=== PATIENT | male | born 1950 | race Caucasian/White ===

== ENCOUNTER → 2017-05-10 09:57 | Outpatient (CLI) | payer MEDICARE, SELFPAY ==
[2017-04-19 16:30] VITALS: BP 140/84; BMI 33.5
[2017-05-10 10:50] LABS: AST(SGOT) 17 U/L (15-37); Alanine Aminotransfer ALT/SGPT 29 U/L (16-61); Albumin, Serum 3.7 g/dL (3.2-5.0); Alkaline Phosphatase 82 U/L (45-117); Cholesterol 120 mg/dL (200); Globulin 3.5 g/dL (2.2-4.2); High Density Lipoprotein 44 mg/dL; Protein, Total 7.2 g/dL (6.4-8.2); Triglycerides 95 mg/dL; Very Low Density Lipoprotein 19 mg/dL (5-40)
== END ==
PROVIDERS: Visit Provider Internal Medicine Cardiovascular Disease
DX: E78.5 Hyperlipidemia, unspecified (principal); Z79.899 Other long term (current) drug therapy
CPT/HCPCS: 36415; 80061; 80076

== ENCOUNTER → 2017-06-10 11:46 | Outpatient (CLI) | payer MEDICARE, SELFPAY ==
[2017-06-10 13:08] LABS: PSA,Total- Diagnostic 7.74 ng/mL (0.0-4.0)
== END ==
PROVIDERS: Visit Provider Urology
DX: R97.20 Elevated prostate specific antigen [PSA] (principal)
CPT/HCPCS: 36415; 84153

== ENCOUNTER → 2017-09-09 17:45 | Outpatient (CLI) | payer MEDICARE, SELFPAY ==
--- NOTE | 2017-09-09 17:45 | DT_ITS ---
This patient was seen during an EMR downtime September 02, 2017 - September 09, 2017. This patient may have a combination of paper and electronic documentation or all paper documentation. All documentation is viewable within the e-chart portion of [facility] for each patient visit.
--- NOTE | 2017-09-09 17:47 | CT_ITS ---
STUDY: CT ABDOMEN AND PELVIS WITH CONTRAST REASON FOR EXAM: Male, 66 years old. Abdominal pain. RADIATION DOSAGE (If Supplied By Facility): CTDIvol = ( 18.20 ) mGy, DLP = ( 1172.72 ) mGycm TECHNIQUE: Transaxial images were obtained from the dome of the diaphragm to the symphysis pubis without oral contrast. 100 ml of Isovue 300 contrast was administered. Sagittal and coronal images were reconstructed. Individualized dose optimization techniques were used for this CT. COMPARISON: None. FINDINGS: The visualized lung bases are unremarkable. The visualized portions of the heart are within normal limits. There is decreased attenuation of the liver consistent with steatosis. Normal gallbladder and extrahepatic biliary system. Normal spleen. Normal pancreas. Normal bilateral adrenal glands. There are bilateral renal cysts present. Normal visualized stomach. Normal small intestine. There are scattered diverticula arising from the colon. The appendix is visualized and appears normal. Normal abdominal aorta. Normal inferior vena cava. Normal retroperitoneum. Normal urinary bladder. There is a umbilical hernia containing fat and a a small amount of fluid. There are diffuse degenerative changes of the visualized lumbar spine. CT/Abdomen/Pelvis WITH Contrast IMPRESSION: Umbilical hernia. Fatty infiltration of the liver. Bilateral renal cysts. Colonic diverticulosis. Electronically Signed: Clarisse De La Fuente MD at 20:50 EDT Tel , Service support ,
[2017-09-09 18:21] LABS: CREATININE FINGERSTICK 1.4 mg/dL (0.70-1.30)
== END ==
PROVIDERS: Visit Provider Surgery
DX: R10.9 Unspecified abdominal pain (principal)
CPT/HCPCS: 74177; Q9967

== ENCOUNTER 2017-11-18 14:30 | Outpatient (RCR) | payer MEDICARE, SELFPAY ==
--- NOTE | 2017-10-30 13:25 | HP.PTEVAL_ITS ---
Patient's Visit Information PIO HOANG is a 67 year old M referred to Physical Therapy by Judith Ruth D.C. with a diagnosis of R distal leg contusion/pain. Date of Evaluation: 10/15/17 Physical Therapist: Kvng Pereyra - Visit Plan Frequency: 1-2x /Week Duration: 4 Weeks Plan: Start with manual technqiues, anterior tib stretching, calf stretching, DN to ant. tib, G/S complex. - Subjective Subjective: Pt. is here today for his initial evaluation with diagnosis of R distal LE leg contusion/injury. Pt. reports ~6 years ago falling down a flight of steps jamming his heel on every step on the way down. Pt. attempted to self manage for ~1-2 years, but eventually went to see an orthopedic. Pt. was treated with stretching and strengthening, but did not have relief. He was then treated with lumbar spine injections, which also did not help. Pt. is hopeful now to trial manual PT and DN to reduce symptoms. Pt. reports having burning pain in upper 1/2 of tib/fib region. Pt. does have pain that moves around, but generally in that range. He has also been told that he needs to have bilateral TKA done due to mod/severe OA of bilateral knees. Pt. reports increased pain only during WBing positioing, no pain at rest. Pt. reports pain getting as severe as 10/10. He reports having typical pain aroung 5/10 on average. Pt. reports medication does not help. Pt. denies N/T in either LE. Pt. reports no weakness, no back pain and his leg does not give out on him. pt. is hopeful to reduce symptoms in order to get back to recreational activities and walking without limations. - Pain R proximal 1/3 of tib/fib Pain Intensity (Out of 10): 6 Pain Intensity Range: 3, 10 - Objective POSTURE: Pt. has increased genu varum in stance. Pt. has normal liliac crest heights, Pt. has increased external tibial rotation in stance. PALPATION: Pt. has tenderness along tibia, along anterior tibialis muscle belly and tendon, but also has pain just medially to tibia. NEUROLOGICAL: Intact throughout. No issues. ROM: Pt. has decreased knee ext RLE- 0-4-129deg. Pt. has normal hip ROM , tightness noted in calf and HS. MMT: PT. has 5/5 tesing throughout BLEs knees and ankles. GAIT: Pt. has antalgic pattern during R stance phase with lateral trunk lean. Pt. reprots increased pain during R stance phase. Pt. has increased genu varum with gait. No LOB noted. - Goals Goal 1:: Pt. to be I with HEP. Goal Time Frame: 4-6 Weeks Goal 2:: Pt. to ambulate with 0-2/10 pain in RLE for unlimited distances. Goal Time Frame: 4-6 Weeks Goal 3:: Pt. to have decreased pain with negotiation of steps allowing for increased tolerance with entering home. Goal Time Frame: 4-6 Weeks Goal 4:: Pt. to be educated in prophalxis techniques to keep symptoms reduced. Goal Time Frame: 4-6 Weeks - Rehabilitation Potential Physical Therapy Diagnosis: Pt. has signs and sympoms of left leg contusion. Pt. has no signs of fx, or weakness. Pt. is tender to touch throughout anterior tib and medial aspect of anterior calf. Pt. would benefit from manual techniques , stretching and DN to reduce symptoms. Rehabilitation Potential: Fair - Anticipated Interventions Patient/Client Instruction: Educate patient on: Condition, Plan of Care, Risk Factors, Benefits of Fitness Program For the Purpose of:: To foster healthy habits, To improve decision making, To facilitate caregiver knowledge, To improve self management, To prevent re-injury , To improve ability to perform tasks related to life management, To improve tolerance to ADL's Therapeutic Exercise to Include: Strength training, Power training, Postural training, Flexibilty training, Gait and locomotor training, Passive ROM, Active ROM For the Purpose of:: To decrease pain, To decrease swelling/inflammation, To increase ROM, To improve nutrient delivery to tissue, To increase oxygenation perfusion, To improve muscle performance and motor function, To improve gait and locomotor functions, To improve health of tissue, To decrease soft tissue restriction, To increase flexibility/ROM Manual Therapy Techniques to Include: Trigger point massage, Mobilization, Passive ROM, Functional dry needling, Soft tissue mobilization For the Purpose of:: To decrease pain, To decrease swelling/inflammation, To increase ROM, To improve nutrient delivery to tissue, To increase oxygenation perfusion, To improve muscle performance and motor function Thank you for the opportunity to evaluate your patient. For Medicare and Medicare HMO plans, please review the plan of care and approve it. It will need to be FAXED BACK to us at [phone] for Medicare purposes. Please let me know if there are questions or concerns regarding this plan of care. Physician Signature: Date:
--- NOTE | 2017-12-09 07:47 | HP.PTDCSUM ---
HP - PT D/C Summary It has been my pleasure to treat PIO HOANG under orders from Judith Ruth D.C., for the diagnosis of R distal leg contusion/pain for a total of 7 visit(s). Discharge Date: 11/18/17 Please see the following information for a summary of their discharge status. - Subjective Subjective: Pt. reports I feel like we have met our max. Pt. reports being 50% better overall. He is able play golf, but still gets a lot of pain with standing at times. - Pain R proximal 1/3 of tib/fib Pain Intensity (Out of 10): 3 - Overall Improvement % Improvement: 50 - Objective Objective/Function: Pt. tolerated all PT. Pt. has normal ROM of R knee, lacking slight knee ext. Pt. does have genu varus, excessive bilaterally. Pt. has had some progress with stretching and manual therapy. Pt. is to trial on own at this point in time. - Goals Goal 1:: Pt. to be I with HEP. Goal Progress: Goal Met Goal 2:: Pt. to ambulate with 0-2/10 pain in RLE for unlimited distances. Goal Progress: Progressing Goal 3:: Pt. to have decreased pain with negotiation of steps allowing for increased tolerance with entering home. Goal Progress: Goal Met Goal 4:: Pt. to be educated in prophalxis techniques to keep symptoms reduced. Goal Progress: Goal Met - Plan Plan: Pt. to be DC to HEP and follow up with ortho if needed, possible MRI to rule out other pathology. - D/C Information Discharge Comments: Pt. was treated with stretcing, eccentric strengthening, DN and manual techniques. Pt. reports ahving some relief becoming 50% better overall. He continues to have pain to touch, but not always consistent. He is independnet with his program is back to playing golf without much issues. He is to follow up with physician if symptoms worsen. If there are questions or concerns regarding this patient's physical therapy, please feel free to call me at [phone]. Thank you for the referral of this patient. Sincerely, Kvng Pereyra
== END 2017-11-18 19:00 | disposition home or self-care (01) ==
LOC: PT 14:30
PROVIDERS: Visit Provider Chiropractor
DX: M51.36 Other intervertebral disc degeneration, lumbar region (principal); S80.11XD Contusion of right lower leg, subsequent encounter; M17.0 Bilateral primary osteoarthritis of knee
CPT/HCPCS: 97110; 97140; 97162

== ENCOUNTER → 2017-12-23 10:24 | Outpatient (CLI) | payer MEDICARE, SELFPAY ==
[2017-12-23 12:01] LABS: AST(SGOT) 19 U/L (15-37); Alanine Aminotransfer ALT/SGPT 23 U/L (16-61); Albumin, Serum 3.8 g/dL (3.2-5.0); Alkaline Phosphatase 87 U/L (45-117); Bilirubin, Direct 0.18 mg/dL (0.00-0.30); Cholesterol 105 mg/dL (200); Globulin 3.6 g/dL (2.2-4.2); High Density Lipoprotein 43 mg/dL; Protein, Total 7.4 g/dL (6.4-8.2); Triglycerides 61 mg/dL; Very Low Density Lipoprotein 12 mg/dL (5-40)
[2017-12-24 11:01] LABS: PSA, Free 0.69 ng/mL; PSA, Free % 17.7 % (.); PSA, Total Ultrasensitive 3.9 ng/mL (0.0-4.0)
== END ==
PROVIDERS: Visit Provider Urology
DX: R97.20 Elevated prostate specific antigen [PSA] (principal); E78.00 Pure hypercholesterolemia, unspecified
CPT/HCPCS: 36415; 80061; 80076; 84153; 84154

== ENCOUNTER → 2018-02-17 14:10 | Outpatient (CLI) | payer MEDICARE, SELFPAY ==
--- NOTE | 2018-02-17 14:22 | CT_ITS ---
STUDY: CT ABDOMEN AND PELVIS WITH CONTRAST REASON FOR EXAM: Male, 67 years old. Bilateral groin pain and swelling with history of cardiac ablation RADIATION DOSAGE (If Supplied By Facility): CTDIvol = ( 22.72 ) mGy, DLP = ( 171.88 ) mGycm TECHNIQUE: Transaxial images were obtained from the dome of the diaphragm to the symphysis pubis with oral contrast. 100ml ml of Isovue 370 contrast was administered. Sagittal and coronal images were reconstructed. Individualized dose optimization techniques were used for this CT. COMPARISON: 09/09/2017 FINDINGS: The visualized lung bases are unremarkable. The visualized portions of the heart are within normal limits. There is decreased attenuation of the liver consistent with steatosis. Normal gallbladder and extrahepatic biliary system. Normal spleen. Fatty atrophy of the pancreatic tail. Normal bilateral adrenal glands. Multiple bilateral renal cysts, the largest measuring up to 3.5 cm on the right. Normal visualized stomach. Normal small intestine. There are multiple colonic diverticula consistent with diverticulosis. The appendix is visualized and appears normal. Normal abdominal aorta. Normal inferior vena cava. Normal retroperitoneum. Normal urinary bladder. Normal abdominal wall. There are diffuse degenerative changes of the visualized lumbar spine. CT/Abdomen/Pelvis WITH Contrast IMPRESSION: No focal lesions are identified in the inguinal/groin areas. No evidence of acute intestinal pathology or acute obstructive uropathy. Fatty liver and fatty atrophy of the pancreatic tail. Electronically Signed: Yousif Hurt MD at 10:59 EST Tel , Service support ,
[2018-02-17 14:36] LABS: CREATININE FINGERSTICK 0.8 mg/dL (0.70-1.30)
== END ==
PROVIDERS: Referring Provider Physician Assistant; Visit Provider Physician Assistant
DX: R10.32 Left lower quadrant pain (principal)
CPT/HCPCS: 74177; Q9967

== ENCOUNTER 2018-02-25 11:30 | Outpatient (RCR) | payer MEDICARE, SELFPAY ==
--- NOTE | 2018-02-11 08:09 | HP.PTEVAL ---
Patient's Visit Information PIO HOANG is a 67 year old M referred to Physical Therapy by Judith Ruth D.C. with a diagnosis of intervertebral disc pathology of lumbar region, thoracic region and cervic. Date of Evaluation: 01/27/18 Physical Therapist: Kvng Pereyra - Visit Plan Frequency: 1-2x /Week Duration: 4-6 Weeks Plan: Start with DN/manual technques to anterior RLE, add in graston, continue with core stability exercises and add in eccentric exercises of RLE. - Subjective Subjective: Pt. is here today for his initial evaluation with diagnosis of intervertebral disc pathology of lumbar region, thoracic region and cervical region. Pt. reports having R anterior calf pain. He has has these symptoms for a number of years after falling down his stairs. He did not sustain a leg fracture. His main complaint is of his R anterior leg. Pt. is known to this PT as he was seen previosuly for a similar issue. Pt. reprots having relief from PT previously, but did not fully abolish his symptoms. Pt. reports increased pain with walking, but most with statically standing. He denies N/T down his BLes. No changes in B/B. Pt. has decreased pain with sitting and unloaded positions. Pt. does have a history of low back pain, but reports his leg pain is unchanging with treatment of his back. Pt. is hopeful to reduce symptoms in order to get back to all recreational activities and walking without limitations. - Pain R LE Pain Intensity (Out of 10): 2 - Objective POSTURE: Pt. has normal posture in stance. Normal iliac crest heights, slight reduction in lumbar lordosis. Pt. has slight increase in DAWNA, R knee varus noted. PALPATION: Pt. reports minimal pain throughout lumbar spine. Pt. has increased tenderness along post tib muscle belly, along medial boarder of tibia, G/S complex and anterior tib of RLE. NEURO: all intact, normal DTR bilaterally. ROM: LUMBAR SPINE: flexion min loss NE, ext min loss NE, SB min loss NE, rotation min lss NE. No lumbar motions causes his R leg symptoms. Pt. has decreased R knee ROM 0-5-116deg. Normal ankle ROM, except tightness in calf. MMT: 5/5 throghout bilateral LEs. Core- fair-. GAIT: pt. ambulates without AD. He has increased R knee varus during loaded phases. STAIR: reciprocal pattern, mild increase in symptoms with descending. - Special Tests L/S Slump test left side: Negative L/S Slump test right side: Negative L/S Left Straight Leg Raise: Negative L/S Right Straight Leg Raise: Negative Lumbar Standing: Flexion - Mechanical Response: No effect Lumbar Standing: Flexion - Symptoms During Testing: No effect Lumbar Standing: Flexion - Symptoms After Testing: No effect Lumbar Standing: Extension - Mechanical Response: No effect Lumbar Standing: Extension - Symptoms During Testing: No effect Lumbar Standing: Extension - Symptoms After Testing: No effect Lumbar Standing: Right Side Glides - Mechanical Response: No effect Lumbar Standing: Right Side [place] - Symptoms During Testing: No effect Lumbar Standing: Right Side [place] - Symptoms After Testing: No effect Lumbar Standing: Left Side [place] - Mechanical Response: No effect Lumbar Standing: Left Side [place] - Symptoms During Testing: No effect Lumbar Standing: Left Side [place] - Symptoms After Testing: No effect Lumbar Lying: Flexion - Mechanical Response: No effect Lumbar Lying: Flexion - Symptoms During Testing: No effect Lumbar Lying: Flexion - Symptoms After Testing: No effect Lumbar Lying: Extension - Mechanical Response: No effect Lumbar Lying: Extension - Symptoms During Testing: No effect Lumbar Lying: Extension - Symptoms After Testing: No effect Lumbar Static: Slouched Sit - Mechanical Response: No effect Lumbar Static: Slouched Sit - Symptoms During Testing: No effect Lumbar Static: Slouched Sit - Symptoms After Testing: No effect Lumbar Static: Sitting Erect - Mechanical Response: No effect Lumbar Static: Sitting Erect - Symptoms During Testing: No effect Lumbar Static: Sitting Erect - Symptoms After Testing: No effect Lumbar Static:Lying Prone in Extension - Mechanical Response: No effect Lumbar Static: Lying Prone in Extension - Sx During Testing: No effect Lumbar Static: Lying Prone in Extension - Sx After Testing: No effect - Goals Goal 1:: Pt. to be I with HEP. Goal Time Frame: 4-6 Weeks Goal 2:: Pt. to ambulate unlimited distances with 0-2/10 pain in RLE. Goal Time Frame: 4-6 Weeks Goal 3:: Pt. to tolerated statically standing ie in grocery store, lines and in community without incerase in symptoms. Goal Time Frame: 4-6 Weeks Goal 4:: Pt. to complete all recreational activities without increase in symptoms. Goal Time Frame: 4-6 Weeks - Rehabilitation Potential Physical Therapy Diagnosis: Pt. has symptoms of intervertebral disc pathology of lumbar region, thoracic region and cervical region, but his pain complaint is of R anterior calf pain. I was unable to effect his leg pain with any testing of his lumbar spine. He is point tender to palpation of his anterior RLE, most notably at anterior and posterior tib. Pt. would benefit from PT with DN, manual techniques and eccentric loading of this tissue to assist with reducing restriction of tissue allowing for normal tolerance to all activities. Rehabilitation Potential: Good - Anticipated Interventions Patient/Client Instruction: Educate patient on: Condition, Plan of Care, Risk Factors, Benefits of Fitness Program For the Purpose of:: To foster healthy habits, To improve decision making, To facilitate caregiver knowledge, To improve self management, To prevent re-injury, To improve ability to perform tasks related to life management, To improve tolerance to ADL's Therapeutic Exercise to Include: Strength training, Power training, Endurance training, Body mechanics, Postural training, Flexibilty training, Passive ROM, Dynamic Lumbar Stabilization For the Purpose of:: To decrease pain, To decrease swelling/inflammation, To increase ROM, To improve nutrient delivery to tissue, To increase oxygenation perfusion, To improve muscle performance and motor function, To improve gait and locomotor functions, To improve health of tissue, To decrease soft tissue restriction, To increase flexibility/ROM Manual Therapy Techniques to Include: Mobilization, Functional dry needling, Soft tissue mobilization For the Purpose of:: To decrease pain, To decrease swelling/inflammation, To increase ROM, To improve nutrient delivery to tissue IF ES: Yes Cryotherapy (ice pack, ice massage): Yes Ultrasound (thermal/non thermal): Yes For the Purpose of:: To decrease pain, To decrease swelling/inflammation, To increase ROM, To improve nutrient delivery to tissue Thank you for the opportunity to evaluate your patient. For Medicare and Medicare HMO plans, please review the plan of care and approve it. It will need to be FAXED BACK to us at [phone] for Medicare purposes. Please let me know if there are questions or concerns regarding this plan of care. Physician Signature: Date:
--- NOTE | 2018-07-04 11:31 | HP.PTDCNRP_ITS ---
HP - Discharge Summary (1) - Patient Information PIO HOANG was seen in my office for initial evaluation on 01/27/18. The following Plan of Care was established for this patient: Initial Frequency: 1-2x /Week Initial Duration: 4-6 Weeks - Anticipated Interventions Patient/Client Instruction: Educate patient on: Condition, Plan of Care, Risk Factors, Benefits of Fitness Program For the Purpose of:: To foster healthy habits, To improve decision making, To facilitate caregiver knowledge, To improve self management, To prevent re- injury, To improve ability to perform tasks related to life management, To impr ove tolerance to ADL's Therapeutic Exercise to Include: Strength training, Power training, Endurance training, Body mechanics, Postural training, Flexibilty training, Passive ROM, Dynamic Lumbar Stabilization For the Purpose of:: To decrease pain, To decrease swelling/inflammation, To increase ROM, To improve nutrient delivery to tissue, To increase oxygenation perfusion, To improve muscle performance and motor function, To improve gait and locomotor functions, To improve health of tissue, To decrease soft tissue restriction, To increase flexibility/ROM Manual Therapy Techniques to Include: Mobilization, Functional dry needling, Soft tissue mobilization For the Purpose of:: To decrease pain, To decrease swelling/inflammation, To increase ROM, To improve nutrient delivery to tissue IF ES: Yes Cryotherapy (ice pack, ice massage): Yes Ultrasound (thermal/non thermal): Yes For the Purpose of:: To decrease pain, To decrease swelling/inflammation, To increase ROM, To improve nutrient delivery to tissue This patient was last seen in our office 04/27/17. Pertinent comments regarding their Physical therapy will appear below: Pt. was treated for his back and leg pain. Pt. was treated with manaul techniques, DN and stretching. Pt. made some gains, but was still having some symptoms. Pt. was to follow up with PT if needed, but has not been seen in several months and will be DC from PT at this point in time. At this point I will be discontinuing this patient from physical therapy. I would be happy to see this patient again in the future if found appropriate by the physician. Thank you! Kvng Pereyra, IRENET
== END 2018-02-25 19:00 | disposition home or self-care (01) ==
LOC: PT 11:30
PROVIDERS: Referring Provider Chiropractor; Visit Provider Chiropractor
DX: M51.36 Other intervertebral disc degeneration, lumbar region (principal); M99.03 Segmental and somatic dysfunction of lumbar region; M99.02 Segmental and somatic dysfunction of thoracic region; M99.01 Segmental and somatic dysfunction of cervical region
CPT/HCPCS: 97140; 97162

== ENCOUNTER 2018-04-16 09:02 | Day surgery (SDC) | payer MEDICARE, SELFPAY ==
[2018-03-20 10:29] VITALS: BMI 33.1
[2018-04-07 14:04] VITALS: BMI 33.1
--- NOTE | 2018-04-09 11:32 | EKG12_ITS ---
Test Reason : PRE-OP Blood Pressure : / mmHG Vent. Rate : 070 BPM Atrial Rate : 070 BPM P-R Int : 172 ms QRS Dur : 080 ms QT Int : 366 ms P-R-T Axes : 051 016 024 degrees QTc Int : 395 ms Sinus rhythm with marked sinus arrhythmia Otherwise normal ECG Confirmed by QUINTEN IWTT, ANTONIETA ([id number]), assignment desk editor GERMÁN ROBERTO ([id number]) on 04/14/2018 9:58:16 AM Referred By: Jhoan Hoover Confirmed By:ANTONIETA SHIPLEY MD
[2018-04-09 11:50] LABS: Hematocrit 42.8 % (40-54); Hemoglobin 14.3 g/dl (13.0-16.5); Mean Corp Hgb Conc 33.4 g/gl (32-36); Mean Corpuscular Volume 92.6 fL (80-94); Mean Platelet Vol. 10.3 fl (6.2-12.0); Platelet Count 136 K/mm3 (150-450); RBC Distribution Width CV 12.8 % (11.6-14.6); Red Blood Count 4.62 M/mm3 (4.6-6.2); White Blood Count 5.2 K/mm3 (4.4-11.0)
[2018-04-09 11:53] LABS: Scan Indicated on CBC? Y/N NO
[2018-04-09 12:30] LABS: Anion Gap 7 (5-15); BUN 24 mg/dL (7-18); BUN/Creat Ratio 19.2 RATIO (10-20); Calcium,Total 8.8 mg/dL (8.5-10.1); Chloride 110 mmol/L (98-107); Creatinine, Serum 1.25 mg/dL (0.70-1.30); EST Glomerular Filtration Rate 61 mL/min (>60); Est Glom Filt Rate - Afr Amer 74 mL/min (>60); Glucose 100 mg/dL (74-106); Potassium 4.4 mmol/L (3.5-5.1); Sodium Level 141 mmol/L (136-145)
[2018-04-16] VITALS (7 sets, daily range): BP systolic 120–148; BP diastolic 59–80; PULSE 53–59; RESP 12–18; TEMP 36.3–37.2; O2SAT 93–97; BMI 33.7
--- NOTE | 2018-04-16 | HERN_PTH ---
PATIENT: PIO HOANG [place] [facility] [place][id number] AGE/SX: 67/M ROOM: RE04/16/[address]: Dr. Jhoan Hoover MD : [id number] BED: DIS: 04/16/2018 SPEC #: [id number] RECD: 04/16/18 14:40 STATUS: RICKY REQ #: [id number] ARUNA: 04/16/18 00:[address]: Jhoan Hoover DEPT: SURGICAL PATHOLOGY RECD BY: Dontrell Wise ENTERED: 04/16/18 14:41 SP TYPE: Hernia OTHR DR: Steven Retana Tissues: HERNIA Procedures: Surgery Specimen Level II HEADER OPERATION: Umbilical hernia repair with mesh PRE-OP DIAGNOSIS: Umbilical hernia without obstruction and without gangrene TISSUE SUBMITTED: Hernia sac and contents MICROSCOPIC DIAGNOSIS Hernia sac and contents: Mesothelial lined fibroadipose and fibroconnective tissue consistent with hernia sac. SJ:arias 04/17/18 MICROSCOPIC DESCRIPTION Slides are reviewed. GROSS DESCRIPTION Received in fixative is one container labeled with the patient's name and designated hernia sac and contents. The specimen consists of a piece of yellow adipose tissue measuring 3.5 x 3 x 2 cm. Sections do not reveal any mass lesion. Garage Door Technician sections are submitted in one cassette. / MESHA:arias 04/16/18 TC:5 [facility]: [id number]
[2018-04-16] MEDS: Cefazolin 2 GM in 0.9% Normal Saline 100 ML IV (10:47)
[2018-04-16] MEDS: Bupivacaine Mpf 0.5% 30 ML VIAL (11:29)
--- NOTE | 2018-04-16 11:34 | DCINST_ITS ---
Discharge Diet: Light diet - advance as tolerated - if you have questions about your diet instructions, please talk to you doctor. Discharge Activity: May Not Drive - for 3-5 days or while taking narcotic pain medicine. May shower in (days): 1 Lifting Restrictions: 10 pounds Call your doctor if your incision/area has: Continuous Slow Oozing, Sudden Increased Bleeding, Increased Pain/ Swelling, Increased Redness, Foul Smelling Discharge Call your doctor if you observe: Fever of 101 or Higher Suture Line Care: Avoid Pulling/Pushing, Avoid Pinching/Bending Additional Dressing/Incision Instructions:: Change or remove dressing in 4 days. Leave steri-strips in place for 1 week. Allergies/Adverse Reactions: Allergies grass pollen Allergy (Verified 04/08/18 14:21) Unknown dabigatran etexilate [From Pradaxa] Adverse Reaction (Unknown, Verified 04/08/18 14:21) Unknown pet dander Allergy (Uncoded 04/08/18 14:21) Unknown Medications to take at Discharge Aspirin E.C. [Ecotrin] 81 mg PO DAILY@0800 05/18/13 Fluticasone 0.05% [Flonase Nasal [place]] 1 spray NASAL BID 05/18/13 Magnesium Oxide [Mag-Ox 400] 400 mg PO BID 05/18/13 Multivitamins,Therapeutic [Multivitamin] 1 tab PO DAILY 05/18/13 Ubidecarenone [Coq10] 100 mg PO DAILY 05/18/13 echinacea 400 mg capsule 400 mg PO DAILY 03/22/17 lactobacillus combination no.8 3 billion cell capsule 1 cap PO QDAY 03/22/17 loratadine 10 mg tablet 10 mg PO QDAY PRN 03/22/17 nitroglycerin 0.3 mg sublingual tablet 0.3 mg SUBLINGUAL Q5M PRN 04/19/17 alprazolam 0.5 mg tablet 0.25 mg PO BID tab 06/10/17 lansoprazole 30 mg capsule,delayed release 30 mg PO QDAY cap 06/10/17 alfuzosin ER 10 mg tablet,extended release 24 hr 10 mg PO QDAY 07/22/17 saw palmetto 500 mg capsule 500 mg PO QDAY cap 08/29/17 Metoprolol(XL)Succ [Toprol Xl (Beta Driss)] 25 mg PO BID 04/08/18 Simvastatin [Zocor] 40 mg PO QHS 04/08/18 Hydrocortisone/Aloe Vera [Cortizone-10 1% Creme] 56 gm TP DAILY 04/11/18 Ketoconazole [Nizoral] 1 applic TOPICAL DAILY 04/11/18 Primary Care Physician: Steven Retana [Primary Care Provider] - Test Results: Test results from this visit will be discussed in further detail at your follow- up appointment, if applicable. Please Follow Up With: Jhoan Hoover MD - [phone] When: Call to make an appointment to be seen in about 10 days.
--- NOTE | 2018-04-16 11:35 | PCM.OPRPT ---
Problem List (1) Umbilical hernia without obstruction and without gangrene Status: Acute Report of Operation Date of Procedure: 04/16/18 Pre-Operative Diagnosis: Umbilical hernia Post-Operative Diagnosis: Umbilical hernia without obstruction or gangrene Surgery/Procedure Performed:: Umbilical herniorrhaphy with 6.4 cm ventral Jose mesh. Reference #[id number]. Lot number [employer]RATOR [id number]. Expiry date 10/27/2019 Description of Surgical Findings:: Timeout and informed consent was obtained. 67-year-old gentleman was taken to the operating placement table underwent general anesthesia. Ancef 2 g given intravenous preoperatively. The abdomen was sterilely prepped and draped. A curvilinear incision was made in the inferior portion of the umbilicus. Sharp dissection carried down through the subtenons tissue. The hernia sac and contents were identified they were dissected free circumferentially and then excised using electrocautery. Small bowel was present beneath however I was able to identify the greater omentum and carefully lying in place at overlying the small bowel. I then placed a 6.4 cm diameter ventral X mesh. I secured the tails in place with interrupted 0 Nurolon. The fascia was then approximated midline with the same. A suture was used to secure the central portion of the mesh as well. Good approximation was achieved. The skin and subcutaneous tissues and fascia were anesthetized with 0.5% Marcaine. A total of 20 cc was used. Steri-Strips Telfa cottonball OpSite dressings applied. Sponge and instrument and needle count were reported the surgeon be correct. Blood loss was minimal. He tolerated the procedure well was taken to the recovery area in satisfactory condition without apparent complication. Specimens hernia sac and contents. Drains none. Blood loss minimal. Jhoan Hoover M.D., F.A.C.S. Type of Anesthesia:: General, Local Anesthesiologist: Mayur Frankel
--- NOTE | 2018-04-16 11:39 | OP.PCM_ITS ---
Problem List (1) Umbilical hernia without obstruction and without gangrene Status: Acute Report of Operation Date of Procedure: 04/16/18 Pre-Operative Diagnosis: Umbilical hernia Post-Operative Diagnosis: Umbilical hernia without obstruction or gangrene Surgery/Procedure Performed:: Umbilical herniorrhaphy with 6.4 cm ventral Jose mesh. Reference #[id number]. Lot number [employer] [id number]. Expiry date 10/27/2019 Description of Surgical Findings:: Timeout and informed consent was obtained. 67-year-old gentleman was taken to the operating placement table underwent general anesthesia. Ancef 2 g given intravenous preoperatively. The abdomen was sterilely prepped and draped. A curvilinear incision was made in the inferior portion of the umbilicus. Sharp dissection carried down through the subtenons tissue. The hernia sac and contents were identified they were dissected free circumferentially and then excised using electrocautery. Small bowel was present beneath however I was able to identify the greater omentum and carefully lying in place at overlying the small bowel. I then placed a 6.4 cm diameter ventral X mesh. I secured the tails in place with interrupted 0 Nurolon. The fascia was then approximated midline with the same. A suture was used to secure the central portion of the mesh as well. Good approximation was achieved. The skin and subcutaneous tissues and fascia were anesthetized with 0.5% Marcaine. A total of 20 cc was used. Steri-Strips Telfa cottonball OpSite dressings applied. Sponge and instrument and needle count were reported the surgeon be correct. Blood loss was minimal. He tolerated the procedure well was taken to the recovery area in satisfactory condition without apparent complication. Specimens hernia sac and contents. Drains none. Blood loss minimal. Jhoan Hoover M.D., F.A.C.S. Type of Anesthesia:: General, Local Anesthesiologist: Mayur Frankel
[2018-04-16] MEDS: HYDROcodone Bitartrate/Apap 5/325 Tablet PO (13:01)
--- OUTSIDE RECORDS SUMMARY | 2018-06-21 00:42 | XMS RPT_ITS ---
:1950 Author Organization OHIP Support Name Relationship Address Phone BARBARA VERA Unavailable . + [place] [address] R Unavailable Unavailable Unavailable ANETTE HOANGANNE Unavailable [address] + [place] [address] VERA JIMENEZ Unavailable Unavailable + [place] [address] R Unavailable Unavailable Unavailable ANETTE HOANGANNE Unavailable [address] + [place] [address] VERA JIMENEZ Unavailable . + [place] [address] R Unavailable Unavailable Unavailable ANETTE HOANGANNE Unavailable [address] + [place] [address] VERA JIMENEZ Unavailable . + [place] [address] R Unavailable Unavailable Unavailable ANETTE HOANGANNE Unavailable [address] + [place] [address] VERA JIMENEZ Unavailable Unavailable + [place] [address] R Unavailable Unavailable Unavailable ANETTE HOANGANNE Unavailable [address] + [place] [address] VERA JIMENEZ Unavailable Unavailable + [place] [address] R Unavailable Unavailable Unavailable ANETTE HOANGANNE Unavailable [address] + [place] [address] VERA JIMENEZ Unavailable . + [place] [address] R Unavailable Unavailable Unavailable ANETTE HAONGANNE Unavailable [address] + [place] [address] VERA JIMENEZ Unavailable . + [place] [address] R Unavailable Unavailable Unavailable SOUERS, ERNESTINA Unavailable [address] + [place] [address] BARBARAPIPPAVERA Unavailable . + [place] [address] R Unavailable Unavailable Unavailable SOUERS, ERNESTINA Unavailable [address] + [place] [address] BARBARAPIPPAVERA Unavailable . + [place] [address] R Unavailable Unavailable Unavailable SOUERS, ERNESTINA Unavailable [address] + [place] [address] BARBARAPIPPAVERA Unavailable Unavailable + [place] [address] R Unavailable Unavailable Unavailable SOUERS, ERNESTINA Unavailable [address] + [place] [address] BARBARAPIPPAVERA Unavailable . + [place] [address] R Unavailable Unavailable Unavailable SOUERS, ERNESTINA Unavailable [address] + [place] [address] BARBARAPIPPAVERA Unavailable . + [place] [address] R Unavailable Unavailable Unavailable SOUERS, ERNESTINA Unavailable [address] + [place] [address] R Unavailable Unavailable Unavailable SOUERS, ERNESTINA Unavailable [address] + [place] [address] SOUERS, VERA Unavailable . + [place] [address] R Unavailable Unavailable Unavailable SOUERS, ERNESTINA Unavailable [address] + [place] [address] SOUERS, VERA Unavailable Unavailable + [place] [address] R Unavailable Unavailable Unavailable SOUERS, ERNESTINA Unavailable [address] + [place] [address] SOUERS, VERA Unavailable . + [place] [address] R Unavailable Unavailable Unavailable SOUERS, ERNESTINA Unavailable [address] + [place] [address] SOUERS, VERA Unavailable . + [facility] [place] [place] [address] R Unavailable Unavailable Unavailable SOUERS, ERNESTINA Unavailable [address] + [place] [address] SOUERS, VERA Unavailable . + [facility] [place] [place] [address] R Unavailable Unavailable Unavailable SOUERS, ERNESTINA Unavailable [address] + [place] [address] SOUERS, VERA Unavailable . + [facility] [place] [address] R Unavailable Unavailable Unavailable SOUERS, ERNESTINA Unavailable [address] + [place] [address] SOUERS, VERA Unavailable . + [facility] [place] [place] [address] R Unavailable Unavailable Unavailable SOUERS, ERNESTINA Unavailable [address] + [place] [address] SOUERS, VERA Unavailable . + [facility] [place] [place] [address] R Unavailable Unavailable Unavailable SOUERS, ERNESTINA Unavailable [address] + [place] [address] SOUERS, VERA Unavailable . + [facility] [place] [address] Care Team Providers Name Role Phone NATALIIA BUTTS Referring Unavailable Moira Nguyen PA-C Attending Unavailable Mazin, Steven Referring Unavailable CebulJhoan Attending Unavailable CebuJhoan carney Referring Unavailable Mazin, Steven Primary Care Unavailable Judith Gonsalves D.C. Attending Unavailable Mazin, Steven Referring Unavailable Moira Nguyen PA-C Attending Unavailable Mazin, Steven Referring Unavailable Jamarcus Anderson Attending Unavailable Jamarcus Anderson Referring Unavailable Mazin, Steven Primary Care Unavailable Tom Hinds Attending Unavailable Mazin, Steven Referring Unavailable Mazin, Steven Primary Care Unavailable Han Urban Attending Unavailable Mazin, Steven Primary Care Unavailable Han Urban Referring Unavailable Raeann Bob Attending Unavailable Jamarcus Anderson Attending Unavailable Mazin, Steven Referring Unavailable Mazin, Steven Primary Care Unavailable Dossie, Judith Valenzuela Attending Unavailable Mazin, Steven Referring Unavailable Mazin, Steven Primary Care Unavailable Cebul, Jhoan Attending Unavailable Mazin, Steven Referring Unavailable Cebul, Jhoan Attending Unavailable Cebul, Jhoan Referring Unavailable Mazin, Steven Primary Care Unavailable Dossie, Judith Valenzuela Attending Unavailable Mazin, Steven Referring Unavailable Mazin, Steven Primary Care Unavailable Dossie, Judith Valenzuela Attending Unavailable Mazin, Steven Primary Care Unavailable Dossie, Judith Valenzuela Attending Unavailable Mazin, Steven Referring Unavailable Mazin, Steven Primary Care Unavailable MarkHan Attending Unavailable MarkHanAlec Referring Unavailable Mazin, Steven Primary Care Unavailable KinzaispaJamarcus melchor Consulting Unavailable Dossie, Judith Valenzuela Attending Unavailable Mazin, Steven Referring Unavailable Dossie, Judith Valenzuela Attending Unavailable Mazin, Steven Referring Unavailable Stephane Jane Attending Unavailable Mazin, Steven Referring Unavailable Dossie, Judith Valenzuela Attending Unavailable Dossie, Judith Valenzuela Referring Unavailable Mazin, Steven Primary Care Unavailable Nguyen PA-C, Moira Attending Unavailable Mazin, Steven Referring Unavailable Nguyen PA-C, Moira Attending Unavailable Nguyen PA-C, Moira Referring Unavailable Mazin, Steven Primary Care Unavailable PROBLEMS PROBLEMS DATE TYPE CONDITION / CODE ATTENDING STATUS SOURCE 04/16/2018 Unknown G89.18 - Other acute CebulJhoan Active [facility] postprocedural pain Community / G89.18(ICD-10) Hospital Repository 04/08/2018 Unknown 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 dysfunction of Hospital lumbar region / Repository M99.03(ICD-10) 04/08/2018 Unknown M99.02 - Segmental Dossie, Judith Active [facility] [facility] dysfunction of Hospital thoracic region / Repository M99.02(ICD-10) 04/08/2018 Unknown M99.01 - Segmental Dossie, Judith Active [facility] dysfunction of Hospital cervical region / Repository M99.01(ICD-10) 02/12/2018 Unknown R10.32 - Left lower Patrick ENCISO, Active [facility] quadrant pain / [facility] R10.32(ICD-10) Hospital Repository 12/23/2017 Unknown E78.00 - Pure MarkHan Active [place] hypercholesterolemia [facility] , unspecified / Hospital E78.00(ICD-10) Repository 12/23/2017 Unknown R97.20 - Elevated MarkHan Active [facility] prostate specific [facility] antigen [PSA] / Hospital R97.20(ICD-10) Repository 11/27/2017 Active Dorsalgia, NA Active [facility] unspecified / Clinic Other M54.9(ICD-10) [place] Repository 09/25/2017 Unknown R10.9 - Unspecified CebulJhoan Active [facility] abdominal pain / Community R10.9(ICD-10) Hospital Repository 05/10/2017 Unknown Z79.899 - Other long Jamarcus Anderson Active [facility] term (current) drug Community therapy / Hospital Z79.899(ICD-10) Repository 05/10/2017 Unknown E78.5 - Jamarcus Anderson Active [facility] Hyperlipidemia, Community unspecified / Hospital E78.5(ICD-10) Repository PROCEDURES PROCEDURES No Procedure Records FoundRESULTS RESULTS SURGERY VISIT REPORT Observed: 04/24/2018 Status: F Source: [place] 1:18 PM [facility] HOSPITAL REPOSITORY [facility] [address] [place] [address] [address] [place] [address] OFFICE VISIT Date of Service: 04/24/18 MR#: [id number] Acct: [id number] Name: PIO HOANG Rep #: [id number] : 1950 Provider: Moira Nguyen PA-C Age/Sex: 67/M Location: [facility] Status: Signed Intake Intake Visit Reasons: Umbilical Hernia Repair 04/16 Chief Complaint: post umbilical hernia Sand Cutter Required: No Is patient in pain?: No Allergies grass pollen Allergy (Verified 04/08/18 14:21) Unknown dabigatran etexilate [From Pradaxa] Adverse Reaction (Unknown, Verified 04/08/18 14:21) Unknown pet dander Allergy (Uncoded 04/08/18 14:21) Unknown Medications Aspirin E.C. [Ecotrin] 81 mg PO DAILY@0800 05/18/13 [History Confirmed 04/08/18] Fluticasone 0.05% [Flonase Nasal Jefferson] 1 spray NASAL BID 05/18/13 [History Confirmed 04/08/18] Magnesium Oxide [Mag-Ox 400] 400 mg PO BID 05/18/13 [History Confirmed 04/08/18] Multivitamins,Therapeutic [Multivitamin] 1 tab PO DAILY 05/18/13 [History Confirmed 04/08/18] Ubidecarenone [Coq10] 100 mg PO DAILY 05/18/13 [History Confirmed 04/08/18] echinacea 400 mg capsule 400 mg PO DAILY 03/22/17 [History Confirmed 04/08/18] lactobacillus combination no.8 3 billion cell capsule 1 cap PO QDAY 03/22/17 [History Confirmed 04/08/18] loratadine 10 mg tablet 10 mg PO QDAY PRN 03/22/17 [History Confirmed 04/08/18] nitroglycerin 0.3 mg sublingual tablet 0.3 mg SUBLINGUAL Q5M PRN 04/19/17 [History Confirmed 04/08/18] alprazolam 0.5 mg tablet 0.25 mg PO BID tab 06/10/17 [History Confirmed 04/16/18] lansoprazole 30 mg capsule,delayed release 30 mg PO QDAY cap 06/10/17 [History Confirmed 04/16/18] alfuzosin ER 10 mg tablet,extended release 24 hr 10 mg PO QDAY 07/22/17 [History Confirmed 04/08/18] saw palmetto 500 mg capsule 500 mg PO QDAY cap 08/29/17 [History Confirmed 04/08/18] Metoprolol(XL)Succ [Toprol Xl (Beta Driss)] 25 mg PO BID 04/08/18 [History Confirmed 04/16/18] Simvastatin [Zocor] 40 mg PO QHS 04/08/18 [History Confirmed 04/08/18] Hydrocortisone/Aloe Vera [Cortizone-10 1% Creme] 56 gm TP DAILY 04/11/18 [History Confirmed 04/11/18] Ketoconazole [Nizoral Cream] 1 applic TOPICAL DAILY 04/11/18 [History Confirmed 04/11/18] Subjective Details: Patient is a 67 y/o male I am following for umbilical hernia. Dr. Hoover performed an umbilical hernia repair with mesh on 04/16/2018. Patient tolerated the procedure well. Patient notes minimal amount of discomfort with movement. He denies nausea, vomiting. Objective Details: Abdomen- soft, obese, nontender. Incision c/d/i. No erythema or infection noted. Assessment AND Plan Problems 1. Umbilical hernia without obstruction and without gangrene K42.9 Plan - Recommend no lifting greater than 20 pounds for 7 weeks - Follow-up as needed Plan Detail Goals Decrease pain and spasm Barriers DDD Coding Level of Care Code Global Post Op Diagnoses Umbilical hernia without obstruction and without gangrene K42.9 04/24/18 1318 <Electronically signed by Moira Nguyen PA-C> Date Moira Nguyen PA-C Cosigner Signature: Date (if applicable) CC: Steven Lora DISCHARGE INSTRUCTION Observed: 04/17/2018 Status: F Source: [place] 6:05 AM [facility] REPOSITORY [facility] Medical Records Department [address] [place] [address] Instructions for Home/Discharge Instructions 04/16/18 1133 MR#: [id number] Acct: [id number] Name: PIO HOANG Dwayne Rep #: [id number] : 1950 67 From: Jhoan Hoover MD PCP: Steven Lora Status: DEP [facility] Discharge Diet: Light diet - advance as tolerated - if you have questions about your diet instructions, please talk to you doctor. Discharge Activity: May Not Drive - for 3-5 days or while taking narcotic pain medicine. May shower in (days): 1 Lifting Restrictions: 10 pounds Call your doctor if your incision/area has: Continuous Slow Oozing, Sudden Increased Bleeding, Increased Pain/ Swelling, Increased Redness, Foul Smelling Discharge Call your doctor if you observe: Fever of 101 or Higher Suture Line Care: Avoid Pulling/Pushing, Avoid Pinching/Bending Additional Dressing/Incision Instructions:: Change or remove dressing in 4 days. Leave steri-strips in place for 1 week. Allergies/Adverse Reactions: Allergies grass pollen Allergy (Verified 04/08/18 14:21) Unknown dabigatran etexilate [From Pradaxa] Adverse Reaction (Unknown, Verified 04/08/18 14:21) Unknown pet dander Allergy (Uncoded 04/08/18 14:21) Unknown Medications to take at Discharge Aspirin E.C. [Ecotrin] 81 mg PO DAILY@0800 05/18/13 Fluticasone 0.05% [Flonase Nasal Jefferson] 1 spray NASAL BID 05/18/13 Magnesium Oxide [Mag-Ox 400] 400 mg PO BID 05/18/13 Multivitamins,Therapeutic [Multivitamin] 1 tab PO DAILY 05/18/13 Ubidecarenone [Coq10] 100 mg PO DAILY 05/18/13 echinacea 400 mg capsule 400 mg PO DAILY 03/22/17 lactobacillus combination no.8 3 billion cell capsule 1 cap PO QDAY 03/22/17 loratadine 10 mg tablet 10 mg PO QDAY PRN 03/22/17 nitroglycerin 0.3 mg sublingual tablet 0.3 mg SUBLINGUAL Q5M PRN 04/19/17 alprazolam 0.5 mg tablet 0.25 mg PO BID tab 06/10/17 lansoprazole 30 mg capsule,delayed release 30 mg PO QDAY cap 06/10/17 alfuzosin ER 10 mg tablet,extended release 24 hr 10 mg PO QDAY 07/22/17 saw palmetto 500 mg capsule 500 mg PO QDAY cap 08/29/17 Metoprolol(XL)Succ [Toprol Xl (Beta Driss)] 25 mg PO BID 04/08/18 Simvastatin [Zocor] 40 mg PO QHS 04/08/18 Hydrocortisone/Aloe Vera [Cortizone-10 1% Creme] 56 gm TP DAILY 04/11/18 Ketoconazole [Nizoral] 1 applic TOPICAL DAILY 04/11/18 Primary Care Physician: Steven Lora [Primary Care Provider] - Test Results: Test results from this visit will be discussed in further detail at your follow-up appointment, if applicable. Please Follow Up With: Jhoan Hoover MD - [phone] When: Call to make an appointment to be seen in about 10 days. 04/17/18 0605 <Electronically signed by Jhoan Hoover MD> Date Jhoan Hoover MD CC: Steven Lora Signed OPERATIVE REPORT Observed: 04/17/2018 Status: F Source: [place] 6:05 AM [facility] REPOSITORY [facility] Medical Records Department [address] [place] [address] Operative Report 04/16/18 1135 MR#: [id number] Acct: [id number] Name: PIO HOANG Dwayne Rep #: [id number] : 1950 67 From: Jhoan Hoover MD PCP: Steven Lora Status: DEP [facility] Y Location: [facility] Problem List (1) Umbilical hernia without obstruction and without gangrene Status: Acute Report of Operation Date of Procedure: 04/16/18 Pre-Operative Diagnosis: Umbilical hernia Post-Operative Diagnosis: Umbilical hernia without obstruction or gangrene Surgery/Procedure Performed:: Umbilical herniorrhaphy with 6.4 cm ventral Jose mesh. Reference #[id number]. 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 Expiry date 10/27/2019 Description of Surgical Findings:: Timeout and informed consent was obtained. 67-year-old gentleman was taken to the operating placement table underwent general anesthesia. Ancef 2 g given intravenous preoperatively. The abdomen was sterilely prepped and draped. A curvilinear incision was made in the inferior portion of the umbilicus. Sharp dissection carried down through the subtenons tissue. The hernia sac and contents were identified they were dissected free circumferentially and then excised using electrocautery. Small bowel was present beneath however I was able to identify the greater omentum and carefully lying in place at overlying the small bowel. I then placed a 6.4 cm diameter ventral X mesh. I secured the tails in place with interrupted 0 Nurolon. The fascia was then approximated midline with the same. A suture was used to secure the central portion of the mesh as well. Good approximation was achieved. The skin and subcutaneous tissues and fascia were anesthetized with 0.5% Marcaine. A total of 20 cc was used. Steri-Strips Telfa cottonball OpSite dressings applied. Sponge and instrument and needle count were reported the surgeon be correct. Blood loss was minimal. He tolerated the procedure well was taken to the recovery area in satisfactory condition without apparent complication. Specimens hernia sac and contents. Drains none. Blood loss minimal. Jhoan Hoover M.D., F.A.C.S. Type of Anesthesia:: General, Local Anesthesiologist: Mayur Frankel 04/17/18 0605 <Electronically signed by Jhoan Hoover MD> Date Jhoan Hoover MD CC: Steven Lora; Jhoan Hoover MD Signed HERNIA Observed: 04/16/2018 Status: F Source: [place] 12:00 AM [facility] REPOSITORY Patient: PIO HOANG : 1950 (67/M) Acct Num: [id number] Phys: Sneha WITT,Jhoan Unit Num: [id number] Loc: [facility] Specimen: [id number] Received: 04/16/180 Spec Type: Hernia TISSUES 1 TISSUES: HERNIA GROSS DESCRIPTION Received in fixative is one container labeled with the patient's name and designated hernia sac and contents. The specimen consists of a piece of yellow adipose tissue measuring 3.5 x 3 x 2 cm. Sections do not reveal any mass lesion. Production Support Specialist sections are submitted in one cassette. / Hussein TC:5 CPT: 54313 HEADER OPERATION: Umbilical hernia repair with mesh PRE-OP DIAGNOSIS: Umbilical hernia without obstruction and without gangrene TISSUE SUBMITTED: Hernia sac and contents MICROSCOPIC DESCRIPTION Slides are reviewed. MICROSCOPIC DIAGNOSIS Hernia sac and contents: Mesothelial lined fibroadipose and fibroconnective tissue consistent with hernia sac. Hussein 04/17/18 Signed Charly Craven MD 04/17/18 <signature on file> Performed By: #### PHERN #### [facility] [address] [place], [address] 12 LEAD ELECTROCARDIOGRAM Observed: 04/14/2018 Status: F Source: [place] 9:59 AM [facility] HOSPITAL REPOSITORY [facility] Cardiovascular Services [address] [place] [address] 12 Lead EKG 04/09/18 1143 MR#: [id number] Acct: [id number] Name: PIO HOANG Rep #: [id number] : 1950 67 From: Jesus Manuel Stubbs MD Attending Dr: Jhoan Hoover MD Status: PRE SDC Ordering Dr: Jhoan Hoover MD Date: 04/09/18 Location: [facility] Sex: M C Admitted: Test Reason : PRE-OP Blood Pressure : / mmHG Vent. Rate : 070 BPM Atrial Rate : 070 BPM P-R Int : 172 ms QRS Dur : 080 ms QT Int : 366 ms P-R-T Axes : 051 016 024 degrees QTc Int : 395 ms Sinus rhythm with marked sinus arrhythmia Otherwise normal ECG Confirmed by JESUS MANUEL STUBBS MD ([id number]), acquisitions editor GERMÁN ROBERTO ([id number]) on 04/14/2018 9:58:16 AM Referred By: Jhoan Hoover Confirmed By:JESUS MANUEL STUBBS MD 04/14/18 0958 Date Jesus Manuel Stubbs MD CC: Steven Lora; Jhoan Hoover MD Signed CBC-COMPLETE BLOOD CNT Collected: 04/09/2018 Status: F Source: [place] NO DIFF 11:16 AM [facility] REPOSITORY TYPE CODE TESTS RESULT OUT OF RANGE REFERENCE UNITS LAB L100.1000 4.4-11.0 K/mm3 Normal WBC 5.2 LAB L100.1200 4.6-6.2 M/mm3 Normal RBC 4.62 LAB L100.1300 13.0-16.5 g/dl Normal HGB 14.3 LAB L100.1400 40-54 % Normal HCT 42.8 LAB L100.1500 80-94 fL Normal MCV 92.6 LAB L100.1600 27.0-32.0 pg Normal MCH 31.0 LAB L100.1700 32-36 g/gl Normal MCHC 33.4 LAB L100.1810 11.6-14.6 % Normal RDW CV 12.8 LAB L100.1820 35.1-43.9 fl Normal RDW SD 43.0 LAB L100.1900 150-450 K/mm3 Low PLT 136 LAB L100.2000 6.2-12.0 fl Normal MPV 10.3 Performed By: #### L100.0500 #### [facility] [address] [place], [address] BASIC METABOLIC Collected: 04/09/2018 Status: F Source: [place] PROFILE (BMP) 11:16 AM [facility] REPOSITORY TYPE CODE TESTS RESULT OUT OF RANGE REFERENCE UNITS LAB L501.0100 74-106 mg/dL Normal GLU 100 Result Comment: Fasting Glucose result from 100 to 125 mg/dL suggests IMPAIRED HOMEOSTASIS per A.D.A. criteria. Please note revised GLUCOSE reference range effective 2017. LAB L501.1000 7-18 mg/dL High BUN 24 LAB L501.1100 0.70-1.30 mg/dL Normal CREAT,SERUM 1.25 Result Comment: The validity of the calculated GFR AND GFRAA in patients over 70 years has not been determined. Clinical correlation is essential. LAB L501.1110 >60 mL/min Normal EST GFR 61 Result Comment: Non- GFR Calc LAB L501.1115 >60 mL/min Normal EST GFR - AA 74 Result Comment: GFR Calc LAB L501.1300 10-20 RATIO Normal BUN/CRE 19.2 LAB L501.2200 8.5-10.1 mg/dL CA Normal 8.8 LAB L501.5300 136-145 mmol/L NA Normal 141 LAB L501.5600 3.5-5.1 mmol/L K Normal 4.4 LAB L501.5900 98-107 mmol/L High CL 110 LAB L501.6100 21.0-32.0 mmol/L Normal CO2 24.0 LAB L501.6200 5-15 Normal GAP 7 Performed By: #### L500.2500 #### [facility] [address] [place], [address] SURGERY VISIT REPORT Observed: 04/08/2018 Status: F Source: [place] 3:21 PM [facility] REPOSITORY [facility] [address] [place] [address] OFFICE VISIT Date of Service: 03/20/18 MR#: [id number] Acct: [id number] Name: PIO HOANG Rep #: [id number] : 1950 Provider: Moira Nguyen PA-C Age/Sex: 67/M Location: [facility] Status: Signed with Addenda ADDENDUM by Moira Nguyen PA-C on 04/08/18 at 1521 Addendum entered and electronically signed by Moira Nguyen PA-C 04/08/18 15:21: Correction to plan below. Dr. Hoover will plan to perform an umbilical hernia repair with mesh. Dr. Sorensen will not be doing this procedure. Patient may continue his aspirin. Intake Allergies grass pollen Allergy (Verified 04/08/18 14:21) Unknown dabigatran etexilate [From Pradaxa] Adverse Reaction (Unknown, Verified 04/08/18 14:21) Unknown pet dander Allergy (Uncoded 04/08/18 14:21) Unknown Medications Aspirin E.C. [Ecotrin] 81 mg PO DAILY@0800 05/18/13 [History Confirmed 04/08/18] Fluticasone 0.05% [Flonase Nasal Jefferson] 1 spray NASAL BID 05/18/13 [History Confirmed 04/08/18] Magnesium Oxide [Mag-Ox 400] 400 mg PO BID 05/18/13 [History Confirmed 04/08/18] Multivitamins,Therapeutic [Multivitamin] 1 tab PO DAILY 05/18/13 [History Confirmed 04/08/18] Ubidecarenone [Coq10] 100 mg PO DAILY 05/18/13 [History Confirmed 04/08/18] echinacea 400 mg capsule 400 mg PO DAILY 03/22/17 [History Confirmed 04/08/18] lactobacillus combination no.8 3 billion cell capsule 1 cap PO QDAY 03/22/17 [History Confirmed 04/08/18] loratadine 10 mg tablet 10 mg PO QDAY PRN 03/22/17 [History Confirmed 04/08/18] nitroglycerin 0.3 mg sublingual tablet 0.3 mg SUBLINGUAL Q5M PRN 04/19/17 [History Confirmed 04/08/18] alprazolam 0.5 mg tablet 0.25 mg PO BID tab 06/10/17 [History Confirmed 04/08/18] lansoprazole 30 mg capsule,delayed release 30 mg PO QDAY cap 06/10/17 [History Confirmed 04/08/18] alfuzosin ER 10 mg tablet,extended release 24 hr 10 mg PO QDAY 07/22/17 [History Confirmed 04/08/18] saw palmetto 500 mg capsule 500 mg PO QDAY cap 08/29/17 [History Confirmed 04/08/18] Metoprolol(XL)Succ [Toprol Xl (Beta Driss)] 25 mg PO BID 04/08/18 [History Confirmed 04/08/18] Simvastatin [Zocor] 40 mg PO QHS 04/08/18 [History Confirmed 04/08/18] Assessment AND Plan Problems 1. Umbilical hernia without obstruction and without gangrene K42.9 Plan - ZARIA Chaidez Dr. will plan to perform an umbilical hernia repair with mesh. procedure details, risks and benefits have been explained. Patient has had the opportunity to ask and have questions answered. Patient verbally understands and agrees with the plan. Medications Discontinued: metoprolol succinate ER Discontinued Reason: Order edited -25 mg PO BID 180 tabs 4RF Discontinuing original order Plan Detail Goals Decrease pain and spasm Barriers DDD 04/08/18 1521 <Electronically signed by Moira Nguyen PA-C> Date Moira Nguyen PA-C cc: Steven Lora * Signed Intake Vital Signs03/20/18 Height 5 ft 10 in 03/20/18 Weight: 231 lb Intake Visit Reasons: Update H AND P - Umbilical Hernia RC Chief Complaint: FACIAL PAIN Sand Cutter Required: No Is patient in pain?: No Allergies grass pollen Allergy (Verified 03/20/18 10:12) Unknown dabigatran etexilate [From Pradaxa] Adverse Reaction (Unknown, Verified 03/20/18 10:12) Unknown pet dander Allergy (Uncoded 01/02/18 12:19) Unknown Medications Aspirin E.C. [Ecotrin] 81 mg PO DAILY@0800 05/18/13 [History Confirmed 03/20/18] Fluticasone 0.05% [Flonase Nasal [place]] 1 spray NASAL BID 05/18/13 [History Confirmed 03/20/18] Magnesium Oxide [Mag-Ox 400] 400 mg PO BID 05/18/13 [History Confirmed 03/20/18] Multivitamins,Therapeutic [Multivitamin] 1 tab PO DAILY 05/18/13 [History Confirmed 03/20/18] Ubidecarenone [Coq10] 200 mg PO DAILY 05/18/13 [History Confirmed 03/20/18] echinacea 400 mg capsule 400 mg PO TID 03/22/17 [History Confirmed 03/20/18] lactobacillus combination no.8 3 billion cell capsule 3,000 mmu cells PO QDAY 03/22/17 [History Confirmed 03/20/18] loratadine 10 mg tablet 10 mg PO QDAY 03/22/17 [History Confirmed 03/20/18] omega-3 fatty acids 1,000 mg capsule 1,000 mg PO QDAY 03/22/17 [History Confirmed 03/20/18] cholecalciferol (vitamin D3) 1,000 unit capsule 1,000 unit PO ONCE 04/19/17 [History Confirmed 03/20/18] nitroglycerin 0.3 mg sublingual tablet 0.3 mg SUBLINGUAL Q5M PRN 04/19/17 [History Confirmed 03/20/18] alprazolam 0.5 mg tablet 0.25 mg PO BID tab 06/10/17 [History Confirmed 03/20/18] lansoprazole 30 mg capsule,delayed release 30 mg PO QDAY cap 06/10/17 [History Confirmed 03/20/18] metoprolol succinate ER 25 mg tablet,extended release 24 hr 25 mg PO BID #180 tab 06/17/17 [Rx Confirmed 03/20/18] alfuzosin ER 10 mg tablet,extended release 24 hr 10 mg PO QDAY 07/22/17 [History Confirmed 03/20/18] saw palmetto 500 mg capsule 500 mg PO QDAY cap 08/29/17 [History Confirmed 03/20/18] simvastatin 40 mg tablet 40 mg PO QHS #90 tab 11/08/17 [Rx Confirmed 03/20/18] [facility] Medical History Abdominal pain (Acute) Premature ventricular contraction (Acute) Premature atrial contractions (Acute) Atherosclerotic heart disease of [place] coronary artery without angina pectoris (Chronic) Long-term use of high-risk medication (Acute) Hyperlipidemia (Chronic) Hypertension (Chronic) Paroxysmal atrial fibrillation (Chronic) Costochondritis (Acute) Degenerative disc disease, lumbar (Acute) Family history of hypertension (Acute) Lumbar radiculopathy, right (Acute) Segmental and somatic dysfunction of cervical region (Acute) Segmental and somatic dysfunction of lumbar region (Acute) Segmental and somatic dysfunction of thoracic region (Acute) Arthritis (Chronic) GERD (gastroesophageal reflux disease) (Chronic) YENNI (obstructive sleep apnea) (Chronic) Osteoarthritis of left knee (Chronic) Surgical History H/O shoulder surgery (Resolved) H/O sinus surgery (Resolved) History of arthroscopy of knee (Resolved) History of cardiac radiofrequency ablation (RFA) (Resolved) History of cataract surgery (Resolved) History of detached retina repair (Resolved) History of hemorrhoidectomy (Resolved) Status post laser ablation of incompetent vein (Resolved) Bilateral knee pain (Inactive) H/O cardiac radiofrequency ablation (Inactive) H/O detached retina repair (Inactive) H/O hemorrhoidectomy (Inactive) H/O sinus surgery (Inactive) right shoulder (Inactive) vein (Inactive) Family History Mother Hypertension CAD (coronary artery disease) Father Hypertension Atrial fibrillation Presence of permanent cardiac pacemaker CVA (cerebral vascular accident) Social History Smoking Status: Former smoker alcohol intake: current alcohol intake frequency: a few times a week Alcohol type: beer substance use type: does not use HPI HPI HPI: PIO HOANG, is a 67 M who presents to the office for an update history and physical. Patient denies recent hospitalizations or illnesses. Patient denies progressing symptoms from his hernia. Patient was last evaluated by me in the office for possible left inguinal hernia. CT scan was obtained and did not demonstrate a left inguinal hernia. He notes since that time the pain has completely resolved. Patient denies previous myocardial infarction, stroke or blood clots. He denies previous complications with anesthesia. Patient's previous history: Patient is a 67 y/o male I am following for umbilical hernia. Patient called into our office noting left groin discomfort with associated swelling. He notes some fullness in the pubic region on Saturday evening, which moved to the left groin region by Saturday. Patient notes he works out M, W, and F. He denies doing a new exercise or moving away from his normal routine. He notes stretching prior to any exercises. He denies bowel changes. He also notes trimming his pubic area occasionally which he did on Saturday. He denies fever. He denies seeing a pimple like structure in the pubic region. He denies nausea, vomiting. He is concerned to fly on a plane to [place] tomorrow to seeing an Aunt who may be in her last stages of life. ROS General General: No weight change, appetite, fatigue, colon cancer, breast cancer or weakness HEENT HEENT: Yes eye surgery; no difficulty swallowing, eye injury, swollen glands or hoarseness Endo Endocrine: No thyroid disease, diabetes mellitus, thyroid cancer, Hair loss, heat intolerance or cold intolerance Skin Skin: No rash or changing moles Breast Breast: No left breast lump, right breast lump, nipple discharge, breast pain, abnormal mammogram, abnormal US or breast enlargement Musc Musculoskeletal: Yes back problems and arthritis; no rheumatoid arthritis, gout or joint pain Cardio Cardiovascular: Yes atrial fibrillation; no murmur, pacemaker, heart disease, high blood pressure, heart attack, heart stent, palpitations, shortness of breat with exertion or chest pain Psych Psychiatric: Yes anxiety; no depression or hearing voices Resp Respiratory: No shortness of breath, Yes sleep apnea, No cough, No COPD, No asthma, No emphysema, No wheezing Gastro Gastrointestinal: No abdominal pain, No nausea or vomiting, No diarrhea, No constipation, No blood in stool, Yes acid reflux, Yes hemorrhoids, No ulcers, No gallbladder problem, No black,tarry stools Hans Hematologic: No blood thinners, No blood disorders, No bleeding, No anemia, No blood clots Neuro Neurologic: No weakness Exam Const General: cooperative, healthy appearing, comfortable, no acute distress [facility] Head: normal to inspection Eyes General: appearance normal, both eyes and all related structures Neck Neck: normal visual inspection Neck mass: No Chest Breast Palpation: No nipple discharge Resp Effort AND Inspection: normal respiratory effort Auscultation: clear to auscultation bilaterally Cardio Rate: regular rate Rhythm: regular rhythm Heart Sounds: no murmurs GI Inspection: normal to inspection Palpation: soft, hernia (moderate sized umbilical hernia) Auscultation: normal bowel sounds Skin General: no rashes or lesions noted Neuro General: no focal motor deficits, CN's II-XI intact bilaterally Extrem General: normal to inspection Psych Appearance: grossly normal Affect: normal affect Assessment AND Plan Problems 1. Umbilical hernia without obstruction and without gangrene K42.[address] Sorensen will plan to perform an umbilical hernia repair with mesh. procedure details, risks and benefits have been explained. Patient has had the opportunity to ask and have questions answered. Patient verbally understands and agrees with the plan. Plan Detail Goals Decrease pain and spasm Barriers DDD Coding Level of Care Code No Charge Diagnoses Umbilical hernia without obstruction and without gangrene K42.9 Obstruction and gangrene presence: without obstruction or gangrene Comment Update H AND P 03/24/18 0956 <Electronically signed by Moira Nguyen PA-C> Date Moira Nguyen PA-C Cosigner Signature: Date (if applicable) CC: Steven Lora CHIROPRACTIC REPORT Observed: 04/08/2018 Status: F Source: [place] 8:29 AM [facility] REPOSITORY [facility] [address] [place], [place] [id number] OFFICE VISIT Date of Service: 04/07/18 MR#: [id number] Acct: [id number] Name: PIO HOANG Rep #: [id number] : 1950 Provider: Judith Ruth D.C. Age/Sex: 67/M [place] [facility] Status: Signed Intake Vital Signs04/07/18 Body Mass Index (BMI) 33.1 04/07/18 Height 5 ft 10 in 04/07/18 Weight: 231 lb 04/07/18 Body Mass Index (BMI) 33.1 Intake Visit Reasons: NECK PAIN Chief Complaint: L sided neck pain Is patient in pain?: Yes Allergies grass pollen Allergy (Verified 03/20/18 10:12) Unknown dabigatran etexilate [From Pradaxa] Adverse Reaction (Unknown, Verified 03/20/18 10:12) Unknown pet dander Allergy (Uncoded 01/02/18 12:19) Unknown Medications Aspirin E.C. [Ecotrin] 81 mg PO DAILY@0800 05/18/13 [History Confirmed 03/20/18] Fluticasone 0.05% [Flonase Nasal [place]] 1 spray NASAL BID 05/18/13 [History Confirmed 03/20/18] Magnesium Oxide [Mag-Ox 400] 400 mg PO BID 05/18/13 [History Confirmed 03/20/18] Multivitamins,Therapeutic [Multivitamin] 1 tab PO DAILY 05/18/13 [History Confirmed 03/20/18] Ubidecarenone [Coq10] 200 mg PO DAILY 05/18/13 [History Confirmed 03/20/18] echinacea 400 mg capsule 400 mg PO TID 03/22/17 [History Confirmed 03/20/18] lactobacillus combination no.8 3 billion cell capsule 3,000 mmu cells PO QDAY 03/22/17 [History Confirmed 03/20/18] loratadine 10 mg tablet 10 mg PO QDAY 03/22/17 [History Confirmed 03/20/18] omega-3 fatty acids 1,000 mg capsule 1,000 mg PO QDAY 03/22/17 [History Confirmed 03/20/18] cholecalciferol (vitamin D3) 1,000 unit capsule 1,000 unit PO ONCE 04/19/17 [History Confirmed 03/20/18] nitroglycerin 0.3 mg sublingual tablet 0.3 mg SUBLINGUAL Q5M PRN 04/19/17 [History Confirmed 03/20/18] alprazolam 0.5 mg tablet 0.25 mg PO BID tab 06/10/17 [History Confirmed 03/20/18] lansoprazole 30 mg capsule,delayed release 30 mg PO QDAY cap 06/10/17 [History Confirmed 03/20/18] metoprolol succinate ER 25 mg tablet,extended release 24 hr 25 mg PO BID #180 tab 06/17/17 [Rx Confirmed 03/20/18] alfuzosin ER 10 mg tablet,extended release 24 hr 10 mg PO QDAY 07/22/17 [History Confirmed 03/20/18] saw palmetto 500 mg capsule 500 mg PO QDAY cap 08/29/17 [History Confirmed 03/20/18] simvastatin 40 mg tablet 40 mg PO QHS #90 tab 11/08/17 [Rx Confirmed 03/20/18] [facility] Medical History Abdominal pain (Acute) Premature ventricular contraction (Acute) Premature atrial contractions (Acute) Atherosclerotic heart disease of [place] coronary artery without angina pectoris (Chronic) Long-term use of high-risk medication (Acute) Hyperlipidemia (Chronic) Hypertension (Chronic) Paroxysmal atrial fibrillation (Chronic) Costochondritis (Acute) Degenerative disc disease, lumbar (Acute) Family history of hypertension (Acute) Lumbar radiculopathy, right (Acute) Segmental and somatic dysfunction of cervical region (Acute) Segmental and somatic dysfunction of lumbar region (Acute) Segmental and somatic dysfunction of thoracic region (Acute) Arthritis (Chronic) GERD (gastroesophageal reflux disease) (Chronic) YENNI (obstructive sleep apnea) (Chronic) Osteoarthritis of left knee (Chronic) Surgical History H/O shoulder surgery (Resolved) H/O sinus surgery (Resolved) History of arthroscopy of knee (Resolved) History of cardiac radiofrequency ablation (RFA) (Resolved) History of cataract surgery (Resolved) History of detached retina repair (Resolved) History of hemorrhoidectomy (Resolved) Status post laser ablation of incompetent vein (Resolved) Bilateral knee pain (Inactive) H/O cardiac radiofrequency ablation (Inactive) H/O detached retina repair (Inactive) H/O hemorrhoidectomy (Inactive) H/O sinus surgery (Inactive) right shoulder (Inactive) vein (Inactive) Family History Mother Hypertension CAD (coronary artery disease) Father Hypertension Atrial fibrillation Presence of permanent cardiac pacemaker CVA (cerebral vascular accident) Social History Smoking Status: Former smoker alcohol intake: current alcohol intake frequency: a few times a week Alcohol type: beer substance use type: does not use HPI NECK PAIN : Chief Complaint: Neck pain Visit Number: 1 Details: PIO HOANG is a 67 year old M who presents with L sided neck pain. He states that recently his neck pain has become stiff, and sore with pain, numbness, and tingling into the L arm. Rotation of the neck, looking down, and lifting causes increased pain. Pastor rates his pain a 3/10, and describes it as a sharp pain that is constant. Location: L neck pain Duration: constant Aggravating or associated factors: rotation, lifting, and looking down Relieving factors: chiro Pain Quality: aching, dull, cramping, sharp, radiating Exam Musc General: Yes joint tenderness (C5, C6, T2, T3, T6, T7, T8, L4, L5) and decreased ROM; no normal posture (slight anterior head carriage) or normal gait (favors left knee) Cervical Spine: loss of normal cervical lordosis, pain with cervical ROM, cervical spasm, cervical ROM abnormal rotation to left decreased, lateral flexion to the left decreased and extension decreased, cervical spinal tenderness, cervical muscular tenderness left lower: trapezius and paracervical muscle Thoracic/Lumbar Spine: thoracic and lumbar spine normal to inspection, pain with thoraco-lumbar ROM, thoraco-lumbar spasm on the left greater than right (upper thoracic) and bilaterally in the lower lumbar and in the mid lumbar, thoraco-lumbar ROM limited, paraspinal tenderness on the left greater than right (upper thoracic) and bilaterally in the lower lumbar and in the mid lumbar Sacroiliac joints: on the left Office Procedures Chiropractic Treatments Procedures Manipulation: 3-4 regions (C5,T2,T6, L3, L5) Electrical Stimulation: 15 mins (cervical ) Assessment AND Plan 1. DDD (degenerative disc disease), lumbar M51.36 Orders Orders: 2. Segmental and somatic dysfunction of thoracic region M99.02 Orders Orders: 3. Segmental and somatic dysfunction of lumbar region M99.03 Orders Orders: 4. Segmental and somatic dysfunction of cervical region M99.01 Orders Orders: Plan Detail Additional Comments Continue care Goals Decrease pain and spasm Barriers DDD Follow Up PRN Coding Level of Care Code No Charge Diagnoses DDD (degenerative disc disease), lumbar M51.36 Segmental and somatic dysfunction of thoracic region M99.02 Segmental and somatic dysfunction of lumbar region M99.03 Segmental and somatic dysfunction of cervical region M99.01 Additional Codes Procedures - Manipulation: 3-4 regions (88970) Procedures - Electrical Stimulation: 15 mins (47802) 04/08/18828 <Electronically signed by Judith Ruth D.C.> Date Judith Ruth D.C. Cosigner Signature: Date (if applicable) CC: CREATININE FINGERSTICK Collected: 02/17/2018 Status: F Source: [place] 2:28 PM [facility] [place] REPOSITORY TYPE CODE TESTS RESULT OUT OF RANGE REFERENCE UNITS LAB L9100.0210 0.70-1.30 mg/dL Normal CREATININE WB 0.8 Performed By: #### L9100.0200 #### [facility] Point of Care [address] [place] [address] ABDOMEN/PELVIS WITH Observed: 02/17/2018 Status: F Source: [place] CONTRAST 2:22 PM [facility] [place] REPOSITORY [facility] Imaging Services [address] [place] [address] Abdomen/Pelvis WITH Contrast MR#: [id number] Acct: [id number] Name: PIO HOANG Dwayne Rep #: [id number] : 1950 M 67 From: Yousif Hurt MD PCP: Steven Lora Status: REG CLI Study: Abdomen/Pelvis WITH Contrast Date of Exam: 02/17/18 Exam# [id number] Ordering Dr: Moira Nguyen PA-C STUDY: CT ABDOMEN AND PELVIS WITH CONTRAST REASON FOR EXAM: Male, 67 years old. Bilateral groin pain and swelling with history of cardiac ablation RADIATION DOSAGE (If Supplied By Facility): CTDIvol = ( 22.72 ) mGy, DLP = ( 171.88 ) mGycm TECHNIQUE: Transaxial images were obtained from the dome of the diaphragm to the symphysis pubis with oral contrast. 100ml ml of Isovue 370 contrast was administered. Sagittal and coronal images were reconstructed. Individualized dose optimization techniques were used for this CT. COMPARISON: 09/09/2017 FINDINGS: The visualized lung bases are unremarkable. The visualized portions of the heart are within normal limits. There is decreased attenuation of the liver consistent with steatosis. Normal gallbladder and extrahepatic biliary system. Normal spleen. Fatty atrophy of the pancreatic tail. Normal bilateral adrenal glands. Multiple bilateral renal cysts, the largest measuring up to 3.5 cm on the right. Normal visualized stomach. Normal small intestine. There are multiple colonic diverticula consistent with diverticulosis. The appendix is visualized and appears normal. Normal abdominal aorta. Normal inferior vena cava. Normal retroperitoneum. Normal urinary bladder. Normal abdominal wall. There are diffuse degenerative changes of the visualized lumbar spine. CT/Abdomen/Pelvis WITH Contrast IMPRESSION: No focal lesions are identified in the inguinal/groin areas. No evidence of acute intestinal pathology or acute obstructive uropathy. Fatty liver and fatty atrophy of the pancreatic tail. Electronically Signed: Yousif Hurt MD at 10:59 EST Tel , Service support , CC: Steven Lora; Moira Nguyen PA-C Joist Setter: Signed SURGERY VISIT REPORT Observed: 02/12/2018 Status: F Source: [place] 3[facility] [address] [place] [address] [address] [place] [address] OFFICE VISIT Date of Service: 02/12/18 MR#: [id number] Acct: [id number] Name: PIO HOANG Rep #: [id number] : 1950 Provider: Moira Nguyen PA-C Age/Sex: 67/M Location: [facility] Status: Signed Intake Intake Visit Reasons: umbilical hernia Chief Complaint: FACIAL PAIN Allergies grass pollen Allergy (Verified 02/12/18 13:13) Unknown dabigatran etexilate [From Pradaxa] Adverse Reaction (Unknown, Verified 02/12/18 13:13) Unknown pet dander Allergy (Uncoded 01/02/18 12:19) Unknown Medications Aspirin E.C. [Ecotrin] 81 mg PO DAILY@0800 05/18/13 [History Confirmed 01/02/18] Fluticasone 0.05% [Flonase Nasal [place]] 1 spray NASAL BID 05/18/13 [History Confirmed 01/02/18] Magnesium Oxide [Mag-Ox 400] 400 mg PO BID 05/18/13 [History Confirmed 01/02/18] Multivitamins,Therapeutic [Multivitamin] 1 tab PO DAILY 05/18/13 [History Confirmed 01/02/18] Ubidecarenone [Coq10] 200 mg PO DAILY 05/18/13 [History Confirmed 01/02/18] echinacea 400 mg capsule 400 mg PO TID 03/22/17 [History Confirmed 01/02/18] lactobacillus combination no.8 3 billion cell capsule 3,000 mmu cells PO QDAY 03/22/17 [History Confirmed 01/02/18] loratadine 10 mg tablet 10 mg PO QDAY 03/22/17 [History Confirmed 01/02/18] omega-3 fatty acids 1,000 mg capsule 1,000 mg PO QDAY 03/22/17 [History Confirmed 01/02/18] cholecalciferol (vitamin D3) 1,000 unit capsule 1,000 unit PO ONCE 04/19/17 [History Confirmed 01/02/18] nitroglycerin 0.3 mg sublingual tablet 0.3 mg SUBLINGUAL Q5M PRN 04/19/17 [History Confirmed 01/02/18] alprazolam 0.5 mg tablet 0.25 mg PO BID tab 06/10/17 [History Confirmed 01/02/18] lansoprazole 30 mg capsule,delayed release 30 mg PO QDAY cap 06/10/17 [History Confirmed 01/02/18] metoprolol succinate ER 25 mg tablet,extended release 24 hr 25 mg PO BID #180 tab 06/17/17 [Rx Confirmed 01/02/18] alfuzosin ER 10 mg tablet,extended release 24 hr 10 mg PO QDAY 07/22/17 [History Confirmed 01/02/18] saw palmetto 500 mg capsule 500 mg PO QDAY cap 08/29/17 [History Confirmed 01/02/18] simvastatin 40 mg tablet 40 mg PO QHS #90 tab 11/08/17 [Rx Confirmed 01/02/18] Subjective Details: Patient is a 67 y/o male I am following for umbilical hernia. Patient called into our office noting left groin discomfort with associated swelling. He notes some fullness in the pubic region on Saturday evening, which moved to the left groin region by Saturday. Patient notes he works out M, W, and F. He denies doing a new exercise or moving away from his normal routine. He notes stretching prior to any exercises. He denies bowel changes. He also notes trimming his pubic area occasionally which he did on Saturday. He denies fever. He denies seeing a pimple like structure in the pubic region. He denies nausea, vomiting. He is concerned to fly on a plane to [place] tomorrow to seeing an Aunt who may be in her last stages of life. Objective Details: Pelvic- Right groin; no hernia palpated. Left groin; wall laxity/small hernia noted. Very mild left upper thigh swelling Assessment AND Plan Problems 1. Left groin pain R10.32 Plan Symptoms may be small hernia versus strained/pulled muscle - Recommend CT scan of the abdomen/pelvis - Our office will call with results - If hernia is noted, this will change the upcoming procedure in April - Patient is to follow-up in March for an update H AND P Orders Orders: Plan Detail Goals Decrease pain and spasm Barriers DDD Coding Level of Care Code Off vis,est,level 4 Diagnoses Left groin pain R10.32 Time Spent (min) 25 02/12/18 1507 <Electronically signed by Moira Nguyen PA-C> Date Moira Nguyen PA-C Cosigner Signature: Date (if applicable) CC: Steven Lora INITAL EVALUATION (1) Observed: 02/11/2018 Status: F Source: [place] - [place] 8:10 AM [facility] [place] REPOSITORY [facility] Physical Therapy [facility] [address] [place] [address] Fax REHABILITATION SERVICES INITIAL EVALUATION MR#: [id number] Acct: [id number] Name: PIO HOANG Rep #: [id number] : 1950 67 From: Kvng Pereyra DPT Referring Dr.: Judith Ruth D.C. Status: REG [facility] Insurance: [facility] SELF PAY INSURANCE Patient's Visit Information PIO HOANG is a 67 year old M referred to Physical Therapy by Judith Ruth D.C. with a diagnosis of intervertebral disc pathology of lumbar region, thoracic region and cervic. Date of Evaluation: 01/27/18 Physical Therapist: Kvng Pereyra - Visit Plan Frequency: 1-2x /Week Duration: 4-6 Weeks Plan: Start with DN/manual technques to anterior RLE, add in graston, continue with core stability exercises and add in eccentric exercises of RLE. - Subjective Subjective: Pt. is here today for his initial evaluation with diagnosis of intervertebral disc pathology of lumbar region, thoracic region and cervical region. Pt. reports having R anterior calf pain. He has has these symptoms for a number of years after falling down his stairs. He did not sustain a leg fracture. His main complaint is of his R anterior leg. Pt. is known to this PT as he was seen previosuly for a similar issue. Pt. reprots having relief from PT previously, but did not fully abolish his symptoms. Pt. reports increased pain with walking, but most with statically standing. He denies N/T down his BLes. No changes in B/B. Pt. has decreased pain with sitting and unloaded positions. Pt. does have a history of low back pain, but reports his leg pain is unchanging with treatment of his back. Pt. is hopeful to reduce symptoms in order to get back to all recreational activities and walking without limitations. - Pain R LE Pain Intensity (Out of 10): 2 - Objective POSTURE: Pt. has normal posture in stance. Normal iliac crest heights, slight reduction in lumbar lordosis. Pt. has slight increase in DAWNA, R knee varus noted. PALPATION: Pt. reports minimal pain throughout lumbar spine. Pt. has increased tenderness along post tib muscle belly, along medial boarder of tibia, G/S complex and anterior tib of RLE. NEURO: all intact, normal DTR bilaterally. ROM: LUMBAR SPINE: flexion min loss NE, ext min loss NE, SB min loss NE, rotation min lss NE. No lumbar motions causes his R leg symptoms. Pt. has decreased R knee ROM 0-5-116deg. Normal ankle ROM, except tightness in calf. MMT: 5/5 throghout bilateral LEs. Core- fair-. GAIT: pt. ambulates without AD. He has increased R knee varus during loaded phases. STAIR: reciprocal pattern, mild increase in symptoms with descending. - Special Tests L/S Slump test left side: Negative L/S Slump test right side: Negative L/S Left Straight Leg Raise: Negative L/S Right Straight Leg Raise: Negative Lumbar Standing: Flexion - Mechanical Response: No effect Lumbar Standing: Flexion - Symptoms During Testing: No effect Lumbar Standing: Flexion - Symptoms After Testing: No effect Lumbar Standing: Extension - Mechanical Response: No effect Lumbar Standing: Extension - Symptoms During Testing: No effect Lumbar Standing: Extension - Symptoms After Testing: No effect Lumbar Standing: Right Side Glides - Mechanical Response: No effect Lumbar Standing: Right Side [place] - Symptoms During Testing: No effect Lumbar Standing: Right Side [place] - Symptoms After Testing: No effect Lumbar Standing: Left Side [place] - Mechanical Response: No effect Lumbar Standing: Left Side [place] - Symptoms During Testing: No effect Lumbar Standing: Left Side [place] - Symptoms After Testing: No effect Lumbar Lying: Flexion - Mechanical Response: No effect Lumbar Lying: Flexion - Symptoms During Testing: No effect Lumbar Lying: Flexion - Symptoms After Testing: No effect Lumbar Lying: Extension - Mechanical Response: No effect Lumbar Lying: Extension - Symptoms During Testing: No effect Lumbar Lying: Extension - Symptoms After Testing: No effect Lumbar Static: Slouched Sit - Mechanical Response: No effect Lumbar Static: Slouched Sit - Symptoms During Testing: No effect Lumbar Static: Slouched Sit - Symptoms After Testing: No effect Lumbar Static: Sitting Erect - Mechanical Response: No effect Lumbar Static: Sitting Erect - Symptoms During Testing: No effect Lumbar Static: Sitting Erect - Symptoms After Testing: No effect Lumbar Static:Lying Prone in Extension - Mechanical Response: No effect Lumbar Static: Lying Prone in Extension - Sx During Testing: No effect Lumbar Static: Lying Prone in Extension - Sx After Testing: No effect - Goals Goal 1:: Pt. to be I with HEP. Goal Time Frame: 4-6 Weeks Goal 2:: Pt. to ambulate unlimited distances with 0-2/10 pain in RLE. Goal Time Frame: 4-6 Weeks Goal 3:: Pt. to tolerated statically standing ie in grocery store, lines and in community without incerase in symptoms. Goal Time Frame: 4-6 Weeks Goal 4:: Pt. to complete all recreational activities without increase in symptoms. Goal Time Frame: 4-6 Weeks - Rehabilitation Potential Physical Therapy Diagnosis: Pt. has symptoms of intervertebral disc pathology of lumbar region, thoracic region and cervical region, but his pain complaint is of R anterior calf pain. I was unable to effect his leg pain with any testing of his lumbar spine. He is point tender to palpation of his anterior RLE, most notably at anterior and posterior tib. Pt. would benefit from PT with DN, manual techniques and eccentric loading of this tissue to assist with reducing restriction of tissue allowing for normal tolerance to all activities. Rehabilitation Potential: Good - Anticipated Interventions Patient/Client Instruction: Educate patient on: Condition, Plan of Care, Risk Factors, Benefits of Fitness Program For the Purpose of:: To foster healthy habits, To improve decision making, To facilitate caregiver knowledge, To improve self management, To prevent re-injury, To improve ability to perform tasks related to life management, To improve tolerance to ADL's Therapeutic Exercise to Include: Strength training, Power training, Endurance training, Body mechanics, Postural training, Flexibilty training, Passive ROM, Dynamic Lumbar Stabilization For the Purpose of:: To decrease pain, To decrease swelling/inflammation, To increase ROM, To improve nutrient delivery to tissue, To increase oxygenation perfusion, To improve muscle performance and motor function, To improve gait and locomotor functions, To improve health of tissue, To decrease soft tissue restriction, To increase flexibility/ROM Manual Therapy Techniques to Include: Mobilization, Functional dry needling, Soft tissue mobilization For the Purpose of:: To decrease pain, To decrease swelling/inflammation, To increase ROM, To improve nutrient delivery to tissue IF ES: Yes Cryotherapy (ice pack, ice massage): Yes Ultrasound (thermal/non thermal): Yes For the Purpose of:: To decrease pain, To decrease swelling/inflammation, To increase ROM, To improve nutrient delivery to tissue Thank you for the opportunity to evaluate your patient. For Medicare and Medicare HMO plans, please review the plan of care and approve it. It will need to be FAXED BACK to us at [phone] for Medicare purposes. Please let me know if there are questions or concerns regarding this plan of care. Physician Signature: Date: <Electronically signed by Kvng Pereyra DPT> 02/11/18 0810 CC: Steven Lora; Judith Ruth D.C. CLS Signed For Medicare only, by signing this I certify the plan of care. Physicians Signature Date URGENT CARE VISIT Observed: 01/02/2018 Status: F Source: [facility] REPORT 1:19 PM [facility] [place] REPOSITORY [facility] [place] [id number] [address] [id number] OFFICE VISIT Date of Service: 01/02/18 MR#: [id number] Acct: [id number] Name: PIO HOANG Rep #: [id number] : 1950 Provider: Stephane JANG Age/Sex: 67/M Location[place] [facility] [place] Status: Signed Intake Vital Signs01/02/18 Height 5 ft 10 in 01/02/18 Weight: 231 lb 01/02/18 Body Mass Index (BMI) 33.1 01/02/18 Blood Pressure 138/86 H Intake Visit Reasons: REDNESS ON FACE/POSS SINUS INFECTION Chief Complaint: FACIAL PAIN Sand Cutter Required: No Accompanied by: SELF Is patient in pain?: Yes Allergies grass pollen Allergy (Verified 01/02/18 12:19) Unknown dabigatran etexilate [From Pradaxa] Adverse Reaction (Unknown, Verified 01/02/18 12:19) Unknown pet dander Allergy (Uncoded 01/02/18 12:19) Unknown Medications Aspirin E.C. [Ecotrin] 81 mg PO DAILY@0800 05/18/13 [History Confirmed 01/02/18] Fluticasone 0.05% [Flonase Nasal [place]] 1 spray NASAL BID 05/18/13 [History Confirmed 01/02/18] Magnesium Oxide [Mag-Ox 400] 400 mg PO BID 05/18/13 [History Confirmed 01/02/18] Multivitamins,Therapeutic [Multivitamin] 1 tab PO DAILY 05/18/13 [History Confirmed 01/02/18] Ubidecarenone [Coq10] 200 mg PO DAILY 05/18/13 [History Confirmed 01/02/18] echinacea 400 mg capsule 400 mg PO TID 03/22/17 [History Confirmed 01/02/18] lactobacillus combination no.8 3 billion cell capsule 3,000 mmu cells PO QDAY 03/22/17 [History Confirmed 01/02/18] loratadine 10 mg tablet 10 mg PO QDAY 03/22/17 [History Confirmed 01/02/18] omega-3 fatty acids 1,000 mg capsule 1,000 mg PO QDAY 03/22/17 [History Confirmed 01/02/18] cholecalciferol (vitamin D3) 1,000 unit capsule 1,000 unit PO ONCE 04/19/17 [History Confirmed 01/02/18] nitroglycerin 0.3 mg sublingual tablet 0.3 mg SUBLINGUAL Q5M PRN 04/19/17 [History Confirmed 01/02/18] alprazolam 0.5 mg tablet 0.25 mg PO BID tab 06/10/17 [History Confirmed 01/02/18] lansoprazole 30 mg capsule,delayed release 30 mg PO QDAY cap 06/10/17 [History Confirmed 01/02/18] metoprolol succinate ER 25 mg tablet,extended release 24 hr 25 mg PO BID #180 tab 06/17/17 [Rx Confirmed 01/02/18] alfuzosin ER 10 mg tablet,extended release 24 hr 10 mg PO QDAY 07/22/17 [History Confirmed 01/02/18] saw palmetto 500 mg capsule 500 mg PO QDAY cap 08/29/17 [History Confirmed 01/02/18] simvastatin 40 mg tablet 40 mg PO QHS #90 tab 11/08/17 [Rx Confirmed 01/02/18] PFS Medical History Abdominal pain (Acute) Premature ventricular contraction (Acute) Premature atrial contractions (Acute) Atherosclerotic heart disease of [place] coronary artery without angina pectoris (Chronic) Long-term use of high-risk medication (Acute) Hyperlipidemia (Chronic) Hypertension (Chronic) Paroxysmal atrial fibrillation (Chronic) Costochondritis (Acute) Degenerative disc disease, lumbar (Acute) Family history of hypertension (Acute) Lumbar radiculopathy, right (Acute) Segmental and somatic dysfunction of cervical region (Acute) Segmental and somatic dysfunction of lumbar region (Acute) Segmental and somatic dysfunction of thoracic region (Acute) Arthritis (Chronic) GERD (gastroesophageal reflux disease) (Chronic) YENNI (obstructive sleep apnea) (Chronic) Osteoarthritis of left knee (Chronic) Surgical History H/O shoulder surgery (Resolved) H/O sinus surgery (Resolved) History of arthroscopy of knee (Resolved) History of cardiac radiofrequency ablation (RFA) (Resolved) History of cataract surgery (Resolved) History of detached retina repair (Resolved) History of hemorrhoidectomy (Resolved) Status post laser ablation of incompetent vein (Resolved) Bilateral knee pain (Inactive) H/O cardiac radiofrequency ablation (Inactive) H/O detached retina repair (Inactive) H/O hemorrhoidectomy (Inactive) H/O sinus surgery (Inactive) right shoulder (Inactive) vein (Inactive) Family History Mother Hypertension CAD (coronary artery disease) Father Hypertension Atrial fibrillation Presence of permanent cardiac pacemaker CVA (cerebral vascular accident) Social History Smoking Status: Former smoker alcohol intake: current alcohol intake frequency: a few times a week Alcohol type: beer substance use type: does not use HPI HPI Chief Complaint: FACIAL PAIN Details: PIO HOANG, is a 67 M who presents to the office today for initial evaluation for head and facial discomfort, erythema, warmth to touch, and puffy sensation times approximately 4-6 weeks. Patient notes having a long-standing history of recurrent sinusitis with sinus surgical revision in the past and has been on corticosteroids as well as antibiotics as recently as approximately 2 months ago as prescribed by his sign carpenter. He notes having an extensive past medical history medications as noted, stating none of his medications have changed for at least a year. He does note taking [id number]-[id number] herbal supplements as well, stating that his primary care physician is aware of the supplements. He notes being out of the sun quite often particularly in the summer months for sports as well as yard work though admits he uses plenty of sun block and mild skin cleansers or skin care after being in the sun. He notes no changes in soaps or detergents or clothing. He notes no complaints of facial pressure, postnasal drip, fever, chills, sweats, cough, constricted or pruritic airway, or swollen lips/tongue. He notes no other associated symptoms and no other alleviating or aggravating factors. ROS Const Constitutional: No other (ROS negative x10 other than as noted above) Exam Const General: cooperative, healthy appearing, no acute distress, comfortable Nutritional Appearance: average body habitus Orientation: alert, awake, oriented x3 HENMT Head: normal to inspection, normocephalic, atraumatic, scalp tenderness (With forehead and bilateral facial slight erythema and warmth to touch) Ears: hearing grossly normal bilaterally, external ears normal, TM's normal bilaterally, EAC's normal Nose: external nose normal (though rosacea appreciated), nares normal, septum normal, no nasal discharge Eyes General: appearance normal, both eyes and all related structures Neck Neck: normal visual inspection, full ROM, no lymphadenopathy, no meningeal signs, supple Neck mass: No Thyroid: thyroid normal Lymphatic: no lymphadenopathy noted Chest Chest palpation AND inspection: normal inspection of the chest Resp Effort AND Inspection: normal respiratory effort, able to speak in complete sentences, symmetric chest movement, no cough Auscultation: Bilateral: Clear to Auscultation Cardio Palpation: normal PMI Rate: regular rate Rhythm: regular rhythm Heart Sounds: S1 normal, S2 normal, no gallops, no murmurs, no rubs Pulses: radial pulses present GI Inspection: normal to inspection Skin Lesions: no lesions Rashes: no rashes (See head and nose exam above) Neuro General: alert, awake, oriented x3, gait normal Cognition: normal cognition Speech: speech normal Gait: normal gait Motor: muscle tone normal throughout Sensory Exam: no sensory deficits noted Psych Appearance: grossly normal Mental Status: mental status grossly normal Mood: congruent mood Affect: normal affect Speech and Movement: speech and movement normal Attitude: cooperative Thought Process: normal Thought Content: normal Judgment: judgment good Assessment AND Plan Problems 1. Dermatitis L30.9 2. Rosacea L71.9 Plan Explained examination findings with patient in office today. Recommend taking all prescription medications as well as [id number] herbal medications patient is currently on reviewing that with his primary care physician as potential cause of no onset facial complaints as noted in HPI above. Follow-up with the now clinic on an as-needed basis. Patient states acknowledging understanding all the above. This note was generated with [employer] dictation software. It may contain incorrect words, spelling, and punctuation that were not noted in checking the note before signing. Plan Detail Goals Decrease pain and spasm Barriers DDD Coding Level of Care Code Off vis,est,level 3 Diagnoses Dermatitis L30.9 Rosacea L71.9 01/02/18 1319 <Electronically signed by Stephane JANG> Date Stephane JANG Cosigner Signature: Date (if applicable) CC: CHIROPRACTIC REPORT Observed: 12/31/2017 Status: F Source: [facility]TE 11:54 AM [facility] [address] [place] [id number] OFFICE VISIT Date of Service: 12/31/17 MR#: [id number] Acct: [id number] Name: PIO HOANG Rep #: [id number] : 1950 Provider: Judith Ruth D.C. Age/Sex: 67/M Location: [facility] [place] Status: Signed Intake Vital Signs12/31/17 Height 5 ft 10 in 12/31/17 Weight: 231 lb 12/31/17 Body Mass Index (BMI) 33.1 Intake Visit Reasons: back pain Chief Complaint: Low back pain Is patient in pain?: Yes Allergies grass pollen Allergy (Verified 08/29/17 08:09) Unknown dabigatran etexilate [From Pradaxa] Adverse Reaction (Unknown, Verified 08/29/17 08:09) Unknown pet dander Allergy (Uncoded 07/22/17 14:31) Unknown Medications Aspirin E.C. [Ecotrin] 81 mg PO DAILY@0800 05/18/13 [History Confirmed 08/29/17] Fluticasone 0.05% [Flonase Nasal [place]] 1 spray NASAL BID 05/18/13 [History Confirmed 08/29/17] Magnesium Oxide [Mag-Ox 400] 400 mg PO BID 05/18/13 [History Confirmed 08/29/17] Multivitamins,Therapeutic [Multivitamin] 1 tab PO DAILY 05/18/13 [History Confirmed 08/29/17] Ubidecarenone [Coq10] 200 mg PO DAILY 05/18/13 [History Confirmed 08/29/17] echinacea 400 mg capsule 400 mg PO TID 03/22/17 [History Confirmed 08/29/17] lactobacillus combination no.8 3 billion cell capsule 3,000 mmu cells PO QDAY 03/22/17 [History Confirmed 08/29/17] loratadine 10 mg tablet 10 mg PO QDAY 03/22/17 [History Confirmed 08/29/17] omega-3 fatty acids 1,000 mg capsule 1,000 mg PO QDAY 03/22/17 [History Confirmed 08/29/17] cholecalciferol (vitamin D3) 1,000 unit capsule 1,000 unit PO ONCE 04/19/17 [History Confirmed 08/29/17] nitroglycerin 0.3 mg sublingual tablet 0.3 mg SUBLINGUAL Q5M PRN 04/19/17 [History Confirmed 08/29/17] alprazolam 0.5 mg tablet 0.25 mg PO BID tab 06/10/17 [History Confirmed 08/29/17] lansoprazole 30 mg capsule,delayed release 30 mg PO QDAY cap 06/10/17 [History Confirmed 08/29/17] metoprolol succinate ER 25 mg tablet,extended release 24 hr 25 mg PO BID #180 tab 06/17/17 [Rx Confirmed 08/29/17] alfuzosin ER 10 mg tablet,extended release 24 hr 10 mg PO QDAY 07/22/17 [History Confirmed 08/29/17] saw palmetto 500 mg capsule 500 mg PO QDAY cap 08/29/17 [History Confirmed 08/29/17] simvastatin 40 mg tablet 40 mg PO QHS #90 tab 11/08/17 [Rx] [facility] Medical History Abdominal pain (Acute) Premature ventricular contraction (Acute) Premature atrial contractions (Acute) Atherosclerotic heart disease of [place] coronary artery without angina pectoris (Chronic) Long-term use of high-risk medication (Acute) Hyperlipidemia (Chronic) Hypertension (Chronic) Paroxysmal atrial fibrillation (Chronic) Costochondritis (Acute) Degenerative disc disease, lumbar (Acute) Family history of hypertension (Acute) Lumbar radiculopathy, right (Acute) Segmental and somatic dysfunction of cervical region (Acute) Segmental and somatic dysfunction of lumbar region (Acute) Segmental and somatic dysfunction of thoracic region (Acute) Arthritis (Chronic) GERD (gastroesophageal reflux disease) (Chronic) YENNI (obstructive sleep apnea) (Chronic) Osteoarthritis of left knee (Chronic) Surgical History H/O shoulder surgery (Resolved) H/O sinus surgery (Resolved) History of arthroscopy of knee (Resolved) History of cardiac radiofrequency ablation (RFA) (Resolved) History of cataract surgery (Resolved) History of detached retina repair (Resolved) History of hemorrhoidectomy (Resolved) Status post laser ablation of incompetent vein (Resolved) Bilateral knee pain (Inactive) H/O cardiac radiofrequency ablation (Inactive) H/O detached retina repair (Inactive) H/O hemorrhoidectomy (Inactive) H/O sinus surgery (Inactive) right shoulder (Inactive) vein (Inactive) Family History Mother Hypertension CAD (coronary artery disease) Father Hypertension Atrial fibrillation Presence of permanent cardiac pacemaker CVA (cerebral vascular accident) Social History Smoking Status: Former smoker alcohol intake: current alcohol intake frequency: a few times a week Alcohol type: beer substance use type: does not use HPI back pain : Chief Complaint: Low back pain Visit Number: 6 Details: PIO HOAGN is a 67 year old M who presents with L sided low back pain. 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 Today Pastor rates his pain a 3/10 and describes it as a tight ache that bands across the low back. After sitting for a prolonged amount of time his pain will increase, causing a sharp sensation the radiate into the L thigh. Pastor states there can be some prickling in the thigh, although denies any numbness or tingling. His left lower leg is a concern as he just completed dry needling for the pain. He had a previous injury to the area which was left untreated for approx. 1 year. He has had minimal relief in the round approx. 2-3in diameter area in the anterolateral portion of his left lower leg. He had recent CT of his lumbar spine which revealed degenerative changes. Location: low back Duration: constant Aggravating or associated factors: prolonged sitting and standing Relieving factors: chiro Pain Quality: aching, dull, cramping, radiating Exam Musc General: Yes joint tenderness (C5, C6, T2, T3, T6, T7, T8, L4, L5) and decreased ROM; no normal posture (slight anterior head carriage) or normal gait (favors left knee) Cervical Spine: loss of normal cervical lordosis, pain with cervical ROM, cervical spasm, cervical ROM abnormal lateral flexion to the right decreased and lateral flexion to the left decreased, cervical spinal tenderness at T1, at C7, at C6, at C5 and at C4 Thoracic/Lumbar Spine: thoracic and lumbar spine normal to inspection, pain with thoraco-lumbar ROM, thoraco-lumbar spasm on the left in the mid lumbar, in the lower lumbar and in the upper lumbar and on the left greater than right (upper thoracic), thoraco-lumbar ROM limited, paraspinal tenderness on the left greater than right Sacroiliac joints: on the left Office Procedures Chiropractic Treatments Procedures Manipulation: 3-4 regions (C5,T2, T6,L5, LIL) Assessment AND Plan 1. DDD (degenerative disc disease), lumbar M51.36 Orders Orders: 2. Segmental and somatic dysfunction of lumbar region M99.03 Orders Orders: 3. Segmental and somatic dysfunction of thoracic region M99.02 Orders Orders: 4. Segmental and somatic dysfunction of cervical region M99.01 Orders Orders: Plan Detail Additional Comments Recommend referral to neuro for eval of right lower leg pain. Possible NCV or lower leg MRI to identify nerve damage or soft tissue injury. Goals Decrease pain and spasm Barriers DDD Follow Up PRN Coding Level of Care Code Off vis,est,level 2 Diagnoses DDD (degenerative disc disease), lumbar M51.36 Segmental and somatic dysfunction of lumbar region M99.03 Segmental and somatic dysfunction of thoracic region M99.02 Segmental and somatic dysfunction of cervical region M99.01 Additional Codes Procedures - Manipulation: 3-4 regions (45817) 12/31/17 1154 <Electronically signed by Judith Ruth D.C.> Date Judith Ruth D.C. Cosigner Signature: Date (if applicable) CC: CHIROPRACTIC REPORT Observed: 12/24/2017 Status: F Source: [place] 4:24 PM [facility] [address] [place] [id number] OFFICE VISIT Date of Service: 12/24/17 MR#: [id number] Acct: [id number] Name: PIO HOANG Rep #: [id number] : 1950 Provider: Judith Ruth D.C. Age/Sex: 67/M [place] [facility] Status: Signed Intake Vital Signs12/24/17 Height 5 ft 10 in 12/24/17 Weight: 231 lb 12/24/17 Body Mass Index (BMI) 33.1 Intake Visit Reasons: low back pain Chief Complaint: back pain Is patient in pain?: Yes Allergies grass pollen Allergy (Verified 08/29/17 08:09) Unknown dabigatran etexilate [From Pradaxa] Adverse Reaction (Unknown, Verified 08/29/17 08:09) Unknown pet dander Allergy (Uncoded 07/22/17 14:31) Unknown Medications Aspirin E.C. [Ecotrin] 81 mg PO DAILY@0800 05/18/13 [History Confirmed 08/29/17] Fluticasone 0.05% [Flonase Nasal [place]] 1 spray NASAL BID 05/18/13 [History Confirmed 08/29/17] Magnesium Oxide [Mag-Ox 400] 400 mg PO BID 05/18/13 [History Confirmed 08/29/17] Multivitamins,Therapeutic [Multivitamin] 1 tab PO DAILY 05/18/13 [History Confirmed 08/29/17] Ubidecarenone [Coq10] 200 mg PO DAILY 05/18/13 [History Confirmed 08/29/17] echinacea 400 mg capsule 400 mg PO TID 03/22/17 [History Confirmed 08/29/17] lactobacillus combination no.8 3 billion cell capsule 3,000 mmu cells PO QDAY 03/22/17 [History Confirmed 08/29/17] loratadine 10 mg tablet 10 mg PO QDAY 03/22/17 [History Confirmed 08/29/17] omega-3 fatty acids 1,000 mg capsule 1,000 mg PO QDAY 03/22/17 [History Confirmed 08/29/17] cholecalciferol (vitamin D3) 1,000 unit capsule 1,000 unit PO ONCE 04/19/17 [History Confirmed 08/29/17] nitroglycerin 0.3 mg sublingual tablet 0.3 mg SUBLINGUAL Q5M PRN 04/19/17 [History Confirmed 08/29/17] alprazolam 0.5 mg tablet 0.25 mg PO BID tab 06/10/17 [History Confirmed 08/29/17] lansoprazole 30 mg capsule,delayed release 30 mg PO QDAY cap 06/10/17 [History Confirmed 08/29/17] metoprolol succinate ER 25 mg tablet,extended release 24 hr 25 mg PO BID #180 tab 06/17/17 [Rx Confirmed 08/29/17] alfuzosin ER 10 mg tablet,extended release 24 hr 10 mg PO QDAY 07/22/17 [History Confirmed 08/29/17] saw palmetto 500 mg capsule 500 mg PO QDAY cap 08/29/17 [History Confirmed 08/29/17] simvastatin 40 mg tablet 40 mg PO QHS #90 tab 11/08/17 [Rx] [facility] Medical History Abdominal pain (Acute) Premature ventricular contraction (Acute) Premature atrial contractions (Acute) Atherosclerotic heart disease of [place] coronary artery without angina pectoris (Chronic) Long-term use of high-risk medication (Acute) Hyperlipidemia (Chronic) Hypertension (Chronic) Paroxysmal atrial fibrillation (Chronic) Costochondritis (Acute) Degenerative disc disease, lumbar (Acute) Family history of hypertension (Acute) Lumbar radiculopathy, right (Acute) Segmental and somatic dysfunction of cervical region (Acute) Segmental and somatic dysfunction of lumbar region (Acute) Segmental and somatic dysfunction of thoracic region (Acute) Arthritis (Chronic) GERD (gastroesophageal reflux disease) (Chronic) YENNI (obstructive sleep apnea) (Chronic) Osteoarthritis of left knee (Chronic) Surgical History H/O shoulder surgery (Resolved) H/O sinus surgery (Resolved) History of arthroscopy of knee (Resolved) History of cardiac radiofrequency ablation (RFA) (Resolved) History of cataract surgery (Resolved) History of detached retina repair (Resolved) History of hemorrhoidectomy (Resolved) Status post laser ablation of incompetent vein (Resolved) Bilateral knee pain (Inactive) H/O cardiac radiofrequency ablation (Inactive) H/O detached retina repair (Inactive) H/O hemorrhoidectomy (Inactive) H/O sinus surgery (Inactive) right shoulder (Inactive) vein (Inactive) Family History Mother Hypertension CAD (coronary artery disease) Father Hypertension Atrial fibrillation Presence of permanent cardiac pacemaker CVA (cerebral vascular accident) Social History Smoking Status: Former smoker alcohol intake: current alcohol intake frequency: a few times a week Alcohol type: beer substance use type: does not use HPI low back pain: Chief Complaint: L sided neck and low back pain Visit Number: 5 Details: PIO HOANG is a 67 year old M who presents with L sided low back and L sided neck pain. He states that recently his low back pain has caused increased discomfort, although he still is experiencing knee pain. Today Pio rates his pain a 4/10 and describes it as a tight ache that bands across the low back, walking, bending, and lifting all causes increased pain. The patient also complains of L sided neck pain, described as tight and achy. Rotation of the neck, and lifting cause increased pain although he denies any numbness, tingling, or radiculopathy. He continues to have tenderness on the left > right lower limb (arcos). He had a recent CT of his lumbar spine that he will request for us to review. Onset: 12/03/17 Location: L sided neck and low back pain Duration: intermittent Aggravating or associated factors: bending, lifting, twisting and standing Relieving factors: chiro Pain Quality: aching, dull, cramping Exam Musc General: Yes joint tenderness (C5, C6, T2, T3, T6, T7, T8, L4, L5) and decreased ROM; no normal posture (slight anterior head carriage) or normal gait (favors left knee) Cervical Spine: loss of normal cervical lordosis, pain with cervical ROM, cervical spasm, cervical ROM abnormal Thoracic/Lumbar Spine: thoracic and lumbar spine normal to inspection, pain with thoraco-lumbar ROM, thoraco-lumbar spasm on the left greater than right (QL and paraspinal), thoraco-lumbar ROM limited, paraspinal tenderness on the left greater than right (T10-L5) and bilaterally in the upper thoracic Sacroiliac joints: on the left Office Procedures Chiropractic Treatments Procedures Manipulation: 3-4 regions (T2,T6,T8, L4, LIL) Electrical Stimulation: 15 mins (L cervical ) Traction, Mechanical: Yes Details: Lumbar traction 15 min Assessment AND Plan 1. DDD (degenerative disc disease), lumbar M51.36 Orders Orders: 2. Segmental and somatic dysfunction of lumbar region M99.03 Orders Orders: 3. Segmental and somatic dysfunction of thoracic region M99.02 Orders Orders: 4. Segmental and somatic dysfunction of cervical region M99.01 Orders Orders: Plan Detail Additional Comments Discussed with patient recent vein removal surgery/outcomes, recent CT scan of lumbar spine, and most recent treatments. Patient will get copy of CT sent to our office for review and recommendation. Goals Decrease pain and spasm Barriers DDD Follow Up PRN Coding Level of Care Code Prob focused, straight fwd Diagnoses DDD (degenerative disc disease), lumbar M51.36 Segmental and somatic dysfunction of lumbar region M99.03 Segmental and somatic dysfunction of thoracic region M99.02 Segmental and somatic dysfunction of cervical region M99.01 Additional Codes Procedures - Manipulation: 3-4 regions (98067) Procedures - Electrical Stimulation: 15 mins (29168) Procedures - Traction, Mechanical: Yes (70808) 12/24/17 1624 <Electronically signed by Judith Ruth D.C.> Date Judith Ruth D.C. Cosigner Signature: Date (if applicable) CC: LIVER PROFILE Collected: 12/23/2017 Status: F Source: [place] 10:33 AM [facility] [place] REPOSITORY Order Comment: DR. LORA WANTS THE LIPID AND LIVER DR. URBAN WANTS THE PSAD TOTAL AND FREE SEND LIVER AND LIPID TEST TO [facility] TYPE CODE TESTS RESULT OUT OF RANGE REFERENCE UNITS LAB L501.1500 6.4-8.2 g/dL Normal T PROT 7.4 LAB L501.1800 3.2-5.0 g/dL Normal ALB 3.8 LAB L501.1950 2.2-4.2 g/dL Normal GLOB 3.6 LAB L501.4100 15-37 U/L Normal AST 19 LAB L501.4305 45-117 U/L Normal ALK P 87 LAB L501.4405 16-61 U/L Normal ALT 23 LAB L501.4600 0.20-1.00 mg/dL Normal T BILI 0.70 LAB L501.4700 0.00-0.30 mg/dL Normal D BILI 0.18 Performed By: #### L500.3400, L500.4100, L501.9940 #### [facility] [address] [place], [place], [address] LIPID PROFILE Collected: 12/23/2017 Status: F Source: [place] 10:33 AM [facility] [place] REPOSITORY Order Comment: DR. LORA WANTS THE LIPID AND LIVER DR. URBAN WANTS THE PSAD TOTAL AND FREE SEND LIVER AND LIPID TEST TO [facility] TESTS RESULT OUT OF RANGE REFERENCE UNITS LAB L501.4900 200 mg/dL Normal CHOL 105 Result Comment: <200 mg/dL Desirable 200-240 mg/dL Borderline >240 mg/dL High Risk LAB L501.5000 mg/dL Normal TRIG 61 Result Comment: The drugs N-Acetylcysteine and Metamizole may falsely depress this assay. Serum Triglycerides Reference Interval Normal <150 mg/dL Borderline high 150 - 199 mg/dL High 200 - 499 mg/dL Very High > or = 500 mg/dL LAB L501.6400 mg/dL Normal HDL 43 Result Comment: The drugs N-Acetylcysteine and Metamizole may falsely depress this assay. Reference Range HDL <40 mg/dL Low HDL Cholesterol HDL >or= 60 mg/dL High HDL Cholesterol LAB L501.6500 0-130 mg/dL Normal LDL 50 LAB L501.6600 5-40 mg/dL Normal VLDL 12 Performed By: #### L500.3400, L500.4100, L501.9940 #### [facility] [address] [place], [place], [address] PSA,TOTAL- DIAGNOSTIC Collected: 12/23/2017 Status: F Source: [place] 10:33 AM [facility] [place] REPOSITORY Order Comment: DR. LORA WANTS THE LIPID AND LIVER DR. URBAN WANTS THE PSAD TOTAL AND FREE SEND LIVER AND LIPID TEST TO [facility] TESTS RESULT OUT OF REFERENCE UNITS RANGE LAB L501.9940 0.0-4.0 ng/mL PSA, High DIAGNOSTIC 6.10 Result Comment: This test was performed using the TPSA assay method for the Dimension chemistry system. Values obtained with different assay methods cannot be used interchangably. When changing PSA assays in the course of monitoring a patient, additional sequential testing should be carried out to confirm baseline values. Performed By: #### L500.3400, L500.4100, L501.9940 #### [facility] [place], [address] PSA TOTAL+%FREE Collected: 12/23/2017 Status: F Source: [place] 10:33 AM [facility] [place] REPOSITORY Order Comment: DR. LORA WANTS THE LIPID AND LIVER DR. URBAN WANTS THE PSAD TOTAL AND FREE SEND LIVER AND LIPID TEST TO [facility] TYPE CODE TESTS RESULT OUT OF RANGE REFERENCE UNITS LAB L3110.0700 0.0-4.0 ng/mL Normal PSA, 3.9 TOTAL Result Comment: Radha ECLIA methodology. According to the [place], Serum PSA should decrease and remain at undetectable levels after radical prostatectomy. The AUA defines biochemical recurrence as an initial PSA value 0.2 ng/mL or greater followed by a subsequent confirmatory PSA value 0.2 ng/mL or greater. Values obtained with different assay methods or kits cannot be used interchangeably. Results cannot be interpreted as absolute evidence of the presence or absence of malignant disease. LAB L3110.0800 N/A ng/mL Normal PSA, 0.69 FREE Result Comment: Radha ECLIA methodology. LAB L3110.0900 . % Normal PSA, FREE 17.7 % Result Comment: The table below lists the probability of prostate cancer for men with non-suspicious MANUEL results and total PSA between 4 and 10 ng/mL, by patient age (Silvino et al, TIMMY 1998, 279:1542). % Free PSA 50-64 yr 65-75 yr 0.00-10.00% 56% 55% 10.01-15.00% 24% 35% 15.01-20.00% 17% 23% 20.01-25.00% 10% 20% >25.00% 5% 9% Please note: Silvino et al did not make specific recommendations regarding the use of percent free PSA for any other population of men. Performed at: [address] [id number] Cat Scan Technologist: Pa Galindo PhD, Phone: [phone] Performed By: #### L3110.0500 #### [facility] (refer to report for specific site) refer to report for address and phone number PT D/C SUMMARY (1) Observed: 12/09/2017 Status: F Source: [place] 7:47 AM [facility] [place] REPOSITORY [facility] [address] [place] [address] Fax REHABILITATION SERVICES DISCHARGE SUMMARY MR#: [id number] Acct: [id number] Name: PIO HOANG Rep #: [id number] : 1950 67 From: Kvng Pereyra DPT Referring Dr.: Judith Ruth D.C. Status: REG RCR [facility] [place] - PT D/C Summary It has been my pleasure to treat PIO HOANG under orders from Judith Ruth D.C., for the diagnosis of R distal leg contusion/pain for a total of 7 visit(s). Discharge Date: 11/18/17 Please see the following information for a summary of their discharge status. - Subjective Subjective: Pt. reports I feel like we have met our max. Pt. reports being 50% better overall. He is able play golf, but still gets a lot of pain with standing at times. - Pain R proximal 1/3 of tib/fib Pain Intensity (Out of 10): 3 - Overall Improvement % Improvement: 50 - Objective Objective/Function: Pt. tolerated all PT. Pt. has normal ROM of R knee, lacking slight knee ext. Pt. does have genu varus, excessive bilaterally. Pt. has had some progress with stretching and manual therapy. Pt. is to trial on own at this point in time. - Goals Goal 1:: Pt. to be I with HEP. Goal Progress: Goal Met Goal 2:: Pt. to ambulate with 0-2/10 pain in RLE for unlimited distances. Goal Progress: Progressing Goal 3:: Pt. to have decreased pain with negotiation of steps allowing for increased tolerance with entering home. Goal Progress: Goal Met Goal 4:: Pt. to be educated in prophalxis techniques to keep symptoms reduced. Goal Progress: Goal Met - Plan Plan: Pt. to be DC to [facility] and follow up with ortho if needed, possible MRI to rule out other pathology. - D/C Information Discharge Comments: Pt. was treated with stretcing, eccentric strengthening, DN and manual techniques. Pt. reports ahving some relief becoming 50% better overall. He continues to have pain to touch, but not always consistent. He is independnet with his program is back to playing golf without much issues. He is to follow up with physician if symptoms worsen. If there are questions or concerns regarding this patient's physical therapy, please feel free to call me at [phone]. Thank you for the referral of this patient. Sincerely, Kvng Pereyra <Electronically signed by Kvng Pereyra DPT> 12/09/17 0747 CC: Steven Lora; Judith Ruth D.C. CLS Signed CT LUMBAR SPINE WO Observed: 11/27/2017 Status: F Source: [place] IV[facility] 4:56 PM CLINIC OTHER [facility] REPOSITORY * * *Final Report* * * DATE OF EXAM: Nov 27 2017 4:56PM [facility] [place] 0508 - CT LUMBAR SPINE WO IVCON / PROCEDURE REASON: M54.9 BACK PAIN * * * * Physician Interpretation * * * * EXAMINATION: CT LUMBAR SPINE WO IVCON CLINICAL HISTORY: Back pain. Bilateral lower extremity weakness. TECHNIQUE: Spiral, high resolution axial images were obtained from the thoracolumbar junction to the sacrum with sagittal and coronal planar reconstructions. MQ: [id number] Dose-Length Product (DLP): 572.25 mGy*cm. CT Dose Reduction Employed: Iterative recon and mAs-kVp adjusted using patient size-age COMPARISON: None. RESULT: Counting reference: Lumbosacral junction. For the purposes of this report, L4-5 is considered the level of the iliac crest and there are 5 lumbar-type vertebrae. Anatomic Variants: None. Alignment: Mild curvature lumbar spine concave to the left. Grade 1 anterolisthesis L4 on L5. Bone marrow /fracture: No evidence of a lytic or blastic process in the visualized spine. Vertebral bodies normal in height. Posterior elements are normal in morphology and alignment. Paraspinal soft tissues: The paraspinal soft tissues planes are maintained. Lower thoracic spine: The visualized lower thoracic bony canal and foramina are patent. T12-L1: Canal and foramina are patent. L1-L2: Canal and foramina are patent. L2-L3: Bulging disk, facet, and ligamentous hypertrophy results in mild central canal narrowing and mild neural foraminal narrowing. L3-L4: Bulging disk, facet, and ligamentous hypertrophy results in moderate central canal narrowing and severe neural foraminal narrowing. L4-L5: Bulging disk, facet, and ligamentous hypertrophy results in moderate central canal narrowing and severe neural foraminal narrowing. L5-S1: Bulging disc and facet arthropathy with mild mass effect on traversing bilateral S1 nerve roots. Severe bilateral foraminal stenosis. Sacrum and iliac wings: The visualized sacrum and iliac wings are within normal limits. IMPRESSION: Degenerative changes most severe at L3-L4 through L5-S1 as itemized above. Anatomic Variant: None. L4-5 is considered the level of the iliac crest and assume there are 5 lumbar-type vertebrae. Joist Setter: PSCJuliette Transcribe Date/Time: Nov 27 2017 6:22P Dictated by : TYRESE PETERS MD This examination was interpreted and the report reviewed and electronically signed by: TYRESE PETERS MD on Nov 27 2017 6:24PM EST [id number] INITAL EVALUATION (1) Observed: 10/30/2017 Status: F Source: [place] - PT 1:25 PM [facility] [place] REPOSITORY [facility] [address] [place] [address]. [address] [place], [place] [address] Fax REHABILITATION SERVICES INITIAL EVALUATION MR#: [id number] Acct: [id number] Name: PIO HOANG Rep #: [id number] : 1950 67 From: Kvng Pereyra DPT Referring Dr.: Judith Ruth D.C. Status: REG RCR Insurance: [facility]UR[facility] Patient's Visit Information PIO HOANG is a 67 year old M referred to Physical Therapy by Judith Ruth D.C. with a diagnosis of R distal leg contusion/pain. Date of Evaluation: 10/15/17 Physical Therapist: Kvng Pereyra - Visit Plan Frequency: 1-2x /Week Duration: 4 Weeks Plan: Start with manual technqiues, anterior tib stretching, calf stretching, DN to ant. tib, G/S complex. - Subjective Subjective: Pt. is here today for his initial evaluation with diagnosis of R distal LE leg contusion/injury. Pt. reports 6 years ago falling down a flight of steps jamming his heel on every step on the way down. Pt. attempted to self manage for 1-2 years, but eventually went to see an orthopedic. Pt. was treated with stretching and strengthening, but did not have relief. He was then treated with lumbar spine injections, which also did not help. Pt. is hopeful now to trial manual PT and DN to reduce symptoms. Pt. reports having burning pain in upper 1/2 of tib/fib region. Pt. does have pain that moves around, but generally in that range. He has also been told that he needs to have bilateral TKA done due to mod/severe OA of bilateral knees. Pt. reports increased pain only during WBing positioing, no pain at rest. Pt. reports pain getting as severe as 10/10. He reports having typical pain aroung 5/10 on average. Pt. reports medication does not help. Pt. denies N/T in either LE. Pt. reports no weakness, no back pain and his leg does not give out on him. pt. is hopeful to reduce symptoms in order to get back to recreational activities and walking without limations. - Pain R proximal 1/3 of tib/fib Pain Intensity (Out of 10): 6 Pain Intensity Range: 3, 10 - Objective POSTURE: Pt. has increased genu varum in stance. Pt. has normal liliac crest heights, Pt. has increased external tibial rotation in stance. PALPATION: Pt. has tenderness along tibia, along anterior tibialis muscle belly and tendon, but also has pain just medially to tibia. NEUROLOGICAL: Intact throughout. No issues. ROM: Pt. has decreased knee ext RLE- 0-4-129deg. Pt. has normal hip ROM, tightness noted in calf and HS. MMT: PT. has 5/5 tesing throughout BLEs knees and ankles. GAIT: Pt. has antalgic pattern during R stance phase with lateral trunk lean. Pt. reprots increased pain during R stance phase. Pt. has increased genu varum with gait. No LOB noted. - Goals Goal 1:: Pt. to be I with HEP. Goal Time Frame: 4-6 Weeks Goal 2:: Pt. to ambulate with 0-2/10 pain in RLE for unlimited distances. Goal Time Frame: 4-6 Weeks Goal 3:: Pt. to have decreased pain with negotiation of steps allowing for increased tolerance with entering home. Goal Time Frame: 4-6 Weeks Goal 4:: Pt. to be educated in prophalxis techniques to keep symptoms reduced. Goal Time Frame: 4-6 Weeks - Rehabilitation Potential Physical Therapy Diagnosis: Pt. has signs and sympoms of left leg contusion. Pt. has no signs of fx, or weakness. Pt. is tender to touch throughout anterior tib and medial aspect of anterior calf. Pt. would benefit from manual techniques, stretching and DN to reduce symptoms. Rehabilitation Potential: Fair - Anticipated Interventions Patient/Client Instruction: Educate patient on: Condition, Plan of Care, Risk Factors, Benefits of Fitness Program For the Purpose of:: To foster healthy habits, To improve decision making, To facilitate caregiver knowledge, To improve self management, To prevent re-injury, To improve ability to perform tasks related to life management, To improve tolerance to ADL's Therapeutic Exercise to Include: Strength training, Power training, Postural training, Flexibilty training, Gait and locomotor training, Passive ROM, Active ROM For the Purpose of:: To decrease pain, To decrease swelling/inflammation, To increase ROM, To improve nutrient delivery to tissue, To increase oxygenation perfusion, To improve muscle performance and motor function, To improve gait and locomotor functions, To improve health of tissue, To decrease soft tissue restriction, To increase flexibility/ROM Manual Therapy Techniques to Include: Trigger point massage, Mobilization, Passive ROM, Functional dry needling, Soft tissue mobilization For the Purpose of:: To decrease pain, To decrease swelling/inflammation, To increase ROM, To improve nutrient delivery to tissue, To increase oxygenation perfusion, To improve muscle performance and motor function Thank you for the opportunity to evaluate your patient. For Medicare and Medicare HMO plans, please review the plan of care and approve it. It will need to be FAXED BACK to us at [phone] for Medicare purposes. Please let me know if there are questions or concerns regarding this plan of care. Physician Signature: Date: <Electronically signed by Kvng Pereyra DPT> 10/30/17 1325 CC: Steven Lora; Judith Ruth D.C. CLS Signed For Medicare only, by signing this I certify the plan of care. Physicians Signature Date CHIROPRACTIC REPORT Observed: 10/28/2017 Status: F Source: [place] 12:39 PM [facility] [address] [place] [address] OFFICE VISIT Date of Service: 10/28/17 MR#: [id number] Acct: [id number] Name: PIO HOANG Rep #: [id number] : 1950 Provider: Judith Ruth D.C. Age/Sex: 67/M Location: [facility] [place] Status: Signed Intake Vital Signs10/28/17 Height 5 ft 10 in 10/28/17 Weight: 231 lb 10/28/17 Body Mass Index (BMI) 33.1 Intake Visit Reasons: neck pain Chief Complaint: back pain Is patient in pain?: Yes Allergies grass pollen Allergy (Verified 08/29/17 08:09) Unknown dabigatran etexilate [From Pradaxa] Adverse Reaction (Unknown, Verified 08/29/17 08:09) Unknown pet dander Allergy (Uncoded 07/22/17 14:31) Unknown Medications Aspirin E.C. [Ecotrin] 81 mg PO DAILY@0800 05/18/13 [History Confirmed 08/29/17] Fluticasone 0.05% [Flonase Nasal [place]] 1 spray NASAL BID 05/18/13 [History Confirmed 08/29/17] Magnesium Oxide [Mag-Ox 400] 400 mg PO BID 05/18/13 [History Confirmed 08/29/17] Multivitamins,Therapeutic [Multivitamin] 1 tab PO DAILY 05/18/13 [History Confirmed 08/29/17] Simvastatin [Zocor] 40 mg PO QHS 05/18/13 [History Confirmed 08/29/17] Ubidecarenone [Coq10] 200 mg PO DAILY 05/18/13 [History Confirmed 08/29/17] echinacea 400 mg capsule 400 mg PO TID 03/22/17 [History Confirmed 08/29/17] lactobacillus combination no.8 3 billion cell capsule 3,000 mmu cells PO QDAY 03/22/17 [History Confirmed 08/29/17] loratadine 10 mg tablet 10 mg PO QDAY 03/22/17 [History Confirmed 08/29/17] omega-3 fatty acids 1,000 mg capsule 1,000 mg PO QDAY 03/22/17 [History Confirmed 08/29/17] cholecalciferol (vitamin D3) 1,000 unit capsule 1,000 unit PO ONCE 04/19/17 [History Confirmed 08/29/17] nitroglycerin 0.3 mg sublingual tablet 0.3 mg SUBLINGUAL Q5M PRN 04/19/17 [History Confirmed 08/29/17] alprazolam 0.5 mg tablet 0.25 mg PO BID tab 06/10/17 [History Confirmed 08/29/17] lansoprazole 30 mg capsule,delayed release 30 mg PO QDAY cap 06/10/17 [History Confirmed 08/29/17] metoprolol succinate ER 25 mg tablet,extended release 24 hr 25 mg PO BID #180 tab 06/17/17 [Rx Confirmed 08/29/17] alfuzosin ER 10 mg tablet,extended release 24 hr 10 mg PO QDAY 07/22/17 [History Confirmed 08/29/17] saw palmetto 500 mg capsule 500 mg PO QDAY cap 08/29/17 [History Confirmed 08/29/17] [facility] Medical History Abdominal pain (Acute) Premature ventricular contraction (Acute) Premature atrial contractions (Acute) Atherosclerotic heart disease of [place] coronary artery without angina pectoris (Chronic) Long-term use of high-risk medication (Acute) Hyperlipidemia (Chronic) Hypertension (Chronic) Paroxysmal atrial fibrillation (Chronic) Costochondritis (Acute) Degenerative disc disease, lumbar (Acute) Family history of hypertension (Acute) Lumbar radiculopathy, right (Acute) Segmental and somatic dysfunction of cervical region (Acute) Segmental and somatic dysfunction of lumbar region (Acute) Segmental and somatic dysfunction of thoracic region (Acute) Arthritis (Chronic) GERD (gastroesophageal reflux disease) (Chronic) YENNI (obstructive sleep apnea) (Chronic) Osteoarthritis of left knee (Chronic) Surgical History H/O shoulder surgery (Resolved) H/O sinus surgery (Resolved) History of arthroscopy of knee (Resolved) History of cardiac radiofrequency ablation (RFA) (Resolved) History of cataract surgery (Resolved) History of detached retina repair (Resolved) History of hemorrhoidectomy (Resolved) Status post laser ablation of incompetent vein (Resolved) Bilateral knee pain (Inactive) H/O cardiac radiofrequency ablation (Inactive) H/O detached retina repair (Inactive) H/O hemorrhoidectomy (Inactive) H/O sinus surgery (Inactive) right shoulder (Inactive) vein (Inactive) Family History Mother Hypertension CAD (coronary artery disease) Father Hypertension Atrial fibrillation Presence of permanent cardiac pacemaker CVA (cerebral vascular accident) Social History Smoking Status: Former smoker alcohol intake: current alcohol intake frequency: a few times a week Alcohol type: beer substance use type: does not use HPI neck pain : Chief Complaint: neck pain Visit Number: 4 Details: PIO HOANG is a 67 year old M who presents with increased neck pain. He states since his last visit his pain has gotten increasingly worse, with now numbness and tingling into the hands. Lifting, rotation of the neck, driving and lifting all cause increased pain described as a tight and sharp ache that bands across the neck. At times there is presence of a headache. 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 He feels numbness at times in his left 4th/5 digits with no decreased strength. His low back is also hurting, more on the left than the right side. Onset: 10/07/17 Location: neck/LBP Duration: constant/intermittent Aggravating or associated factors: rotation of the neck, looking down and lifting Relieving factors: chiro Pain Quality: aching, dull, cramping, sharp, radiating Exam Musc General: Yes joint tenderness (C5, C6, T2, T3, T6, T7, T8, L4, L5) and decreased ROM; no normal posture (slight anterior head carriage) or normal gait (favors left knee) Cervical Spine: loss of normal cervical lordosis, pain with cervical ROM with lateral flexion to right and with lateral flexion to left, cervical spasm left lower: trapezius and paracervical muscles, cervical ROM abnormal lateral flexion to the right decreased and lateral flexion to the left decreased Thoracic/Lumbar Spine: thoracic and lumbar spine normal to inspection, pain with thoraco-lumbar ROM with forward flexion, with lateral flexion to the right and with lateral flexion to the left, thoraco-lumbar spasm bilaterally (QL, piriformis (L>R)) in the lower lumbar and on the left (trap and rhomboid) in the mid thoracic, thoraco-lumbar ROM limited with forward flexion, paraspinal tenderness on the left in the upper thoracic and in the mid thoracic Sacroiliac joints: on the left tender to palpation Office Procedures Chiropractic Treatments Procedures Manipulation: 3-4 regions (C6, T2, T6, T7, T8, L5) Electrical Stimulation: 15 mins Location: cervical Assessment AND Plan 1. DDD (degenerative disc disease), lumbar M51.36 Orders Orders: 2. Segmental and somatic dysfunction of lumbar region M99.03 Orders Orders: 3. Segmental and somatic dysfunction of thoracic region M99.02 Orders Orders: 4. Segmental and somatic dysfunction of cervical region M99.01 Orders Orders: Plan Detail Goals Decrease pain and spasm Barriers DDD Follow Up PRN Coding Level of Care Code No Charge Diagnoses DDD (degenerative disc disease), lumbar M51.36 Segmental and somatic dysfunction of lumbar region M99.03 Segmental and somatic dysfunction of thoracic region M99.02 Segmental and somatic dysfunction of cervical region M99.01 Additional Codes Procedures - Manipulation: 3-4 regions (35792) Procedures - Electrical Stimulation: 15 mins (85999) 10/28/17 6389 <Electronically signed by Judith Ruth D.C.> Date Judith Claudioign Signature: Date (if applicable) CC: CHIROPRACTIC REPORT Observed: 10/08/2017 Status: F Source: [place] 4:25 PM [facility] [address] [place] [address] OFFICE VISIT Date of Service: 10/08/17 MR#: [id number] Acct: [id number] Name: PIO HOANG Rep #: [id number] : 1950 Provider: Judith Ruth D.C. Age/Sex: 67/M Location: [facility] Status: Signed Intake Vital Signs10/08/17 Height 5 ft 10 in 10/08/17 Weight: 231 lb 10/08/17 Body Mass Index (BMI) 33.1 Intake Visit Reasons: back pain Chief Complaint: back pain Is patient in pain?: Yes Allergies grass pollen Allergy (Verified 08/29/17 08:09) Unknown dabigatran etexilate [From Pradaxa] Adverse Reaction (Unknown, Verified 08/29/17 08:09) Unknown pet dander Allergy (Uncoded 07/22/17 14:31) Unknown Medications Aspirin E.C. [Ecotrin] 81 mg PO DAILY@0800 05/18/13 [History Confirmed 08/29/17] Fluticasone 0.05% [Flonase Nasal Jefferson] 1 spray NASAL BID 05/18/13 [History Confirmed 08/29/17] Magnesium Oxide [Mag-Ox 400] 400 mg PO BID 05/18/13 [History Confirmed 08/29/17] Multivitamins,Therapeutic [Multivitamin] 1 tab PO DAILY 05/18/13 [History Confirmed 08/29/17] Simvastatin [Zocor] 40 mg PO QHS 05/18/13 [History Confirmed 08/29/17] Ubidecarenone [Coq10] 200 mg PO DAILY 05/18/13 [History Confirmed 08/29/17] echinacea 400 mg capsule 400 mg PO TID 03/22/17 [History Confirmed 08/29/17] lactobacillus combination no.8 3 billion cell capsule 3,000 mmu cells PO QDAY 03/22/17 [History Confirmed 08/29/17] loratadine 10 mg tablet 10 mg PO QDAY 03/22/17 [History Confirmed 08/29/17] omega-3 fatty acids 1,000 mg capsule 1,000 mg PO QDAY 03/22/17 [History Confirmed 08/29/17] cholecalciferol (vitamin D3) 1,000 unit capsule 1,000 unit PO ONCE 04/19/17 [History Confirmed 08/29/17] nitroglycerin 0.3 mg sublingual tablet 0.3 mg SUBLINGUAL Q5M PRN 04/19/17 [History Confirmed 08/29/17] alprazolam 0.5 mg tablet 0.25 mg PO BID tab 06/10/17 [History Confirmed 08/29/17] lansoprazole 30 mg capsule,delayed release 30 mg PO QDAY cap 06/10/17 [History Confirmed 08/29/17] metoprolol succinate ER 25 mg tablet,extended release 24 hr 25 mg PO BID #180 tab 06/17/17 [Rx Confirmed 08/29/17] alfuzosin ER 10 mg tablet,extended release 24 hr 10 mg PO QDAY 07/22/17 [History Confirmed 08/29/17] saw palmetto 500 mg capsule 500 mg PO QDAY cap 08/29/17 [History Confirmed 08/29/17] [facility] Medical History Abdominal pain (Acute) Premature ventricular contraction (Acute) Premature atrial contractions (Acute) Atherosclerotic heart disease of [place] coronary artery without angina pectoris (Chronic) Long-term use of high-risk medication (Acute) Hyperlipidemia (Chronic) Hypertension (Chronic) Paroxysmal atrial fibrillation (Chronic) Costochondritis (Acute) Degenerative disc disease, lumbar (Acute) Family history of hypertension (Acute) Lumbar radiculopathy, right (Acute) Segmental and somatic dysfunction of cervical region (Acute) Segmental and somatic dysfunction of lumbar region (Acute) Segmental and somatic dysfunction of thoracic region (Acute) Arthritis (Chronic) GERD (gastroesophageal reflux disease) (Chronic) YENNI (obstructive sleep apnea) (Chronic) Osteoarthritis of left knee (Chronic) Surgical History H/O shoulder surgery (Resolved) H/O sinus surgery (Resolved) History of arthroscopy of knee (Resolved) History of cardiac radiofrequency ablation (RFA) (Resolved) History of cataract surgery (Resolved) History of detached retina repair (Resolved) History of hemorrhoidectomy (Resolved) Status post laser ablation of incompetent vein (Resolved) Bilateral knee pain (Inactive) H/O cardiac radiofrequency ablation (Inactive) H/O detached retina repair (Inactive) H/O hemorrhoidectomy (Inactive) H/O sinus surgery (Inactive) right shoulder (Inactive) vein (Inactive) Family History Mother Hypertension CAD (coronary artery disease) Father Hypertension Atrial fibrillation Presence of permanent cardiac pacemaker CVA (cerebral vascular accident) Social History Smoking Status: Former smoker alcohol intake: current alcohol intake frequency: a few times a week Alcohol type: beer substance use type: does not use HPI back pain : Chief Complaint: neck and low back pain Visit Number: 3 Details: PIO HOANG is a 67 year old M who presents with neck and L sided low back pain. He states that over the past two weeks he has been experiencing tightness in the neck with numbness in the last two fingers of the L arm. The pain increases with bending forward and rotation of the neck. 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 He is walking with abnormal gait, swinging his L leg out. 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 Onset: 09/23/17 Location: neck and L low back Duration: intermittent Aggravating or associated factors: bending, lifting, and twisting, rotation of the neck and looking down Relieving factors: chiro Pain Quality: aching, dull, sharp, radiating Exam Musc General: Yes joint tenderness (C5, C6, T2, T3, T6, T7, T8, L4, L5) and decreased ROM; no normal posture (slight anterior head carriage) or normal gait (favors left knee) Cervical Spine: loss of normal cervical lordosis, pain with cervical ROM with lateral flexion to right and with lateral flexion to left, cervical spasm left lower: trapezius and paracervical muscles, cervical ROM abnormal lateral flexion to the right decreased and lateral flexion to the left decreased Thoracic/Lumbar Spine: thoracic and lumbar spine normal to inspection, pain with thoraco-lumbar ROM with forward flexion, with lateral flexion to the right and with lateral flexion to the left, thoraco-lumbar spasm bilaterally (QL, piriformis (L>R)) in the lower lumbar, thoraco-lumbar ROM limited with forward flexion Sacroiliac joints: on the left tender to palpation Office Procedures Chiropractic Treatments Procedures Manipulation: 3-4 regions (C6, T2, T6, L4,) Electrical Stimulation: 15 mins (Cervical and L lumbar ) Assessment AND Plan 1. DDD (degenerative disc disease), lumbar M51.36 Orders Orders: 2. Segmental and somatic dysfunction of lumbar region M99.03 Orders Orders: 3. Segmental and somatic dysfunction of thoracic region M99.02 Orders Orders: 4. Segmental and somatic dysfunction of cervical region M99.01 Orders Orders: Plan Detail Additional Comments Provided referral for PT/Dry needling to address ongoing discomfort. Goals Decrease pain and spasm Barriers DDD Follow Up PRN Coding Level of Care Code No Charge Diagnoses DDD (degenerative disc disease), lumbar M51.36 Segmental and somatic dysfunction of lumbar region M99.03 Segmental and somatic dysfunction of thoracic region M99.02 Segmental and somatic dysfunction of cervical region M99.01 Additional Codes Procedures - Manipulation: 3-4 regions (56213) Procedures - Electrical Stimulation: 15 mins (89704) 10/08/17 1625 <Electronically signed by Judith Ruth D.C.> Date Judith Ruth D.C. Cosigner Signature: Date (if applicable) CC: DOWNTIME REPORT Observed: 09/19/2017 Status: F Source: [place] 12:00 PM [facility] REPOSITORY [facility] Medical Records Department [address] [place] [address] Downtime Report MR#: [id number] Acct: [id number] Name: PIO HOANG Rep #: [id number] : 1950 66 From: Darian Roberto PCP: Steven Lora Status: REG CLI This patient was seen during an EMR downtime September 02, 2017 - September 09, 2017. This patient may have a combination of paper and electronic documentation or all paper documentation. All documentation is viewable within the e-chart portion of [employer] for each patient visit. CREATININE FINGERSTICK Collected: 09/09/2017 Status: F Source: [place] 6:12 PM [facility] REPOSITORY TYPE CODE TESTS RESULT OUT OF REFERENCE UNITS RANGE LAB L9100.0210 0.70-1.30 mg/dL High CREATININE WB 1.4 LAB L9100.0220 >60 mL/min Low EGFR WB 56.0000 Performed By: #### L9100.0200 #### [facility] Point of Care [address] [place] [address] ABDOMEN/PELVIS WITH Observed: 09/09/2017 Status: F Source: [place] CONTRAST 5:47 PM [facility] [place] REPOSITORY [facility] Imaging Services [address] [place] [address] Abdomen/Pelvis WITH Contrast MR#: [id number] Acct: [id number] Name: PIO HOANG Rep #: [id number] : 1950 M 66 From: Clarisse De La Fuente MD PCP: Steven Lora Status: REG CLI Study: Abdomen/Pelvis WITH Contrast Date of Exam: 09/09/17 Exam# [id number] Ordering Dr: Jhoan Hoover MD STUDY: CT ABDOMEN AND PELVIS WITH CONTRAST REASON FOR EXAM: Male, 66 years old. Abdominal pain. RADIATION DOSAGE (If Supplied By Facility): CTDIvol = ( 18.20 ) mGy, DLP = ( 1172.72 ) mGycm TECHNIQUE: Transaxial images were obtained from the dome of the diaphragm to the symphysis pubis without oral contrast. 100 ml of Isovue 300 contrast was administered. Sagittal and coronal images were reconstructed. Individualized dose optimization techniques were used for this CT. COMPARISON: None. FINDINGS: The visualized lung bases are unremarkable. The visualized portions of the heart are within normal limits. There is decreased attenuation of the liver consistent with steatosis. Normal gallbladder and extrahepatic biliary system. Normal spleen. Normal pancreas. Normal bilateral adrenal glands. There are bilateral renal cysts present. Normal visualized stomach. Normal small intestine. There are scattered diverticula arising from the colon. The appendix is visualized and appears normal. Normal abdominal aorta. Normal inferior vena cava. Normal retroperitoneum. Normal urinary bladder. There is a umbilical hernia containing fat and a a small amount of fluid. There are diffuse degenerative changes of the visualized lumbar spine. CT/Abdomen/Pelvis WITH Contrast IMPRESSION: Umbilical hernia. Fatty infiltration of the liver. Bilateral renal cysts. Colonic diverticulosis. Electronically Signed: Clarisse De La Fuente MD at 20:50 EDT Tel , Service support , CC: Steven Lora; Jhoan Hoover MD Joist Setter: Signed SURGERY VISIT REPORT Observed: 08/29/2017 Status: F Source: [place] 8:45 AM [facility] REPOSITORY [facility] [address] [place] [address] [address] [place] [address] OFFICE VISIT Date of Service: 08/29/17 MR#: [id number] Acct: [id number] Name: PIO HOANG Rep #: [id number] : 1950 Provider: Jhoan Hoover MD Age/Sex: 66/M Location: [facility] Status: Signed Intake Vital Signs08/29/17 Height 5 ft 10 in 08/29/17 Weight: 231 lb Intake Visit Reasons: Hernia Chief Complaint: back pain Sand Cutter Required: No Is patient in pain?: No Allergies grass pollen Allergy (Verified 08/29/17 08:09) Unknown dabigatran etexilate [From Pradaxa] Adverse Reaction (Unknown, Verified 08/29/17 08:09) Unknown pet dander Allergy (Uncoded 07/22/17 14:31) Unknown Medications Aspirin E.C. [Ecotrin] 81 mg PO DAILY@0800 05/18/13 [History Confirmed 08/29/17] Fluticasone 0.05% [Flonase Nasal [place]] 1 spray NASAL BID 05/18/13 [History Confirmed 08/29/17] Magnesium Oxide [Mag-Ox 400] 400 mg PO BID 05/18/13 [History Confirmed 08/29/17] Multivitamins,Therapeutic [Multivitamin] 1 tab PO DAILY 05/18/13 [History Confirmed 08/29/17] Simvastatin [Zocor] 40 mg PO QHS 05/18/13 [History Confirmed 08/29/17] Ubidecarenone [Coq10] 200 mg PO DAILY 05/18/13 [History Confirmed 08/29/17] echinacea 400 mg capsule 400 mg PO TID 03/22/17 [History Confirmed 08/29/17] lactobacillus combination no.8 3 billion cell capsule 3,000 mmu cells PO QDAY 03/22/17 [History Confirmed 08/29/17] loratadine 10 mg tablet 10 mg PO QDAY 03/22/17 [History Confirmed 08/29/17] omega-3 fatty acids 1,000 mg capsule 1,000 mg PO QDAY 03/22/17 [History Confirmed 08/29/17] cholecalciferol (vitamin D3) 1,000 unit capsule 1,000 unit PO ONCE 04/19/17 [History Confirmed 08/29/17] nitroglycerin 0.3 mg sublingual tablet 0.3 mg SUBLINGUAL Q5M PRN 04/19/17 [History Confirmed 08/29/17] alprazolam 0.5 mg tablet 0.25 mg PO BID tab 06/10/17 [History Confirmed 08/29/17] lansoprazole 30 mg capsule,delayed release 30 mg PO QDAY cap 06/10/17 [History Confirmed 08/29/17] metoprolol succinate ER 25 mg tablet,extended release 24 hr 25 mg PO BID #180 tab 06/17/17 [Rx Confirmed 08/29/17] alfuzosin ER 10 mg tablet,extended release 24 hr 10 mg PO QDAY 07/22/17 [History Confirmed 08/29/17] saw palmetto 500 mg capsule 500 mg PO QDAY cap 08/29/17 [History Confirmed 08/29/17] [facility] Medical History Premature ventricular contraction (Acute) Premature atrial contractions (Acute) Atherosclerotic heart disease of [place] coronary artery without angina pectoris (Chronic) Long-term use of high-risk medication (Acute) Hyperlipidemia (Chronic) Hypertension (Chronic) Paroxysmal atrial fibrillation (Chronic) Costochondritis (Acute) Degenerative disc disease, lumbar (Acute) Family history of hypertension (Acute) Lumbar radiculopathy, right (Acute) Segmental and somatic dysfunction of cervical region (Acute) Segmental and somatic dysfunction of lumbar region (Acute) Segmental and somatic dysfunction of thoracic region (Acute) Arthritis (Chronic) GERD (gastroesophageal reflux disease) (Chronic) YENNI (obstructive sleep apnea) (Chronic) Osteoarthritis of left knee (Chronic) Surgical History H/O shoulder surgery (Resolved) H/O sinus surgery (Resolved) History of arthroscopy of knee (Resolved) History of cardiac radiofrequency ablation (RFA) (Resolved) History of cataract surgery (Resolved) History of detached retina repair (Resolved) History of hemorrhoidectomy (Resolved) Status post laser ablation of incompetent vein (Resolved) Bilateral knee pain (Inactive) H/O cardiac radiofrequency ablation (Inactive) H/O detached retina repair (Inactive) H/O hemorrhoidectomy (Inactive) H/O sinus surgery (Inactive) right shoulder (Inactive) vein (Inactive) Family History Mother Hypertension CAD (coronary artery disease) Father Hypertension Atrial fibrillation Presence of permanent cardiac pacemaker CVA (cerebral vascular accident) Social History Smoking Status: Former smoker alcohol intake: current alcohol intake frequency: a few times a week Alcohol type: beer substance use type: does not use HPI HPI HPI: PIO HOANG, is a 66 M who presents to the office today for surgical consultation regarding an umbilical hernia. The patient reminds me that I have assisted his in the past with a lumpectomy for breast cancer and that she is doing well. He is concerned about progressive abdominal pain particularly in the right lower quadrant. The right lower quadrant pain can be radiating. It is intermittent. It seems to be aggravated by physical exercise. He has significant lower extremity issues. His bilateral hip and knee degenerative disease and has venous stasis disease of bilateral lower extremities. He has had venous ablation of bilateral extremities 3. He does like staying in shape and utilizes a weight machine. He has progressive discomfort in the right lower quadrant and generalized lower abdominal discomfort. He believes that the umbilical hernia is enlarging and is concerned this correlates with his discomfort. He did attend Dr. Goetz's his robotic hernia talk last night. He had some additional questions regarding that ROS General General: No weight change, appetite, fatigue, colon cancer, breast cancer or weakness HEENT HEENT: Yes eye surgery; no difficulty swallowing, eye injury, swollen glands or hoarseness Endo Endocrine: No thyroid disease, diabetes mellitus, thyroid cancer, Hair loss, heat intolerance or cold intolerance Skin Skin: No rash or changing moles Breast Breast: No left breast lump, right breast lump, nipple discharge, breast pain, abnormal mammogram, abnormal US or breast enlargement Musc Musculoskeletal: Yes back problems and arthritis; no rheumatoid arthritis, gout or joint pain Cardio Cardiovascular: Yes atrial fibrillation; no murmur, pacemaker, heart disease, high blood pressure, heart attack, heart stent, palpitations, shortness of breat with exertion or chest pain Psych Psychiatric: Yes anxiety; no depression or hearing voices Resp Respiratory: No shortness of breath, Yes sleep apnea, No cough, No COPD, No asthma, No emphysema, No wheezing Gastro Gastrointestinal: No abdominal pain, No nausea or vomiting, No diarrhea, No constipation, No blood in stool, Yes acid reflux, Yes hemorrhoids, No ulcers, No gallbladder problem, No black,tarry stools Hans Hematologic: No blood thinners, No blood disorders, No bleeding, No anemia, No blood clots Neuro Neurologic: No system reviewed and no additional complaints, except as docu, No as per HPI, No abnormal walking, No abnormal hearing, No abnormal movements, No abnormal speech, No behavioral changes, No burning sensations, No confusion, No seizure-like activity, No unsteadiness, No dizziness, No localized weakness, No frequent falls, No headache(s), No lack of coordination, No loss of vision, No memory loss, No numbness, No other visual disturbances, No radiating pain, No restless legs, No sensory deficit, No fainting, No tingling, No tremor(s), No weakness, No other Exam Const General: cooperative, healthy appearing, comfortable, no acute distress Nutritional Appearance: obese Orientation: alert, awake, oriented x3 HENMT Head: normal to inspection Eyes General: appearance normal, both eyes and all related structures Neck Neck: normal visual inspection Chest Chest palpation AND inspection: normal inspection of the chest Breast Palpation: No nipple discharge Resp Effort AND Inspection: normal respiratory effort Auscultation: clear to auscultation bilaterally Cardio Rate: regular rate Rhythm: regular rhythm Heart Sounds: no murmurs Bruits: carotid bruit Pulses: brachial pulses present, radial pulses present GI Palpation: soft, no hepatosplenomegaly Auscultation: normal bowel sounds Other: 2 cm umbilical hernia defect. 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 Nontender Normal bowel sounds No focal mass right lower quadrant no guarding or rebound Other: Testicles are mildly atrophic but descended without mass Very small bilateral indirect inguinal hernias detected on cough straining. These are minimal Skin Other: Well-healed surgical incision lateral right knee. Support hose in place bilateral infrageniculate Neuro General: CN's II-XI intact bilaterally Psych Affect: normal affect Assessment AND Plan Problems 1. Right lower quadrant abdominal pain R10.31 2. Umbilical hernia without obstruction and without gangrene K42.9 Plan The etiology of the patient's right lower quadrant pain does not seem to correlate with his umbilical hernia. He does have significant degenerative degenerative disease of his hips and knees and this may be simply musculoskeletal overload and strain. However I do believe that it is pertinent to pursue this as clinical exam is a little bit limited due to his body habitus. I am recommending a CT scan of the abdomen and pelvis. If that is not remarkable then I would offer the patient a direct umbilical herniorrhaphy with mesh and I have described the technique, benefits, risks, alternatives. I described utilization of Ventralex. He has had an opportunity to ask and have questions answered. Because of his activities during the summer he is interested in delaying this until next fall or winter. The patient reminds me that his most recent colonoscopy was approximately [address] Pa Contreras. The patient has had a remote polyp identified but his most recent exam according to the patient was clear. There is no family history of colon cancer I appreciate the opportunity of assisting with his surgical care. Cc: Dr. Mazin Hoover M.D., F.A.C.S. Orders Orders: Plan Detail Goals Decrease pain and spasm Barriers DDD Coding Level of Care Code Off vis,new,level 3 Diagnoses Right lower quadrant abdominal pain R10.31 Abdominal location: right lower quadrant Umbilical hernia without obstruction and without gangrene K42.9 Obstruction and gangrene presence: without obstruction or gangrene 08/29/17 0845 <Electronically signed by Jhoan Hoover MD> Date Jhoan Hoover MD Cosigner Signature: Date (if applicable) CC: Steven Lora CHIROPRACTIC REPORT Observed: 08/19/2017 Status: F Source: [place] 11:13 AM [facility] [address] [place] [address] OFFICE VISIT Date of Service: 08/15/17 MR#: [id number] Acct: [id number] Name: PIO HOANG Rep #: [id number] : 1950 Provider: Judith Ruth D.C. Age/Sex: 66/M Location: [facility] Status: Signed Intake Vital Signs08/15/17 Height 5 ft 10 in 08/15/17 Weight: 232 lb 08/15/17 Body Mass Index (BMI) 33.3 Intake Visit Reasons: back pain Chief Complaint: back pain Is patient in pain?: Yes Allergies grass pollen Allergy (Verified 07/22/17 14:31) Unknown dabigatran etexilate [From Pradaxa] Adverse Reaction (Unknown, Verified 07/22/17 14:31) Unknown pet dander Allergy (Uncoded 07/22/17 14:31) Unknown Medications Aspirin E.C. [Ecotrin] 81 mg PO DAILY@0800 05/18/13 [History Confirmed 07/22/17] Fluticasone 0.05% [Flonase Nasal [place]] 1 spray NASAL BID 05/18/13 [History Confirmed 07/22/17] Magnesium Oxide [Mag-Ox 400] 400 mg PO BID 05/18/13 [History Confirmed 07/22/17] Multivitamins,Therapeutic [Multivitamin] 1 tab PO DAILY 05/18/13 [History Confirmed 07/22/17] Simvastatin [Zocor] 40 mg PO QHS 05/18/13 [History Confirmed 07/22/17] Ubidecarenone [Coq10] 200 mg PO DAILY 05/18/13 [History Confirmed 07/22/17] echinacea 400 mg capsule 400 mg PO TID 03/22/17 [History Confirmed 07/22/17] lactobacillus combination no.8 3 billion cell capsule 3,000 mmu cells PO QDAY 03/22/17 [History Confirmed 07/22/17] loratadine 10 mg tablet 10 mg PO QDAY 03/22/17 [History Confirmed 07/22/17] omega-3 fatty acids 1,000 mg capsule 1,000 mg PO QDAY 03/22/17 [History Confirmed 07/22/17] saw palmetto 500 mg capsule 500 mg PO BID 03/22/17 [History Confirmed 07/22/17] cholecalciferol (vitamin D3) 1,000 unit capsule 1,000 unit PO ONCE 04/19/17 [History Confirmed 07/22/17] nitroglycerin 0.3 mg sublingual tablet 0.3 mg SUBLINGUAL Q5M PRN 04/19/17 [History Confirmed 07/22/17] alprazolam 0.5 mg tablet 0.25 mg PO BID tab 06/10/17 [History Confirmed 07/22/17] lansoprazole 30 mg capsule,delayed release 30 mg PO QDAY cap 06/10/17 [History Confirmed 07/22/17] metoprolol succinate ER 25 mg tablet,extended release 24 hr 25 mg PO BID #180 tab 06/17/17 [Rx Confirmed 07/22/17] alfuzosin ER 10 mg tablet,extended release 24 hr 10 mg PO QDAY 07/22/17 [History Confirmed 07/22/17] [facility] Medical History Premature ventricular contraction (Acute) Premature atrial contractions (Acute) Atherosclerotic heart disease of [place] coronary artery without angina pectoris (Chronic) Long-term use of high-risk medication (Acute) Hyperlipidemia (Chronic) Hypertension (Chronic) Paroxysmal atrial fibrillation (Chronic) Costochondritis (Acute) Degenerative disc disease, lumbar (Acute) Family history of hypertension (Acute) Lumbar radiculopathy, right (Acute) Segmental and somatic dysfunction of cervical region (Acute) Segmental and somatic dysfunction of lumbar region (Acute) Segmental and somatic dysfunction of thoracic region (Acute) Arthritis (Chronic) GERD (gastroesophageal reflux disease) (Chronic) YENNI (obstructive sleep apnea) (Chronic) Osteoarthritis of left knee (Chronic) Surgical History H/O shoulder surgery (Resolved) H/O sinus surgery (Resolved) History of arthroscopy of knee (Resolved) History of cardiac radiofrequency ablation (RFA) (Resolved) History of cataract surgery (Resolved) History of detached retina repair (Resolved) History of hemorrhoidectomy (Resolved) Status post laser ablation of incompetent vein (Resolved) Bilateral knee pain (Inactive) H/O cardiac radiofrequency ablation (Inactive) H/O detached retina repair (Inactive) H/O hemorrhoidectomy (Inactive) H/O sinus surgery (Inactive) right shoulder (Inactive) vein (Inactive) Family History Mother Hypertension CAD (coronary artery disease) Father Hypertension Atrial fibrillation Presence of permanent cardiac pacemaker Social History Smoking Status: Former smoker alcohol intake: current alcohol intake frequency: a few times a week Alcohol type: beer substance use type: does not use HPI back pain : Chief Complaint: back pain Visit Number: 2 Details: PIO HOANG is a 66 year old M who presents with bilateral low back pain. He states that the pain is radiating into the hips, but is worse on the R side. Today the patient rates his pain a 5/10 and describes it as a deep and tight ache that is causing decreased ROM. Lifting, bending and twisting all cause increased pain although he denies any numbness ,tingling, or radiculopathy. Onset: 07/30/17 Location: low back Duration: constant Aggravating or associated factors: bending, lifting and twisting Relieving factors: chiro Pain Quality: aching, dull, cramping, sharp, radiating Exam Musc General: Yes joint tenderness (C5, C6, T6, T7, T8, L4, L5) and decreased ROM; no normal posture (slight anterior head carriage) or normal gait (favors left knee) Cervical Spine: loss of normal cervical lordosis, pain with cervical ROM with lateral flexion to right and with lateral flexion to left, cervical spasm left lower: trapezius and paracervical muscles, cervical ROM abnormal lateral flexion to the right decreased and lateral flexion to the left decreased Thoracic/Lumbar Spine: thoracic and lumbar spine normal to inspection, pain with thoraco-lumbar ROM with forward flexion, with lateral flexion to the right and with lateral flexion to the left, thoraco-lumbar spasm bilaterally (QL, piriformis (L>R)) in the lower lumbar, thoraco-lumbar ROM limited with forward flexion Sacroiliac joints: on the right Office Procedures Chiropractic Treatments Procedures Manipulation: 3-4 regions (C5, T6, T8, L4) Electrical Stimulation: 15 mins Location: Lumbar Traction, Mechanical: Yes Details: Lumbar traction 15 min Assessment AND Plan Problems 1. Segmental and somatic dysfunction of cervical region M99.01 2. Segmental and somatic dysfunction of thoracic region M99.02 3. Segmental and somatic dysfunction of lumbar region M99.03 4. DDD (degenerative disc disease), lumbar M51.36 Plan Follow up PRN. Orders Orders: Plan Detail Goals Decrease pain and spasm Barriers DDD Follow Up PRN Coding Level of Care Code No Charge Diagnoses Segmental and somatic dysfunction of cervical region M99.01 Segmental and somatic dysfunction of thoracic region M99.02 Segmental and somatic dysfunction of lumbar region M99.03 DDD (degenerative disc disease), lumbar M51.36 Additional Codes Procedures - Electrical Stimulation: 15 mins (10326) Procedures - Traction, Mechanical: Yes (18378) Procedures - Manipulation: 3-4 regions (91815) 08/19/17 1113 <Electronically signed by Judith Ruth D.C.> Date Judith Ruth D.C. Cosigner Signature: Date (if applicable) CC: CARDIOLOGY VISIT Observed: 07/22/2017 Status: F Source: [place] RE[place] 3:05 PM [facility] RE[facility]IT[facility] [address] [place] [address] OFFICE VISIT Date of Service: 07/22/17 MR#: [id number] Acct: [id number] Name: PIO HOANG Rep #: [id number] : 1950 Provider: Jamarcus Anderson MD Age/Sex: 66/M Location: [facility] Status: Signed HPI HPI Details: PIO HOANG, is a 66 M who presents to the office today for for outpatient cardiovascular follow-up. Overall from a cardiac standpoint he states he has been doing well since his last visit. He has had no complaints of ongoing issues suspicious for angina pectoris or CHF/pulmonary edema. There has been no issues with respect to palpitations or rapid rates. There has been no near syncope or syncope. He has not required additional cardiovascular diagnostic studies. He has had his lipid profile performed earlier. It appeared to be under good control. Intake Vital Signs07/22/17 Height 5 ft 10 in 07/22/17 Weight: 232 lb 07/22/17 Body Mass Index (BMI) 33.3 07/22/17 Blood Pressure 128/66 Intake Visit Reasons: 9 M FU Allergies grass pollen Allergy (Verified 07/22/17 14:31) Unknown dabigatran etexilate [From Pradaxa] Adverse Reaction (Unknown, Verified 07/22/17 14:31) Unknown pet dander Allergy (Uncoded 07/22/17 14:31) Unknown Medications Aspirin E.C. [Ecotrin] 81 mg PO DAILY@0800 05/18/13 [History Confirmed 07/22/17] Fluticasone 0.05% [Flonase Nasal [place]] 1 spray NASAL BID 05/18/13 [History Confirmed 07/22/17] Magnesium Oxide [Mag-Ox 400] 400 mg PO BID 05/18/13 [History Confirmed 07/22/17] Multivitamins,Therapeutic [Multivitamin] 1 tab PO DAILY 05/18/13 [History Confirmed 07/22/17] Simvastatin [Zocor] 40 mg PO QHS 05/18/13 [History Confirmed 07/22/17] Ubidecarenone [Coq10] 200 mg PO DAILY 05/18/13 [History Confirmed 07/22/17] echinacea 400 mg capsule 400 mg PO TID 03/22/17 [History Confirmed 07/22/17] lactobacillus combination no.8 3 billion cell capsule 3,000 mmu cells PO QDAY 03/22/17 [History Confirmed 07/22/17] loratadine 10 mg tablet 10 mg PO QDAY 03/22/17 [History Confirmed 07/22/17] omega-3 fatty acids 1,000 mg capsule 1,000 mg PO QDAY 03/22/17 [History Confirmed 07/22/17] saw palmetto 500 mg capsule 500 mg PO BID 03/22/17 [History Confirmed 07/22/17] cholecalciferol (vitamin D3) 1,000 unit capsule 1,000 unit PO ONCE 04/19/17 [History Confirmed 07/22/17] nitroglycerin 0.3 mg sublingual tablet 0.3 mg SUBLINGUAL Q5M PRN 04/19/17 [History Confirmed 07/22/17] alprazolam 0.5 mg tablet 0.25 mg PO BID tab 06/10/17 [History Confirmed 07/22/17] lansoprazole 30 mg capsule,delayed release 30 mg PO QDAY cap 06/10/17 [History Confirmed 07/22/17] metoprolol succinate ER 25 mg tablet,extended release 24 hr 25 mg PO BID #180 tab 06/17/17 [Rx Confirmed 07/22/17] alfuzosin ER 10 mg tablet,extended release 24 hr 10 mg PO QDAY 07/22/17 [History Confirmed 07/22/17] [facility] Medical History Premature ventricular contraction (Acute) Premature atrial contractions (Acute) Atherosclerotic heart disease of [place] coronary artery without angina pectoris (Chronic) Long-term use of high-risk medication (Acute) Hyperlipidemia (Chronic) Hypertension (Chronic) Paroxysmal atrial fibrillation (Chronic) Costochondritis (Acute) Degenerative disc disease, lumbar (Acute) Family history of hypertension (Acute) Lumbar radiculopathy, right (Acute) Segmental and somatic dysfunction of cervical region (Acute) Segmental and somatic dysfunction of lumbar region (Acute) Segmental and somatic dysfunction of thoracic region (Acute) Arthritis (Chronic) GERD (gastroesophageal reflux disease) (Chronic) YENNI (obstructive sleep apnea) (Chronic) Osteoarthritis of left knee (Chronic) Surgical History H/O shoulder surgery (Resolved) H/O sinus surgery (Resolved) History of arthroscopy of knee (Resolved) History of cardiac radiofrequency ablation (RFA) (Resolved) History of cataract surgery (Resolved) History of detached retina repair (Resolved) History of hemorrhoidectomy (Resolved) Status post laser ablation of incompetent vein (Resolved) Bilateral knee pain (Inactive) H/O cardiac radiofrequency ablation (Inactive) H/O detached retina repair (Inactive) H/O hemorrhoidectomy (Inactive) H/O sinus surgery (Inactive) right shoulder (Inactive) vein (Inactive) Family History Mother Hypertension CAD (coronary artery disease) Father Hypertension Atrial fibrillation Presence of permanent cardiac pacemaker Social History Smoking Status: Former smoker alcohol intake: current alcohol intake frequency: a few times a week Alcohol type: beer substance use type: does not use ROS Const Const: Negative for fatigue, weakness, weight gain, weight loss, frequent falls or excessive sweating Eyes Eyes: Negative for change in vision, blurry vision or transient loss of vision ENT ENT: Negative for dizziness or balance problems Cardio Chest Pain: No Edema: Bilateral (slight, wears compression socks bilateral) Muscle aches with walking: None Resp Respiratory: Negative for SOB with activity or SOB at rest GI GI: Negative vomiting or vomiting blood/hematemesis : Negative for hematuria Musc Musc: Positive for muscle aches/ myalgia (Bilat LE); negative for balance problems, muscle weakness or joint pain Skin Skin: Negative non-healing lesions or rash Neuro Neuro: Negative for weakness, blurry vision, dizziness, lightheadedness, frequent falls or orthostatic symptoms Hans Hematologic/Lymphatic: Negative for easy bleeding Endo Endo: Negative for fatigue or excessive sweating Psych Psych: Negative for anxiety or depression Allergy Allergy/Immunology: Negative for hives, Negative for rash Cardiology Exam Const Appearance: cooperative, healthy appearing, comfortable, no acute distress, well developed and well groomed Nutritional Appearance: overweight Orientation: alert, awake and oriented x3 Head Head: normal to inspection, normocephalic and atraumatic Nose: external nose normal Mouth: oral mucosae normal Teeth and gingiva: fair dentition Eyes General: appearance normal, both eyes and all related structures Eyelids: eyelids normal Conjunctivae: conjunctivae normal Pupils: PERRL EOM: EOM intact bilaterally Neck Neck: normal visual inspection and full ROM Carotids: normal carotid upstroke Chest Chest inspection: normal inspection of the chest and symmetric chest movement Auscultation: Bilateral: Clear to Auscultation Cardio Palpation: normal PMI Rate: regular rate Rhythm: regular rhythm Heart sounds: S1 normal, S2 normal and positive S4 GI GI: normal to inspection, soft and bowel sounds present Neuro General: alert, awake and oriented x3 Skin Skin: no rashes or lesions noted Extremities Pulses: Normal: Right Radial Pulse, Left Radial Pulse Lower Extremity Edema: None: Bilateral Psych Psychological: normal affect Assessment AND Plan 1. Atherosclerosis of [place] coronary artery of [place] heart without angina pectoris I25.10 Mild Plan At the present time he appears to be doing well. He will continue risk factor modification and medical management as deemed appropriate. 2. Premature atrial beat I49.1 Plan He does not describe any underlying ectopy at this time. He will continue his outpatient follow-up. 3. Premature ventricular beat I49.3 Plan Again he is without any obvious ectopy. He will continue with outpatient follow-up. 4. Paroxysmal atrial fibrillation I48.0 Plan There is been no obvious evidence based upon symptoms or other objective findings of recurrent atrial dysrhythmias. He will continue his medical management and follow-up. 5. Hyperlipidemia, unspecified hyperlipidemia type E78.5 Plan His lipids were reviewed. He will continue medical therapy and follow-up. 6. Essential hypertension I10 Plan His blood pressure appears to be well controlled today. He will continue his current medical management and follow-up. 7. Long-term use of high-risk medication Z79.899 Plan Based upon his medications he will continue outpatient laboratory follow-up as deemed appropriate. Plan Detail Additional Comments He will be scheduled for an outpatient visit in approximately 9 months unless needed otherwise. Thank you for allowing me to participate in the care of your patient. Please don't hesitate to call if any issues arise. This note was generated using a voice recognition system and there may be incorrect words, spelling or punctuation that were not noted when reviewing the office note prior to saving. Goals Decrease pain and spasm Barriers DDD Follow Up 9 Months Coding Level of Care Code Off vis,est,level 3 Diagnoses Atherosclerosis of [place] coronary artery of [place] heart without angina pectoris I25.10 [place] vs. transplanted heart: [place] heart Premature atrial beat I49.1 Premature ventricular beat I49.3 Paroxysmal atrial fibrillation I48.0 Hyperlipidemia, unspecified hyperlipidemia type E78.5 Hyperlipidemia type: unspecified Essential hypertension I10 Hypertension type: essential hypertension Long-term use of high-risk medication Z79.899 Coding Level of Care Code Off vis,est,level 3 Diagnoses Atherosclerosis of [place] coronary artery of [place] heart without angina pectoris I25.10 [place] vs. transplanted heart: [place] heart Premature atrial beat I49.1 Premature ventricular beat I49.3 Paroxysmal atrial fibrillation I48.0 Hyperlipidemia, unspecified hyperlipidemia type E78.5 Hyperlipidemia type: unspecified Essential hypertension I10 Hypertension type: essential hypertension Long-term use of high-risk medication Z79.899 07/22/17 1505 <Electronically signed by Jamarcus Anderson MD> Date Jamarcus Anderson MD Cosigner Signature: Date (if applicable) CC: Steven Lora MD PSA,TOTAL- DIAGNOSTIC Collected: 06/10/2017 Status: F Source: [place] 11:55 AM [facility] REPOSITORY TYPE CODE TESTS RESULT OUT OF REFERENCE UNITS RANGE LAB L501.9940 0.0-4.0 ng/mL PSA, High DIAGNOSTIC 7.74 Result Comment: This test was performed using the TPSA assay method for the [employer] chemistry system. Values obtained with different assay methods cannot be used interchangably. When changing PSA assays in the course of monitoring a patient, additional sequential testing should be carried out to confirm baseline values. Performed By: #### L501.9940 #### Suzette [facility] [address] 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 [Ecotrin] 81 mg PO DAILY@0800 05/18/13 [History Confirmed 04/19/17] Fluticasone 0.05% [Flonase Nasal [place]] 1 spray NASAL BID 05/18/13 [History Confirmed 04/19/17] Lansoprazole [Prevacid] 30 mg PO BID 05/18/13 [History Confirmed 04/19/17] Magnesium Oxide [Mag-Ox 400] 400 mg PO BID 05/18/13 [History Confirmed 04/19/17] Metoprolol(XL)Succ [Toprol Xl] 25 mg PO BID 05/18/13 [History Confirmed 04/19/17] Multivitamins,Therapeutic [Multivitamin] 1 tab PO DAILY 05/18/13 [History Confirmed 04/19/17] Simvastatin [Zocor] 40 mg PO QHS 05/18/13 [History Confirmed 04/19/17] Tamsulosin HCl [Flomax] 0.4 mg PO DAILY 05/18/13 [History Confirmed 04/19/17] Ubidecarenone [Coq10] 200 mg PO DAILY 05/18/13 [History Confirmed 04/19/17] amlodipine 2.5 mg tablet 2.5 mg PO QDAY 03/22/17 [History Confirmed 04/19/17] echinacea 400 mg capsule 400 mg PO TID 03/22/17 [History Confirmed 04/19/17] lactobacillus combination no.8 3 billion cell capsule 3,000 mmu cells PO QDAY 03/22/17 [History Confirmed 04/19/17] loratadine 10 mg tablet 10 mg PO QDAY 03/22/17 [History Confirmed 04/19/17] omega-3 fatty acids 1,000 mg capsule 1,000 mg PO QDAY 03/22/17 [History Confirmed 04/19/17] saw palmetto 500 mg capsule 500 mg PO BID 03/22/17 [History Confirmed 04/19/17] cholecalciferol (vitamin D3) 1,000 unit capsule 1,000 unit PO ONCE 04/19/17 [History Confirmed 04/19/17] nitroglycerin 0.3 mg sublingual tablet 0.3 mg SUBLINGUAL Q5M PRN 04/19/17 [History Confirmed 04/19/17] [facility] Medical History Back pain (Acute) Costochondritis (Acute) Detached retina (Acute) Hemorrhoids (Acute) Knee pain (Acute) Neck pain (Acute) Arthritis (Chronic) GERD (gastroesophageal reflux disease) (Chronic) Hyperlipidemia (Chronic) Hypertension (Chronic) Mild coronary artery disease (Chronic) Paroxysmal atrial fibrillation (Chronic) Sleep apnea (Chronic) Surgical History H/O knee surgery (Acute) H/O shoulder surgery (Acute) H/O sinus surgery (Acute) History of cardiac radiofrequency ablation (RFA) (Acute) Status post laser ablation of incompetent vein (Acute) Bilateral knee pain (Inactive) H/O cardiac radiofrequency ablation (Inactive) H/O detached retina repair (Inactive) H/O hemorrhoidectomy (Inactive) H/O sinus surgery (Inactive) right shoulder (Inactive) vein (Inactive) Family History Mother Hypertension Father Hypertension Social History Smoking Status: Former smoker alcohol intake: current alcohol intake frequency: a few times a week Alcohol type: beer HPI HPI Details: PIO HOANG, is a 66 M who presents to the office today for nasal congestion and sore throat. Patient states that he noticed lymph node swelling starting last night and this morning started to have a sore throat and nasal congestion. Patient denies fever, chills, sweats. No nausea, vomiting, diarrhea. No chest pain, shortness breath or difficulty breathing. No other associated symptoms or alleviating/aggravating factors. ROS Const Constitutional: No fever(s), headache(s), anorexia, chills or abnormal sleep pattern ENT ENT: Positive for post nasal drip and sore throat; no headache(s) Resp Respiratory: No shortness of breath Cardio Cardiology: No irregular heart rhythm or palpitations Gastro GI: No nausea/dyspepsia Neuro Neurology: No headache(s) or behavioral changes Psych Psychiatric: No behavioral changes, No abnormal sleep pattern Exam Const General: cooperative, healthy appearing HENMT Head: normal to inspection Ears: hearing grossly normal bilaterally, TM's normal bilaterally Nose: external nose normal, nasal discharge clear Mouth: oral mucosae normal Throat: abnormal tonsil bilaterally Resp Effort AND Inspection: normal respiratory effort Auscultation: Bilateral: Clear to Auscultation Cardio Palpation: normal PMI Rate: regular rate Rhythm: regular rhythm Neuro General: CN's II-XI intact bilaterally Psych Appearance: grossly normal Mental Status: mental status grossly normal Assessment AND Plan Problems 1. URI, acute J06.9 Status Acute Plan Encouraged to get plenty of rest, drink lots of clear liquids, and use Tylenol or Ibuprofen (unless contraindicated) for fever and comfort. Patient also educated on other symptomatic management techniques. To be seen in 7-10 days if no improvement; sooner if worsening of symptoms. Patient advised of potential red flags and when appropriate report to the ED. Patient verbalized understanding of all the above. This note was generated with [employer] dictation software. It may contain incorrect words, spelling, and punctuation that were not noted in checking the note before signing. Plan Detail Goals Decrease pain and spasm Barriers DDD Coding Level of Care Code Off vis,est,level 3 Diagnoses URI, acute J06.9 05/20/17 1549 <Electronically signed by Tom JANG> Date Tom JANG Cosigner Signature: Date (if applicable) CC: CHIROPRACTIC REPORT Observed: 05/13/2017 Status: F Source: [place] 4:43 PM [facility] [place], [place] [address] OFFICE VISIT Date of Service: 05/13/17 MR#: [id number] Acct: [id number] Name: PIO HOANG Rep #: [id number] : 1950 Provider: Judith Ruht D.C. Age/Sex: 66/M Location: [facility] Status: Signed Intake Vital Signs05/13/17 Height 5 ft 10 in 05/13/17 Weight: 234 lb 05/13/17 Body Mass Index (BMI) 33.5 Intake Visit Reasons: back pain Accompanied by: Is patient in pain?: Yes Allergies grass pollen Allergy (Verified 04/19/17 16:33) Unknown pet dander Allergy (Uncoded 04/19/17 16:33) Unknown Medications ALPRAZolam [Xanax] 0.25 mg PO TID 05/18/13 [History Confirmed 04/19/17] Aspirin E.C. [Ecotrin] 81 mg PO DAILY@0800 05/18/13 [History Confirmed 04/19/17] Fluticasone 0.05% [Flonase Nasal [place]] 1 spray NASAL BID 05/18/13 [History Confirmed 04/19/17] Lansoprazole [Prevacid] 30 mg PO BID 05/18/13 [History Confirmed 04/19/17] Magnesium Oxide [Mag-Ox 400] 400 mg PO BID 05/18/13 [History Confirmed 04/19/17] Metoprolol(XL)Succ [Toprol Xl] 25 mg PO BID 05/18/13 [History Confirmed 04/19/17] Multivitamins,Therapeutic [Multivitamin] 1 tab PO DAILY 05/18/13 [History Confirmed 04/19/17] Simvastatin [Zocor] 40 mg PO QHS 05/18/13 [History Confirmed 04/19/17] Tamsulosin HCl [Flomax] 0.4 mg PO DAILY 05/18/13 [History Confirmed 04/19/17] Ubidecarenone [Coq10] 200 mg PO DAILY 05/18/13 [History Confirmed 04/19/17] amlodipine 2.5 mg tablet 2.5 mg PO QDAY 03/22/17 [History Confirmed 04/19/17] echinacea 400 mg capsule 400 mg PO TID 03/22/17 [History Confirmed 04/19/17] lactobacillus combination no.8 3 billion cell capsule 3,000 mmu cells PO QDAY 03/22/17 [History Confirmed 04/19/17] loratadine 10 mg tablet 10 mg PO QDAY 03/22/17 [History Confirmed 04/19/17] omega-3 fatty acids 1,000 mg capsule 1,000 mg PO QDAY 03/22/17 [History Confirmed 04/19/17] saw palmetto 500 mg capsule 500 mg PO BID 03/22/17 [History Confirmed 04/19/17] cholecalciferol (vitamin D3) 1,000 unit capsule 1,000 unit PO ONCE 04/19/17 [History Confirmed 04/19/17] nitroglycerin 0.3 mg sublingual tablet 0.3 mg SUBLINGUAL Q5M PRN 04/19/17 [History Confirmed 04/19/17] [facility] Medical History Back pain (Acute) Costochondritis (Acute) Detached retina (Acute) Hemorrhoids (Acute) Knee pain (Acute) Neck pain (Acute) Arthritis (Chronic) GERD (gastroesophageal reflux disease) (Chronic) Hyperlipidemia (Chronic) Hypertension (Chronic) Mild coronary artery disease (Chronic) Paroxysmal atrial fibrillation (Chronic) Sleep apnea (Chronic) Surgical History H/O knee surgery (Acute) H/O shoulder surgery (Acute) H/O sinus surgery (Acute) History of cardiac radiofrequency ablation (RFA) (Acute) Status post laser ablation of incompetent vein (Acute) Bilateral knee pain (Inactive) H/O cardiac radiofrequency ablation (Inactive) H/O detached retina repair (Inactive) H/O hemorrhoidectomy (Inactive) H/O sinus surgery (Inactive) right shoulder (Inactive) vein (Inactive) Family History Mother Hypertension Father Hypertension Social History Smoking Status: Former smoker alcohol intake: current alcohol intake frequency: a few times a week Alcohol type: beer HPI back pain : Chief Complaint: back pain Visit Number: 1 Details: PIO HOANG is a 66 year old M who presents with persistent neck and low back pain. The patient states that for the past two weeks his R side of his neck has been tight and sore, with a pulling sensation. Today the patient rates his pain a 5/10, rotation of the head and looking down cause increased pain. Today Pastor also complains of low back pain that bands across the back. He describes the pain as a tight ache that comes and goes. Bending and lifting slightly increases the pain although he denies any numbness or tingling. Onset: 04/29/17 Location: neck and low back Duration: intermittent Aggravating or associated factors: bending, lifting and rotation of the neck, looking down Relieving factors: chiro Pain Quality: aching, dull, sharp Exam Musc General: Yes normal gait (favors left knee), joint tenderness (C5, C6, T6, T7, T8, L4, L5) and decreased ROM; no normal posture (slight anterior head carriage) Cervical Spine: loss of normal cervical lordosis, pain with cervical ROM with lateral flexion to right and with lateral flexion to left, cervical spasm left lower: trapezius and paracervical muscles, cervical ROM abnormal lateral flexion to the right decreased, lateral flexion to the left decreased and extension decreased Thoracic/Lumbar Spine: thoracic and lumbar spine normal to inspection, thoraco-lumbar ROM normal, pain with thoraco-lumbar ROM with forward flexion, thoraco-lumbar spasm bilaterally (QL, piriformis (L>R)) in the lower lumbar Neuro General: alert, awake, oriented x3 Ortho Test CERVICAL Compression pain: Negative Distraction pain: relief Miguel's pain: Negative Valsalvas: Negative Shoulder depression pain: Right (bilateral) THORACIC Kemps: Positive Schepelmanns pain: Right (bilateral) Moreland: Negative LUMBAR Kemps: Positive, Le Valsalvas: Negative SLR: Negative Iliac Compression: Left Office Procedures Chiropractic Treatments Procedures Manipulation: 3-4 regions (C6, T4, T7, L5) Assessment AND Plan Problems 1. Lumbar radiculopathy, right M54.16 2. Segmental and somatic dysfunction of lumbar region M99.03 3. DDD (degenerative disc disease), lumbar M51.36 4. Segmental and somatic dysfunction of thoracic region M99.02 5. Segmental and somatic dysfunction of cervical region M99.01 Plan Follow up PRN. Orders Orders: Plan Detail Additional Comments Patient stated that has also experienced pain with costochondritis previously. He will schedule a follow up for tx. Goals Decrease pain and spasm Barriers DDD Follow Up PRN Coding Level of Care Code Off vis,est,level 1 Diagnoses Lumbar radiculopathy, right M54.16 Segmental and somatic dysfunction of lumbar region M99.03 DDD (degenerative disc disease), lumbar M51.36 Segmental and somatic dysfunction of thoracic region M99.02 Segmental and somatic dysfunction of cervical region M99.01 Additional Codes Procedures - Manipulation: 3-4 regions (06353) 05/13/17 1643 <Electronically signed by Judith Ruth D.C.> Date Judith Ruth D.C. Cosigner Signature: Date (if applicable) CC: LIVER PROFILE Collected: 05/10/2017 Status: F Source: [place] 10:04 AM [facility] REPOSITORY Order Comment: Order Date: 11/09/16 Order Info: [id number] - *Hepatic Function Panel Order Info: [id number] - *Lipid Profile CC PCP Comments: 12 hours fasting, may have water. TYPE CODE TESTS RESULT OUT OF RANGE REFERENCE UNITS LAB L501.1500 6.4-8.2 g/dL Normal T PROT 7.2 LAB L501.1800 3.2-5.0 g/dL Normal ALB 3.7 LAB L501.1950 2.2-4.2 g/dL Normal GLOB 3.5 LAB L501.4100 15-37 U/L Normal AST 17 LAB L501.4305 45-117 U/L Normal ALK P 82 LAB L501.4405 16-61 U/L Normal ALT 29 Result Comment: Please note revised ALT reference range effective 2017. LAB L501.4600 0.20-1.00 mg/dL Normal T BILI 0.60 LAB L501.4700 0.00-0.30 mg/dL Normal D BILI 0.20 Performed By: #### L500.3400 #### [facility] [address] [place], [place], [address] LIPID PROFILE Collected: 05/10/2017 Status: F Source: [place] 10:04 AM [facility] REPOSITORY Order Comment: Order Date: 11/09/16 Order Info: [id number] - *Hepatic Function Panel Order Info: [id number] - *Lipid Profile CC PCP Comments: 12 hours fasting, may have water. TYPE CODE TESTS RESULT OUT OF RANGE REFERENCE UNITS LAB L501.4900 200 mg/dL Normal CHOL 120 Result Comment: <200 mg/dL Desirable 200-240 mg/dL Borderline >240 mg/dL High Risk LAB L501.5000 mg/dL Normal TRIG 95 Result Comment: The drugs N-Acetylcysteine and Metamizole may falsely depress this assay. Serum Triglycerides Reference Interval Normal <150 mg/dL Borderline high 150 - 199 mg/dL High 200 - 499 mg/dL Very High > or = 500 mg/dL LAB L501.6400 mg/dL Normal HDL 44 Result Comment: The drugs N-Acetylcysteine and Metamizole may falsely depress this assay. Reference Range HDL <40 mg/dL Low HDL Cholesterol HDL >or= 60 mg/dL High HDL Cholesterol LAB L501.6500 0-130 mg/dL Normal LDL 57 LAB L501.6600 5-40 mg/dL Normal VLDL 19 Performed By: #### L500.4100 #### [facility] [address] [place], [address] ALLERGIES ALLERGIES DATE TYPE / CODE NAME / CODE REACTION SEVERITY SOURCE 04/08/2018 Drug dabigatran Unknown Unknown [place] Allergy/[id number](S etexilate/F0060 [facility] NOMED CT) [address](RXNORM) Hospital Repository 04/08/2018 Drug grass Unknown Unknown [place] Allergy/[id number](S [id number] 04/08/2018 Miscellaneous pet dander Unknown Unknown [place] Allergy/[id number](S [facility] Repository Drug NO KNOWN Morales Class/[id number](SNO ALLERGIES Clinic Other MED CT) [place] Repository ENCOUNTERS ENCOUNTERS ADMIT/DISCHARGE ACCOUNT ADMITTING ENCOUNTER LOCATION SOURCE NUMBER CLASS 04/24/2018/04/24/19 [id number] Ambulatory BMSBuilding:Juliette [place] [facility] Repository 04/16/2018/04/16/19 [id number] Ambulatory [place] 19 [facility] ing:SDC Repository 04/07/2018/04/07/19 [id number] Ambulatory BMSBuilding:B [place] 19 MS.Count includes the [facility] Hospital Repository 03/20/2018/03/20/20 [id number] Ambulatory BMSBuilding:B [place] 18 [facility] Repository 02/25/2018 [id number] Ambulatory [facility] HospitalBuild Hospital ing:PT Repository 02/17/2018 [id number] Ambulatory [facility] HospitalBuild Hospital ing:CT Repository 02/12/2018/02/13/20 [id number] Ambulatory BMSBuilding:B [place] 18 [facility] Repository 01/02/2018/01/03/20 [id number] Ambulatory BMSBuilding:B [place] 18 MS.[facility] Hospital Repository 12/31/2017/01/01/20 [id number] Ambulatory BMSBuilding:B [place] 18 MS.Count includes the [facility] Hospital Repository 12/24/2017/12/25/19 [id number] Ambulatory BMSBuilding:B [place] 18 MS.Count includes the [facility] Hospital Repository 12/23/2017 [id number] Ambulatory [facility] HospitalBuild Hospital ing:LAB Repository 11/27/2017 [id number] Ambulatory [facility] Repository 11/18/2017/11/19/19 [id number] Ambulatory [place] 18 [facility] ing:PT Repository 10/28/2017/10/29/19 [id number] Ambulatory BMSBuilding:B [place] 18 MS.Count includes the [facility] Hospital Repository 10/08/2017/10/09/19 [id number] Ambulatory BMSBuilding:B [place] 18 MS.Count includes the [facility] Hospital Repository 09/09/2017 [id number] Ambulatory [facility] HospitalBuild Hospital ing:CT Repository 08/29/2017/08/30/19 [id number] Ambulatory BMSBuilding:B [place] 18 [facility] Repository 08/15/2017/08/16/19 [id number] Ambulatory BMSBuilding:B [place] 18 MS.Count includes the [facility] Hospital Repository 07/22/2017/07/23/19 [id number] Ambulatory [facility]MS[facility]:B [place] [facility] 06/10/2017 [id number] Ambulatory [facility] ing:LAB.FUTUR Repository E 06/10/2017 [id number] Ambulatory [facility]MS[facility]:B [place] [facility] 05/20/2017/05/20/19 [id number] Ambulatory BMSBuilding:B [place] 18 [facility] Repository 05/10/2017 [id number] Ambulatory [facility] ing:LAB Repository PAYERS PAYERS ENCOUNTER GUARANTOR PAYER SUBSCRIBER SOURCE 04/24/2018 PIO Rice Primary Insurance:AETNA PIO Rice [place] [id number] MCRPolicy Number: SOUERSDOB: [facility] KWAN GUERREROGLEASTONEffective [id number]:5632-28-02VZ BOX Repository [address]Kru: [phone], [place] [phone] () [address]IH: 04/24/2018 Secondary NOT GIVENUNK [place] Insurance:SELF PAY Community INSURANCEPolicy Number: Hospital Effective Repository Date:2018-04-24 04/16/2018 PIO Rice Primary Insurance:AETNA PIO Rice [place] [id number] MCRPolicy Number: SOUERSDOB: [facility] KWAN GUERREROGLEASTONEffective [id number] Date:4689-37-02VX BOX Repository 260[address]Gdv: [phone], [place] [phone] () [phone]: 04/16/2018 Secondary NOT GIVENUNK [place] Insurance:SELF PAY Community INSURANCEPolicy Number: Hospital Effective Repository Date:2018-03-20 04/07/2018 PIO Rice Primary Insurance:AETNA PIO R [place] [id number] MCRPolicy Number: SOUERSDOB: [facility] KWAN GUERREROGLWHEffective [id number] [facility] [place] Date:9618-99-39LX BOX Repository [address]13[address]Ess: [phone] [place] [phone] (HP) [phone]: 04/07/2018 Secondary NOT GIVENUNK [place] Insurance:SELF PAY Community INSURANCEPolicy Number: Hospital Effective Repository Date:2018-04-07 03/20/2018 PIO R Primary Insurance:AETNA PIO R [place] [id number] MCRPolicy Number: SOUERSDOB: Community KWAN GUERREROGLEASTONEffective [id number] [facility] University Health [facility] [place] Date:5509-65-43PE BOX Repository [address]Fkq: [phone] [facility] [place] [phone] (HP) [phone]: 03/20/2018 Secondary NOT GIVENUNK [place] Insurance:SELF PAY Community INSURANCEPolicy Number: Hospital Effective Repository Date:2018-03-20 02/25/2018 PIO R Primary Insurance:AETNA PIO R [place] [id number] MCRPolicy Number: SOUERSDOB: Community KWAN Newmanfective [id number] [facility], [place] Date:7614-05-23EM BOX Repository [address]Etw: [phone] [place], [place] [phone] (HP) [phone]: 02/25/2018 Secondary NOT GIVENUNK [place] Insurance:SELF PAY Community INSURANCEPolicy Number: Hospital Effective Repository Date:2018-01-22 02/17/2018 PIO R Primary Insurance:AETNA PIO R [place] [id number] MCRPolicy Number: SOUERSDOB: Community KWAN GUERREROGLEASTONEffective [id number] Virginia University Health System [place] Date:2353-79-06HI BOX Repository [address]Ful: [phone] [place] [phone] (HP) [phone]: 02/17/2018 Secondary NOT GIVENUNK [place] Insurance:SELF PAY Community INSURANCEPolicy Number: Hospital Effective Repository Date:2018-02-12 02/12/2018 PIO Rice Primary Insurance:AETNA PIO Riec [place] [id number] MCRPolicy Number: SOUERSDOB: Community KWAN Newmanfective [id number] County Memorial Hospital, [place] Date:4378-01-23IG BOX Repository [address]Zey: [phone] [facility], [place] [phone] (HP) [phone]: 02/12/2018 Secondary NOT GIVENUNK [place] Insurance:SELF PAY Community INSURANCEPolicy Number: Hospital Effective Repository Date:2018-02-12 01/02/2018 PIO Rice Primary Insurance:AETNA PIO Rice [place] [id number] MCRPolicy Number: SOUERSDOB: Community KWAN Newmanfective [id number] County Memorial Hospital, [place] Date:6198-84-07HT BOX Repository [address]Nsk: [phone] [facility], [place] [phone] (HP) [phone]: 01/02/2018 Secondary NOT GIVENUNK [place] Insurance:SELF PAY Community INSURANCEPolicy Number: Hospital Effective Repository Date:2018-01-02 12/31/2017 PIO Rice Primary Insurance:AETNA PIO Rice [place] [id number] MCRPolicy Number: SOUERSDOB: Community KWAN Newmanfective [id number] Virginia University Health System [place] Date:6305-54-54PI BOX Repository [address]Akf: [phone] [facility], [place] [phone] (HP) [phone]: 12/31/2017 Secondary NOT GIVENUNK [place] Insurance:SELF PAY Community INSURANCEPolicy Number: Hospital Effective Repository Date:2017-12-31 12/24/2017 PIO Rice Primary Insurance:AETNA PIO R [place] [id number] MCRPolicy Number: SOUERSDOB: Community KWAN Newmanfective [id number] County Memorial Hospital, [place] Date:1636-10-15BM BOX Repository [address]Bao: [phone] [place], [place] [phone] (HP) [phone]: 12/24/2017 Secondary NOT GIVENUNK [place] Insurance:SELF PAY Community INSURANCEPolicy Number: Hospital Effective Repository Date:2017-12-24 12/23/2017 PIO R Primary Insurance:AETNA PIO R [place] [id number] MCRPolicy Number: SOUERSDOB: Community KWAN Newmanfective [id number] County Memorial Hospital, [place] Date:1292-66-15VQ BOX Repository [address]Qjq: [phone] [place] [phone] (HP) [phone]: 12/23/2017 Secondary NOT GIVENUNK [place] Insurance:SELF PAY Community INSURANCEPolicy Number: Hospital Effective Repository Date:2017-12-23 11/18/2017 PIO R Primary Insurance:AETNA PIO R [place] [id number] MCRPolicy Number: SOUERSDOB: Community KWAN Newmanfective [id number] County Memorial Hospital, [place] Date:5389-00-19CD BOX Repository [address]Nwa: [phone] [place] [phone] (HP) [phone]: 11/18/2017 Secondary NOT GIVENUNK [place] Insurance:SELF PAY Community INSURANCEPolicy Number: Hospital Effective Repository Date:2017-10-08 10/28/2017 PIO R Primary Insurance:AETNA PIO R [place] [id number] MCRPolicy Number: SOUERSDOB: Community KWAN GUERREROGLAlexandrofective [id number] County Memorial Hospital, [place] Date:7247-13-20NC BOX Repository [address]Bcw: [phone] [place] [phone] (HP) [phone]: 10/28/2017 Secondary NOT GIVENUNK [place] Insurance:SELF PAY Community INSURANCEPolicy Number: Hospital Effective Repository Date:2017-10-25 10/08/2017 PIO Rice Primary Insurance:AETNA PIO R [place] [id number] MCRPolicy Number: SOUERSDOB: Community KWAN BJGLWHEffective [id number] Virginia University Health System [place] Date:1692-10-68LO BOX Repository [address]Mus: [phone] [place] [phone] (HP) [phone]: 10/08/2017 Secondary NOT GIVENUNK [place] Insurance:SELF PAY Community INSURANCEPolicy Number: Hospital Effective Repository Date:2017-10-08 09/09/2017 PIO Rice Primary Insurance:AETNA PIO R [place] [id number] MCRPolicy Number: SOUERSDOB: Community KWANRADHA GUERREROGLEASTONEffective [id number] [facility] University Health System [place] Date:3397-95-96FH BOX Repository [address]Jhy: [phone] [place] [phone] () [address]NE: 09/09/2017 Secondary NOT GIVENUNK [place] Insurance:SELF PAY Community INSURANCEPolicy Number: Hospital Effective Repository Date:2017-08-29 08/29/2017 PIO Rice Primary Insurance:AETNA PIO R [place] [id number] MCRPolicy Number: SOUERSDOB: Community KWAN DELATORREBJGLWHEffective [id number] [facility] University Health System [place] Date:0670-76-57TP BOX Repository [address]Bcd: [phone] [place] [phone] (HP) [phone]: 08/29/2017 Secondary NOT GIVENUNK [place] Insurance:SELF PAY Community INSURANCEPolicy Number: Hospital Effective Repository Date:2017-08-12 08/15/2017 PIO iRce Primary Insurance:AETNA PIO R [place] [id number] MCRPolicy Number: SOUERSDOB: Community KWAN Newmanfective [id number] Date:5361-00-24BJ BOX Repository [address]Gia: [phone] [place] [phone] () [phone]: 08/15/2017 Secondary NOT GIVENUNK [place] Insurance:SELF PAY Community INSURANCEPolicy Number: Hospital Effective Repository Date:2017-08-15 07/22/2017 PIO Rice Primary Insurance:[place] PIO Rice [place] [id number] MCRPolicy Number: SOUERSDOB: Community KWAN Newmanfective [id number], [place] Date:9745-76-48WB BOX Repository [address]Kam: [phone] [place] [phone] () [phone]: 07/22/2017 Secondary NOT GIVENUNK [place] Insurance:SELF PAY Community INSURANCEPolicy Number: Hospital Effective Repository Date:2017-07-22 06/10/2017 PIO Rice Primary Insurance:[place] PIO Mckeonoster [id number] MCRPolicy Number: SOUERSDOB: Community KWAN Newmanfective [id number], [place] Date:7806-10-54HT BOX Repository [address]Lbm: [phone] [place] [phone] () [phone]: 06/10/2017 Secondary NOT GIVENUNK [place] Insurance:SELF PAY Community INSURANCEPolicy Number: Hospital Effective Repository Date:2017-05-30 06/10/2017 PIO Rice Primary Insurance:[place] PIO Rice [place] [id number] MCRPolicy Number: SOUERSDOB: Community KWAN Newmanfective [id number] Health Medical Center, Date:0561-65-06BQ BOX Repository [place] [address]Vny: [id number] CASANOVA ) [phone]: [phone] 06/10/2017 Secondary NOT GIVENUNK [place] Insurance:SELF PAY Community INSURANCEPolicy Number: Hospital Effective Repository Date:2017-06-10 05/20/2017 PIO Rice Primary Insurance:AETNA PIO R [place] [id number] MCRPolicy Number: SOUERSDOB: Community KWAN Newmanfective [id number] Health Medical Center, Date:9131-94-46VW BOX Repository [place] [address]Eil: [id number] [place] [address]WS: [phone] 05/20/2017 Secondary NOT GIVENUNK [place] Insurance:SELF PAY Community INSURANCEPolicy Number: Hospital Effective Repository Date:2017-05-20 05/10/2017 PIO Rice Primary Insurance:AETNA IPO R [place] [id number] MCRPolicy Number: SOUERSDOB: Community KWAN Newmanfective [id number] Health Medical Center, Date:3714-53-42VI BOX Repository [place] [address]Npr: [id number] [place] [address]IH: [phone] 05/10/2017 Secondary NOT GIVENUNK [place] Insurance:SELF PAY Community INSURANCEPolicy Number: Hospital Effective Repository Date:2017-05-10
== END 2018-04-16 14:04 | disposition home or self-care (01) ==
LOC: SDC 09:12 → AC 10:56
PROVIDERS: Referring Provider Surgery; Visit Provider Surgery
PROC: (CPT 49585; principal; 2018-04-16 10:45)
DX: K42.9 Umbilical hernia without obstruction or gangrene (principal); F41.9 Anxiety disorder, unspecified; K21.9 Gastro-esophageal reflux disease without esophagitis; Z79.899 Other long term (current) drug therapy; I25.10 Atherosclerotic heart disease of native coronary artery without angina pectoris; Z87.891 Personal history of nicotine dependence; Z79.82 Long term (current) use of aspirin; E78.5 Hyperlipidemia, unspecified; I10 Essential (primary) hypertension; I48.0 Paroxysmal atrial fibrillation; M19.90 Unspecified osteoarthritis, unspecified site
CPT/HCPCS: 00830; 49585; 36415; 80048; 85027; 88302; 93005; C1781; J7120; J2405

== ENCOUNTER → 2018-06-18 09:24 | Outpatient (CLI) | payer MEDICARE, SELFPAY ==
[2018-06-04 10:33] VITALS: BMI 33.7
[2018-06-18 11:22] LABS: Absolute Lymphocyte Count 1.53 X10^3/ul (0.83-4.51); Absolute Neutrophil Count 3.6 X10^3/uL (2.0-7.7); Basophil# 0.03 X10^3/uL; Basophil% 0.5 % (0-1); Color, Urine Yellow (Yellow); Eosinophil# 0.18 X10^3/uL; Eosinophils% 3.1 % (0-5); Glucose, Dipstick Normal (Normal); Hematocrit 44.6 % (40-54); Ketone-Dipstick Negative (Negative); Leukocyte Esterase-Dipstick Negative /ul (Negative); Lymphocyte # 1.53 X10^3/ul (4.0); Lymphocyte % 26.4 % (19-41); Mean Corp Hgb Conc 33.6 g/gl (32-36); Mean Corpuscular Hgb 31.3 pg (27.0-32.0); Mean Corpuscular Volume 93.1 fL (80-94); Monocyte% 8.6 % (0-10); Neutrophil # 3.55 X10^3/uL (2.7-7.7); Neutrophil % 61.2 % (47-70); Nitrite-Dipstick Negative (Negative); Occult Blood-Urine 10 /ul (Negative); Platelet Count 139 K/mm3 (150-450); Protein-Dipstick 30 mg/dl (Negative); RBC Distribution Width CV 12.9 % (11.6-14.6); Red Blood Count 4.79 M/mm3 (4.6-6.2); Urine Bilirubin Dipstick Negative (Negative); Urine Clarity Clear (Clear); Urine Urobilinogen Normal (Normal); White Blood Count 5.8 K/mm3 (4.4-11.0)
[2018-06-18 11:28] LABS: POSITIVE COUNT NO; POSITIVE DIFFERENTIAL NO; POSITIVE MORPHOLOGY NO
[2018-06-18 12:13] LABS: ALB/GLOB Ratio 1.1 RATIO (0.9-2.4); AST(SGOT) 21 U/L (15-37); Alanine Aminotransfer ALT/SGPT 26 U/L (16-61); Albumin, Serum 3.9 g/dL (3.2-5.0); Alkaline Phosphatase 100 U/L (45-117); Anion Gap 7 (5-15); BUN 22 mg/dL (7-18); BUN/Creat Ratio 18.5 RATIO (10-20); Bilirubin, Direct 0.18 mg/dL (0.00-0.30); Calcium,Total 8.9 mg/dL (8.5-10.1); Chloride 108 mmol/L (98-107); Cholesterol 112 mg/dL (200); Creatinine, Serum 1.19 mg/dL (0.70-1.30); EST Glomerular Filtration Rate 64 mL/min (>60); Est Glom Filt Rate - Afr Amer 78 mL/min (>60); Globulin 3.6 g/dL (2.2-4.2); Glucose 84 mg/dL (74-106); High Density Lipoprotein 45 mg/dL; PSA,Total - Annual Screen 6.05 ng/mL (0.00-4.00); Potassium 4.2 mmol/L (3.5-5.1); Protein, Total 7.5 g/dL (6.4-8.2); Sodium Level 141 mmol/L (136-145); Triglycerides 63 mg/dL; Very Low Density Lipoprotein 13 mg/dL (5-40)
[2018-06-18 12:14] LABS: Vitamin D,25 Hydroxy 41.1 ng/mL (29.95-100.01)
== END ==
PROVIDERS: Internal Medicine Cardiovascular Disease; Referring Provider Family Medicine
DX: Z00.00 Encounter for general adult medical examination without abnormal findings (principal); I10 Essential (primary) hypertension; E78.00 Pure hypercholesterolemia, unspecified; F32.9 Major depressive disorder, single episode, unspecified; F41.9 Anxiety disorder, unspecified; L20.9 Atopic dermatitis, unspecified; E55.9 Vitamin D deficiency, unspecified; Z12.5 Encounter for screening for malignant neoplasm of prostate
CPT/HCPCS: 36415; 80053; 80061; 81002; 82248; 82306; 84153; 85025; G0103

== ENCOUNTER → 2018-08-05 | Outpatient (CLI) | payer MEDICARE, SELFPAY ==
[2018-07-17 11:27] VITALS: BMI 33.4
--- NOTE | 2018-08-05 12:09 | STRESSREP ---
Stress Test Report Date: 08-05-18 Procedure: Pharmacologic stress nuclear imaging study Indications: Chest pain; atrial fibrillation; status post EPS/RFA Consent: Per the patient Procedure: The patient underwent pharmacologic (Regadenoson) evaluation with a peak heart rate of 82 beats per minute (54 %predicted maximal heart rate) and a peak blood pressure of 138/58 mmHg. The baseline ECG demonstrated sinus bradycardia. The peak pharmacologic ECG demonstrated no obvious ECG changes. There were no cardiac dysrhythmias pretest, during pharmacologic infusion, or recovery. There was no complaint of chest discomfort during pharmacologic infusion or recovery. The examination was discontinued secondary to completion of protocol. Impression: 1. Pharmacologic (Regadenoson) evaluation 2. Peak pharmacologic ECG with no obvious ECG changes. 3. There were no cardiac dysrhythmias pretest, during pharmacologic infusion, or recovery. 4. Nuclear images pending Myocardial perfusion imaging study: Technique: The patient was injected with 14.5 millicuries of technetium 99m Cardiolite and subsequently rest SPECT Cardiolite nuclear imaging was obtained in the horizontal long, vertical long, and short axis views. The patient underwent pharmacologic (Regadenoson) evaluation with a peak heart rate of 82 beats per minute (54 % percent predicted maximal heart rate) and a peak blood pressure of 138/58 mmHg. The patient was injected with 44.6 millicuries of technetium 99m Cardiolite and subsequently stress SPECT Cardiolite nuclear imaging was obtained in the horizontal long, vertical long, and short axis views. A gated Cardiolite study at peak stress was obtained. Interpretation: Rest and stress SPECT Cardiolite nuclear imaging status post realignment, normalization, and attenuation correction demonstrate relative uniform tracer uptake and myocardial perfusion appearing within normal limits. There is end systolic thickening and brightening. The gated Cardiolite study demonstrates myocardial thickening and inward wall motion. The reported LVEF is 59 %. Impression: 1. Rest and stress SPECT Cardiolite nuclear imaging demonstrate relative uniform tracer uptake and myocardial perfusion appearing within normal limits. 2. The gated Cardiolite study reports an LVEF of 59 %. This note was generated with [employer] software. It may contain incorrect words, spelling, and punctuation that were not noted in checking the note before signing.
== END | disposition home or self-care (01) ==
PROVIDERS: Referring Provider Internal Medicine Cardiovascular Disease; Visit Provider Internal Medicine Cardiovascular Disease
DX: I25.10 Atherosclerotic heart disease of native coronary artery without angina pectoris (principal)
CPT/HCPCS: 78452; 93017; A9500; A4216; J2785

== ENCOUNTER → 2018-12-26 09:11 | Outpatient (CLI) | payer MEDICARE, SELFPAY ==
[2018-07-17 11:27] VITALS: BMI 33.4
[2018-12-26 10:37] LABS: AST(SGOT) 14 U/L (15-37); Alanine Aminotransfer ALT/SGPT 21 U/L (16-61); Albumin, Serum 3.9 g/dL (3.2-5.0); Alkaline Phosphatase 99 U/L (45-117); Bilirubin, Direct 0.17 mg/dL (0.00-0.30); Cholesterol 127 mg/dL (200); Globulin 3.9 g/dL (2.2-4.2); High Density Lipoprotein 53 mg/dL; Protein, Total 7.8 g/dL (6.4-8.2); Triglycerides 49 mg/dL; Very Low Density Lipoprotein 10 mg/dL (5-40)
[2018-12-26 10:49] LABS: Vitamin D,25 Hydroxy 52.3 ng/mL (29.95-100.01)
== END ==
PROVIDERS: Nurse Practitioner Family; Family Provider Family Medicine; Referring Provider Family Medicine; Visit Provider Family Medicine
DX: E78.00 Pure hypercholesterolemia, unspecified (principal); E55.9 Vitamin D deficiency, unspecified; E78.5 Hyperlipidemia, unspecified
CPT/HCPCS: 36415; 80061; 80076; 82306

== ENCOUNTER → 2019-08-10 08:46 | Outpatient (CLI) | payer MEDICARE, SELFPAY ==
[2019-08-05 13:06] VITALS: BMI 33.3
[2019-08-10 09:19] LABS: Color, Urine Yellow (Yellow); Glucose, Dipstick Normal (Normal); Ketone-Dipstick Negative (Negative); Leukocyte Esterase-Dipstick Negative /ul (Negative); Nitrite-Dipstick Negative (Negative); Occult Blood-Urine 10 /ul (Negative); Protein-Dipstick 100 mg/dl (Negative); Urine Bilirubin Dipstick Negative (Negative); Urine Clarity Clear (Clear); Urine Urobilinogen Normal (Normal)
[2019-08-10 09:22] LABS: Absolute Lymphocyte Count 1.69 X10^3/uL (0.83-4.51); Basophil# 0.04 X10^3/uL; Basophil% 0.6 % (0-1); Eosinophil# 0.13 X10^3/uL; Hematocrit 44.6 % (40-54); Lymphocyte # 1.69 X10^3/ul (4.0); Lymphocyte % 26.1 % (19-41); Mean Corp Hgb Conc 33.6 g/dL (32-36); Mean Corpuscular Hgb 31.3 pg (27.0-32.0); Mean Corpuscular Volume 92.9 fL (80-94); Mean Platelet Vol. 10.1 fl (6.2-12.0); Monocyte# 0.55 X10^3/uL; Monocyte% 8.5 % (0-10); NRBC Flagged by Analyzer 0 % (0-5); Neutrophil # 4.04 X10^3/uL (2.7-7.7); Neutrophil % 62.5 % (47-70); Platelet Count 145 K/mm3 (150-450); RBC Distribution Width CV 12.4 % (11.6-14.6); RBC Distribution Width SD 42.3 fl (35.1-43.9); White Blood Count 6.5 K/mm3 (4.4-11.0)
[2019-08-10 09:42] LABS: Vitamin D,25 Hydroxy 54.9 ng/mL
[2019-08-10 09:46] LABS: AST(SGOT) 19 U/L (15-37); Alanine Aminotransfer ALT/SGPT 29 U/L (16-61); Albumin, Serum 3.6 g/dL (3.2-5.0); Alkaline Phosphatase 103 U/L (45-117); Anion Gap 5 (5-15); BUN 24 mg/dL (7-18); BUN/Creat Ratio 17.6 RATIO (10-20); Bilirubin, Direct 0.15 mg/dL (0.00-0.30); Calcium,Total 8.9 mg/dL (8.5-10.1); Chloride 106 mmol/L (98-107); Cholesterol 112 mg/dL (200); Creatinine, Serum 1.36 mg/dL (0.70-1.30); EST Glomerular Filtration Rate 55 mL/min (>60); Est Glom Filt Rate - Afr Amer 67 mL/min (>60); Globulin 3.7 g/dL (2.2-4.2); Glucose 95 mg/dL (74-106); High Density Lipoprotein 41 mg/dL; PSA,Total - Annual Screen 8.22 ng/mL (0.00-4.00); Potassium 4.1 mmol/L (3.5-5.1); Protein, Total 7.3 g/dL (6.4-8.2); Sodium Level 140 mmol/L (136-145); Triglycerides 65 mg/dL; Very Low Density Lipoprotein 13 mg/dL (5-40)
== END ==
PROVIDERS: Nurse Practitioner Family; Referring Provider Family Medicine; Visit Provider Family Medicine
DX: Z00.00 Encounter for general adult medical examination without abnormal findings (principal); I10 Essential (primary) hypertension; E78.5 Hyperlipidemia, unspecified; E78.00 Pure hypercholesterolemia, unspecified; E55.9 Vitamin D deficiency, unspecified; Z12.5 Encounter for screening for malignant neoplasm of prostate
CPT/HCPCS: 36415; 80053; 80061; 81002; 82248; 82306; 84153; 85025; G0103

== ENCOUNTER → 2019-09-15 10:44 | Outpatient (CLI) | payer MEDICARE, SELFPAY ==
[2019-08-05 13:06] VITALS: BMI 33.3
== END ==
PROVIDERS: Referring Provider Urology; Visit Provider Urology
DX: N52.9 Male erectile dysfunction, unspecified (principal)
CPT/HCPCS: 36415; 84403

== ENCOUNTER → 2019-10-19 | Outpatient (CLI) | payer MEDICARE, SELFPAY ==
[2019-08-05 13:06] VITALS: BMI 33.3
== END | disposition home or self-care (01) ==
LOC: LABSPEC 15:22
PROVIDERS: Referring Provider Otolaryngology Otolaryngology/Facial Plastic Surgery; Visit Provider Otolaryngology Otolaryngology/Facial Plastic Surgery
DX: J32.9 Chronic sinusitis, unspecified (principal)
CPT/HCPCS: 87070; 87077; 87186; 87205

== ENCOUNTER → 2019-11-03 | Outpatient (CLI) | payer MEDICARE, SELFPAY ==
[2019-08-05 13:06] VITALS: BMI 33.3
== END | disposition home or self-care (01) ==
LOC: LABSPEC 15:51
PROVIDERS: Referring Provider Otolaryngology; Visit Provider Otolaryngology
DX: J32.9 Chronic sinusitis, unspecified (principal)
CPT/HCPCS: 87070; 87186; 87205

== ENCOUNTER → 2019-11-13 07:09 | Outpatient (CLI) | payer MEDICARE, SELFPAY ==
[2019-08-05 13:06] VITALS: BMI 33.3
--- NOTE | 2019-11-13 07:18 | CT_ITS ---
STUDY: CT MAXILLOFACIAL SINUSES REASON FOR EXAM: Male, 69 years old. Sinusitis RADIATION DOSAGE (If Supplied By Facility): CTDIvol = ( 33.06 ) mGy, DLP = ( 825.58 ) mGycm TECHNIQUE: The patient was scanned in a multi detector CT scanner. High resolution axial imaging was performed without the administration of intravenous contrast material. Sagittal and coronal images were reconstructed. Individualized dose optimization techniques were used for this CT. COMPARISON: None. FINDINGS: FRONTAL SINUSES: Minimal mucosal thickening of the right frontal sinus inferiorly. ETHMOIDAL SINUSES: Mild degree of mucosal thickening of the ethmoid sinuses bilaterally. MAXILLARY SINUSES: Partial opacification along the inferior aspects of the maxillary sinuses bilaterally more prominent on the right side. SPHENOIDAL SINUSES: The sphenoid sinus is hypoplastic. There is patency of the bilateral maxillary infundibuli with normal uncinate processes, ethmoid bullae, and hiatus semilunaris. Normal bilateral middle turbinates. Normal bilateral inferior turbinates. Normal midline nasal septum. There is patency of the bilateral nasal airways. The visualized osseous structures are normal. The visualized bilateral orbital contents are normal. CT/Sinus/Facial Bone IMPRESSION: Mild degree of sinusitis involving the ethmoid sinuses, maxillary sinuses and the frontal sinus. Electronically Signed: Bala Gusman, at 8:41 EDT , Service support ,
== END ==
PROVIDERS: Referring Provider Otolaryngology; Visit Provider Otolaryngology
DX: J32.9 Chronic sinusitis, unspecified (principal)
CPT/HCPCS: 70486

== ENCOUNTER 2019-12-13 11:02 | Emergency (ER) | payer MEDICARE, SELFPAY ==
[2019-12-12 12:35] VITALS: BMI 33.3
[2019-12-13 11:03] VITALS: BP 158/78; PULSE 97; RESP 16; TEMP 36.4; O2SAT 96; BMI 33.0
--- NOTE | 2019-12-13 11:22 | CT_ITS ---
STUDY: CT SOFT TISSUE NECK WITH CONTRAST REASON FOR EXAM: Male, 69 years old. Right facial edema and submandibular swelling worsening x 1 day. Hx hypertension. Denies difficulty swallowing. RADIATION DOSAGE (If Supplied By Facility): CTDIvol = ( 18.73 ) mGy, DLP = ( 697.41 ) mGycm TECHNIQUE: The patient was scanned in a multi-detector CT scanner. High resolution transaxial imaging was performed following intravenous administration of IV 75mL Isovue-370. Sagittal and coronal images were reconstructed. Individualized dose optimization techniques were used for this CT. COMPARISON: None. FINDINGS: Enlargement of the right parotid gland with stranding of surrounding fat suggestive of peritonitis. No loculated fluid collection to suggest abscess. 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 Normal bilateral parapharyngeal spaces. Normal bilateral carotid spaces. Normal bilateral sublingual and submandibular glands and spaces. Normal visualized nasopharynx. Normal retropharyngeal space. Normal perivertebral space. Normal visualized bilateral faucial tonsils. The visualized tongue, tongue base and oropharynx are normal. The visualized cervical lymph nodes (levels I-) are within normal size limits, and maintain normal morphology. There is no demonstrated solid or cystic mass lesion. There is no abnormal contrast enhancement. Normal epiglottis, bilateral vallecula and hypopharynx. The pre-epiglottic and paraglottic adipose spaces are normal. Normal visualized bilateral piriform sinuses, aryepiglottic folds, vocal cords, and arytenoid-cricoid articulations. Normal subglottic trachea. Normal bilateral lobes of the thyroid gland. Normal visualized pulmonary apices. Normal visualized paranasal sinuses. Normal visualized cervical spine. CT/Soft Tissue Neck WITH Contrast IMPRESSION: Right parotitis but no abscess. Electronically Signed: Trenton Sales MD at 13:24 EDT Tel , Service support ,
--- NOTE | 2019-12-13 11:54 | ED.VISSUMM ---
- ER Visit Summary Date of Service: 12/13/19 Chief Complaint: [Facial swelling] History of Present Illness: The patient is a 69 M [presents to the emergency department with facial swelling for about a week. Patient states that 2 weeks ago he developed some sensitivity to the right upper gumline and some discomfort in his teeth. Patient subsequently developed swelling to the right side of his face and was seen at urgent care yesterday and started on Keflex. Patient states that the swelling now has extended down towards his neck and throat and he became concerned about developing trouble breathing. Patient has not had a fever although he states this morning his temperature was 99.6. He also gives me history of several months ago having some sort of a sinus infection that he believes was Pseudomonas and he had a CT scan of his face at that time. Patient apparently was treated with Cipro which he did not tolerate very well and states that he cannot take Levaquin type drugs because it causes muscle and body pain. Patient with history of hypertension, seasonal allergies, history of A. fib, history of obstructive sleep apnea.] Physical Examination: [HEENT-PERRLA, EOMI. Cranial nerves II through XII grossly intact. TMs clear. Mucous membranes moist. No adenopathy. Patient does have right-sided facial swelling with tenderness over the right parotid and right submandibular gland. No real tenderness over his teeth noted. There are no dental abscesses noted. Cardiovascular-regular rate and rhythm without murmur or ectopy Lungs-clear to auscultation, chest wall stable without crepitus or subcu emphysema Abdomen-normoactive bowel sounds, soft, nontender, no rebound or rigidity, no peritoneal signs. Extremities-intact ?4, normal range of motion, normal pulses, atraumatic] Test Results: [CBC with it showing of 8.5, hemoglobin 14, hematocrit 42, plates 142. Chemistries unremarkable. CT scan of soft tissue neck was obtained which was read by radiology as right parotitis but no abscess.] Emergency Department Course and Treatment: [IV line established on arrival. Blood cultures ordered on arrival. Patient case discussed with Dr. Saul Arndt who is the patient's ear nose and throat physician. I was asked to change the patient to clindamycin and have patient follow-up with him in the office.] Treatment Plan: [Patient will be changed to clindamycin and will be asked to follow-up with ENT in the office in 1 week. Patient advised to return if worsening pain, fever, increased swelling, difficulty swallowing, difficulty breathing, or condition should worsen anyway.] Disposition: [Discharged home in stable condition] Impression: [Right parotitis] This note was generated with [employer] dictation software. It may contain incorrect words, spelling, and punctuation that were not noted in review of the chart prior to signing ED Disposition - Plan for ED Patient: Referrals: Steven Retana [Primary Care Provider] -
[2019-12-13 12:03] LABS: Absolute Lymphocyte Count 1.04 X10^3/uL (0.83-4.51); Absolute Neutrophil Count 6.7 X10^3/uL (2.0-7.7); Basophil# 0.02 X10^3/uL; Basophil% 0.2 % (0-1); Eosinophil# 0.09 X10^3/uL; Eosinophils% 1.1 % (0-5); Hemoglobin 14.4 g/dL (13.0-16.5); Lymphocyte # 1.04 X10^3/ul (4.0); Lymphocyte % 12.3 % (19-41); Mean Corp Hgb Conc 34.3 g/dL (32-36); Mean Corpuscular Hgb 31.6 pg (27.0-32.0); Mean Corpuscular Volume 92.3 fL (80-94); Mean Platelet Vol. 10.3 fl (6.2-12.0); Monocyte# 0.59 X10^3/uL; NRBC Flagged by Analyzer 0 % (0-5); Neutrophil # 6.69 X10^3/uL (2.7-7.7); Neutrophil % 79.2 % (47-70); Platelet Count 142 K/mm3 (150-450); RBC Distribution Width CV 12.3 % (11.6-14.6); Red Blood Count 4.55 M/mm3 (4.6-6.2); White Blood Count 8.5 K/mm3 (4.4-11.0)
[2019-12-13 12:15] LABS: Anion Gap 4 (5-15); BUN 18 mg/dL (7-18); BUN/Creat Ratio 14.3 RATIO (10-20); Calcium,Total 8.9 mg/dL (8.5-10.1); Chloride 108 mmol/L (98-107); Creatinine, Serum 1.26 mg/dL (0.70-1.30); EST Glomerular Filtration Rate 60 mL/min (>60); Est Glom Filt Rate - Afr Amer 73 mL/min (>60); Estimated Creatinine Clearance 55.52 ml/min; Glucose 111 mg/dL (74-106); Potassium 3.9 mmol/L (3.5-5.1); Sodium Level 139 mmol/L (136-145)
[2019-12-13 13:31] LABS: Lactic Acid 1.5 mmol/L (0.4-1.9)
[2019-12-13 13:32] VITALS: BP 153/53; PULSE 74; RESP 16; O2SAT 99
--- NOTE | 2019-12-13 14:07 | ED.DEP ---
ED Disposition - Plan for ED Patient: Instructions: ED Submandibular Gland Infec Prescriptions: Clindamycin HCl [Cleocin] 300 mg PO Q6H #40 cap Transmission Status: Pending to [facility] Referrals: Steven Retana [Primary Care Provider] - Saul Monteiro MD [STAFF PHYSICIAN] - 5-7 Days
--- NOTE | 2019-12-13 14:17 | DCINST.ED_ITS ---
ED Disposition - Plan for ED Patient: Instructions: ED Submandibular Gland Infec Prescriptions: Clindamycin HCl [Cleocin] 300 mg PO Q6H #40 cap Transmission Status: Received by [facility] Clindamycin HCl [Cleocin] 300 mg PO Q6H #40 cap Transmission Status: Pending to [id number] Referrals: Saul Monteiro MD [STAFF PHYSICIAN] - 5-7 Days Steven Retana [Primary Care Provider] -
== END 2019-12-13 14:24 | disposition home or self-care (01) ==
LOC: ED 12:01
PROVIDERS: Emergency Provider Emergency Medicine
DX: K11.20 Sialoadenitis, unspecified (principal); I48.91 Unspecified atrial fibrillation; I10 Essential (primary) hypertension; G47.33 Obstructive sleep apnea (adult) (pediatric); Z79.82 Long term (current) use of aspirin; Z79.899 Other long term (current) drug therapy
CPT/HCPCS: 70491; 80048; 83605; 85025; 87040; 96365; 99283; Q9967; A4216

== ENCOUNTER → 2020-02-15 13:26 | Outpatient (CLI) | payer MEDICARE, SELFPAY ==
[2020-02-09 11:11] VITALS: BMI 33.4
[2020-02-15 15:14] LABS: AST(SGOT) 14 U/L (15-37); Alanine Aminotransfer ALT/SGPT 24 U/L (16-61); Albumin, Serum 3.7 g/dL (3.2-5.0); Alkaline Phosphatase 99 U/L (45-117); Bilirubin, Direct 0.15 mg/dL (0.00-0.30); Cholesterol 108 mg/dL (200); Globulin 3.5 g/dL (2.2-4.2); High Density Lipoprotein 41 mg/dL; Protein, Total 7.2 g/dL (6.4-8.2); Triglycerides 117 mg/dL; Very Low Density Lipoprotein 23 mg/dL (5-40)
== END ==
PROVIDERS: Nurse Practitioner Family; Visit Provider Family Medicine
DX: E78.5 Hyperlipidemia, unspecified (principal)
CPT/HCPCS: 36415; 80061; 80076

== ENCOUNTER 2020-02-24 09:33 | Outpatient (CLI) | payer MEDICARE, SELFPAY ==
[2020-02-09 11:11] VITALS: BMI 33.4
[2020-02-24 09:33] VITALS: BP 143/80; PULSE 90; RESP 16; TEMP 36.6; O2SAT 96; BMI 33.0
--- NOTE | 2020-02-24 09:43 | ED.VISSUMM ---
- ER Visit Summary Date of Service: 02/24/20 Chief Complaint: Cough, fever, body aches History of Present Illness: The patient is a 69 M with several day history of cough, intermittent fever as high as 101.5, body aches and general malaise. He denies vomiting. He denies shortness of breath. His cough is nonproductive. He denies dyspnea. Recently he was not on oxygen and is concerned that he could have picked up Covid even though he wears a mask regularly. Physical Examination: 19-year-old male no acute distress. Vital signs stable afebrile. Pulse ox 96% on room air no signs hypoxia. HEENT exam normal. Posterior pharynx without erythema or exudate. No trouble swallowing or breathing. Neck nontender no lymphadenopathy. Lungs clear to auscultation bilaterally. Heart regular rhythm no murmur rate about 90. Abdomen soft nontender. Normal bowel sounds. No peritoneal signs. Patient moving all 4 extremities. Nontender. No edema. Neurologically is awake and alert with no focal motor deficits. Test Results: Rapid antigen Covid test Emergency Department Course and Treatment: Clinically patient looks well. He is not hypoxic. He does not look septic or toxic. He is not dehydrated. He walks easily. Covid test to be obtained. At this time I do not think he needs any imaging. His lungs are completely clear bilaterally. Anteriorly and posteriorly. Treatment Plan: Symptomatic treatment. Fluids. Rest. Tylenol for fever. Return if feeling a lot worse or follow-up with primary care physician not improving. Quarantine. Disposition: Discharge Impression: Viral syndrome Rule out Covid This patient was seen as an outpatient emergency department. There should be no ER physician Bill or charge. This note was generated with [employer] dictation software. It may contain incorrect words, spelling, and punctuation that were not noted in review of the chart prior to signing ED Disposition - Plan for ED Patient: Referrals: Steven Retana [Primary Care Provider] -
[2020-02-24 09:58] VITALS: O2SAT 96
[2020-02-24 10:05] VITALS: BP 143/80; PULSE 90; RESP 16; TEMP 36.6; O2SAT 96
== END 2020-02-24 10:23 | disposition home or self-care (01) ==
PROVIDERS: Visit Provider Emergency Medicine
DX: U07.1 COVID-19 (principal); Z79.82 Long term (current) use of aspirin; Z79.899 Other long term (current) drug therapy
CPT/HCPCS: 87426; 99282

== ENCOUNTER → 2020-03-15 13:35 | Outpatient (CLI) | payer MEDICARE, SELFPAY ==
[2020-02-24 09:33] VITALS: BMI 33.0
== END ==
PROVIDERS: Referring Provider Urology; Visit Provider Urology
DX: R97.20 Elevated prostate specific antigen [PSA] (principal)
CPT/HCPCS: 36415; 84153

== ENCOUNTER → 2020-04-27 13:23 | Outpatient (CLI) | payer MEDICARE, SELFPAY ==
--- NOTE | 2020-04-27 13:28 | EKG12_ITS ---
Test Reason : PRE OP Blood Pressure : / mmHG Vent. Rate : 077 BPM Atrial Rate : 077 BPM P-R Int : 158 ms QRS Dur : 076 ms QT Int : 352 ms P-R-T Axes : 070 054 055 degrees QTc Int : 398 ms Normal sinus rhythm with sinus arrhythmia Normal ECG Confirmed by QUINTEN WITT, ANTONIETA ([id number]), news copy editor JENNIFER WARREN ([id number]) on 04/28/2020 11:19:22 AM Referred By: Han Flores Confirmed By:ANTONIETA SHIPLEY MD
[2020-04-27 14:56] LABS: Hematocrit 43.5 % (40-54); Hemoglobin 14.2 g/dL (13.0-16.5); Mean Corp Hgb Conc 32.6 g/dL (32-36); Mean Corpuscular Hgb 30.3 pg (27.0-32.0); Mean Corpuscular Volume 92.9 fL (80-94); Mean Platelet Vol. 10.9 fl (6.2-12.0); Platelet Count 156 K/mm3 (150-450); RBC Distribution Width CV 13.2 % (11.6-14.6); RBC Distribution Width SD 45.7 fl (35.1-43.9); Red Blood Count 4.68 M/mm3 (4.6-6.2); White Blood Count 6.7 K/mm3 (4.4-11.0)
[2020-04-27 15:24] LABS: Anion Gap 5 (5-15); BUN 20 mg/dL (7-18); BUN/Creat Ratio 12.5 RATIO (10-20); Calcium,Total 9.3 mg/dL (8.5-10.1); Chloride 106 mmol/L (98-107); EST Glomerular Filtration Rate 45 mL/min (>60); Est Glom Filt Rate - Afr Amer 55 mL/min (>60); Glucose 96 mg/dL (74-106); Potassium 4.6 mmol/L (3.5-5.1); Sodium Level 139 mmol/L (136-145)
== END ==
PROVIDERS: Referring Provider Urology; Visit Provider Urology
DX: Z01.812 Encounter for preprocedural laboratory examination (principal); I48.91 Unspecified atrial fibrillation; E78.00 Pure hypercholesterolemia, unspecified; I51.9 Heart disease, unspecified
CPT/HCPCS: 36415; 80048; 85027; 93005

== ENCOUNTER → 2020-06-14 14:18 | Outpatient (CLI) | payer MEDICARE, SELFPAY ==
[2020-05-19 11:01] VITALS: BMI 33.1
[2020-06-13 13:42] VITALS: BMI 33.3
--- NOTE | 2020-06-14 14:30 | RAD_ITS ---
STUDY: X-RAY CHEST REASON FOR EXAM: Male, 69 years old. Chest pain TECHNIQUE: PA and lateral views of the chest. COMPARISON: Comparison is made with prior study dated 05/18/2013. FINDINGS: Hyperinflation. The lungs are clear. There is no demonstrated pleural abnormality. Normal size heart. Normal mediastinum and cori. Normal visualized pulmonary arteries. There is atherosclerotic calcification of the aortic arch with tortuosity. There are diffuse degenerative changes of the visualized thoracic spine. Normal visualized ribs, clavicles, and shoulders. There is no demonstrated abnormality of the visualized soft tissue structures of the upper abdomen. RAD/Chest PA and Lateral IMPRESSION: Hyperinflation. Electronically Signed: Bala Gusman MD at 14:59 EDT , Service support ,
[2020-06-14 16:02] LABS: Anion Gap 6 (5-15); BUN 26 mg/dL (7-18); BUN/Creat Ratio 18.6 RATIO (10-20); Calcium,Total 9.1 mg/dL (8.5-10.1); Chloride 108 mmol/L (98-107); EST Glomerular Filtration Rate 53 mL/min (>60); Est Glom Filt Rate - Afr Amer 64 mL/min (>60); Glucose 96 mg/dL (74-106); Potassium 4.5 mmol/L (3.5-5.1); Sodium Level 139 mmol/L (136-145)
[2020-06-14 16:15] LABS: AST(SGOT) 14 U/L (15-37); Alanine Aminotransfer ALT/SGPT 23 U/L (16-61); Albumin, Serum 4.1 g/dL (3.2-5.0); Alkaline Phosphatase 91 U/L (45-117); Bilirubin, Direct 0.16 mg/dL (0.00-0.30); Cholesterol 126 mg/dL (200); Globulin 3.6 g/dL (2.2-4.2); High Density Lipoprotein 43 mg/dL; Protein, Total 7.7 g/dL (6.4-8.2); Triglycerides 106 mg/dL; Very Low Density Lipoprotein 21 mg/dL (5-40)
== END ==
PROVIDERS: Nurse Practitioner Family; Referring Provider Physician Assistant Medical; Visit Provider Physician Assistant Medical
DX: I25.10 Atherosclerotic heart disease of native coronary artery without angina pectoris (principal); R07.9 Chest pain, unspecified; E78.5 Hyperlipidemia, unspecified
CPT/HCPCS: 36415; 71046; 80048; 80061; 80076

== ENCOUNTER 2020-08-18 19:07 | Observation (INO) | payer MEDICARE, SELFPAY ==
[2020-05-19 11:01] VITALS: BMI 33.1
[2020-06-13 13:42] VITALS: BMI 33.3
[2020-08-18] VITALS (8 sets, daily range): BP systolic 113–166; BP diastolic 62–75; PULSE 53–71; RESP 14–18; TEMP 36.4–36.6; O2SAT 98–100; BMI 31.9
--- NOTE | 2020-08-18 19:29 | ED.RN ---
RN CALLED FOR EKG, PULLED OLD EKGS FOR
--- NOTE | 2020-08-18 19:39 | EKG12_ITS ---
Test Reason : CP Blood Pressure : / mmHG Vent. Rate : 060 BPM Atrial Rate : 060 BPM P-R Int : 172 ms QRS Dur : 088 ms QT Int : 366 ms P-R-T Axes : 059 029 036 degrees QTc Int : 366 ms Sinus rhythm with Premature supraventricular complexes Otherwise normal ECG Confirmed by ARLEEN WITT, ALLISON ([id number]), editorial assistant JENNIFER WARREN ([id number]) on 08/23/2020 10:06:36 A M Referred By: KAREEN Confirmed By:RADHA BACON MD
--- NOTE | 2020-08-18 19:40 | EDS_ITS ---
HPI History of Present Illness Chief Complaint: Chest Pain Detail of Chief Complaint: Chest pain off and on for the last 2 to 3 weeks Informant: patient Onset/Context/Timing Timing: Intermittent Quality: Positive for Pressure Associated Symptoms: Positive for Lightheadedness Narrative Narrative: Patient complaining of chest pain that started initially 2 to 3 weeks ago. Patient first noticed this discomfort when he was having a pulmonary function test and described it as a fluttering in his left chest. Since that time intermittently he will have this fluttering that takes place in the left chest that also at times will be in his left armpit and into his left shoulder blade area. Patient states that the fluttering in his chest seems to be worse after doing exertional activity. The reason he became concerned today is that after he try to get up from the table where he was eating this evening he developed diffuse chest tightness and pressure across his chest and began feeling very lightheaded and that is when he called the squad. Patient was given aspirin and nitroglycerin which may be helped his discomfort a little bit. He currently rates his discomfort as a 2 out of 10. Patient states that he also took 2 of his own nitroglycerin tablets at home. Prior Similar Symptoms: Yes PE Risk Factors: Negative for Recent Travel/Surgery, Recent Immobilization, Prior DVT or PE and OCP + Smoking + >/=35 TAD Risk Factors: Positive for Hypertension; Negative for Marfan's Syndrome and Family History [facility] Medical History (Updated 08/18/20 @ 21:[address] Chelsea Coombs, ) Abdominal pain Arthritis Atherosclerotic heart disease of alutiiq coronary artery without angina pectoris bilaterl vein ablation ble Costochondritis Degenerative disc disease, lumbar Essential hypertension Fatigue GERD (gastroesophageal reflux disease) Hemorrhoids Hyperlipidemia Hypertension Knee pain Long-term use of high-risk medication Lumbar radiculopathy, right YENNI (obstructive sleep apnea) Osteoarthritis of left knee Paroxysmal atrial fibrillation Premature atrial contractions Premature ventricular contraction repair right achilles tendon Segmental and somatic dysfunction of cervical region Segmental and somatic dysfunction of lumbar region Segmental and somatic dysfunction of thoracic region Home Medications aspirin 81 mg PO DAILY@0800 05/18/13 [History Last Taken 04/25/15] fluticasone propionate 1 spray NASAL BID 05/18/13 [History Last Taken Unknown] magnesium oxide 400 mg PO BID 05/18/13 [History Last Taken 04/25/15] multivitamin with folic acid 1 tab PO DAILY 05/18/13 [History Last Taken Unknown] alprazolam 0.5 mg tablet 0.25 mg PO BID tab 06/10/17 [History Last Taken 04/16/18] lansoprazole 30 mg capsule,delayed release 30 mg PO QDAY cap 06/10/17 [History Last Taken 04/16/18] alfuzosin 10 mg tablet,extended release 24 hr 10 mg PO QDAY 07/22/17 [History Last Taken Unknown] saw palmetto 500 mg capsule 500 mg PO QDAY cap 08/29/17 [History Last Taken Unknown] cholecalciferol (vitamin D3) 25 mcg (1,000 unit) capsule 1,000 unit PO DAILY 07/17/18 [History Last Taken Unknown] coenzyme Q10 50 mg chewable tablet 200 mg PO DAILY tab 07/17/18 [History Last Taken Unknown] echinacea 400 mg capsule 400 mg PO DAILY cap 08/05/19 [History Last Taken Unknown] loratadine 10 mg tablet 10 mg PO QDAY PRN 08/05/19 [History Last Taken Unknown] metoprolol succinate 25 mg tablet,extended release 24 hr 25 mg PO BID #180 tab 10/06/19 [Rx Last Taken Unknown] simvastatin 40 mg tablet 40 mg PO DAILY #90 tab 02/02/20 [Rx Last Taken Unknown] flecainide 150 mg tablet 150 mg PO Q12H PRN #60 tab 02/09/20 [Rx Last Taken U nknown] nitroglycerin 0.3 mg sublingual tablet 0.3 mg SUBLINGUAL Q5M PRN 02/09/20 [History Last Taken Unknown] sildenafil 50 mg tablet 50 mg PO DAILY PRN 05/19/20 [History Last Taken Unknown] lisinopril 10 mg tablet 10 mg PO DAILY #30 tab 08/02/20 [Rx Last Taken Unknown] Allergy/AdvReac Type Severity Reaction Status Date / Time animal dander Allergy Unknown Verified 08/18/20 19:11 grass pollen Allergy Unknown Verified 08/18/20 19:11 grass pollen-perennial rye, Allergy Unknown Verified 08/18/20 19:11 standar house dust Allergy Unknown Verified 08/18/20 19:11 levofloxacin [From Levaquin] Allergy Unknown Verified 08/18/20 19:11 dabigatran etexilate AdvReac Unknown Unknown Verified 08/18/20 19:11 [From Pradasaran] pet dander Allergy Unknown Uncoded 06/13/20 13:42 Family History Mother Hypertension CAD (coronary artery disease) Father Hypertension Atrial fibrillation Presence of permanent cardiac pacemaker CVA (cerebral vascular accident) Surgical History Bilateral knee pain H/O cardiac radiofrequency ablation H/O detached retina repair H/O hemorrhoidectomy H/O shoulder surgery H/O sinus surgery H/O sinus surgery History of arthroscopy of knee History of cardiac radiofrequency ablation (RFA) History of cataract surgery History of detached retina repair History of hemorrhoidectomy History of umbilical hernia repair (~04/2018) right shoulder Status post laser ablation of incompetent vein vein Social History Smoking Status: Heavy Smoker (>10/day) Smokeless tobacco user: chewing tobacco how long ago did patient quit smokin years ago alcohol intake: current alcohol intake frequency: a few times a week Alcohol type: beer substance use type: does not use caffeine: No ROS ROS ED Review of Systems ROS Unobtainable: other Constitutional Constitutional ED: Reports lethargy; Denies chills, fever(s), sweats or weight loss Eyes Eyes: Denies blurry vision, change in vision or diplopia ENT ENT ED: Denies rhinorrhea or sore throat Cardiovascular Cardiovascular: Reports chest pain; Denies orthopnea Respiratory/Chest Respiratory/Chest: Reports dyspnea and dyspnea on exertion; Denies cough, orthopnea or sputum Gastrointestinal Gastrointestinal: Denies abdominal pain, diarrhea, nausea or vomiting Genitourinary Genitourinary ED: Denies dysuria, hematuria or urinary frequency Musculoskeletal Musculoskeletal: Denies arthralgias, back pain, myalgias or neck pain Integumentary Denies abscess, Abrasions or rash Neurologic Neurologic: Denies headache(s) or weakness Psychiatric Psychiatric: Denies anxiety, depression or suicidal thoughts Endocrine Endocrinology: Denies polydipsia, polyphagia or polyuria Hematologic/Lymphatic Hematologic/Lymphatic: Denies easy bleeding, easy bruising or lymphadenopathy Allergic/Immunologic Allergic/Immunologic ED: Denies mouth swelling, tongue swelling or urticaria EXAM Physical Exam Const Vital Signs: 08/18/20 19:08 08/18/20 19:11 08/18/20 19:43 Temperature 97.9 F Temperature Source Oral Pulse Rate 63 Respiratory Rate 18 Respiratory Effort Normal Respiratory Pattern Normal Blood Pressure 166/72 H Blood Pressure Mean 103 Pulse Ox 100 100 Oxygen Delivery Method Room Air Room Air 08/18/20 20:12 08/18/20 20:16 Temperature Temperature Source Pulse Rate 55 L 56 L Respiratory Rate 14 Respiratory Effort Respiratory Pattern Blood Pressure 133/62 H 139/66 H Blood Pressure Mean 90 Pulse Ox 100 Oxygen Delivery Method Room Air Positive well nourished and well developed General Appearance ED: well developed and NAD HEENT Reports TM's clear and moist mucous membranes normocephalic and atraumatic; Negative for trauma or tenderness Tympanic Membrane ED: Yes TM's clear Eyes PERRL and EOMs intact bilaterally General Eye ED: Negative for pale conjunctiva or scleral icterus Neck no lymphadenopathy, supple and no JVD General: Negative for tenderness Chest Wall inspection of chest normal and palpation of chest normal Chest: Negative for tenderness Resp normal respiratory effort and clear to auscultation bilaterally Effort and Inspection: Negative for respiratory distress or pain with movement Auscultation: Negative for rhonchi, wheezes or diminished lung sounds Cardio regular rate, regular rhythm, S1 normal heart sound, S2 normal heart sound and no murmurs Peripheral Pulses: pulses 2+ throughout GI normal to inspection, nondistended, normoactive bowel sounds, soft to palpation, non-tender, non-distended and no masses Back/Spine no CVA tenderness and no thoracic nor lumbar tenderness Extremity normal to inspection General Extremety ED: Negative for edema General Extremity: Negative for edema Neuro oriented x3, CN's II-XII intact bilaterally, no sensory deficits noted and gait normal Sensorium / Orientation: awake, alert, oriented to person, oriented to place and oriented to time Motor Exam: strength 5/5 throughout and strength abnormal Psych mental status grossly normal Skin no rashes or lesions noted and no wounds MDM MDM MDM Narrative Medical decision making narrative: Patient had an inch of nitro placed paste to anterior chest wall on arrival. Patient was placed on a environmental monitoring technician. Patient was noted to have acute kidney injury. Case will be discussed with hospitalist will evaluate patient for admission for chest pain-etiology uncertain. Lab Data Labs: Laboratory Results - last 24 hr 08/18/20 08/18/20 19:12 19:12 WBC 7.7 RBC 3.80 L Hgb 11.8 L Hct 34.9 L MCV 91.8 MCH 31.1 MCHC 33.8 RDW Std Deviation 41.7 RDW Coeff of Alesha 12.4 Plt Count 155 MPV 10.6 Immature Gran % (Auto) 0.100 Neut % (Auto) 75.8 H Lymph % (Auto) 14.6 L Mcdonough % (Auto) 3.8 Eos % (Auto) 5.2 H Baso % (Auto) 0.5 Absolute Neuts (auto) 5.8 Absolute Lymphs (auto) 1.12 Nucleated RBC % 0 Sodium 138 Potassium 4.6 Chloride 107 Carbon Dioxide 24.0 Anion Gap 7 BUN 58 H Creatinine 2.52 H Estim Creat Clear Calc 27.76 Est GFR (MDRD) Af Amer 33 L Est GFR (MDRD) Non-Af 27 L BUN/Creatinine Ratio 23.0 H Glucose 133 H Calcium 9.4 Magnesium 2.0 Troponin I < 0.015 Radiography Chest X-Ray - ED: 1 View Diagnostic Testing: Radiology Impression Chest X-Ray 08/18/20 19:47 IMPRESSION: Mild hyperinflation. No acute disease Electronically Signed: Daniel Telles MD at 20:10 EDT , Service support , Chest x-ray 1 view obtained interpreted by myself as no acute disease process. There is no evidence of pneumomediastinum or pneumothorax or acute infiltrate. Radiology in agreement. EKG Initial EKG: Comments: Sinus rhythm with a ventricular rate of 60 bpm with occasional PACs noted. Prior EKG tracings: available for review Prior: Unchanged Discharge Plan Triage Chief Complaint: Chest Pain ED Provider: Chelsea Coombs Dx/Rx/DC Orders Clinical Impression: Chest pain, Acute kidney injury Prescriptions: No Action saw palmetto 500 mg capsule 500 mg PO QDAY RF: 0 echinacea 400 mg capsule 400 mg PO DAILY RF: 0 loratadine [Claritin] 10 mg tablet 10 mg PO QDAY PRN (Reason: Allergies) RF: 0 alfuzosin 10 mg tablet extended release 24 hr 10 mg PO QDAY RF: 0 cholecalciferol (vitamin D3) 1,000 unit capsule 1,000 unit capsule 1,000 unit PO DAILY RF: 0 nitroglycerin 0.3 mg tablet, sublingual 0.3 mg SUBLINGUAL Q5M PRN (Reason: other) RF: 0 flecainide 150 mg tablet 150 mg PO Q12H PRN (Reason: atrial fibrillation) Qty: 60 RF: 11 aspirin 81 MG tablet 81 mg PO DAILY@0800 RF: 0 magnesium oxide 400 MG tablet 400 mg PO BID RF: 0 fluticasone propionate 1 SPRAY spray,suspension 1 spray NASAL BID RF: 0 multivitamin with folic acid 1 TABLET tablet 1 tab PO DAILY RF: 0 lansoprazole 30 MG capsule 30 mg PO QDAY RF: 0 alprazolam 0.5 MG tablet 0.25 mg PO BID RF: 0 coenzyme Q10 50 mg tablet,chewable 200 mg PO DAILY RF: 0 metoprolol succinate 25 mg tablet extended release 24 hr 25 mg PO BID Qty: 180 RF: 3 simvastatin 40 mg tablet 40 mg PO DAILY Qty: 90 RF: 4 sildenafil 50 mg tablet 50 mg PO DAILY PRN (Reason: other) RF: 0 lisinopril 10 mg tablet 10 mg PO DAILY Qty: 30 RF: 11 Primary Care Provider: Steven Retana Referrals: Steven Retana [Primary Care Provider] - Disposition Disposition: Acute Care Hospital [facility]
--- NOTE | 2020-08-18 19:47 | RAD_ITS ---
STUDY: X-RAY CHEST REASON FOR EXAM: Male, 69 years old. chest pain TECHNIQUE: AP portable COMPARISON: 06/14/2020 FINDINGS: Lungs are mildly hyperinflated but clear. There is no demonstrated pleural abnormality. Normal size heart. Normal mediastinum and cori. Normal visualized pulmonary arteries. Normal visualized aortic arch and descending thoracic aorta. Dorsal spine and shoulders demonstrate degenerative change. Normal visualized ribs, and clavicles. There is no demonstrated abnormality of the visualized soft tissue structures of the upper abdomen. No change since prior study RAD/Chest 1 View (Portable) IMPRESSION: Mild hyperinflation. No acute disease Electronically Signed: Daniel Telles MD at 20:10 EDT , Service support ,
[2020-08-18 19:49] LABS: Absolute Lymphocyte Count 1.12 X10^3/uL (0.83-4.51); Absolute Neutrophil Count 5.8 X10^3/uL (2.0-7.7); Basophil# 0.04 X10^3/uL; Basophil% 0.5 % (0-1); Eosinophils% 5.2 % (0-5); Hematocrit 34.9 % (40-54); Hemoglobin 11.8 g/dL (13.0-16.5); Lymphocyte # 1.12 X10^3/ul (0.83-4.51); Lymphocyte % 14.6 % (19-41); Mean Corp Hgb Conc 33.8 g/dL (32-36); Mean Corpuscular Hgb 31.1 pg (27.0-32.0); Mean Corpuscular Volume 91.8 fL (80-94); Mean Platelet Vol. 10.6 fl (6.2-12.0); Monocyte# 0.29 X10^3/uL; Monocyte% 3.8 % (0-10); NRBC Flagged by Analyzer 0 % (0-5); Neutrophil % 75.8 % (47-70); Platelet Count 155 K/mm3 (150-450); RBC Distribution Width CV 12.4 % (11.6-14.6); RBC Distribution Width SD 41.7 fl (35.1-43.9); White Blood Count 7.7 K/mm3 (4.4-11.0)
[2020-08-18 20:05] LABS: Anion Gap 7 (5-15); BUN 58 mg/dL (7-18); Calcium,Total 9.4 mg/dL (8.5-10.1); Chloride 107 mmol/L (98-107); Creatinine, Serum 2.52 mg/dL (0.70-1.30); EST Glomerular Filtration Rate 27 mL/min (>60); Est Glom Filt Rate - Afr Amer 33 mL/min (>60); Estimated Creatinine Clearance 27.76 ml/min; Glucose 133 mg/dL (74-106); Potassium 4.6 mmol/L (3.5-5.1); Sodium Level 138 mmol/L (136-145)
[2020-08-18] MEDS: Nitroglycerin Oint 1 INCH PACKET TD (20:12)
[2020-08-18] MEDS: 0.9% Normal Saline 1,000 ML 150 ML IV (20:12)
--- NOTE | 2020-08-18 21:32 | PCM.HP.STD ---
HPI - General General Date of Admission: 08/18/20 Chief Complaint: Chest pain HPI Narrative The patient is a 69 y/o M w/ PMHx: HTN, HLD, Non-obstructive CAD, GERD, YENNI, PAF, Known Prostate CA w/ recent radiation with prostate inflammation with difficulty urinating w/ recent initiation IBU 800 mg TID x 3 weeks who presents to the [facility] ED on 08/18/20 with history of several weeks of ongoing intermittent nonspecific fluttering in his chest, described as sensation of muscle spasms-twinges more notable after working with occasional similar sensation into his L shoulder or scapula; however, tonight after eating dinner he had onset similar fluttering but felt as if it spread across his chest with pressure like sensation onset with concurrent lightheadedness, dizziness, diaphoresis, dyspnea mildly without nausea or emesis, rated ~8/10. Upon ED presentation 2/10 in severity but now resolved with self administration of NG x 2 at home and ASA administration per EMS. Work-up in the ED included T 97.9, heart rate 56, BP 139/66, respiratory rate 14, 100% on room air, CBC with WBC 7.7, hemoglobin 11.8, platelet 155 without marked shift, BMP with BUN/creatinine 58/2.52, glucose 133, magnesium 2.0, troponin less than 0.015, EKG was sinus rhythm with no acute evidence of ischemia, chest x-ray with no acute cardiopulmonary findings. In the ED patient administered nitroglycerin ointment as well as aspirin 324 mg p.o. x1. [facility] Medical History (Updated 08/19/20 @ 02:[address] Carline Morrow MD) Abdominal pain Anxiety Arthritis Atherosclerotic heart disease of kiana coronary artery without angina pectoris Atrial fibrillation bilaterl vein ablation ble BiPAP (biphasic positive airway pressure) dependence Cancer COPD (chronic obstructive pulmonary disease) Costochondritis Degenerative disc disease, lumbar Essential hypertension Fatigue Former smoker GERD (gastroesophageal reflux disease) Hemorrhoids Hyperlipidemia Hypertension Knee pain Long-term use of high-risk medication Lumbar radiculopathy, right YENNI (obstructive sleep apnea) Osteoarthritis of left knee Paroxysmal atrial fibrillation Premature atrial contractions Premature ventricular contraction repair right achilles tendon Segmental and somatic dysfunction of cervical region Segmental and somatic dysfunction of lumbar region Segmental and somatic dysfunction of thoracic region Home Medications aspirin 81 mg PO DAILY@0800 05/18/13 [History Last Taken 04/25/15] fluticasone propionate 1 spray NASAL BID 05/18/13 [History Last Taken Unknown] magnesium oxide 400 mg PO BID 05/18/13 [History Last Taken 04/25/15] multivitamin with folic acid 1 tab PO DAILY 05/18/13 [History Last Taken Unknown] alprazolam 0.5 mg tablet 0.25 mg PO BID tab 06/10/17 [History Last Taken 04/16/18] lansoprazole 30 mg capsule,delayed release 30 mg PO QDAY cap 06/10/17 [History Last Taken 04/16/18] alfuzosin 10 mg tablet,extended release 24 hr 20 mg PO QDAY 07/22/17 [History Last Taken Unknown] saw palmetto 500 mg capsule 500 mg PO QDAY cap 08/29/17 [History Last Taken Unknown] cholecalciferol (vitamin D3) 25 mcg (1,000 unit) capsule 1,000 unit PO DAILY 07/17/18 [History Last Taken Unknown] coenzyme Q10 50 mg chewable tablet 200 mg PO DAILY tab 07/17/18 [History Last Taken Unknown] echinacea 400 mg capsule 400 mg PO DAILY cap 08/05/19 [History Last Taken Unknown] loratadine 10 mg tablet 10 mg PO QDAY PRN 08/05/19 [History Last Taken Unknown] metoprolol succinate 25 mg tablet,extended release 24 hr 25 mg PO BID #180 tab 10/06/19 [Rx Last Taken Unknown] simvastatin 40 mg tablet 40 mg PO DAILY #90 tab 02/02/20 [Rx Last Taken Unknown] flecainide 150 mg tablet 150 mg PO Q12H PRN #60 tab 02/09/20 [Rx Last Taken Unknown] nitroglycerin 0.3 mg sublingual tablet 0.3 mg SUBLINGUAL Q5M PRN 02/09/20 [History Last Taken Unknown] sildenafil 50 mg tablet 50 mg PO DAILY PRN 05/19/20 [History Last Taken Unknown] lisinopril 10 mg tablet 10 mg PO DAILY #30 tab 08/02/20 [Rx Last Taken Unknown] dutasteride 0.5 mg PO DAILY 08/18/20 [History Last Taken Unknown] Allergy/AdvReac Type Severity Reaction Status Date / Time animal dander Allergy Unknown Verified 08/18/20 19:11 grass pollen Allergy Unknown Verified 08/18/20 19:11 grass pollen-perennial rye, Allergy Unknown Verified 08/18/20 19:11 standar house dust Allergy Unknown Verified 08/18/20 19:11 levofloxacin [From Levaquin] Allergy Unknown Verified 08/18/20 19:11 dabigatran etexilate AdvReac Unknown Unknown Verified 08/18/20 19:11 [From Pradaxa] pet dander Allergy Unknown Uncoded 06/13/20 13:42 Family History Mother Hypertension CAD (coronary artery disease) Father Hypertension Atrial fibrillation Presence of permanent cardiac pacemaker CVA (cerebral vascular accident) Surgical History Bilateral knee pain H/O cardiac radiofrequency ablation H/O detached retina repair H/O hemorrhoidectomy H/O shoulder surgery H/O sinus surgery H/O sinus surgery History of arthroscopy of knee History of cardiac radiofrequency ablation (RFA) History of cataract surgery History of detached retina repair History of hemorrhoidectomy History of umbilical hernia repair (~04/2018) right shoulder Status post laser ablation of incompetent vein vein Social History (Updated 08/19/20 @ 02:[address] Carline Morrow MD) Smoking Status: Former smoker Smokeless tobacco user: snuff how long ago did patient quit smoking: Patient quit cigarette tobacco use 1980, smoked age [age], 1 ppd-->Snuff. alcohol intake: current alcohol intake frequency: a few times a week Alcohol type: beer substance use type: does not use caffeine: No ROS ROS Narrative Admission Review of Systems: CONSTITUTIONAL: No weight loss, fever, chills, + weakness or fatigue. HEENT: Eyes: No visual loss, blurred vision, double vision or yellow sclerae. Ears, Nose, Throat: No hearing loss, sneezing, congestion, runny nose or sore throat. SKIN: No rash or itching, lesions, wounds. CARDIOVASCULAR: + chest pain, chest pressure or chest discomfort, fluttering sensation. No edema, orthopnea, syncopal events. RESPIRATORY: + shortness of breath, No cough or sputum, wheezing, hemoptysis. GASTROINTESTINAL: No anorexia, nausea, vomiting or diarrhea, abdominal pain, melena, BRBPR. GENITOURINARY: No dysuria, frequency, urgency or retention. NEUROLOGICAL: No headache, dizziness, syncope, paralysis, ataxia, numbness or tingling in the extremities, focal weakness, change in bowel or bladder control, seizure. MUSCULOSKELETAL: + muscle, back pain, joint pain or stiffness. HEMATOLOGIC: No anemia, bleeding or bruising. LYMPHATICS: No enlarged nodes. No history of splenectomy. PSYCHIATRIC: No history of depression or anxiety. ENDOCRINOLOGIC: No reports of sweating, cold or heat intolerance. No polyuria or polydipsia. ALLERGIES: No history of asthma, hives, eczema or rhinitis. Vital Signs Vital Signs Vital Signs: 08/18/20 19:08 08/18/20 19:11 08/18/20 19:43 Temperature 97.9 F Temperature Source Oral Pulse Rate 63 Respiratory Rate 18 Respiratory Effort Normal Respiratory Pattern Normal Blood Pressure 166/72 H Blood Pressure Mean 103 Pulse Ox 100 100 Oxygen Delivery Method Room Air Room Air 08/18/20 20:12 08/18/20 20:16 Temperature Temperature Source Pulse Rate 55 L 56 L Respiratory Rate 14 Respiratory Effort Respiratory Pattern Blood Pressure 133/62 H 139/66 H Blood Pressure Mean 90 Pulse Ox 100 Oxygen Delivery Method Room Air Physical Exam Narrative Physical Examination: General: awake, alert, oriented x 3 and cooperative, seated upright in the ED bed in no apparent distress, notes chest pain resolved. Skin: normal color, turgor, no icterus, cyanosis. HEENT: AT/NC, EOMI, PERRLA, MMM, no carotid bruits or JVD noted. Lungs: CTA bilaterally, moderate effort, mild decrease BL bases, no rales, ronchi or wheezing. Heart: Regular rate and rhythm; no gallop, rub audible. Abdomen: soft, obese, NTTP, ND, normal BS, no HSM. Extremities: no cyanosis, clubbing, or edema. Neurological: patient awake, alert, oriented as noted, cognitive function intact; pupils equally reactive to light and accommodation, cranial nerves II-XII grossly normal, moving all 4 extremities, no focal deficits, strength preserved. Psychiatric: affect appears normal, no acute evidence of depressive or anxiety feelings. Lab / Micro Data Result Diagrams: 08/18/20 19:12 08/18/20 19:12 Labs: Laboratory Results - last 24 hr 08/18/20 08/18/20 19:12 19:12 WBC 7.7 RBC 3.80 L Hgb 11.8 L Hct 34.9 L MCV 91.8 MCH 31.1 MCHC 33.8 RDW Std Deviation 41.7 RDW Coeff of Alesha 12.4 Plt Count 155 MPV 10.6 Immature Gran % (Auto) 0.100 Neut % (Auto) 75.8 H Lymph % (Auto) 14.6 L [place] % (Auto) 3.8 Eos % (Auto) 5.2 H Baso % (Auto) 0.5 Absolute Neuts (auto) 5.8 Absolute Lymphs (auto) 1.12 Nucleated RBC % 0 Sodium 138 Potassium 4.6 Chloride 107 Carbon Dioxide 24.0 Anion Gap 7 BUN 58 H Creatinine 2.52 H Estim Creat Clear Calc 27.76 Est GFR (MDRD) Af Amer 33 L Est GFR (MDRD) Non-Af 27 L BUN/Creatinine Ratio 23.0 H Glucose 133 H Calcium 9.4 Magnesium 2.0 Troponin I < 0.015 Radiology Impression Chest X-Ray 08/18/20 19:47 IMPRESSION: Mild hyperinflation. No acute disease Electronically Signed: Daniel Telles MD at 20:10 EDT , Service support , Assessment & Plan Assessment/Plan (1) Chest pain: QUALIFIERS: Chest pain type: unspecified Qualified Code(s): R07.9 - Chest pain, unspecified (2) Acute kidney injury: PLAN: The patient is a 69 y/o M w/ PMHx: HTN, HLD, Non-obstructive CAD, GERD, YENNI, PAF, Known Prostate CA w/ recent radiation with prostate inflammation with difficulty urinating w/ recent initiation IBU 800 mg TID x 3 weeks who presents to the [facility] ED on 08/18/20 with history of several weeks of ongoing intermittent nonspecific fluttering in his chest, described as sensation of muscle spasms-twinges more notable after working with occasional similar sensation into his L shoulder or scapula; however, tonight after eating dinner he had onset similar fluttering but felt as if it spread across his chest with pressure like sensation onset with concurrent lightheadedness, dizziness, diaphoresis, dyspnea. 1. Chest Pain: EKG in ED sinus rhythm with no acute evidence of ischemia, CXR w/ no acute cardiopulmonary findings, initial trop normal x1. Will admit to PCU, place on a monitored bed to assure no acute myocardial infarction with serial cardiac enzymes and EKGs. If repeat serial cardiac enzymes and EKGs remain unremarkable will pursue a.m. cardiac stress testing. FLP in AM. Magnesium level normal per ED. ASA, NG, morphine. 2. Acute kidney injury: Secondary to likely recent significant NSAID intake for prostate inflammation with recent radiation therapy 3 weeks prior. Admission BUN/Cr 58/2.52, prior baseline creatinine noted to be 1-2-1.3 primarily. Will hydrate, hold nephrotoxic medications and repeat chemistry in AM. If no improvement would plan FeNa and renal US assessment. 3. Hyperglycemia: Admission glucose 133, will obtain hemoglobin A1c be cautious. 4. Prostate cancer status post recent radiation: Patient with recent radiation, had been on significant NSAIDs for inflammation as patient noted difficulty urinating, will place on Flomax and recommend strongly discontinuation of NSAIDs given TERESA, recommend early follow-up with his urologist. 5. Hypertension: Continue home regimen including metoprolol, holding lisinopril given TERESA, maintain on hold parameters, PRN hydralazine. 6. Hyperlipidemia: Continue home statin regimen. AM FLP. 7. PAF: Patient in sinus rhythm, will continue patient flecainide and metoprolol regimen as well as aspirin therapy. Patient not anticoagulated per current list. 8. Nonobstructive CAD: Patient with prior cardiac catheterization with no PCI history, will continue aspirin, statin, metoprolol regimen, holding XAVIER inhibitor as noted secondary to TERESA, work-up continued as noted above. 9. GERD: We will continue patient home PPI. 10. YENNI: We will place on CPAP nightly if amenable. 11. DVT prophylaxis: SCDs, heparin. Visit Charges OBSV E&M: 77786 Initial observation care L3
[2020-08-19] VITALS (14 sets, daily range): BP systolic 125–156; BP diastolic 57–67; PULSE 49–94; RESP 16–18; TEMP 36.3–36.6; O2SAT 96–100; BMI 32.3
--- NOTE | 2020-08-19 00:06 | EKG12_ITS ---
Test Reason : CP ADMIN Blood Pressure : / mmHG Vent. Rate : 051 BPM Atrial Rate : 051 BPM P-R Int : 174 ms QRS Dur : 086 ms QT Int : 388 ms P-R-T Axes : 053 022 033 degrees QTc Int : 357 ms Sinus bradycardia Otherwise normal ECG When compared with ECG of 18-AUG-2020 19:24, MANUAL COMPARISON REQUIRED, DATA IS UNCONFIRMED Confirmed by ARLEEN WITT, ALLISON ([id number]), food expeditor JENNIFER WARREN ([id number]) on 08/23/2020 10:22:07 A M Referred By: EDUARD Confirmed By:RADHA BACON MD
[2020-08-19] MEDS: 0.9% Normal Saline 1,000 ML 150 ML IV ×3 (01:04→21:25)
--- NOTE | 2020-08-19 02:12 | CPS ---
Patient would like to hold off on CPAP for tonight.
[2020-08-19] MEDS: Aspirin E.C. 81 MG Tablet PO (06:06)
[2020-08-19 07:03] LABS: Absolute Lymphocyte Count 1.36 X10^3/uL (0.83-4.51); Absolute Neutrophil Count 3.9 X10^3/uL (2.0-7.7); Basophil# 0.03 X10^3/uL; Basophil% 0.5 % (0-1); Hematocrit 32.5 % (40-54); Hemoglobin 10.9 g/dL (13.0-16.5); Lymphocyte # 1.36 X10^3/ul (0.83-4.51); Lymphocyte % 21.8 % (19-41); Mean Corp Hgb Conc 33.5 g/dL (32-36); Mean Corpuscular Volume 92.3 fL (80-94); Mean Platelet Vol. 10.3 fl (6.2-12.0); Monocyte# 0.46 X10^3/uL; Monocyte% 7.4 % (0-10); NRBC Flagged by Analyzer 0 % (0-5); Neutrophil # 3.87 X10^3/uL (2.7-7.7); Neutrophil % 61.8 % (47-70); Platelet Count 139 K/mm3 (150-450); RBC Distribution Width CV 12.6 % (11.6-14.6); RBC Distribution Width SD 42.7 fl (35.1-43.9); Red Blood Count 3.52 M/mm3 (4.6-6.2); White Blood Count 6.3 K/mm3 (4.4-11.0)
[2020-08-19 07:47] LABS: AST(SGOT) 11 U/L (15-37); Alanine Aminotransfer ALT/SGPT 15 U/L (16-61); Albumin, Serum 3.4 g/dL (3.2-5.0); Alkaline Phosphatase 90 U/L (45-117); Anion Gap 4 (5-15); BUN 53 mg/dL (7-18); BUN/Creat Ratio 23.5 RATIO (10-20); Calcium,Total 8.7 mg/dL (8.5-10.1); Chloride 111 mmol/L (98-107); Creatinine, Serum 2.26 mg/dL (0.70-1.30); EST Glomerular Filtration Rate 31 mL/min (>60); Est Glom Filt Rate - Afr Amer 37 mL/min (>60); Estimated Creatinine Clearance 30.96 ml/min; Globulin 3.3 g/dL (2.2-4.2); Glucose 92 mg/dL (74-106); Potassium 4.6 mmol/L (3.5-5.1); Protein, Total 6.7 g/dL (6.4-8.2); Sodium Level 141 mmol/L (136-145)
[2020-08-19] MEDS: ALPRAZolam 0.25 MG Tablet PO ×2 (12:05→21:28)
[2020-08-19] MEDS: Pantoprazole Sodium 40 MG Tablet PO (12:06)
[2020-08-19] MEDS: Finasteride 5 MG Tablet PO (12:06)
[2020-08-19] MEDS: Magnesium Chloride 64 MG Delay Rel.Tablet 128 MG PO ×2 (12:06→21:27)
[2020-08-19] MEDS: Metoprolol(XL)Succ 25 MG Tablet PO ×2 (12:07→21:28)
--- NOTE | 2020-08-19 14:21 | PN.HOSP_ITS ---
Documented by User: Vida Rose NP, SEWING MACHINIST-C 08/19/20 14:33 Subjective Subjective Patient seen and examined. Patient voices frustration with being placed on ibuprofen over the past 3 weeks. Reports he has had worsening of urinary retention symptoms since stopping ibuprofen. Reports lower back aching. Denies further chest pain. Does state he had some mild chest tightness during stress test. Objective Data Objective Data Vital Signs: Vital Signs Temp Pulse Resp BP Pulse Ox 97.7 F L 84 18 153/65 H 100 08/19/20 08:02 08/19/20 12:07 08/19/20 11:59 08/19/20 12:07 08/19/20 11:59 Oxygen Delivery Method Room Air Weight: 225 lb 8.526 oz Body Mass Index (BMI) 32.3 Intake & Output: Intake and Output for Last 24 Hours 08/17/20 08/18/20 08/19/20 23:59 23:59 23:59 Intake Total 1717.5 / 1717.5 Output Total 350 / 350 925 / 925 Balance -350 / -350 792.5 / 792.5 Lab / Micro Data Result Diagrams: 08/19/20 06:25 08/19/20 06:25 Labs: Laboratory Results - last 24 hr 08/18/20 08/18/20 08/19/20 19:12 19:12 00:35 WBC 7.7 RBC 3.80 L Hgb 11.8 L Hct 34.9 L MCV 91.8 MCH 31.1 MCHC 33.8 RDW Std Deviation 41.7 RDW Coeff of Alesha 12.4 Plt Count 155 MPV 10.6 Immature Gran % (Auto) 0.100 Neut % (Auto) 75.8 H Lymph % (Auto) 14.6 L [place] % (Auto) 3.8 Eos % (Auto) 5.2 H Baso % (Auto) 0.5 Absolute Neuts (auto) 5.8 Absolute Lymphs (auto) 1.12 Nucleated RBC % 0 Sodium 138 Potassium 4.6 Chloride 107 Carbon Dioxide 24.0 Anion Gap 7 BUN 58 H Creatinine 2.52 H Estim Creat Clear Calc 27.76 Est GFR (MDRD) Af Amer 33 L Est GFR (MDRD) Non-Af 27 L BUN/Creatinine Ratio 23.0 H Glucose 133 H Calcium 9.4 Magnesium 2.0 Total Bilirubin AST ALT Alkaline Phosphatase Troponin I < 0.015 < 0.015 Total Protein Albumin Globulin Albumin/Globulin Ratio 08/19/20 08/19/20 08/19/20 03:55 06:25 06:25 WBC 6.3 RBC 3.52 L Hgb 10.9 L Hct 32.5 L MCV 92.3 MCH 31.0 MCHC 33.5 RDW Std Deviation 42.7 RDW Coeff of Alesha 12.6 Plt Count 139 L MPV 10.3 Immature Gran % (Auto) 0.500 Neut % (Auto) 61.8 Lymph % (Auto) 21.8 [place] % (Auto) 7.4 Eos % (Auto) 8.0 H Baso % (Auto) 0.5 Absolute Neuts (auto) 3.9 Absolute Lymphs (auto) 1.36 Nucleated RBC % 0 Sodium 141 Potassium 4.6 Chloride 111 H Carbon Dioxide 26.0 Anion Gap 4 L BUN 53 H Creatinine 2.26 H Estim Creat Clear Calc 30.96 Est GFR (MDRD) Af Amer 37 L Est GFR (MDRD) Non-Af 31 L BUN/Creatinine Ratio 23.5 H Glucose 92 Calcium 8.7 Magnesium Total Bilirubin 0.40 AST 11 L ALT 15 L Alkaline Phosphatase 90 Troponin I < 0.015 < 0.015 Total Protein 6.7 Albumin 3.4 Globulin 3.3 Albumin/Globulin Ratio 1.0 Radiography Diagnostic Testing: Radiology Impression Chest X-Ray 08/18/20 19:47 IMPRESSION: Mild hyperinflation. No acute disease Electronically Signed: Daniel Telles MD at 20:10 EDT , Service support , Physical Exam Const alert, oriented x3 and no apparent distress Orientation / Consciousness: awake, oriented to person, oriented to place and oriented to time HEENT normocephalic and moist oral mucous membranes Eyes PERRL, EOMs intact bilaterally and conjunctivae normal Neck no lymphadenopathy Resp normal respiratory effort and clear to auscultation bilaterally Cardio regular rate, regular rhythm and no murmurs Peripheral Pulses: pulses 2+ throughout GI normal to inspection, nondistended, normoactive bowel sounds, non-tender and non-distended Extremity normal to inspection Skin no rashes or lesions noted Lesions: no lesions Rashes: no rashes Trauma: no lacerations or abrasions Neuro CN's II-XII intact bilaterally, no focal motor deficits, no sensory deficits noted and deep tendon reflexes 2+ bilaterally Psych mental status grossly normal and affect normal Assessment & Plan Assessment/Plan (1) Acute kidney injury: (2) Chest pain: QUALIFIERS: Chest pain type: unspecified Qualified Code(s): R07.9 - Chest pain, unspecified PLAN: 1. Chest pain, atypical-troponin negative. EKG without ST-T changes. Patient underwent stress test, awaiting results. Continue aspirin. 2. Acute kidney injury-likely secondary to recent NSAID use for prostate inflammation however patient reports urinary retention symptoms as well. Plan for renal ultrasound and FENa. IV fluids. Trend BMP. Continue Flomax, finasteride. 3. Prostate cancer status post recent [id number] with urology/oncology. 4. Hypertension-stable, continue metoprolol. Hold lisinopril. 5. Hyperlipidemia-continue statin. 6. Paroxysmal atrial fibrillation-on flecainide, metoprolol, aspirin. Not on anticoagulation. 7. Nonobstructive CAD-continue medical management. 8. GERD-continue PPI. 9. YENNI-continue CPAP. DVT prophylaxis-heparin subcu This patient was seen by STEVE Garcia under the supervision of Dr. Fam. Documented by User: Dr. Lance Fam MD 08/19/20 15:57 Subjective Subjective Patient had radiotherapy for prostate cancer in [facility] and developed prostatitis therefore started on high dose of ibuprofen 800 mg every 8 hourly. Patient has TERESA with creatinine 2.52. His baseline creatinine 1.4-1.6 in April 21. Patient had chest tightness mainly over left axillary area and left upper chest. Stress test was done. Objective Data Lab / Micro Data Result Diagrams: 08/19/20 06:25 08/19/20 06:25 Physical Exam Narrative General: Alert, Oriented x3, Cooperative HEENT: Atraumatic, PERRLA, EOMI, Normocephalic Oral: No Gingival or Mucosal Lesions/ Ulcerations Neck: Supple, No JVD, Negative Carotid Bruits Lungs: Air entry diminished in bilateral lung bases. No crepitation/rhonchi Cardiovascular: Regular rate, Regular Rhythm, Normal S1, Normal S2, LLSB sys tolic murmur. Abdomen: Bowel Sounds Present, Soft, Non Tender, Non-Distended : Mild urinary retention/incomplete emptying. No burning micturition. No renal angle tenderness. No suprapubic tenderness. Extremities: No edema, Capillary Refill Less than 3 Seconds Skin: No rashes, No breakdown Musculoskeletal: No Tenderness to Palpation of Joints or Extremities Neurological: Cranial nerves II-XII grossly intact, Deep Tendon Reflexes 2+/4 and Symmetrical, Neuro grossly intact Psych/Mental Status: Normal Affect, Appropriate. Assessment & Plan Assessment/Plan (1) Acute kidney injury: (2) Chest pain: QUALIFIERS: Chest pain type: unspecified Qualified Code(s): R07.9 - Chest pain, unspecified PLAN: This patient was seen in conjunction with Vida MARC. I have independently interviewed and examined the patient and reviewed pertinent history, examination findings, laboratory and plan of management. I have re viewed the note and agree with the documented findings with the few additional points. In brief, patient is admitted for chest pain, atypical in nature. EKG no significant ST-T changes. Patient had nuclear stress test, result pending. 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 Flores and oncologist in [facility]. Ibuprofen discontinued. Monitor kidney function. Other comorbidities as mentioned above. I have discussed my assessment with Vida MARC and orders have been reviewed. Visit Charges OBSV E&M: 06355 Subsequent observation care L2
--- NOTE | 2020-08-19 14:29 | US_ITS ---
EXAM: US RETROPERITONEAL COMPLETE, RENAL CLINICAL INDICATION: TERESA, urinary retention TECHNIQUE: Grayscale and color Doppler sonographic evaluation of the retroperitoneum was performed. This report was created using [employer] technology. COMPARISON: None. FINDINGS: RIGHT KIDNEY: Increased echogenicity of the right renal cortex with mild diffuse thinning. Simple/benign right renal cysts measuring up to 4.2 cm. Benign, incidental finding; no specific imaging workup recommended according to current ACR guidelines. No hydronephrosis. No shadowing calculus. No perinephric collection is demonstrated. LEFT KIDNEY: Simple/benign left renal cysts measure up to 2.6 cm. Benign, incidental finding; no specific imaging workup recommended according to current ACR guidelines. No hydronephrosis. No shadowing calculus. No perinephric collection is demonstrated. BLADDER: Urinary bladder as an initial volume of 217 mL. No bladder wall thickening. Following voiding, bladder volume measures 126 mL. OTHER FINDINGS: Increased echogenicity of the cortex. US/Kidney and Bladder IMPRESSION: 1. No hydronephrosis. Moderate post void residual urinary bladder volume. 2. Increased echogenicity of the bilateral renal cortices suggesting chronic medical renal disease. Electronically Signed: Sunil Ibarra MD (Brooks) at 15:36 EDT , Service support ,
--- NOTE | 2020-08-19 14:32 | STRESSREP_ITS ---
Stress Test Report Date: 08/19/2020 Procedure: Pharmacologic stress nuclear imaging study Indications: Chest pain Consent: Per the patient Procedure: The patient underwent pharmacologic (Regadenoson) evaluation with a peak heart rate of 88 beats per minute (59%predicted maximal heart rate) and a peak blood pressure of 164/70 mmHg. The baseline ECG demonstrated normal sinus rhythm. EKG during lexiscan infusion revealed no significant ischemic changes. EKG post infusion revealed [no significant ischemic changes] [There were no cardiac dysrhythmias pretest, during pharmacologic infusion, or recovery]. [There was no complaint of chest discomfort during pharmacologic infusion or recovery]. The examination was discontinued secondary to completion of protocol. Impression: 1. Lexiscan stress test test is negative for Lexiscan infusion induced EKG changes of ischemia. 2. Lexiscan stress test test is negative for Lexiscan infusion induced chest pain. 3. Results of the nuclear portion of the test is as below Myocardial perfusion imaging study: Technique: The patient was injected with 14.8 millicuries of technetium 99m Cardiolite and subsequently rest SPECT Cardiolite nuclear imaging was obtained in the horizontal long, vertical long, and short axis views. The patient underwent pharmacologic [Regadenoson 0.4mg] evaluation. Please see above for details. The patient was injected with 44.7 millicuries of technetium 99m Cardiolite and subsequently stress SPECT Cardiolite nuclear imaging was obtained in the horizontal long, vertical long, and short axis views. A gated Cardiolite study at peak stress was obtained. Interpretation: Rest and stress SPECT Cardiolite nuclear imaging status post realignment, normalization, and attenuation correction demonstrate overall normal myocardial radioisotope uptake. Gated images reveal no significant regional wall motion abnormalities. The reported LVEF is 67%. Impression: 1. There is no evidence of significant ischemia or infarction. 2. Estimated ejection fraction is 67%. This note was generated with [employer] software. It may contain incorrect words, spelling, and punctuation that were not noted in checking the note before signing.
--- NOTE | 2020-08-19 15:54 | CASEMGMT ---
ADRIANA CM in to discuss DUBON form with patient. RN CM explained DUBON form, patient voiced understanding. Pt signed form and filed in chart. Pt provided with a copy of signed DUBON form. Patient had no further questions or concerns at this time.
[2020-08-19] MEDS: Heparin Injection (Vial) 5,000 UNIT/ML VIAL 5000 UNIT SC ×2 (15:56→21:27)
[2020-08-19] MEDS: Tamsulosin HCl 0.4 MG Capsule 0.8 MG PO (15:56)
[2020-08-19 17:00] LABS: Albumin, Serum 3.8 g/dL (3.2-5.0); BUN 47 mg/dL (7-18); BUN/Creat Ratio 21.9 RATIO (10-20); Chloride 112 mmol/L (98-107); Creatinine, Serum 2.15 mg/dL (0.70-1.30); EST Glomerular Filtration Rate 32 mL/min (>60); Est Glom Filt Rate - Afr Amer 39 mL/min (>60); Estimated Creatinine Clearance 32.54 ml/min; Glucose 90 mg/dL (74-106); Phosphorus 3.8 mg/dL (2.5-4.9); Potassium 4.7 mmol/L (3.5-5.1); Sodium Level 141 mmol/L (136-145)
[2020-08-19 18:15] LABS: Urine Sodium 80 mmol/L (Not Establ.)
[2020-08-19] MEDS: Fluticasone 0.05% 1 SPRAY NASAL.SRY NASAL (21:25)
[2020-08-19] MEDS: Atorvastatin Calcium 20 MG Tablet PO (21:27)
[2020-08-20 03:00] VITALS: PULSE 55
[2020-08-20 03:40] VITALS: BP 127/56; PULSE 52; RESP 16; TEMP 36.8; O2SAT 96
[2020-08-20] MEDS: 0.9% Saline Lock 10 ML Syringe IV (06:05)
[2020-08-20] MEDS: 0.9% Normal Saline 1,000 ML 150 ML IV (06:05)
[2020-08-20 06:41] LABS: Absolute Lymphocyte Count 1.52 X10^3/uL (0.83-4.51); Absolute Neutrophil Count 3.4 X10^3/uL (2.0-7.7); Basophil# 0.05 X10^3/uL; Basophil% 0.9 % (0-1); Eosinophil# 0.44 X10^3/uL; Eosinophils% 7.5 % (0-5); Hematocrit 33.8 % (40-54); Hemoglobin 11.1 g/dL (13.0-16.5); Lymphocyte # 1.52 X10^3/ul (0.83-4.51); Lymphocyte % 25.9 % (19-41); Mean Corp Hgb Conc 32.8 g/dL (32-36); Mean Corpuscular Hgb 30.3 pg (27.0-32.0); Mean Corpuscular Volume 92.3 fL (80-94); Mean Platelet Vol. 10.2 fl (6.2-12.0); Monocyte# 0.45 X10^3/uL; Monocyte% 7.7 % (0-10); NRBC Flagged by Analyzer 0 % (0-5); Neutrophil % 57.7 % (47-70); Platelet Count 147 K/mm3 (150-450); RBC Distribution Width CV 12.3 % (11.6-14.6); RBC Distribution Width SD 41.9 fl (35.1-43.9); Red Blood Count 3.66 M/mm3 (4.6-6.2); White Blood Count 5.9 K/mm3 (4.4-11.0)
[2020-08-20 07:04] LABS: Anion Gap 6 (5-15); BUN 39 mg/dL (7-18); BUN/Creat Ratio 21.3 RATIO (10-20); Calcium,Total 8.6 mg/dL (8.5-10.1); Chloride 111 mmol/L (98-107); Creatinine, Serum 1.83 mg/dL (0.70-1.30); EST Glomerular Filtration Rate 39 mL/min (>60); Est Glom Filt Rate - Afr Amer 47 mL/min (>60); Estimated Creatinine Clearance 38.23 ml/min; Glucose 88 mg/dL (74-106); Potassium 4.5 mmol/L (3.5-5.1); Sodium Level 141 mmol/L (136-145)
[2020-08-20 07:48] VITALS: PULSE 59
[2020-08-20 07:49] VITALS: O2SAT 96
[2020-08-20] MEDS: Aspirin E.C. 81 MG Tablet PO (08:13)
[2020-08-20 09:44] VITALS: BP 139/50; PULSE 69; RESP 16; TEMP 36.5; O2SAT 97
[2020-08-20] MEDS: Finasteride 5 MG Tablet PO (09:53)
--- NOTE | 2020-08-20 09:53 | PCM.DC ---
Discharge Instructions Diet Discharge Diet: No restrictions Activity Discharge Activity: Return to Normal Activity Dressing / Incision Call your doctor if you observe: Inability to urinate, Shortness of breath, Dizziness and Chest pain Follow Up Care Test Results: Test results from this visit will be discussed in further detail at your follow-up appointment, if applicable. Discharge Plan Admission Admit Date/Time: 08/18/20 23:37 Primary Reason for Your Visit: Acute Kidney Injury, Chest pain Attending Provider: Lance Fam Primary Care Provider: Steven Retana Instructions Additional Instructions / Restrictions: Recommend repeat BMP within 1 week by primary care provider to reassess kidney function. Hold home lisinopril medication until repeat kidney function is checked by PCP. Do not take an further ibuprofen or other NSAIDs. Discharge Orders/Prescriptions Prescriptions: Continued saw palmetto 500 mg capsule 500 mg PO QDAY RF: 0 echinacea 400 mg capsule 400 mg PO DAILY RF: 0 loratadine [Claritin] 10 mg tablet 10 mg PO QDAY PRN (Reason: Allergies) RF: 0 alfuzosin 10 mg tablet extended release 24 hr 20 mg PO QDAY RF: 0 cholecalciferol (vitamin D3) 1,000 unit capsule 1,000 unit capsule 1,000 unit PO DAILY RF: 0 nitroglycerin 0.3 mg tablet, sublingual 0.3 mg SUBLINGUAL Q5M PRN (Reason: other) RF: 0 flecainide 150 mg tablet 150 mg PO Q12H PRN (Reason: atrial fibrillation) Qty: 60 RF: 11 aspirin 81 MG tablet 81 mg PO DAILY@0800 RF: 0 magnesium oxide 400 MG tablet 400 mg PO BID RF: 0 fluticasone propionate 1 SPRAY spray,suspension 1 spray NASAL BID RF: 0 multivitamin with folic acid 1 TABLET tablet 1 tab PO DAILY RF: 0 lansoprazole 30 MG capsule 30 mg PO QDAY RF: 0 alprazolam 0.5 MG tablet 0.25 mg PO BID RF: 0 coenzyme Q10 50 mg tablet,chewable 200 mg PO DAILY RF: 0 dutasteride 0.5 mg capsule 0.5 mg PO DAILY RF: 0 metoprolol succinate 25 mg tablet extended release 24 hr 25 mg PO BID Qty: 180 RF: 3 simvastatin 40 mg tablet 40 mg PO DAILY Qty: 90 RF: 4 sildenafil 50 mg tablet 50 mg PO DAILY PRN (Reason: other) RF: 0 Held lisinopril 10 mg tablet 10 mg PO DAILY Qty: 30 RF: 11 Hold Instructions: Resume on 09/03/20. Hold until repeat BMP by PCP. If kidney function continues to remain stable, may resume lisinopril. Referrals / Follow Up: Tj Centeno [Other] - In 1 Week ([facility]) Han Flores MD [STAFF PHYSICIAN] - In 1 Week Steven Retana [Primary Care Provider] - In 1 Week Disposition Disposition (needs filled in before D/C Order can be placed): Home, self care
[2020-08-20 09:54] VITALS: BP 139/50; PULSE 69
[2020-08-20] MEDS: Fluticasone 0.05% 1 SPRAY NASAL.SRY NASAL (09:54)
[2020-08-20] MEDS: Magnesium Chloride 64 MG Delay Rel.Tablet 128 MG PO (09:54)
[2020-08-20] MEDS: Pantoprazole Sodium 40 MG Tablet PO (09:54)
[2020-08-20] MEDS: Metoprolol(XL)Succ 25 MG Tablet PO (09:54)
[2020-08-20] MEDS: ALPRAZolam 0.25 MG Tablet PO (10:09)
--- NOTE | 2020-08-20 10:09 | DS.PCM_ITS ---
Documented by User: Vida Rose NP, RESOURCE RECOVERY SPECIALIST-C 08/20/20 10:23 Providers Date of Admission: 08/18/20 Date of Discharge: 08/20/20 Primary Care Physician: Steven Retana Reason For Visit: CHEST PAIN, ACUTE KIDNEY INJURY Diagnosis Discharge Diagnosis (1) Acute kidney injury: Status: Acute Code(s): N17.9 - Acute kidney failure, unspecified (2) Chest pain: Status: Acute Code(s): R07.9 - Chest pain, unspecified Qualifiers: Chest pain type: unspecified Qualified Code(s): R07.9 - Chest pain, unspecified Medications at Discharge Home Medications aspirin 81 mg PO DAILY@0800 05/18/13 fluticasone propionate 1 spray NASAL BID 05/18/13 magnesium oxide 400 mg PO BID 05/18/13 multivitamin with folic acid 1 tab PO DAILY 05/18/13 alprazolam 0.5 mg tablet 0.25 mg PO BID tab 06/10/17 lansoprazole 30 mg capsule,delayed release 30 mg PO QDAY cap 06/10/17 alfuzosin 10 mg tablet,extended release 24 hr 20 mg PO QDAY 07/22/17 saw palmetto 500 mg capsule 500 mg PO QDAY cap 08/29/17 cholecalciferol (vitamin D3) 25 mcg (1,000 unit) capsule 1,000 unit PO DAILY 07/17/18 coenzyme Q10 50 mg chewable tablet 200 mg PO DAILY tab 07/17/18 echinacea 400 mg capsule 400 mg PO DAILY cap 08/05/19 loratadine 10 mg tablet 10 mg PO QDAY PRN 08/05/19 metoprolol succinate 25 mg tablet,extended release 24 hr 25 mg PO BID #180 tab 10/06/19 simvastatin 40 mg tablet 40 mg PO DAILY #90 tab 02/02/20 flecainide 150 mg tablet 150 mg PO Q12H PRN #60 tab 02/09/20 nitroglycerin 0.3 mg sublingual tablet 0.3 mg SUBLINGUAL Q5M PRN 02/09/20 sildenafil 50 mg tablet 50 mg PO DAILY PRN 05/19/20 lisinopril 10 mg tablet 10 mg PO DAILY #30 tab 08/02/20 dutasteride 0.5 mg PO DAILY 08/18/20 Hospital Course Operations None Procedures Stress test Summary of Care Provided Minutes Spent on Discharge: 35 Hospital Course: Patient is a 69-year-old male admitted 08/18/2020 due to chest pain. 1. Chest pain, atypical-ACS ruled out. Troponin negative. EKG without ST-T changes. Patient underwent nuclear stress test which was negative for ischemia, estimated ejection fraction 67%. Suspect pain is musculoskeletal in nature, currently improved. On baby aspirin at baseline. Follow-up with PCP in 1 week. 2. Acute kidney injury on CKD stage IIIa -TERESA likely secondary to recent NSAID use for prostate inflammation however patient reports urinary retention symptoms as well. Continue Flomax, finasteride. Renal ultrasound showed no hydronephrosis. Moderate postvoid residual bladder volume. TERESA improved, close to baseline. Instructed patient to hold further ibuprofen/NSAIDs. Recommend repeat BMP in 1 week by PCP. Hold lisinopril until further follow-up with PCP. May resume if creatinine remains stable. Follow-up with urology in 1 week for ongoing mild urinary retention. 3. Prostate cancer status post recent [id number] with urology/oncology. 4. Hypertension-stable, continue metoprolol. Hold lisinopril. 5. Hyperlipidemia-continue statin. 6. Paroxysmal atrial fibrillation-on flecainide, metoprolol, aspirin. Not on anticoagulation. 7. Nonobstructive CAD-continue medical management. 8. GERD-continue PPI. 9. YENNI-continue CPAP. Physical Exam Const alert, oriented x3 and no apparent distress Orientation / Consciousness: awake, oriented to person, oriented to place and oriented to time HEENT normocephalic and moist oral mucous membranes Eyes PERRL, EOMs intact bilaterally and conjunctivae normal Neck no lymphadenopathy Resp normal respiratory effort and clear to auscultation bilaterally Cardio regular rate, regular rhythm and no murmurs Peripheral Pulses: pulses 2+ throughout GI normal to inspection, nondistended, normoactive bowel sounds, non-tender and non-distended Extremity normal to inspection Skin no rashes or lesions noted Lesions: no lesions Rashes: no rashes Trauma: no lacerations or abrasions Neuro CN's II-XII intact bilaterally, no focal motor deficits, no sensory deficits noted and deep tendon reflexes 2+ bilaterally Psych mental status grossly normal and affect normal Patient seen and examined prior to discharge. Physical assessment as noted above. Patient is stable for discharge with follow up recommendations as noted above. This patient was seen by STEVE Garcia under the supervision of Dr. Fam. ABG / Lab / Microbiology Data Result Diagrams: 08/20/20 05:52 08/20/20 05:52 Laboratory: Laboratory Results - last 24 hr 08/19/20 08/19/20 08/20/20 16:03 17:40 05:52 WBC 5.9 RBC 3.66 L Hgb 11.1 L Hct 33.8 L MCV 92.3 MCH 30.3 MCHC 32.8 RDW Std Deviation 41.9 RDW Coeff of Alesha 12.3 Plt Count 147 L MPV 10.2 Immature Gran % (Auto) 0.300 Neut % (Auto) 57.7 Lymph % (Auto) 25.9 [place] % (Auto) 7.7 Eos % (Auto) 7.5 H Baso % (Auto) 0.9 Absolute Neuts (auto) 3.4 Absolute Lymphs (auto) 1.52 Nucleated RBC % 0 Sodium 141 Potassium 4.7 Chloride 112 H Carbon Dioxide 25.0 Anion Gap BUN 47 H Creatinine 2.15 H Estim Creat Clear Calc 32.54 Est GFR (MDRD) Af Amer 39 L Est GFR (MDRD) Non-Af 32 L BUN/Creatinine Ratio 21.9 H Glucose 90 Calcium 9.0 Phosphorus 3.8 Albumin 3.8 Ur Random Sodium 80 Urine Creatinine 52.00 08/20/20 05:52 WBC RBC Hgb Hct MCV MCH MCHC RDW Std Deviation RDW Coeff of Alesha Plt Count MPV Immature Gran % (Auto) Neut % (Auto) Lymph % (Auto) [place] % (Auto) Eos % (Auto) Baso % (Auto) Absolute Neuts (auto) Absolute Lymphs (auto) Nucleated RBC % Sodium 141 Potassium 4.5 Chloride 111 H Carbon Dioxide 24.0 Anion Gap 6 BUN 39 H Creatinine 1.83 H Estim Creat Clear Calc 38.23 Est GFR (MDRD) Af Amer 47 L Est GFR (MDRD) Non-Af 39 L BUN/Creatinine Ratio 21.3 H Glucose 88 Calcium 8.6 Phosphorus Albumin Ur Random Sodium Urine Creatinine Radiography Diagnostic Testing: Radiology Impression Renal Ultrasound 08/19/20 14:29 IMPRESSION: 1. No hydronephrosis. Moderate post void residual urinary bladder volume. 2. Increased echogenicity of the bilateral renal cortices suggesting chronic medical renal disease. Electronically Signed: Sunil Ibarra MD ([place]) at 15:36 EDT , Service support , D/C Instructions Discharge Diet: No restrictions Discharge Activity: Return to Normal Activity Call your doctor if you observe: Inability to urinate, Shortness of breath, Dizziness and Chest pain Meaningful Use Info Meaningful Use Diagnoses (Choose all that apply): None applicable Discharge Plan Admission Admit Date/Time: 08/18/20 23:37 Primary Reason for Your Visit: Acute Kidney Injury, Chest pain Attending Provider: Lance Fam Primary Care Provider: Steven Retana Instructions Additional Instructions / Restrictions: Recommend repeat BMP within 1 week by primary care provider to reassess kidney function. Hold home lisinopril medication until repeat kidney function is checked by PCP. Do not take an further ibuprofen or other NSAIDs. Discharge Orders/Prescriptions Prescriptions: Continued saw palmetto 500 mg capsule 500 mg PO QDAY RF: 0 echinacea 400 mg capsule 400 mg PO DAILY RF: 0 loratadine [Claritin] 10 mg tablet 10 mg PO QDAY PRN (Reason: Allergies) RF: 0 alfuzosin 10 mg tablet extended release 24 hr 20 mg PO QDAY RF: 0 cholecalciferol (vitamin D3) 1,000 unit capsule 1,000 unit capsule 1,000 unit PO DAILY RF: 0 nitroglycerin 0.3 mg tablet, sublingual 0.3 mg SUBLINGUAL Q5M PRN (Reason: other) RF: 0 flecainide 150 mg tablet 150 mg PO Q12H PRN (Reason: atrial fibrillation) Qty: 60 RF: 11 aspirin 81 MG tablet 81 mg PO DAILY@0800 RF: 0 magnesium oxide 400 MG tablet 400 mg PO BID RF: 0 fluticasone propionate 1 SPRAY spray,suspension 1 spray NASAL BID RF: 0 multivitamin with folic acid 1 TABLET tablet 1 tab PO DAILY RF: 0 lansoprazole 30 MG capsule 30 mg PO QDAY RF: 0 alprazolam 0.5 MG tablet 0.25 mg PO BID RF: 0 coenzyme Q10 50 mg tablet,chewable 200 mg PO DAILY RF: 0 dutasteride 0.5 mg capsule 0.5 mg PO DAILY RF: 0 metoprolol succinate 25 mg tablet extended release 24 hr 25 mg PO BID Qty: 180 RF: 3 simvastatin 40 mg tablet 40 mg PO DAILY Qty: 90 RF: 4 sildenafil 50 mg tablet 50 mg PO DAILY PRN (Reason: other) RF: 0 Held lisinopril 10 mg tablet 10 mg PO DAILY Qty: 30 RF: 11 Hold Instructions: Resume on 09/03/20. Hold until repeat BMP by PCP. If kidney function continues to remain stable, may resume lisinopril. Referrals / Follow Up: Tj Centeno [Other] - In 1 Week ([facility]) Han Flores MD [STAFF PHYSICIAN] - In 1 Week Steven Retana [Primary Care Provider] - In 1 Week Disposition Disposition (needs filled in before D/C Order can be placed): Home, self care Documented by User: Dr. Lance Fam MD 08/20/20 16:01 Providers Date of Admission: 08/18/20 Reason For Visit: CHEST PAIN, ACUTE KIDNEY INJURY Medications at Discharge Home Medications aspirin 81 mg PO DAILY@0800 05/18/13 fluticasone propionate 1 spray NASAL BID 05/18/13 magnesium oxide 400 mg PO BID 05/18/13 multivitamin with folic acid 1 tab PO DAILY 05/18/13 alprazolam 0.5 mg tablet 0.25 mg PO BID tab 06/10/17 lansoprazole 30 mg capsule,delayed release 30 mg PO QDAY cap 06/10/17 alfuzosin 10 mg tablet,extended release 24 hr 20 mg PO QDAY 07/22/17 saw palmetto 500 mg capsule 500 mg PO QDAY cap 08/29/17 cholecalciferol (vitamin D3) 25 mcg (1,000 unit) capsule 1,000 unit PO DAILY 07/17/18 coenzyme Q10 50 mg chewable tablet 200 mg PO DAILY tab 07/17/18 echinacea 400 mg capsule 400 mg PO DAILY cap 08/05/19 loratadine 10 mg tablet 10 mg PO QDAY PRN 08/05/19 metoprolol succinate 25 mg tablet,extended release 24 hr 25 mg PO BID #180 tab 10/06/19 simvastatin 40 mg tablet 40 mg PO DAILY #90 tab 02/02/20 flecainide 150 mg tablet 150 mg PO Q12H PRN #60 tab 02/09/20 nitroglycerin 0.3 mg sublingual tablet 0.3 mg SUBLINGUAL Q5M PRN 02/09/20 sildenafil 50 mg tablet 50 mg PO DAILY PRN 05/19/20 lisinopril 10 mg tablet 10 mg PO DAILY #30 tab 08/02/20 dutasteride 0.5 mg PO DAILY 08/18/20 Hospital Course Summary of Care Provided Hospital Course: This patient was seen in conjunction with Vida MARC.? I have independently interviewed and examined the patient and reviewed pertinent history, examination findings, laboratory and plan of management.? I have? reviewed the note and agree with the documented findings with the few? additional points. In brief, patient is admitted for chest pain, atypical in nature.? EKG no significant ST-T changes. Patient had Lexiscan nuclear stress test which was ne gative for stress-induced ischemia. Patient has TERESA on CKD? 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 Flores and oncologist in [facility].? Ibuprofen discontinued. His serial creatinine shows improvement. Discussed with the urologist Dr. Flores and he states about 200 mL urine retention, does not need straight catheterization. He will follow-up in the clinic. Other comorbidities as mentioned above. Discharge medication reconciliation done. Discharge follow-up instructions completed. Discharge process discussed with the patient and all questions were answered to patient's satisfaction. Total time spent, exact 35 minutes on discharge meds reconciliation, examination, coordination of care with nurses and ancillary staff, review of imaging and blood test and discussion with the patient on follow-up instructions I have discussed my assessment with Vida MARC and orders have been reviewed. Physical Exam Narrative Seen and examined. Patient does not have chest pain or shortness of breath. Good urine output. No burning micturition. Creatinine improved. General: Alert, Oriented x3, Cooperative HEENT: Atraumatic, PERRLA, EOMI, Normocephalic Oral: No Gingival or Mucosal Lesions/ Ulcerations Neck: Supple, No JVD, Negative Carotid Bruits Lungs: Air entry diminished in bilateral lung bases. No crepitation/rhonchi Cardiovascular: Regular rate, Regular Rhythm, Normal S1, Normal S2, LLSB systolic murmur. Abdomen: Bowel Sounds Present, Soft, Non Tender, Non-Distended : Mild urinary retention/incomplete emptying about 200 mL. No burning micturition. No renal angle tenderness. No suprapubic tenderness. Extremities: No edema, Capillary Refill Less than 3 Seconds Skin: No rashes, No breakdown Musculoskeletal: No Tenderness to Palpation of Joints or Extremities Neurological: Cranial nerves II-XII grossly intact, Deep Tendon Reflexes 2+/4 and Symmetrical, Neuro grossly intact Psych/Mental Status: Normal Affect, Appropriate. HEENT normocephalic and moist oral mucous membranes Eyes PERRL, EOMs intact bilaterally and conjunctivae normal Neck no lymphadenopathy Resp normal respiratory effort and clear to auscultation bilaterally Cardio regular rate, regular rhythm and no murmurs Peripheral Pulses: pulses 2+ throughout GI normal to inspection, nondistended, normoactive bowel sounds, non-tender and non-distended Extremity normal to inspection Skin no rashes or lesions noted Lesions: no lesions Rashes: no rashes Trauma: no lacerations or abrasions Neuro CN's II-XII intact bilaterally, no focal motor deficits, no sensory deficits noted and deep tendon reflexes 2+ bilaterally Psych mental status grossly normal and affect normal ABG / Lab / Microbiology Data Result Diagrams: 08/20/20 05:52 08/20/20 05:52 Discharge Plan Admission Admit Date/Time: 08/18/20 23:37 Primary Reason for Your Visit: Acute Kidney Injury, Chest pain Attending Provider: Lance Fam Primary Care Provider: Steven Retana Instructions Additional Instructions / Restrictions: Recommend repeat BMP within 1 week by primary care provider to reassess kidney function. Hold home lisinopril medication until repeat kidney function is checked by PCP. Do not take an further ibuprofen or other NSAIDs. Discharge Orders/Prescriptions Prescriptions: Continued saw palmetto 500 mg capsule 500 mg PO QDAY RF: 0 echinacea 400 mg capsule 400 mg PO DAILY RF: 0 loratadine [Claritin] 10 mg tablet 10 mg PO QDAY PRN (Reason: Allergies) RF: 0 alfuzosin 10 mg tablet extended release 24 hr 20 mg PO QDAY RF: 0 cholecalciferol (vitamin D3) 1,000 unit capsule 1,000 unit capsule 1,000 unit PO DAILY RF: 0 nitroglycerin 0.3 mg tablet, sublingual 0.3 mg SUBLINGUAL Q5M PRN (Reason: other) RF: 0 flecainide 150 mg tablet 150 mg PO Q12H PRN (Reason: atrial fibrillation) Qty: 60 RF: 11 aspirin 81 MG tablet 81 mg PO DAILY@0800 RF: 0 magnesium oxide 400 MG tablet 400 mg PO BID RF: 0 fluticasone propionate 1 SPRAY spray,suspension 1 spray NASAL BID RF: 0 multivitamin with folic acid 1 TABLET tablet 1 tab PO DAILY RF: 0 lansoprazole 30 MG capsule 30 mg PO QDAY RF: 0 alprazolam 0.5 MG tablet 0.25 mg PO BID RF: 0 coenzyme Q10 50 mg tablet,chewable 200 mg PO DAILY RF: 0 dutasteride 0.5 mg capsule 0.5 mg PO DAILY RF: 0 metoprolol succinate 25 mg tablet extended release 24 hr 25 mg PO BID Qty: 180 RF: 3 simvastatin 40 mg tablet 40 mg PO DAILY Qty: 90 RF: 4 sildenafil 50 mg tablet 50 mg PO DAILY PRN (Reason: other) RF: 0 Held lisinopril 10 mg tablet 10 mg PO DAILY Qty: 30 RF: 11 Hold Instructions: Resume on 09/03/20. Hold until repeat BMP by PCP. If kidney function continues to remain stable, may resume lisinopril. Referrals / Follow Up: Tj Centeno [Other] - In 1 Week ([facility]) Han Flores MD [STAFF PHYSICIAN] - In 1 Week Steven Retana [Primary Care Provider] - In 1 Week Disposition Disposition (needs filled in before D/C Order can be placed): Home, self care Visit Charges OBSV E&M: 10953 Observation care discharge
== END 2020-08-20 09:56 | disposition home or self-care (01) ==
LOC: ED 21:21 → PCU 23:40
PROVIDERS: Nurse Practitioner Family; Admitting Provider Family Medicine; Emergency Provider Emergency Medicine; Visit Provider Internal Medicine
DX: R07.89 Other chest pain (principal); N17.9 Acute kidney failure, unspecified; M51.16 Intervertebral disc disorders with radiculopathy, lumbar region; K21.9 Gastro-esophageal reflux disease without esophagitis; I12.9 Hypertensive chronic kidney disease with stage 1 through stage 4 chronic kidney disease, or unspecified chronic kidney disease; G47.33 Obstructive sleep apnea (adult) (pediatric); E78.5 Hyperlipidemia, unspecified; I25.10 Atherosclerotic heart disease of native coronary artery without angina pectoris; M19.90 Unspecified osteoarthritis, unspecified site; M99.01 Segmental and somatic dysfunction of cervical region; M99.03 Segmental and somatic dysfunction of lumbar region; M99.02 Segmental and somatic dysfunction of thoracic region; F17.220 Nicotine dependence, chewing tobacco, uncomplicated; N18.31 Chronic kidney disease, stage 3a; C61 Malignant neoplasm of prostate; I48.0 Paroxysmal atrial fibrillation; J44.9 Chronic obstructive pulmonary disease, unspecified; Z79.899 Other long term (current) drug therapy; Z79.82 Long term (current) use of aspirin; Z79.51 Long term (current) use of inhaled steroids; R73.9 Hyperglycemia, unspecified; Z92.3 Personal history of irradiation
CPT/HCPCS: 36415; 71045; 76770; 78452; 80048; 80053; 80069; 82570; 83735; 84300; 84484; 85025; 93005; 93017; 96360; 96361; 96372; 97802; 99218; 99251; 99285; A9500; J7030; A4216; G0378; G0463; J2785

== ENCOUNTER → 2020-08-24 12:46 | Outpatient (CLI) | payer MEDICARE, SELFPAY ==
[2020-06-13 13:42] VITALS: BMI 33.3
[2020-08-19 00:15] VITALS: BMI 32.3
[2020-08-24 13:44] LABS: Anion Gap 6 (5-15); BUN 33 mg/dL (7-18); BUN/Creat Ratio 18.8 RATIO (10-20); Calcium,Total 9.1 mg/dL (8.5-10.1); Chloride 108 mmol/L (98-107); Creatinine, Serum 1.76 mg/dL (0.70-1.30); EST Glomerular Filtration Rate 41 mL/min (>60); Est Glom Filt Rate - Afr Amer 49 mL/min (>60); Glucose 100 mg/dL (74-106); Potassium 4.5 mmol/L (3.5-5.1); Sodium Level 138 mmol/L (136-145)
== END ==
PROVIDERS: Referring Provider Urology; Visit Provider Urology
DX: N17.9 Acute kidney failure, unspecified (principal)
CPT/HCPCS: 36415; 80048

== ENCOUNTER → 2020-09-21 08:46 | Outpatient (CLI) | payer MEDICARE, SELFPAY ==
[2020-06-13 13:42] VITALS: BMI 33.3
[2020-08-19 00:15] VITALS: BMI 32.3
== END ==
PROVIDERS: Referring Provider Physician Assistant Medical; Visit Provider Physician Assistant Medical
DX: I49.3 Ventricular premature depolarization (principal); I49.1 Atrial premature depolarization; I48.0 Paroxysmal atrial fibrillation
CPT/HCPCS: 93225; 93226

== ENCOUNTER → 2020-10-20 12:01 | Outpatient (CLI) | payer MEDICARE, SELFPAY ==
[2020-06-13 13:42] VITALS: BMI 33.3
[2020-08-19 00:15] VITALS: BMI 32.3
[2020-10-20 13:21] LABS: Anion Gap 6 (5-15); BUN 27 mg/dL (7-18); BUN/Creat Ratio 17.1 RATIO (10-20); Chloride 106 mmol/L (98-107); Creatinine, Serum 1.58 mg/dL (0.70-1.30); EST Glomerular Filtration Rate 46 mL/min (>60); Est Glom Filt Rate - Afr Amer 56 mL/min (>60); Glucose 96 mg/dL (74-106); PSA,Total- Diagnostic 1.63 ng/mL (0.0-4.0); Potassium 4.7 mmol/L (3.5-5.1); Sodium Level 138 mmol/L (136-145)
== END ==
PROVIDERS: Referring Provider Urology; Visit Provider Urology
DX: C61 Malignant neoplasm of prostate (principal); N40.1 Benign prostatic hyperplasia with lower urinary tract symptoms
CPT/HCPCS: 36415; 80048; 84153

== ENCOUNTER → 2020-11-23 10:50 | Outpatient (CLI) | payer MEDICARE, SELFPAY ==
[2020-06-13 13:42] VITALS: BMI 33.3
[2020-11-10 11:16] VITALS: BMI 32.5
--- NOTE | 2020-11-23 10:52 | ECHOD_ITS ---
Reason For Study: Afib, Aflutter Procedure This was a 2D Doppler, Color Flow transthoracic echocardiogram. Exam performed in department. Left Ventricle Normal LV size. Left ventricular systolic function is normal. The estimated ejection fraction is 65 %. No evidence for diastolic dysfunction. No regional wall motion abnormalities noted. Right Ventricle Normal RV size. Normal systolic function. Atria Normal left atrium. Normal right atrium. No doppler evidence for ASD. Mitral Valve There is mild mitral annular calcification. Extension of the mtral annular calcification onto the base of the posterior mitral valve leaflet. Trivial mitral valve insufficiency. Tricuspid Valve Normal tricuspid valve. Trivial tricuspid valve insufficiency. Right ventricular systolic pressure estimated to be 31 mmHg. Aortic Valve Trisinus/trileaflet aortic valve. Mild focal aortic valve calcification. Pulmonic Valve The pulmonic valve is not well visualized. Great Vessels Normal aortic root. Pericardium/Pleural No pericardial effusion. MMode/2D Measurements & Calculations LVIDd: 5.3 cm IVSd: 0.87 cm Ao root diam: 3.1 cm LVIDs: 3.6 cm LVPWd: 1.0 cm RVDd: 4.1 cm FS: 32.9 % LAV(MOD-bp): 59.7 ml LVAd ap4: 27.7 cm2 SV(MOD-sp4): 56.6 ml LAV(MOD-bp) Indexed: 27.2 ml/m2 LVLd ap4: 7.7 cm LAV(MOD-sp2): 60.6 ml EDV(MOD-sp4): 82.2 ml LAV(MOD-sp4): 49.2 ml EDV(sp4-el): 84.3 ml LVAs ap4: 13.7 cm2 LVLs ap4: 6.3 cm ESV(MOD-sp4): 25.6 ml ESV(sp4-el): 25.5 ml EF(MOD-sp4): 68.9 % EF(sp4-el): 69.8 % SV(sp4-el): 58.8 ml LA A4 area: 17.2 cm2 LA dimension(2D): 4.6 cm RA A4 area: 15.6 cm2 Doppler Measurements & Calculations MV E max chris: 78.2 cm/sec Lat Peak E' Chris: 11.3 cm/sec Med Peak E' Chris: 10.6 cm/sec MV A max chris: 89.5 cm/sec E/E' lat: 6.9 E/E' med: 7.3 MV E/A: 0.87 Ao V2 max: 159.3 cm/sec LV V1 max: 120.0 cm/sec PA V2 max: 97.4 cm/sec Ao max P.1 mmHg LV V1 max P.8 mmHg Ao V2 mean: 110.9 cm/sec Ao mean P.4 mmHg Ao V2 VTI: 31.2 cm TR max chris: 263.4 cm/sec TR max P.7 mmHg ECHO/Echo Complete Interpretation Summary Left ventricular systolic function is normal. The estimated ejection fraction is 65 %. There is mild mitral annular calcification. Extension of the mtral annular calcification onto the base of the posterior laura ral valve leaflet. Trivial mitral valve insufficiency. Trivial tricuspid valve insufficiency. Mild focal aortic valve calcification. Right ventricular systolic pressure estimated to be 31 mmHg. No evidence for diastolic dysfunction. Ordering Physician: Jamarcus Anderson Referring Physician: Steven Retana Performed By: Sherice Alvarez, RETA, RVT
== END ==
PROVIDERS: Referring Provider Internal Medicine Cardiovascular Disease; Visit Provider Internal Medicine Cardiovascular Disease
DX: I25.10 Atherosclerotic heart disease of native coronary artery without angina pectoris (principal); I49.1 Atrial premature depolarization; I49.3 Ventricular premature depolarization; I48.0 Paroxysmal atrial fibrillation; I10 Essential (primary) hypertension; E78.5 Hyperlipidemia, unspecified
CPT/HCPCS: 93306

== ENCOUNTER → 2020-12-26 12:55 | Outpatient (CLI) | payer MEDICARE, SELFPAY ==
[2020-06-13 13:42] VITALS: BMI 33.3
--- NOTE | 2020-12-26 12:59 | VDLE_ITS ---
Reason For Study: Leg pain, swelling RIGHT LEFT CFV is compressible, spontaneous, phasic, CFV is compressible, spontaneous, phasic, competent and demonstrates normal competent, and demonstrates normal augmentation. augmentation. FV is compressible, spontaneous, phasic, FV is compressible, spontaneous, phasic, competent and demonstrates normal competent and demonstrates normal augmentation. augmentation. POP V is compressible, spontaneous, phasic, POP V is compressible, spontaneous, phasic, competent and demonstrates normal competent and demonstrates normal augmentation. augmentation. T/P Trunk is compressible. T/P Trunk is compressible. PTV is compressible. PTV is compressible. RT PerV is compressible. LT PerV is compressible. Right GSV previous EVLA. Left GSV above knee and SSV previous EVLA. SFJ is INCOMPETENT and measures 0.74x 0.91 SFJ is INCOMPETENT and measures 0.92 x 0.91 cm. cm. ASV mid thigh is INCOMPETENT for greater than GSV at knee measures 0.34 x 0.36 cm. 0.5 seconds and measures 0.19 x 0.20 cm. GSV below knee is INCOMPETENT for greater ASV mid calf is INCOMPETENT for greater than than 0.5 seconds. 0.5 seconds and measures 0.29 x 0.31 cm. ASV proximal calf is INCOMPETENT for greater SSV at junction is INCOMPETENT for greater than 0.5 seconds and measures 0.25 x 0.25 cm. than 0.5 seconds and measures 0.43 x 0.45 cm. Procedure This is a venous duplex using B-mode, color flow and spectral Doppler. Exam performed in department. VL/Venous Duplex US - Edson Extrem Interpretation Summary Bilateral no DVT. Right GSV previously occluded. SF J9 Millimeters and reflux. ASV 3 mm and reflux. LSV 4.5 mm in reflux. Left GSV and LSV occluded. Saphenofemoral junction 9.1 mm in reflux. GSV and ASV in the calf with reflux. Ordering Physician: Jayesh Whitehead Referring Physician: Steven Retana Performed By: Jamia Mello RVT
[2020-12-26 13:55] LABS: Absolute Lymphocyte Count 1.07 X10^3/uL (0.83-4.51); Absolute Neutrophil Count 3.7 X10^3/uL (2.0-7.7); Basophil# 0.03 X10^3/uL; Basophil% 0.6 % (0-1); Eosinophil# 0.11 X10^3/uL; Eosinophils% 2.1 % (0-5); Hematocrit 37.9 % (40-54); Hemoglobin 13.1 g/dL (13.0-16.5); Lymphocyte # 1.07 X10^3/ul (0.83-4.51); Lymphocyte % 20.2 % (19-41); Mean Corp Hgb Conc 34.6 g/dL (32-36); Mean Corpuscular Hgb 31.8 pg (27.0-32.0); Mean Platelet Vol. 10.1 fl (6.2-12.0); Monocyte# 0.37 X10^3/uL; NRBC Flagged by Analyzer 0 % (0-5); Neutrophil # 3.71 X10^3/uL (2.7-7.7); Neutrophil % 69.9 % (47-70); Platelet Count 144 K/mm3 (150-450); RBC Distribution Width CV 12.4 % (11.6-14.6); RBC Distribution Width SD 42.2 fl (35.1-43.9); Red Blood Count 4.12 M/mm3 (4.6-6.2); White Blood Count 5.3 K/mm3 (4.4-11.0)
[2020-12-26 14:36] LABS: ALB/GLOB Ratio 0.9 RATIO (0.9-2.4); AST(SGOT) 17 U/L (15-37); Alanine Aminotransfer ALT/SGPT 20 U/L (16-61); Albumin, Serum 3.5 g/dL (3.2-5.0); Alkaline Phosphatase 93 U/L (45-117); Anion Gap 5 (5-15); BUN 26 mg/dL (7-18); BUN/Creat Ratio 18.3 RATIO (10-20); Calcium,Total 8.8 mg/dL (8.5-10.1); Chloride 108 mmol/L (98-107); Creatinine, Serum 1.42 mg/dL (0.70-1.30); EST Glomerular Filtration Rate 52 mL/min (>60); Est Glom Filt Rate - Afr Amer 63 mL/min (>60); Glucose 95 mg/dL (74-106); Iron 83 ug/dL (65-175); Potassium 4.5 mmol/L (3.5-5.1); Protein, Total 7.5 g/dL (6.4-8.2); Sodium Level 138 mmol/L (136-145)
[2020-12-26 14:37] LABS: Vitamin D,25 Hydroxy 50.3 ng/mL
== END ==
PROVIDERS: Family Medicine; Referring Provider Surgery Vascular Surgery; Visit Provider Surgery Vascular Surgery
DX: I83.893 Varicose veins of bilateral lower extremities with other complications (principal); M79.89 Other specified soft tissue disorders; M79.606 Pain in leg, unspecified; D64.9 Anemia, unspecified; E55.9 Vitamin D deficiency, unspecified
CPT/HCPCS: 36415; 80053; 82306; 83540; 85025; 93970

== ENCOUNTER → 2021-01-31 11:41 | Outpatient (CLI) | payer MEDICARE, SELFPAY ==
[2020-06-13 13:42] VITALS: BMI 33.3
[2021-01-31 12:26] LABS: Albumin, Serum 3.6 g/dL (3.2-5.0); BUN 27 mg/dL (7-18); BUN/Creat Ratio 16.5 RATIO (10-20); Calcium,Total 9.1 mg/dL (8.5-10.1); Chloride 105 mmol/L (98-107); Creatinine, Serum 1.64 mg/dL (0.70-1.30); EST Glomerular Filtration Rate 44 mL/min (>60); Est Glom Filt Rate - Afr Amer 53 mL/min (>60); Glucose 97 mg/dL (74-106); Phosphorus 2.9 mg/dL (2.5-4.9); Potassium 4.7 mmol/L (3.5-5.1); Sodium Level 137 mmol/L (136-145)
[2021-01-31 12:31] LABS: Protein:Creat Ratio 133 mg/g CRE (0-200)
== END ==
PROVIDERS: Visit Provider Internal Medicine Nephrology
DX: N18.31 Chronic kidney disease, stage 3a (principal)
CPT/HCPCS: 36415; 80069; 82570; 84156

== ENCOUNTER → 2021-02-01 13:58 | Outpatient (CLI) | payer MEDICARE, SELFPAY ==
[2020-06-13 13:42] VITALS: BMI 33.3
== END ==
PROVIDERS: Referring Provider Internal Medicine Cardiovascular Disease; Visit Provider Internal Medicine Cardiovascular Disease
DX: I48.0 Paroxysmal atrial fibrillation (principal); I49.1 Atrial premature depolarization; I49.3 Ventricular premature depolarization
CPT/HCPCS: 93225; 93226

== ENCOUNTER → 2021-02-21 14:10 | Outpatient (CLI) | payer MEDICARE, SELFPAY ==
[2020-06-13 13:42] VITALS: BMI 33.3
[2021-02-21 15:54] LABS: Anion Gap 7 (5-15); BUN 36 mg/dL (7-18); BUN/Creat Ratio 23.2 RATIO (10-20); Chloride 106 mmol/L (98-107); Creatinine, Serum 1.55 mg/dL (0.70-1.30); EST Glomerular Filtration Rate 47 mL/min (>60); Est Glom Filt Rate - Afr Amer 57 mL/min (>60); Glucose 99 mg/dL (74-106); Potassium 4.8 mmol/L (3.5-5.1); Sodium Level 137 mmol/L (136-145)
== END ==
PROVIDERS: Referring Provider Internal Medicine Nephrology; Visit Provider Family Medicine
DX: N17.9 Acute kidney failure, unspecified (principal)
CPT/HCPCS: 36415; 80048

== ENCOUNTER → 2021-02-21 14:17 | Outpatient (CLI) | payer MEDICARE, SELFPAY ==
[2020-06-13 13:42] VITALS: BMI 33.3
[2021-02-21 15:23] LABS: Absolute Lymphocyte Count 1.06 X10^3/uL (0.83-4.51); Absolute Neutrophil Count 5.8 X10^3/uL (2.0-7.7); Basophil# 0.02 X10^3/uL; Basophil% 0.3 % (0-1); Eosinophil# 0.11 X10^3/uL; Eosinophils% 1.5 % (0-5); Hematocrit 41.1 % (40-54); Hemoglobin 13.4 g/dL (13.0-16.5); Lymphocyte # 1.06 X10^3/ul (0.83-4.51); Lymphocyte % 14.2 % (19-41); Mean Corp Hgb Conc 32.6 g/dL (32-36); Mean Corpuscular Hgb 30.9 pg (27.0-32.0); Mean Corpuscular Volume 94.9 fL (80-94); Mean Platelet Vol. 9.8 fl (6.2-12.0); Monocyte# 0.41 X10^3/uL; Monocyte% 5.5 % (0-10); NRBC Flagged by Analyzer 0 % (0-5); Neutrophil # 5.83 X10^3/uL (2.7-7.7); Platelet Count 158 K/mm3 (150-450); RBC Distribution Width CV 12.6 % (11.6-14.6); RBC Distribution Width SD 43.8 fl (35.1-43.9); Red Blood Count 4.33 M/mm3 (4.6-6.2); White Blood Count 7.5 K/mm3 (4.4-11.0)
[2021-02-21 15:54] LABS: Albumin, Serum 3.4 g/dL (3.2-5.0); Anion Gap 7 (5-15); BUN 36 mg/dL (7-18); BUN/Creat Ratio 23.2 RATIO (10-20); Calcium,Total 8.9 mg/dL (8.5-10.1); Chloride 106 mmol/L (98-107); Creatinine, Serum 1.55 mg/dL (0.70-1.30); EST Glomerular Filtration Rate 47 mL/min (>60); Est Glom Filt Rate - Afr Amer 57 mL/min (>60); Glucose 102 mg/dL (74-106); Potassium 4.7 mmol/L (3.5-5.1); Sodium Level 137 mmol/L (136-145)
== END ==
PROVIDERS: Visit Provider Physician Assistant Surgical
DX: Z01.818 Encounter for other preprocedural examination (principal); N17.9 Acute kidney failure, unspecified
CPT/HCPCS: 36415; 80048; 82040; 85025

== ENCOUNTER 2021-04-14 18:00 | Outpatient (CLI) | payer MEDICARE, SELFPAY ==
[2020-06-13 13:42] VITALS: BMI 33.3
[2021-04-14 18:01] LABS: Bacteria 0 SEEN /hpf (None Seen); Mucous, Urine 0 SEEN /hpf (<or=2+); Red Blood Cells-Urine 0 SEEN /hpf (0-5); Squamous Epithelial Cells - UA 0 SEEN /hpf (0-5)
[2021-04-14 18:08] LABS: Color, Urine Yellow (Yellow); Glucose, Dipstick Normal (Normal); Ketone-Dipstick 5 mg/dl (Negative); Leukocyte Esterase-Dipstick 25 /ul (Negative); Nitrite-Dipstick Negative (Negative); Occult Blood-Urine Negative /ul (Negative); Protein-Dipstick 30 mg/dl (Negative); Specific Gravity, Urine 1.025 (1.002-1.030); Urine Bilirubin Dipstick Negative (Negative); Urine Clarity Clear (Clear); Urine Urobilinogen Normal (Normal)
[2021-04-14 18:15] LABS: White Blood Cells 0-5 SEEN /hpf (0-5)
== END 2021-04-14 23:59 | disposition short-term general hospital (02) ==
PROVIDERS: Visit Provider Physician Assistant Surgical
DX: N39.0 Urinary tract infection, site not specified (principal); E78.5 Hyperlipidemia, unspecified
CPT/HCPCS: 81001; 87086

== ENCOUNTER 2021-04-19 14:08 | Emergency (ER) | payer MEDICARE, SELFPAY ==
[2020-06-13 13:42] VITALS: BMI 33.3
[2021-04-19 14:10] VITALS: BP 121/58; PULSE 67; RESP 15; TEMP 36.6; O2SAT 98; BMI 33.5
--- NOTE | 2021-04-19 16:25 | EX.ED.GUMALE ---
HPI History of Present Illness Chief Complaint: Complaint Informant: patient Pain Onset: Days Context: Gradual Onset Timing: Intermittent Current Severity: Mild Maximum Severity: Mild Appearance Lesion(s): No Genital Edema: No Narrative Narrative: 70-year-old male history of prior prostate cancer with a prior biopsy and radiation therapy. He has had a history of BPH and urinary retention in the past. About 6 weeks ago he had left hip replacement surgery has done well since that time. His physical therapy is going well. He states last several days he has had urinary frequency and does not feel like he is emptying his bladder. Patient was seen in urgent care recently had a negative urinalysis there. He called his urologist and their office put him on Cipro and Pyridium which he states is really not done him any good. He thinks there may have been a miscommunication between him and them because he never was under the impression he had a urinary tract infection. He tried to get into see his urologist and he is not in town. Patient is on Flomax currently. He also tried Azo [id number] which really did not make much of a difference. Prior similar symptoms: Yes Recent Illness/Hospitalization: No PFSH PFSH Medical History Abdominal pain Anxiety Arthritis Atherosclerotic heart disease of [place] coronary artery without angina pectoris Atrial fibrillation bilaterl vein ablation ble BiPAP (biphasic positive airway pressure) dependence Cancer Cellulitis of left lower extremity COPD (chronic obstructive pulmonary disease) Costochondritis Degenerative disc disease, lumbar Essential hypertension Fatigue Former smoker GERD (gastroesophageal reflux disease) Hemorrhoids History of prostate cancer Hyperlipidemia Hypertension Knee pain Long-term use of high-risk medication Lumbar radiculopathy, right YENNI (obstructive sleep apnea) Osteoarthritis of left knee Paroxysmal atrial fibrillation Premature atrial contractions Premature ventricular contraction repair right achilles tendon Segmental and somatic dysfunction of cervical region Segmental and somatic dysfunction of lumbar region Segmental and somatic dysfunction of thoracic region Umbilical hernia without obstruction and without gangrene Home Medications aspirin 81 mg PO DAILY@0800 05/18/13 [History Last Taken 04/25/15] fluticasone propionate 1 spray NASAL BID 05/18/13 [History Last Taken Unknown] magnesium oxide 400 mg PO BID 05/18/13 [History Last Taken 04/25/15] multivitamin with folic acid 1 tab PO DAILY 05/18/13 [History Last Taken Unknown] alprazolam 0.5 mg tablet 0.25 mg PO BID tab 06/10/17 [History Last Taken 04/16/18] lansoprazole 30 mg capsule,delayed release 30 mg PO QDAY cap 06/10/17 [History Last Taken 04/16/18] alfuzosin 10 mg tablet,extended release 24 hr 20 mg PO QDAY 07/22/17 [History Last Taken Unknown] saw palmetto 500 mg capsule 500 mg PO QDAY cap 08/29/17 [History Last Taken Unknown] cholecalciferol (vitamin D3) 25 mcg (1,000 unit) capsule 1,000 unit PO DAILY 07/17/18 [History Last Taken Unknown] coenzyme Q10 50 mg chewable tablet 200 mg PO DAILY tab 07/17/18 [History Last Taken Unknown] echinacea 400 mg capsule 400 mg PO DAILY cap 08/05/19 [History Last Taken Unknown] loratadine 10 mg tablet 10 mg PO QDAY PRN 08/05/19 [History Last Taken Unknown] simvastatin 40 mg tablet 40 mg PO DAILY #90 tab 02/02/20 [Rx Last Taken Unknown] nitroglycerin 0.3 mg sublingual tablet 0.3 mg SUBLINGUAL Q5M PRN 02/09/20 [History Last Taken Unknown] sildenafil 50 mg tablet 50 mg PO DAILY PRN 05/19/20 [History Last Taken Unknown] dutasteride 0.5 mg PO DAILY 08/18/20 [History Last Taken Unknown] losartan 25 mg tablet 25 mg PO DAILY #90 tab 10/26/20 [Rx Last Taken Unknown] cephalexin 500 mg capsule 500 mg PO TID #30 cap 11/24/20 [Rx Last Taken Unknown] metoprolol succinate 25 mg tablet,extended release 24 hr 25 mg PO DAILY #180 tab 01/16/21 [Rx Last Taken Unknown] flecainide 150 mg tablet 150 mg PO Q12H PRN #60 tab 04/03/21 [Rx Last Taken Unknown] Allergy/AdvReac Type Severity Reaction Status Date / Time animal dander Allergy Unknown Verified 04/19/21 14:09 grass pollen Allergy Unknown Verified 04/19/21 14:09 grass pollen-perennial rye, Allergy Unknown Verified 04/19/21 14:09 standar house dust Allergy Unknown Verified 04/19/21 14:09 levofloxacin [From Levaquin] Allergy Unknown Verified 04/19/21 14:09 dabigatran etexilate AdvReac Unknown Unknown Verified 04/19/21 14:09 [From Pradaxa] pet dander Allergy Unknown Uncoded 04/19/21 14:09 Family History Mother Hypertension CAD (coronary artery disease) Father Hypertension Atrial fibrillation Presence of permanent cardiac pacemaker CVA (cerebral vascular accident) Surgical History Bilateral knee pain H/O cardiac radiofrequency ablation H/O detached retina repair H/O hemorrhoidectomy H/O shoulder surgery H/O sinus surgery H/O sinus surgery History of arthroscopy of knee History of cardiac radiofrequency ablation (RFA) History of cataract surgery History of detached retina repair History of hemorrhoidectomy History of umbilical hernia repair (~04/2018) right shoulder Status post laser ablation of incompetent vein vein Social History Smoking Status: Former smoker Smokeless tobacco user: snuff how long ago did patient quit smoking: Patient quit cigarette tobacco use 1980, smoked age [age], 1 ppd-->Snuff. alcohol intake: current alcohol intake frequency: a few times a week Alcohol type: beer substance use type: does not use caffeine: No ROS ROS ED ROS Narrative Denies recent illness. Review of Systems ROS Unobtainable: Denies due to encephalopathy Constitutional Constitutional ED: Denies fever(s) Eyes Eyes: Denies change in vision ENT ENT ED: Denies ear pain Cardiovascular Cardiovascular: Denies chest pain Respiratory/Chest Respiratory/Chest: Denies cough or dyspnea Gastrointestinal Gastrointestinal: Denies abdominal pain, diarrhea, nausea or vomiting Genitourinary Genitourinary ED: Denies dysuria Musculoskeletal Musculoskeletal: Denies myalgias Integumentary Denies rash Neurologic Neurologic: Denies headache(s) Psychiatric Psychiatric: Denies depression Endocrine Endocrinology: Denies polyuria Hematologic/Lymphatic Hematologic/Lymphatic: Denies easy bruising Allergic/Immunologic Allergic/Immunologic ED: Denies urticaria EXAM Physical Exam Narrative Exam Narrative: 68-year-old male no acute distress vital signs stable afebrile. Blood pressure 121/58. HEENT exam unremarkable. Lungs clear. Heart regular rhythm. Abdomen soft nondistended normal bowel sounds no peritoneal signs. Moving all 4 extremities. No edema. Neurologically he is awake and alert. Has normal motor strength and sensation of the lower extremities. Const Vital Signs: 04/19/21 14:10 Temperature 97.8 F Temperature Source Temporal Pulse Rate 67 Respiratory Rate 15 Blood Pressure 121/58 H Blood Pressure Mean 79 Pulse Ox 98 Oxygen Delivery Method Room Air Positive well nourished and well developed; Negative for cachectic, contractures or unkempt General Appearance ED: well developed and NAD; Negative for unkempt, cachectic, contractures or pallor Nutritional Appearance: Negative for cachectic HEENT Reports moist mucous membranes normocephalic and atraumatic; Negative for trauma or tenderness Eyes PERRL and EOMs intact bilaterally Neck no lymphadenopathy, supple and no JVD General: Negative for tenderness Resp normal respiratory effort and clear to auscultation bilaterally Auscultation: Negative for rales, rhonchi or wheezes Cardio regular rate, regular rhythm, S1 normal heart sound, S2 normal heart sound and no murmurs GI non-tender, non-distended and no masses Auscultation: normoactive bowel sounds; Negative for hyperactive bowel sounds or hypoactive bowel sounds Palpation: soft Rectal Exam: Negative for tenderness Back/Spine no CVA tenderness General Back: Negative for CVA tenderness Cervical Spine: Negative for cervical spine tenderness Thoracic Spine / Upper Back: Negative for thoracic spinal tenderness Extremity normal to inspection General Extremety ED: Negative for edema or tenderness General Extremity: Negative for edema Neuro oriented x3, moves all extremities and no focal motor deficits Sensorium / Orientation: alert, oriented to person, oriented to place and oriented to time; Negative for orientation impaired, confused, lethargic or stuporous Motor Exam: strength 5/5 throughout Psych mental status grossly normal Appearance: Negative for unkempt Attitude: No agitated Mood & Affect: Negative for depressed or tearful Skin General Skin Exam: Negative for jaundice or pallor Lesions: no lesions Rashes: no rashes MDM MDM MDM Narrative Medical decision making narrative: 70-year-old male with urinary frequency. Recent negative urinalysis. Recently been on antibiotics and Pyridium. Initial bladder scan was 73 and rechecked it was 24. Also check bladder ultrasound that only showed about 53 cc. So there is no signs of urinary retention. I did review his most recent urinalysis which was within the last week it was completely negative as was the urine culture. Since that time he has been on antibiotics. Repeat exam patient is doing well at 5:50 p.m. to be discharged home. Patient and his discussed all his labs. He has no signs of either urinary retention or any recent urinary tract infection. Lab Data Attestation: I reviewed the patient's lab results. Lab results narrative: Chemistry is unremarkable. His BUN is elevated 39 creatinine is 1.5 he has a history of prior renal insufficiency this is his baseline.. Glucose 101. Labs: Laboratory Results - last 24 hr 04/19/21 16:53 Sodium 137 Potassium 4.4 Chloride 106 Carbon Dioxide 27.0 Anion Gap 4 L BUN 39 H Creatinine 1.50 H Estim Creat Clear Calc 45.96 Est GFR (MDRD) Af Amer 59 L Est GFR (MDRD) Non-Af 49 L BUN/Creatinine Ratio 26.0 H Glucose 101 Calcium 9.0 Discharge Plan Triage Chief Complaint: Complaint ED Provider: Shaun Heard Dx/Rx/DC Orders Prescriptions: No Action saw palmetto 500 mg capsule 500 mg PO QDAY RF: 0 echinacea 400 mg capsule 400 mg PO DAILY RF: 0 loratadine [Claritin] 10 mg tablet 10 mg PO QDAY PRN (Reason: Allergies) RF: 0 alfuzosin 10 mg tablet extended release 24 hr 20 mg PO QDAY RF: 0 cholecalciferol (vitamin D3) 1,000 unit capsule 1,000 unit capsule 1,000 unit PO DAILY RF: 0 nitroglycerin 0.3 mg tablet, sublingual 0.3 mg sublingual Q5M PRN (Reason: other) RF: 0 cephalexin 500 mg capsule 500 mg PO TID Qty: 30 RF: 0 aspirin 81 MG tablet 81 mg PO DAILY@0800 RF: 0 magnesium oxide 400 MG tablet 400 mg PO BID RF: 0 fluticasone propionate 1 SPRAY spray,suspension 1 spray NASAL BID RF: 0 multivitamin with folic acid 1 TABLET tablet 1 tab PO DAILY RF: 0 lansoprazole 30 MG capsule 30 mg PO QDAY RF: 0 alprazolam 0.5 MG tablet 0.25 mg PO BID RF: 0 coenzyme Q10 50 mg tablet,chewable 200 mg PO DAILY RF: 0 dutasteride 0.5 mg capsule 0.5 mg PO DAILY RF: 0 simvastatin 40 mg tablet 40 mg PO DAILY Qty: 90 RF: 4 sildenafil 50 mg tablet 50 mg PO DAILY PRN (Reason: other) RF: 0 losartan 25 mg tablet 25 mg PO DAILY Qty: 90 RF: 3 metoprolol succinate 25 mg tablet extended release 24 hr 25 mg PO DAILY Qty: 180 RF: 3 flecainide 150 mg tablet 150 mg PO Q12H PRN (Reason: atrial fibrillation) Qty: 60 RF: 11 Primary Care Provider: Steven Retana Referrals: Steven Retana [Primary Care Provider] - As Needed Activity Restrictions/Additional Instructions: Follow-up with your urologist if this is not improving. From today's labs and your recent urinalysis there is no signs of infection nor any signs of urinary retention. Stop the antibiotic, stop the Pyridium and any [id number] medications you were taking for this. Disposition Disposition: Home, Self Care
[2021-04-19 17:16] LABS: Anion Gap 4 (5-15); BUN 39 mg/dL (7-18); Chloride 106 mmol/L (98-107); EST Glomerular Filtration Rate 49 mL/min (>60); Est Glom Filt Rate - Afr Amer 59 mL/min (>60); Estimated Creatinine Clearance 45.96 ml/min; Glucose 101 mg/dL (74-106); Potassium 4.4 mmol/L (3.5-5.1); Sodium Level 137 mmol/L (136-145)
[2021-04-19 18:01] VITALS: RESP 16
== END 2021-04-19 18:01 | disposition home or self-care (01) ==
PROVIDERS: Emergency Provider Emergency Medicine; Visit Provider Emergency Medicine
DX: N40.1 Benign prostatic hyperplasia with lower urinary tract symptoms (principal); J44.9 Chronic obstructive pulmonary disease, unspecified; I48.0 Paroxysmal atrial fibrillation; R39.14 Feeling of incomplete bladder emptying; R35.0 Frequency of micturition; E78.5 Hyperlipidemia, unspecified; I10 Essential (primary) hypertension; I25.10 Atherosclerotic heart disease of native coronary artery without angina pectoris; K21.9 Gastro-esophageal reflux disease without esophagitis; G47.33 Obstructive sleep apnea (adult) (pediatric); Z79.82 Long term (current) use of aspirin; Z79.899 Other long term (current) drug therapy; Z87.891 Personal history of nicotine dependence
CPT/HCPCS: 36415; 80048; 99282

== ENCOUNTER 2021-05-02 13:11 | Outpatient (CLI) | payer MEDICARE, SELFPAY ==
[2020-06-13 13:42] VITALS: BMI 33.3
[2021-05-02 14:34] LABS: Albumin, Serum 3.2 g/dL (3.2-5.0); BUN 32 mg/dL (7-18); BUN/Creat Ratio 19.4 RATIO (10-20); Calcium,Total 9.1 mg/dL (8.5-10.1); Chloride 105 mmol/L (98-107); Creatinine, Serum 1.65 mg/dL (0.70-1.30); EST Glomerular Filtration Rate 44 mL/min (>60); Est Glom Filt Rate - Afr Amer 53 mL/min (>60); Glucose 102 mg/dL (74-106); Phosphorus 3.4 mg/dL (2.5-4.9); Potassium 4.9 mmol/L (3.5-5.1); Sodium Level 135 mmol/L (136-145)
== END 2021-05-02 23:59 | disposition short-term general hospital (02) ==
LOC: LAB 13:13
PROVIDERS: Visit Provider Internal Medicine Nephrology
DX: N18.31 Chronic kidney disease, stage 3a (principal)
CPT/HCPCS: 36415; 80069

== ENCOUNTER 2021-05-22 13:49 | Outpatient (CLI) | payer MEDICARE, SELFPAY ==
[2020-06-13 13:42] VITALS: BMI 33.3
[2021-05-22 15:33] LABS: PSA,Total- Diagnostic 0.59 ng/mL (0.0-4.0)
== END 2021-05-22 23:59 | disposition home or self-care (01) ==
LOC: LAB 13:50
PROVIDERS: Referring Provider Urology; Visit Provider Urology
DX: C61 Malignant neoplasm of prostate (principal)
CPT/HCPCS: 36415; 84153

== ENCOUNTER 2021-07-24 00:42 | Emergency (ER) | payer MEDICARE, SELFPAY ==
[2020-06-13 13:42] VITALS: BMI 33.3
[2021-07-24 00:38] VITALS: BP 137/62; PULSE 62; RESP 15; TEMP 36.1; O2SAT 96; BMI 34.3
[2021-07-24 00:53] VITALS: BP 128/57; PULSE 58; RESP 16; O2SAT 97
--- NOTE | 2021-07-24 01:00 | EKG12_ITS ---
Test Reason : CP Blood Pressure : / mmHG Vent. Rate : 062 BPM Atrial Rate : 062 BPM P-R Int : 000 ms QRS Dur : 090 ms QT Int : 418 ms P-R-T Axes : 060 017 049 degrees QTc Int : 424 ms Somatic/Motion Artifact Sinus rhythm Confirmed by LORA WITT, RASHAAD ([id number]), business editor JENNIFER WARREN ([id number]) on 07/25/2021 11:16:09 AM Referred By: Confirmed By:RASHAAD PAULINO MD
--- NOTE | 2021-07-24 01:00 | RAD_ITS ---
STUDY: X-RAY CHEST REASON FOR EXAM: Male, 70 years old. chest pain TECHNIQUE: 2 portable AP upright views. COMPARISON: Previous chest radiographs of 08/18/2020 and 06/14/2020. FINDINGS: The lungs are clear and expanded. There is no demonstrated pleural abnormality. Upper normal size heart. Mild-moderate elongation of the thoracic aorta is again noted. Pulmonary vasculature is within normal limits. No acute osseous abnormality. Extensive thoracic degenerative spurring is again noted. There is no demonstrated abnormality of the visualized soft tissue structures of the upper abdomen. RAD/Chest 1 View (Portable) IMPRESSION: No significant interval change or acute process. Electronically Signed: Mauri Sandra MD at 1:40 EDT ,
--- NOTE | 2021-07-24 01:03 | EDS_ITS ---
HPI History of Present Illness Chief Complaint: Chest Pain Narrative Narrative: Patient presents with multiple complaints, stating that over the last few weeks to months he has been very tired. He usually sits on the couch and falls asleep. This happened again this evening, and his had gone to bed, and when he got up and started moving around he had chest tightness all over. He denies any fever or chills. No cough. No muscle aches. No nausea or vomiting. No shortness of breath. States his chest feels tight. Past medical history includes atrial fibrillation with ablation for which she takes metoprolol and flecainide. He denies any dysuria or hematuria. No other symptoms. He states that over the last few weeks his fatigue is getting worse. Additionally, he states this evening that an hour and a half prior to arrival him calling the squad is when he started feeling the chest tightness. No diaphoresis. He thought the tightness was getting worse so he had his call EMS because he felt he needed to come to the hospital for evaluation. Additionally, he had taken his blood pressure and it was in the 160 systolic which is unusual for him. No headaches. [facility] Medical History Abdominal pain Anxiety Arthritis Atherosclerotic heart disease of [place] coronary artery without angina pectoris Atrial fibrillation bilaterl vein ablation ble BiPAP (biphasic positive airway pressure) dependence Cancer Cellulitis of left lower extremity COPD (chronic obstructive pulmonary disease) Costochondritis Degenerative disc disease, lumbar Essential hypertension Fatigue Former smoker GERD (gastroesophageal reflux disease) Hemorrhoids History of prostate cancer Hyperlipidemia Hypertension Knee pain Long-term use of high-risk medication Lumbar radiculopathy, right YENNI (obstructive sleep apnea) Osteoarthritis of left knee Paroxysmal atrial fibrillation Premature atrial contractions Premature ventricular contraction repair right achilles tendon Segmental and somatic dysfunction of cervical region Segmental and somatic dysfunction of lumbar region Segmental and somatic dysfunction of thoracic region Umbilical hernia without obstruction and without gangrene Home Medications aspirin 81 mg PO DAILY@0800 05/18/13 [History Last Taken 07/23/21] fluticasone propionate 1 spray NASAL BID 05/18/13 [History Last Taken 07/23/21] magnesium oxide 400 mg PO BID 05/18/13 [History Last Taken 07/23/21] multivitamin with folic acid 1 tab PO DAILY 05/18/13 [History Last Taken 07/23/21] alprazolam 0.5 mg tablet 0.25 mg PO BID tab 06/10/17 [History Last Taken 07/23/21] lansoprazole 30 mg capsule,delayed release 30 mg PO QDAY cap 06/10/17 [History Last Taken 07/23/21] saw palmetto 500 mg capsule 500 mg PO QDAY cap 08/29/17 [History Last Taken 07/23/21] cholecalciferol (vitamin D3) 25 mcg (1,000 unit) capsule 1,000 unit PO DAILY 07/17/18 [History Last Taken 07/23/21] coenzyme Q10 50 mg chewable tablet 200 mg PO DAILY tab 07/17/18 [History Last Taken 07/23/21] echinacea 400 mg capsule 400 mg PO DAILY cap 08/05/19 [History Last Taken 07/23/21] loratadine 10 mg tablet 10 mg PO QDAY PRN 08/05/19 [History Last Taken 07/23/21] nitroglycerin 0.3 mg sublingual tablet 0.3 mg SUBLINGUAL Q5M PRN 02/09/20 [History Last Taken Unknown] sildenafil 50 mg tablet 50 mg PO DAILY PRN 05/19/20 [History Last Taken 07/23/21 14:30] losartan 25 mg tablet 25 mg PO DAILY #90 tab 10/26/20 [Rx Last Taken 07/23/21] metoprolol succinate 25 mg tablet,extended release 24 hr 25 mg PO DAILY #180 tab 01/16/21 [Rx Last Taken 07/23/21] simvastatin 40 mg tablet 40 mg PO DAILY #90 tab 05/01/21 [Rx Last Taken 07/23/21] alfuzosin 10 mg tablet,extended release 24 hr 10 mg PO QDAY tab 05/15/21 [History Last Taken 07/23/21] flecainide 150 mg tablet 150 mg PO BID tab 05/15/21 [History Last Taken 07/23/21] oxycodone 5 mg tablet 5 mg PO Q6H PRN tab 05/15/21 [History Last Taken Unknown] Allergy/AdvReac Type Severity Reaction Status Date / Time animal dander Allergy Unknown Verified 05/15/21 13:54 grass pollen Allergy Unknown Verified 05/15/21 13:54 grass pollen-perennial rye, Allergy Unknown Verified 05/15/21 13:54 standar house dust Allergy Unknown Verified 05/15/21 13:54 levofloxacin [From Levaquin] Allergy Unknown Verified 05/15/21 13:54 dabigatran etexilate AdvReac Unknown Unknown Verified 05/15/21 13:54 [From Pradaxa] gabapentin [From Neurontin] AdvReac Other Verified 07/24/21 00:44 pet dander Allergy Unknown Uncoded 05/15/21 13:54 Family History Mother Hypertension CAD (coronary artery disease) Father Hypertension Atrial fibrillation Presence of permanent cardiac pacemaker CVA (cerebral vascular accident) Surgical History Bilateral knee pain H/O cardiac radiofrequency ablation H/O detached retina repair H/O hemorrhoidectomy H/O shoulder surgery H/O sinus surgery H/O sinus surgery History of arthroscopy of knee History of cardiac radiofrequency ablation (RFA) History of cataract surgery History of detached retina repair History of hemorrhoidectomy History of left hip replacement (~03/2021) History of left knee replacement (~04/2021) History of umbilical hernia repair (~04/2018) right shoulder Status post laser ablation of incompetent vein vein Social History Smoking Status: Former smoker Smokeless tobacco user: snuff how long ago did patient quit smoking: Patient quit cigarette tobacco use 1980, smoked age [age], 1 ppd-->Snuff. alcohol intake: current alcohol intake frequency: a few times a week Alcohol type: beer substance use type: does not use caffeine: No ROS ROS ED ROS Narrative Constitutional: No fever, no chills. Malaise and fatigue. HEENT: No sore throat. No neck pain. No loss of vision. No rhinorrhea. Cardiovascular: Positive chest tightness/chest pain. No palpitations. No pedal edema. Respiratory: No cough, no shortness of breath. Abdominal: No abdominal pain. No nausea. No vomiting. Genitourinary: No dysuria. No hematuria. Musculoskeletal: No myalgias. No arthralgias. Neurologic: No headaches. No dizziness. No lightheadedness. Skin: No rash. No change in color. Psychiatric: No depression. No anxiety. EXAM Physical Exam Narrative Exam Narrative: Afebrile. Vital signs noted. HEENT: Normocephalic. Atraumatic. PERRL, EOMI. Neck soft and supple. No point tenderness or step off. Cardiovascular: Regular rate and rhythm with intermittent bradycardia. No murmurs, rubs, or gallops appreciated. Respiratory: No tachypnea. Lungs clear to auscultation bilaterally. Gastrointestinal: Abdomen soft, nontender, with normoactive bowel sounds. No rebound or guarding. Neurological: Awake. Alert. Nonfocal, nonlateralizing. Skin: No rash. Normal color. No pallor. Musculoskeletal: No pedal edema. Full range of motion extremities. Const Vital Signs: 07/24/21 00:38 07/24/21 00:53 07/24/21 00:58 Temperature 96.9 F L Temperature Source Temporal Pulse Rate 62 58 L Respiratory Rate 15 16 Respiratory Effort Normal Non-Labored Blood Pressure 137/62 H 128/57 H Blood Pressure Mean 87 80 Pulse Ox 96 97 Oxygen Delivery Method Room Air 07/24/21 01:03 07/24/21 01:38 07/24/21 02:05 Temperature Temperature Source Pulse Rate 49 L 49 L Respiratory Rate 13 14 Respiratory Effort Blood Pressure 125/57 H 120/59 L Blood Pressure Mean 79 79 Pulse Ox 97 95 Oxygen Delivery Method Room Air Room Air Room Air 07/24/21 03:00 Temperature Temperature Source Pulse Rate 50 L Respiratory Rate 18 Respiratory Effort Blood Pressure 122/55 H Blood Pressure Mean Pulse Ox 96 Oxygen Delivery Method Heart Score History: Slightly/Non-Suspicious ECG: Normal Age: >/= 65 years Risk Factors: 1 or 2 Risk Factors Score: 3 MDM MDM MDM Narrative Medical decision making narrative: Patient had received aspirin and nitroglycerin per EMS and he states that his chest tightness has mildly improved. Chest pain work-up was pursued. His EKG demonstrates what appears to be sinus bradycardia at 62 bpm. No STEMI. Chest x-ray interpreted by myself shows no acute process. CBC is grossly normal except for hemoglobin stable at 12.0, platelet count normal at 160. Electrolyte panel shows his chronic renal insufficiency with a creatinine of 1.51, similar to his baseline with a BUN of 33, also at his baseline. His initial high-sensitivity troponin is negative at 7. Repeat is lower at 6. I do believe that he has been ruled out by biomarkers for an acute coronary syndrome. His blood pressure does appear to have normalized. Urinalysis shows no evidence of infection. I do not feel antibiotics are indicated. Patient relates history that he used to take metoprolol twice a day and flecainide once a day. 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 Anderson and reportedly changed his flecainide to twice a day and metoprolol once a day. He thinks this is when his fatigue [place]. Given the combination of metoprolol and flecainide I do feel that he may be experiencing a medication side effect as you can see fatigue associated with both of these medications. Regardless, I do feel he can be discharged safely home with follow-up. Return instructions to the emergency department we re reviewed. Disposition is discharged home in stable condition. Lab Data Attestation: I reviewed the patient's lab results. Labs: Laboratory Results - last 24 hr 07/24/21 07/24/21 07/24/21 00:32 00:32 00:32 WBC 6.7 RBC 4.01 L Hgb 12.0 L Hct 37.2 L MCV 92.8 MCH 29.9 MCHC 32.3 RDW Std Deviation 45.1 H RDW Coeff of [place] 13.4 Plt Count 160 MPV 10.4 Immature Gran % (Auto) 0.400 Neut % (Auto) 58.5 Lymph % (Auto) 26.7 [place] % (Auto) 11.0 H Eos % (Auto) 2.8 Baso % (Auto) 0.6 Absolute Neuts (auto) 3.9 Absolute Lymphs (auto) 1.79 Nucleated RBC % 0 Sodium 140 Potassium 4.5 Chloride 107 Carbon Dioxide 28.0 Anion Gap 5 BUN 33 H Creatinine 1.51 H Estim Creat Clear Calc 45.66 Est GFR (MDRD) Af Amer 59 L Est GFR (MDRD) Non-Af 48 L BUN/Creatinine Ratio 21.9 H Glucose 93 Calcium 9.2 Magnesium 2.2 Troponin I High Sens 7 Urine Color Urine Clarity Urine pH Ur Specific [place] Urine Protein Urine Glucose (UA) Urine Ketones Urine Occult Blood Urine Nitrite Urine Bilirubin Urine Urobilinogen Ur Leukocyte Esterase Urine RBC Urine WBC Ur Squamous Epith Cells Urine Bacteria Urine Mucus 07/24/21 07/24/21 01:40 02:27 WBC RBC Hgb Hct MCV MCH MCHC RDW Std Deviation RDW Coeff of [place] Plt Count MPV Immature Gran % (Auto) Neut % (Auto) Lymph % (Auto) [place] % (Auto) Eos % (Auto) Baso % (Auto) Absolute Neuts (auto) Absolute Lymphs (auto) Nucleated RBC % Sodium Potassium Chloride Carbon Dioxide Anion Gap BUN Creatinine Estim Creat Clear Calc Est GFR (MDRD) Af Amer Est GFR (MDRD) Non-Af BUN/Creatinine Ratio Glucose Calcium Magnesium Troponin I High Sens 6 Urine Color Yellow Urine Clarity Clear Urine pH 6.0 Ur Specific [place] 1.015 Urine Protein 30 H Urine Glucose (UA) Normal Urine Ketones Negative Urine Occult Blood 10 H Urine Nitrite Negative Urine Bilirubin Negative Urine Urobilinogen Normal Ur Leukocyte Esterase 25 H Urine RBC 0-5 SEEN Urine WBC 0-5 SEEN Ur Squamous Epith Cells 0 SEEN Urine Bacteria RARE Urine Mucus 0 SEEN Radiography Diagnostic Testing: Clinical Impression(s) from Imaging Studies Chest X-Ray 07/24/21 01:00 IMPRESSION: No significant interval change or acute process. Electronically Signed: Mauri Sandra MD at 1:40 EDT , Discharge Plan Triage Chief Complaint: Chest Pain ED Provider: Cb Méndez Dx/Rx/DC Orders Clinical Impression: Chest pain, Fatigue, Bradycardia, Chronic renal insufficiency, Medication side effect Instructions: ED Bradycardia, ED Chronic Kidney Disease (CKD), ED Chest Pain, Uncertain Cause Prescriptions: No Action saw palmetto 500 mg capsule 500 mg PO QDAY RF: 0 echinacea 400 mg capsule 400 mg PO DAILY RF: 0 loratadine [Claritin] 10 mg tablet 10 mg PO QDAY PRN (Reason: Allergies) RF: 0 alfuzosin 10 mg tablet extended release 24 hr 10 mg PO QDAY RF: 0 cholecalciferol (vitamin D3) 1,000 unit capsule 1,000 unit capsule 1,000 unit PO DAILY RF: 0 nitroglycerin 0.3 mg tablet, sublingual 0.3 mg sublingual Q5M PRN (Reason: other) RF: 0 oxycodone 5 mg tablet 5 mg PO Q6H PRN (Reason: Pain) RF: 0 flecainide 150 mg tablet 150 mg PO BID RF: 0 aspirin 81 MG tablet 81 mg PO DAILY@0800 RF: 0 magnesium oxide 400 MG tablet 400 mg PO BID RF: 0 fluticasone propionate 1 SPRAY spray,suspension 1 spray NASAL BID RF: 0 multivitamin with folic acid 1 TABLET tablet 1 tab PO DAILY RF: 0 lansoprazole 30 MG capsule 30 mg PO QDAY RF: 0 alprazolam 0.5 MG tablet 0.25 mg PO BID RF: 0 coenzyme Q10 50 mg tablet,chewable 200 mg PO DAILY RF: 0 sildenafil 50 mg tablet 50 mg PO DAILY PRN (Reason: other) RF: 0 losartan 25 mg tablet 25 mg PO DAILY Qty: 90 RF: 3 metoprolol succinate 25 mg tablet extended release 24 hr 25 mg PO DAILY Qty: 180 RF: 3 simvastatin 40 mg tablet 40 mg PO DAILY Qty: 90 RF: 4 Primary Care Provider: Steven Retana Referrals: Jamarcus Anderson MD [STAFF PHYSICIAN] - As soon as possible Steven Retana [Primary Care Provider] - Disposition Disposition: Home, Self Care Discharge Date/Time: 07/24/21 03:15
[2021-07-24 01:09] LABS: Absolute Lymphocyte Count 1.79 X10^3/uL (0.83-4.51); Absolute Neutrophil Count 3.9 X10^3/uL (2.0-7.7); Basophil# 0.04 X10^3/uL; Basophil% 0.6 % (0-1); Eosinophil# 0.19 X10^3/uL; Eosinophils% 2.8 % (0-5); Hematocrit 37.2 % (40-54); Lymphocyte # 1.79 X10^3/ul (0.83-4.51); Lymphocyte % 26.7 % (19-41); Mean Corp Hgb Conc 32.3 g/dL (32-36); Mean Corpuscular Hgb 29.9 pg (27.0-32.0); Mean Corpuscular Volume 92.8 fL (80-94); Mean Platelet Vol. 10.4 fl (6.2-12.0); Monocyte# 0.74 X10^3/uL; NRBC Flagged by Analyzer 0 % (0-5); Neutrophil # 3.92 X10^3/uL (2.7-7.7); Neutrophil % 58.5 % (47-70); Platelet Count 160 K/mm3 (150-450); RBC Distribution Width CV 13.4 % (11.6-14.6); RBC Distribution Width SD 45.1 fl (35.1-43.9); Red Blood Count 4.01 M/mm3 (4.6-6.2); White Blood Count 6.7 K/mm3 (4.4-11.0)
[2021-07-24 01:33] LABS: Anion Gap 5 (5-15); BUN 33 mg/dL (7-18); BUN/Creat Ratio 21.9 RATIO (10-20); Calcium,Total 9.2 mg/dL (8.5-10.1); Chloride 107 mmol/L (98-107); Creatinine, Serum 1.51 mg/dL (0.70-1.30); EST Glomerular Filtration Rate 48 mL/min (>60); Est Glom Filt Rate - Afr Amer 59 mL/min (>60); Estimated Creatinine Clearance 45.66 ml/min; Glucose 93 mg/dL (74-106); Magnesium 2.2 mg/dL (1.6-2.6); Potassium 4.5 mmol/L (3.5-5.1); Sodium Level 140 mmol/L (136-145)
[2021-07-24 01:38] VITALS: BP 125/57; PULSE 49; RESP 13; O2SAT 97
[2021-07-24 01:39] LABS: Troponin-I HS (w/2H Reflex) 7 pg/mL (3.0-78.0)
[2021-07-24 01:47] LABS: Color, Urine Yellow (Yellow); Glucose, Dipstick Normal (Normal); Ketone-Dipstick Negative (Negative); Leukocyte Esterase-Dipstick 25 /ul (Negative); Mucous, Urine 0 SEEN /hpf (<or=2+); Nitrite-Dipstick Negative (Negative); Occult Blood-Urine 10 /ul (Negative); Protein-Dipstick 30 mg/dl (Negative); Specific Gravity, Urine 1.015 (1.002-1.030); Squamous Epithelial Cells - UA 0 SEEN /hpf (0-5); Urine Bilirubin Dipstick Negative (Negative); Urine Clarity Clear (Clear); Urine Urobilinogen Normal (Normal)
[2021-07-24 01:53] LABS: Bacteria RARE /hpf (None Seen); Red Blood Cells-Urine 0-5 SEEN /hpf (0-5); White Blood Cells 0-5 SEEN /hpf (0-5)
[2021-07-24 02:05] VITALS: BP 120/59; PULSE 49; RESP 14; O2SAT 95
[2021-07-24 02:48] LABS: Troponin-I HS 6 pg/mL (3.0-78.0)
[2021-07-24 03:00] VITALS: BP 122/55; PULSE 50; RESP 18; O2SAT 96
[2021-07-24 03:07] LABS: Reflex Troponin-HS? (from REC) Y
== END 2021-07-24 03:15 | disposition home or self-care (01) ==
PROVIDERS: Emergency Provider Emergency Medicine; Visit Provider Emergency Medicine
DX: R07.9 Chest pain, unspecified (principal); J44.9 Chronic obstructive pulmonary disease, unspecified; I48.0 Paroxysmal atrial fibrillation; R00.1 Bradycardia, unspecified; I25.10 Atherosclerotic heart disease of native coronary artery without angina pectoris; N18.9 Chronic kidney disease, unspecified; I12.9 Hypertensive chronic kidney disease with stage 1 through stage 4 chronic kidney disease, or unspecified chronic kidney disease; E78.5 Hyperlipidemia, unspecified; M17.12 Unilateral primary osteoarthritis, left knee; K21.9 Gastro-esophageal reflux disease without esophagitis; F41.9 Anxiety disorder, unspecified; Z79.82 Long term (current) use of aspirin; Z79.899 Other long term (current) drug therapy; Z87.891 Personal history of nicotine dependence; Z85.46 Personal history of malignant neoplasm of prostate; G47.33 Obstructive sleep apnea (adult) (pediatric); Z96.642 Presence of left artificial hip joint; Z96.652 Presence of left artificial knee joint
CPT/HCPCS: 71045; 80048; 81001; 83735; 84484; 85025; 93005; 99285; A4216

== ENCOUNTER → 2021-11-07 | Outpatient (CLI) | payer MEDICARE, SELFPAY ==
[2020-06-13 13:42] VITALS: BMI 33.3
[2021-11-07 13:30] LABS: Hemoglobin 13.6 g/dL (13.0-16.5); Mean Corp Hgb Conc 33.2 g/dL (32-36); Mean Corpuscular Hgb 30.5 pg (27.0-32.0); Mean Corpuscular Volume 91.9 fL (80-94); Platelet Count 128 K/mm3 (150-450); RBC Distribution Width CV 13.2 % (11.6-14.6); RBC Distribution Width SD 44.5 fl (35.1-43.9); Red Blood Count 4.46 M/mm3 (4.6-6.2); White Blood Count 5.5 K/mm3 (4.4-11.0)
[2021-11-07 13:49] LABS: Albumin, Serum 3.6 g/dL (3.2-5.0); BUN 28 mg/dL (7-18); BUN/Creat Ratio 16.5 RATIO (10-20); Calcium,Total 8.8 mg/dL (8.5-10.1); Chloride 107 mmol/L (98-107); EST Glomerular Filtration Rate 42 mL/min (>60); Est Glom Filt Rate - Afr Amer 51 mL/min (>60); Glucose 106 mg/dL (74-106); Potassium 4.5 mmol/L (3.5-5.1); Sodium Level 139 mmol/L (136-145)
== END | disposition home or self-care (01) ==
PROVIDERS: PCP Family Medicine; Referring Provider Internal Medicine Nephrology; Visit Provider Internal Medicine Nephrology
DX: N18.31 Chronic kidney disease, stage 3a (principal)
CPT/HCPCS: 36415; 80069; 85027

== ENCOUNTER 2021-11-09 15:40 | Emergency (ER) | payer MEDICARE, SELFPAY ==
[2020-06-13 13:42] VITALS: BMI 33.3
[2021-11-09 15:41] VITALS: BP 120/87; PULSE 63; RESP 18; TEMP 36.9; O2SAT 95; BMI 34.9
--- NOTE | 2021-11-09 15:54 | EKG12_ITS ---
Test Reason : cp Blood Pressure : / mmHG Vent. Rate : 063 BPM Atrial Rate : 063 BPM P-R Int : 222 ms QRS Dur : 088 ms QT Int : 396 ms P-R-T Axes : 056 009 030 degrees QTc Int : 405 ms Sinus rhythm with marked sinus arrhythmia with 1st degree A-V block Otherwise normal ECG Confirmed by LORA WITT, RASHAAD ([id number]), manager editorial JENNIFER WARREN ([id number]) on 11/10/2021 1:47:13 PM Referred By: Fermin Confirmed By:RASHAAD PAULINO MD
--- NOTE | 2021-11-09 16:00 | RAD_ITS ---
STUDY: X-RAY CHEST REASON FOR EXAM: Male, 71 years old. Chest pain TECHNIQUE: Frontal and lateral views of the chest. COMPARISON: 07/24/2021 FINDINGS: The lungs are clear and expanded. There is no demonstrated pleural abnormality. Normal size heart. Normal mediastinum and cori. Normal visualized pulmonary arteries. Normal visualized aortic arch and descending thoracic aorta. Normal visualized thoracic spine. Normal visualized ribs, clavicles, and shoulders. Possible sternal fracture, age indeterminate. There is no demonstrated abnormality of the visualized soft tissue structures of the upper abdomen. RAD/Chest PA and Lateral IMPRESSION: Possible sternal fracture, age indeterminate. Otherwise Normal x-ray examination of the chest. Electronically Signed: Saul Irwin MD at 17:08 EDT ,
[2021-11-09 16:08] LABS: Absolute Lymphocyte Count 1.08 X10^3/uL (0.83-4.51); Absolute Neutrophil Count 2.9 X10^3/uL (2.0-7.7); Basophil# 0.02 X10^3/uL; Basophil% 0.4 % (0-1); Eosinophil# 0.08 X10^3/uL; Eosinophils% 1.8 % (0-5); Hematocrit 40.9 % (40-54); Hemoglobin 13.6 g/dL (13.0-16.5); Lymphocyte # 1.08 X10^3/ul (0.83-4.51); Lymphocyte % 23.9 % (19-41); Mean Corp Hgb Conc 33.3 g/dL (32-36); Mean Corpuscular Hgb 30.7 pg (27.0-32.0); Mean Corpuscular Volume 92.3 fL (80-94); Mean Platelet Vol. 9.8 fl (6.2-12.0); Monocyte# 0.41 X10^3/uL; Monocyte% 9.1 % (0-10); NRBC Flagged by Analyzer 0 % (0-5); Neutrophil # 2.91 X10^3/uL (2.7-7.7); Neutrophil % 64.6 % (47-70); Platelet Count 133 K/mm3 (150-450); RBC Distribution Width CV 13.1 % (11.6-14.6); RBC Distribution Width SD 44.5 fl (35.1-43.9); Red Blood Count 4.43 M/mm3 (4.6-6.2); White Blood Count 4.5 K/mm3 (4.4-11.0)
--- NOTE | 2021-11-09 16:10 | ED.VIS.CHEST ---
HPI History of Present Illness Chief Complaint: Chest Pain Detail of Chief Complaint: Chest pain off and on for some time Informant: patient and spouse/S.O. Onset/Context/Timing Onset: Month(s) Activity at onset: sudden and rest Timing: Intermittent and Waxes and wanes Quality: Positive for Burning Location: - (The entire thorax) Current Severity: Moderate Maximum Severity: Severe Worsened By: Nothing Relieved By: Nothing Associated Symptoms: Positive for Acid Reflux (Patient is history of reflux but denies any present symptoms.) and - (He does report tightness in his throat.); Negative for Nausea, Vomiting, Diaphoresis, Dyspnea, Cough, Fever, Lightheadedness or Palpitations Narrative Narrative: Patient is a 71-year-old male presents with discomfort in his thorax described as a burning sensation and tightness anterior neck. Patient states he has been dealing with this for some time. Seen Dr. Garner. He has been told in the past that this may be costochondritis. He has been told other things as well. Patient states he took Tylenol with relief. The pain is returned. He he voices frustration. He denies history of VTE. Denies leg pain, swelling discoloration. He denies risk factors for DVT or PE. He denies black or maroon-colored stool. He states occasionally will have discomfort with deep breathing. He presently denies dyspnea. He denies dyspnea on exertion. Prior Similar Symptoms: Yes (He has been told this is 1 of many things.) Recent Illness/Hospitalization: No CVD Risk Factors: Positive for Hypertension and Hypercholesterolemia; Negative for Diabetes or Family History 1' </=55 PE Risk Factors: Negative for Recent Travel/Surgery, Recent Immobilization, Prior DVT or PE, Cancer or OCP + Smoking + >/=35 TAD Risk Factors: Positive for Hypertension; Negative for Marfan's Syndrome or Family History [facility] Medical History Abdominal pain Anxiety Arthritis Atherosclerotic heart disease of [place] coronary artery without angina pectoris Atrial fibrillation bilaterl vein ablation ble BiPAP (biphasic positive airway pressure) dependence Cancer Cellulitis of left lower extremity COPD (chronic obstructive pulmonary disease) Costochondritis Degenerative disc disease, lumbar Essential hypertension Fatigue Former smoker GERD (gastroesophageal reflux disease) Hemorrhoids History of prostate cancer Hyperlipidemia Hypertension Knee pain Long-term use of high-risk medication Lumbar radiculopathy, right YENNI (obstructive sleep apnea) Osteoarthritis of left knee Paroxysmal atrial fibrillation Premature atrial contractions Premature ventricular contraction repair right achilles tendon Segmental and somatic dysfunction of cervical region Segmental and somatic dysfunction of lumbar region Segmental and somatic dysfunction of thoracic region Umbilical hernia without obstruction and without gangrene Home Medications aspirin 81 mg tablet,delayed release 81 mg PO DAILY@0800 HEART HEALTH 05/18/13 [History Last Taken 07/23/21] fluticasone propionate 50 mcg/actuation nasal spray,suspension 1 spray NASAL BID ALLERGIES 05/18/13 [History Last Taken 07/23/21] magnesium oxide 400 mg (241.3 mg magnesium) tablet 400 mg PO BID SUPPLEMENT/HEART 05/18/13 [History Last Taken 07/23/21] multivitamin with folic acid 400 mcg tablet 1 tab PO DAILY SUPPLEMENT 05/18/13 [History Last Taken 07/23/21] alprazolam 0.5 mg tablet 0.25 mg PO BID ANXIETY 06/10/17 [History Last Taken 07/23/21] lansoprazole 30 mg capsule,delayed release 30 mg PO QDAY GERD 06/10/17 [History Last Taken 07/23/21] saw palmetto 500 mg capsule 500 mg PO QDAY SUPPLEMENT 08/29/17 [History Last Taken 07/23/21] cholecalciferol (vitamin D3) 25 mcg (1,000 unit) capsule 1,000 unit PO DAILY 07/17/18 [History Last Taken 07/23/21] coenzyme Q10 50 mg chewable tablet 200 mg PO DAILY SUPPLEMENT 07/17/18 [History Last Taken 07/23/21] echinacea 400 mg capsule 400 mg PO DAILY SUPPLEMENT 08/05/19 [History Last Taken 07/23/21] loratadine 10 mg tablet (Claritin) 10 mg PO QDAY PRN Allergies 08/05/19 [History Last Taken 07/23/21] nitroglycerin 0.3 mg sublingual tablet 0.3 mg sublingual Q5M PRN other 02/09/20 [History Last Taken Unknown] sildenafil 50 mg tablet 50 mg PO DAILY PRN other 05/19/20 [History Last Taken 07/23/21 14:30] simvastatin 40 mg tablet 40 mg PO DAILY #90 tabs 05/01/21 [Rx Last Taken 07/23/21] alfuzosin 10 mg tablet,extended release 24 hr 10 mg PO QDAY 05/15/21 [History Last Taken 07/23/21] flecainide 100 mg tablet 100 mg PO Q12H #60 tabs 07/24/21 [Rx Last Taken Unknown] metoprolol succinate 25 mg tablet,extended release 24 hr 25 mg PO DAILY 09/13/21 [History Last Taken Unknown] losartan 25 mg tablet 25 mg PO DAILY #90 tabs 10/23/21 [Rx Last Taken Unknown] hydrocodone-acetaminophen 5-325mg 5mg-325mg 1 tab PO Q6H PRN PRN Pain 3 days #10 TABLETS 11/09/21 [Rx Last Taken Unknown] Allergy/AdvReac Type Severity Reaction Status Date / Time animal dander Allergy Unknown Verified 11/09/21 15:41 grass pollen Allergy Unknown Verified 11/09/21 15:41 grass pollen-perennial rye, Allergy Unknown Verified 11/09/21 15:41 standar house dust Allergy Unknown Verified 11/09/21 15:41 levofloxacin [From Levaquin] Allergy Unknown Verified 11/09/21 15:41 dabigatran etexilate AdvReac Unknown Unknown Verified 11/09/21 15:41 [From Pradaxa] gabapentin [From Neurontin] AdvReac Other Verified 11/09/21 15:41 NSAIDS (Non-Steroidal AdvReac Other Verified 11/09/21 15:53 Anti-Inflamma pet dander Allergy Unknown Uncoded 11/09/21 15:41 Family History Mother Hypertension CAD (coronary artery disease) Father Hypertension Atrial fibrillation Presence of permanent cardiac pacemaker CVA (cerebral vascular accident) Surgical History Bilateral knee pain H/O cardiac radiofrequency ablation H/O detached retina repair H/O hemorrhoidectomy H/O shoulder surgery H/O sinus surgery H/O sinus surgery History of arthroscopy of knee History of cardiac radiofrequency ablation (RFA) History of cataract surgery History of detached retina repair History of hemorrhoidectomy History of left hip replacement (~03/2021) History of left knee replacement (~04/2021) History of umbilical hernia repair (~04/2018) right shoulder Status post laser ablation of incompetent vein vein Social History (Updated 11/09/21 @ 16:[address] Grey Christensen MD) household members: spouse Smoking Status: Former smoker Smokeless tobacco user: snuff how long ago did patient quit smoking: Patient quit cigarette tobacco use 1980, smoked age [age], 1 ppd-->Snuff. alcohol intake: current alcohol intake frequency: a few times a week Alcohol type: beer substance use type: does not use caffeine: No ROS ROS ED Constitutional Constitutional ED: Denies chills, fever(s), subjective, sweats or weight loss Eyes Eyes: Reports none; Denies blurry vision or change in vision ENT ENT ED: Denies ear pain, rhinorrhea or sore throat Cardiovascular Cardiovascular: Reports as per HPI and chest pain; Denies orthopnea, palpitations, paroxysmal nocturnal dyspnea or racing heartbeat Respiratory/Chest Respiratory/Chest: Denies cough, dyspnea, dyspnea on exertion, orthopnea or paroxysmal nocturnal dyspnea Gastrointestinal Gastrointestinal: Denies abdominal pain, diarrhea, melena, nausea or vomiting Genitourinary Genitourinary ED: Denies dysuria, hematuria or urinary frequency Musculoskeletal Musculoskeletal: Denies back pain or neck pain Psychiatric Psychiatric: Denies anxiety or depression Endocrine Endocrinology: Denies cold intolerance or heat intolerance Hematologic/Lymphatic Hematologic/Lymphatic: Denies easy bleeding, easy bruising or lymphadenopathy EXAM Physical Exam Const Vital Signs: 11/09/21 15:41 11/09/21 15:44 Temperature 98.5 F Temperature Source Temporal Pulse Rate 63 Respiratory Rate 18 Respiratory Effort Normal Non-Labored Blood Pressure 120/87 H Blood Pressure Mean 98 Pulse Ox 95 Oxygen Delivery Method Room Air Positive well nourished, well developed and obese Constitutional Narrative: Patient seems angry. General Appearance ED: well developed and NAD Nutritional Appearance: obese HEENT Reports moist mucous membranes HEENT Narrative: Ears normal. Nares patent. Posterior pharynx out erythema or exudate. Uvula midline. normocephalic and atraumatic Eyes PERRL and EOMs intact bilaterally General Eye ED: Negative for pale conjunctiva or scleral icterus Neck no lymphadenopathy, supple and no JVD Chest Wall inspection of chest normal and palpation of chest normal Resp normal respiratory effort and clear to auscultation bilaterally Cardio regular rate, regular rhythm, S1 normal heart sound, S2 normal heart sound and no murmurs GI normal to inspection, nondistended, normoactive bowel sounds, soft to palpation, non-tender, non-distended and hepatosplenomegaly Back/Spine no CVA tenderness Extremity normal to inspection Extremity Narrative: There is no asymmetry, swelling, discoloration, leg vein distention, palpable cords or tenderness along the distribution of the deep venous system. General Extremety ED: Negative for pulses abnormal General Extremity: Negative for pulses abnormal Neuro oriented x3, CN's II-XII intact bilaterally and no sensory deficits noted Sensorium / Orientation: awake and alert Motor Exam: strength 5/5 throughout Psych Attitude: agitated Skin no rashes or lesions noted and no wounds MDM MDM MDM Narrative Medical decision making narrative: KG was ordered per nurse protocol. Patient is a very atypical unusual intermittent chest discomfort. EKG that was obtained is normal other than a first-degree heart block. Rate is 63. Patient was informed that cause of his pain is unknown. He was instructed follow-up with Dr. Retana. He was prescribed pain medicine. Lab Data Attestation: I reviewed the patient's lab results. Labs: Laboratory Results - last 24 hr 11/09/21 11/09/21 15:45 15:45 WBC 4.5 RBC 4.43 L Hgb 13.6 Hct 40.9 MCV 92.3 MCH 30.7 MCHC 33.3 RDW Std Deviation 44.5 H RDW Coeff of Alesha 13.1 Plt Count 133 L MPV 9.8 Immature Gran % (Auto) 0.200 Neut % (Auto) 64.6 Lymph % (Auto) 23.9 [place] % (Auto) 9.1 Eos % (Auto) 1.8 Baso % (Auto) 0.4 Absolute Neuts (auto) 2.9 Absolute Lymphs (auto) 1.08 Nucleated RBC % 0 Sodium 137 Potassium 4.9 Chloride 107 Carbon Dioxide 27.0 Anion Gap 3 L BUN 30 H Creatinine 1.61 H Estim Creat Clear Calc 42.19 Est GFR (MDRD) Af Amer 54 L Est GFR (MDRD) Non-Af 45 L BUN/Creatinine Ratio 18.6 Glucose 96 Calcium 9.5 Troponin I High Sens 5 Radiography Chest X-Ray - ED: 2 View and Read by ED Physician (Cardiac silhouette and size normal. Perihilar region unremarkable. There is minimal chronic changes noted. [place] structures appear normal. There is no lesions noted.) Discharge Plan Triage Chief Complaint: Chest Pain ED Provider: Grey Christensen Dx/Rx/DC Orders Clinical Impression: Pain of truncal structure Instructions: ED Pain, Acute, Uncertain Cause Prescriptions: New hydrocodone-acetaminophen [hydrocodone-acetaminophen] 5-325 mg tablet 1 tab PO Q6H PRN PRN (Reason: Pain) 3 Days Qty: 10 0RF No Action saw palmetto 500 mg capsule 500 mg PO QDAY echinacea 400 mg capsule 400 mg PO DAILY loratadine [Claritin] 10 mg tablet 10 mg PO QDAY PRN (Reason: Allergies) alfuzosin 10 mg tablet extended release 24 hr 10 mg PO QDAY cholecalciferol (vitamin D3) 1,000 unit capsule 1,000 unit capsule 1,000 unit PO DAILY nitroglycerin 0.3 mg tablet, sublingual 0.3 mg sublingual Q5M PRN (Reason: other) Rx Instructions: do not exceed 3 doses per episode metoprolol succinate 25 mg tablet extended release 24 hr 25 mg PO DAILY aspirin 81 MG tablet 81 mg PO DAILY@0800 Label Comments: WAS TOLD TO ASK ABOUT STOPPING magnesium oxide 400 MG tablet 400 mg PO BID fluticasone propionate 1 SPRAY spray,suspension 1 spray NASAL BID multivitamin with folic acid 1 TABLET tablet 1 tab PO DAILY lansoprazole 30 MG capsule 30 mg PO QDAY alprazolam 0.5 MG tablet 0.25 mg PO BID coenzyme Q10 50 mg tablet,chewable 200 mg PO DAILY sildenafil 50 mg tablet 50 mg PO DAILY PRN (Reason: other) Rx Instructions: administer 30 minutes to 4 hours before activity simvastatin 40 mg tablet 40 mg PO DAILY Qty: 90 4RF flecainide 100 mg tablet 100 mg PO Q12H Qty: 60 11RF losartan 25 mg tablet 25 mg PO DAILY Qty: 90 3RF Primary Care Provider: Steven Retana Referrals: Steven Retana MD [Primary Care Provider] - 3-5 Days Disposition Disposition: Home, Self Care
[2021-11-09 16:22] LABS: Anion Gap 3 (5-15); BUN 30 mg/dL (7-18); BUN/Creat Ratio 18.6 RATIO (10-20); Calcium,Total 9.5 mg/dL (8.5-10.1); Chloride 107 mmol/L (98-107); Creatinine, Serum 1.61 mg/dL (0.70-1.30); EST Glomerular Filtration Rate 45 mL/min (>60); Est Glom Filt Rate - Afr Amer 54 mL/min (>60); Estimated Creatinine Clearance 42.19 ml/min; Glucose 96 mg/dL (74-106); Potassium 4.9 mmol/L (3.5-5.1); Sodium Level 137 mmol/L (136-145); Troponin-I HS 5 pg/mL (3.0-78.0)
[2021-11-09 17:08] VITALS: BP 152/39; PULSE 54; RESP 16; O2SAT 97
[2021-11-09] MEDS: HYDROcodone Bitartrate/Apap 5/325 Tablet PO (17:08)
[2021-11-09 17:20] VITALS: BP 121/79; PULSE 59; RESP 15; O2SAT 99
== END 2021-11-09 17:21 | disposition home or self-care (01) ==
PROVIDERS: Emergency Provider Emergency Medicine; PCP Family Medicine; Visit Provider Emergency Medicine
DX: R07.89 Other chest pain (principal); J44.9 Chronic obstructive pulmonary disease, unspecified; I48.0 Paroxysmal atrial fibrillation; I25.10 Atherosclerotic heart disease of native coronary artery without angina pectoris; I44.0 Atrioventricular block, first degree; I10 Essential (primary) hypertension; E78.00 Pure hypercholesterolemia, unspecified; K21.9 Gastro-esophageal reflux disease without esophagitis; M19.90 Unspecified osteoarthritis, unspecified site; G47.33 Obstructive sleep apnea (adult) (pediatric); Z87.891 Personal history of nicotine dependence; Z85.46 Personal history of malignant neoplasm of prostate
CPT/HCPCS: 71046; 80048; 84484; 85025; 93005; 99285

== ENCOUNTER → 2021-11-30 | Outpatient (CLI) | payer MEDICARE, SELFPAY ==
[2020-06-13 13:42] VITALS: BMI 33.3
[2021-11-30 12:31] LABS: Absolute Lymphocyte Count 1.66 X10^3/uL (0.83-4.51); Absolute Neutrophil Count 5.2 X10^3/uL (2.0-7.7); Basophil# 0.03 X10^3/uL; Basophil% 0.4 % (0-1); Eosinophil# 0.09 X10^3/uL; Eosinophils% 1.2 % (0-5); Hematocrit 42.5 % (40-54); Hemoglobin 13.8 g/dL (13.0-16.5); Lymphocyte # 1.66 X10^3/ul (0.83-4.51); Lymphocyte % 22.2 % (19-41); Mean Corp Hgb Conc 32.5 g/dL (32-36); Mean Corpuscular Hgb 30.4 pg (27.0-32.0); Mean Corpuscular Volume 93.6 fL (80-94); Mean Platelet Vol. 10.6 fl (6.2-12.0); Monocyte# 0.43 X10^3/uL; Monocyte% 5.7 % (0-10); NRBC Flagged by Analyzer 0 % (0-5); Neutrophil # 5.23 X10^3/uL (2.7-7.7); Platelet Count 141 K/mm3 (150-450); RBC Distribution Width CV 13.3 % (11.6-14.6); RBC Distribution Width SD 45.8 fl (35.1-43.9); Red Blood Count 4.54 M/mm3 (4.6-6.2); White Blood Count 7.5 K/mm3 (4.4-11.0)
[2021-11-30 13:08] LABS: Vitamin D,25 Hydroxy 35.6 ng/mL
[2021-11-30 13:11] LABS: ALB/GLOB Ratio 0.9 RATIO (0.9-2.4); AST(SGOT) 9 U/L (15-37); Alanine Aminotransfer ALT/SGPT 21 U/L (16-61); Albumin, Serum 3.4 g/dL (3.2-5.0); Alkaline Phosphatase 75 U/L (45-117); Anion Gap 6 (5-15); BUN 33 mg/dL (7-18); BUN/Creat Ratio 21.3 RATIO (10-20); Calcium,Total 8.6 mg/dL (8.5-10.1); Chloride 107 mmol/L (98-107); Cholesterol 139 mg/dL (200); Creatinine, Serum 1.55 mg/dL (0.70-1.30); EST Glomerular Filtration Rate 47 mL/min (>60); Est Glom Filt Rate - Afr Amer 57 mL/min (>60); Globulin 3.6 g/dL (2.2-4.2); Glucose 93 mg/dL (74-106); High Density Lipoprotein 57 mg/dL; PSA,Total- Diagnostic 0.36 ng/mL (0.0-4.0); Potassium 3.9 mmol/L (3.5-5.1); Sodium Level 141 mmol/L (136-145); Triglycerides 119 mg/dL; Very Low Density Lipoprotein 24 mg/dL (5-40)
== END | disposition home or self-care (01) ==
LOC: LAB 11:25
PROVIDERS: PCP Family Medicine; Referring Provider Registered Nurse; Visit Provider Registered Nurse
DX: Z00.00 Encounter for general adult medical examination without abnormal findings (principal); C61 Malignant neoplasm of prostate; I10 Essential (primary) hypertension; E78.00 Pure hypercholesterolemia, unspecified; E55.9 Vitamin D deficiency, unspecified; Z12.5 Encounter for screening for malignant neoplasm of prostate
CPT/HCPCS: 36415; 80053; 80061; 82306; 84153; 85025

== ENCOUNTER 2021-12-22 07:43 | Observation (INO) | payer MEDICARE, SELFPAY ==
[2020-06-13 13:42] VITALS: BMI 33.3
[2021-12-22] VITALS (17 sets, daily range): BP systolic 112–157; BP diastolic 51–82; PULSE 53–77; RESP 12–18; TEMP 36.4–37.1; O2SAT 96–100; BMI 34.9; BMI 33.9
--- NOTE | 2021-12-22 07:52 | RAD_ITS ---
STUDY: X-RAY CHEST REASON FOR EXAM: Male, 71 years old. Chest tightness TECHNIQUE: Single AP portable view of the chest. COMPARISON: November 09, 2021 FINDINGS: The lungs are clear and expanded. There is no demonstrated pleural abnormality. There is mild cardiac enlargement. Normal mediastinum and cori. Normal visualized pulmonary arteries. Normal visualized aortic arch and descending thoracic aorta. There are diffuse degenerative changes of the visualized thoracic spine. Normal visualized ribs, clavicles, and shoulders. There is no demonstrated abnormality of the visualized soft tissue structures of the upper abdomen. RAD/Chest 1 View (Portable) IMPRESSION: Degenerative changes, as described above. No demonstrated acute cardiopulmonary process. Electronically Signed: Andres Arriaga MD at 9:46 EDT ,
--- NOTE | 2021-12-22 07:52 | CT_ITS ---
EXAM: CT HEAD WITHOUT INTRAVENOUS CONTRAST CLINICAL INDICATION: Closed head injury with persistent symptoms TECHNIQUE: Multiple axial images were obtained of the head without intravenous contrast. This CT exam was performed using one or more of the following dose reduction techniques: automated exposure control, adjustment of the mA and/or kV according to patient size, and/or use of iterative reconstruction technique. This report was created using eventblimp report generation technology. COMPARISON: None. FINDINGS: BRAIN AND EXTRA-AXIAL SPACES: Areas of diminished white matter density noted within both cerebral hemispheres suggestive of chronic microvascular change. Prominence of the cortical sulci and ventricles related to volume loss change. No intra- or extra-axial hemorrhage. No evidence of acute infarct. No intracranial mass or mass effect. There is preservation of the faith/white matter interface. Posterior fossa structures are unremarkable. Basal cisterns are patent. BONES/JOINTS: Normal. No discrete lytic or blastic abnormalities. SINUSES: Unremarkable as visualized. No acute sinusitis. MASTOID AIR CELLS: Normal. Clear. ORBITS: Visualized globes, extraocular muscles, optic nerves and retrobulbar fat appear unremarkable. CT/Brain/Head without Contrast IMPRESSION: 1. No acute intracranial abnormality. 2. Senescent changes. Electronically Signed: Deandre Gan MD at 9:33 EDT ,
--- NOTE | 2021-12-22 07:53 | EKG12_ITS ---
Test Reason : REPEAT Blood Pressure : / mmHG Vent. Rate : 064 BPM Atrial Rate : 064 BPM P-R Int : 208 ms QRS Dur : 084 ms QT Int : 390 ms P-R-T Axes : 072 013 039 degrees QTc Int : 402 ms Sinus rhythm with Premature atrial complexes in a pattern of bigeminy Otherwise normal ECG Confirmed by QUINTEN WITT, ANTONIETA ([id number]), newspaper photo editor JENNIFER WARREN ([id number]) on 12/25/2021 9:19:37 AM Referred By: [facility] Confirmed By:ANTONIETA SHIPLEY MD
[2021-12-22] MEDS: Nitroglycerin SL (ED/IMG/CATH) 0.4 MG TABLET SL ×3 (08:01→09:51)
[2021-12-22 08:02] LABS: Basophil# 0.03 X10^3/uL; Basophil% 0.6 % (0-1); Eosinophil# 0.09 X10^3/uL; Eosinophils% 1.7 % (0-5); Hemoglobin 14.5 g/dL (13.0-16.5); Lymphocyte % 30.4 % (19-41); Mean Corp Hgb Conc 33.7 g/dL (32-36); Mean Corpuscular Hgb 31.5 pg (27.0-32.0); Mean Corpuscular Volume 93.3 fL (80-94); Monocyte# 0.52 X10^3/uL; Monocyte% 9.9 % (0-10); NRBC Flagged by Analyzer 0 % (0-5); Neutrophil # 3.01 X10^3/uL (2.7-7.7); Neutrophil % 57.2 % (47-70); Platelet Count 163 K/mm3 (150-450); RBC Distribution Width CV 13.2 % (11.6-14.6); RBC Distribution Width SD 44.9 fl (35.1-43.9); Red Blood Count 4.61 M/mm3 (4.6-6.2); White Blood Count 5.3 K/mm3 (4.4-11.0)
--- NOTE | 2021-12-22 08:10 | EX.ED.DYSGE1 ---
HPI History of Present Illness Chief Complaint: Chest Pain Detail of Chief Complaint: Head trauma with nausea and vomiting and chest tightness Informant: patient, spouse/S.O. and EMS Onset/Context/Timing Onset: Hours (Chest tightness started at 0600) and Days (Headache with intermittent nausea since December 16) Context: Sudden Onset (Chest tightness started abruptly at 0600 and is still present. Headache was intermittent now persistent and associated with nausea and dry heaves) Timing: Continuous (Per HPI narrative) Quality: Global headache with nausea and now dry heaves described as aching, chest t Location: Chest tightness across the anterior upper chest, bilateral Current Severity: Mild Maximum Severity: Moderate Worsened by: Nothing has made the chest tightness better or worse Relieved by: Headache initially was alleviated with Tylenol Associated Symptoms Associated Symptoms: Chest pain associated with diaphoresis, shortness of breath and increased n Narrative Narrative: Patient is a 71-year-old male with history of hypercholesterolemia x15 years, hypertension x1 year who sustained blunt head trauma December 16. He hit his head on the car door frame. He apparently was dazed. He is not on an anticoagulant. He was on a baby aspirin. He has reported intermittent headache with nausea. The headache has now become persistent. Initially Tylenol and ice helped his headache. This morning he developed dry heaves. Uncertain whether the dry heaves were before after or associated with the chest tightness. He denies paresthesia, anesthesia or motor weakness. He does complain of neck discomfort which started this morning as well. He denies double vision, blurred vision or loss of vision. No trouble with speech or swallowing. He denies problems with coordination or balance. The chest tightness started 0600. He states he discontinued taking baby aspirin this past SaturdayDecember 20. The tightness was associated with diaphoresis and paramedics, and he was diaphoretic. He also complained of increased nausea. He did endorse shortness of breath. In the past week he denies anginal exertional symptoms. He has no known history of coronary disease. He does endorse peripheral arterial disease after being asked if he had more hair on his legs when he was younger. He states he did. He also was noted to have no hair on his toes. He is unable to determine if he truly gets calf pain when he walks. He states he quit smoking 40 years ago. Prior similar symptoms: Yes (With respect to the head trauma negative with respect to chest tightness) Recent Illness/Hospitalization: No PFSH PFSH Medical History Abdominal pain Anxiety Arthritis Atherosclerotic heart disease of [place] coronary artery without angina pectoris Atrial fibrillation bilaterl vein ablation ble BiPAP (biphasic positive airway pressure) dependence Cancer Cellulitis of left lower extremity COPD (chronic obstructive pulmonary disease) Costochondritis Degenerative disc disease, lumbar Essential hypertension Fatigue Former smoker GERD (gastroesophageal reflux disease) Hemorrhoids History of prostate cancer Hyperlipidemia Hypertension Knee pain Long-term use of high-risk medication Lumbar radiculopathy, right YENNI (obstructive sleep apnea) Osteoarthritis of left knee Paroxysmal atrial fibrillation Premature atrial contractions Premature ventricular contraction repair right achilles tendon Segmental and somatic dysfunction of cervical region Segmental and somatic dysfunction of lumbar region Segmental and somatic dysfunction of thoracic region Umbilical hernia without obstruction and without gangrene Home Medications aspirin 81 mg tablet,delayed release 81 mg PO DAILY@0800 HEART HEALTH 05/18/13 [History Last Taken 07/23/21] fluticasone propionate 50 mcg/actuation nasal spray,suspension 1 spray NASAL BID ALLERGIES 05/18/13 [History Last Taken 07/23/21] magnesium oxide 400 mg (241.3 mg magnesium) tablet 400 mg PO BID SUPPLEMENT/HEART 05/18/13 [History Last Taken 07/23/21] multivitamin with folic acid 400 mcg tablet 1 tab PO DAILY SUPPLEMENT 05/18/13 [History Last Taken 07/23/21] lansoprazole 30 mg capsule,delayed release 30 mg PO QDAY GERD 06/10/17 [History Last Taken 07/23/21] saw palmetto 500 mg capsule 500 mg PO QDAY SUPPLEMENT 08/29/17 [History Last Taken 07/23/21] cholecalciferol (vitamin D3) 25 mcg (1,000 unit) capsule 1,000 unit PO DAILY 07/17/18 [History Last Taken 07/23/21] coenzyme Q10 50 mg chewable tablet 200 mg PO DAILY SUPPLEMENT 07/17/18 [History Last Taken 07/23/21] echinacea 400 mg capsule 400 mg PO DAILY SUPPLEMENT 08/05/19 [History Last Taken 07/23/21] loratadine 10 mg tablet (Claritin) 10 mg PO QDAY PRN Allergies 08/05/19 [History Last Taken 07/23/21] nitroglycerin 0.3 mg sublingual tablet 0.3 mg sublingual Q5M PRN other 02/09/20 [History Last Taken Unknown] sildenafil 50 mg tablet 50 mg PO DAILY PRN other 05/19/20 [History Last Taken 07/23/21 14:30] simvastatin 40 mg tablet 40 mg PO DAILY #90 tabs 05/01/21 [Rx Last Taken 07/23/21] alfuzosin 10 mg tablet,extended release 24 hr 10 mg PO QDAY 05/15/21 [History Last Taken 07/23/21] flecainide 100 mg tablet 100 mg PO Q12H #60 tabs 07/24/21 [Rx Last Taken Unknown] losartan 25 mg tablet 25 mg PO DAILY #90 tabs 10/23/21 [Rx Last Taken Unknown] alprazolam 0.5 mg tablet 0.25 mg PO BID ANXIETY 11/15/21 [History Last Taken Unknown] metoprolol succinate 25 mg tablet,extended release 24 hr 25 mg PO DAILY #180 tabs 12/18/21 [Rx Last Taken Unknown] Allergy/AdvReac Type Severity Reaction Status Date / Time animal dander Allergy Unknown Verified 12/22/21 07:44 grass pollen Allergy Unknown Verified 12/22/21 07:44 grass pollen-perennial rye, Allergy Unknown Verified 12/22/21 07:44 standar house dust Allergy Unknown Verified 12/22/21 07:44 levofloxacin [From Levaquin] Allergy Unknown Verified 12/22/21 07:44 dabigatran etexilate AdvReac Unknown Unknown Verified 12/22/21 07:44 [From Pradaxa] gabapentin [From Neurontin] AdvReac Other Verified 12/22/21 07:44 NSAIDS (Non-Steroidal AdvReac Other Verified 12/22/21 07:44 Anti-Inflamma pet dander Allergy Unknown Uncoded 12/22/21 07:44 Family History Mother Hypertension CAD (coronary artery disease) Father Hypertension Atrial fibrillation Presence of permanent cardiac pacemaker CVA (cerebral vascular accident) Surgical History Bilateral knee pain H/O cardiac radiofrequency ablation H/O detached retina repair H/O hemorrhoidectomy H/O shoulder surgery H/O sinus surgery H/O sinus surgery History of arthroscopy of knee History of cardiac radiofrequency ablation (RFA) History of cataract surgery History of detached retina repair History of hemorrhoidectomy History of left hip replacement (~03/2021) History of left knee replacement (~04/2021) History of umbilical hernia repair (~04/2018) right shoulder Status post laser ablation of incompetent vein vein Social History household members: spouse Smoking Status: Former smoker Smokeless tobacco user: snuff how long ago did patient quit smoking: Patient quit cigarette tobacco use 1980, smoked age [age], 1 ppd-->Snuff. alcohol intake: current alcohol intake frequency: a few times a week Alcohol type: beer substance use type: does not use caffeine: No ROS ROS ED Constitutional Constitutional ED: Denies chills, fever(s), subjective, sweats or weight loss Eyes Eyes: Denies blurry vision, change in vision or diplopia ENT ENT ED: Denies ear pain, rhinorrhea or sore throat Cardiovascular Cardiovascular: Reports chest pain; Denies orthopnea, palpitations, paroxysmal nocturnal dyspnea or racing heartbeat Respiratory/Chest Respiratory/Chest: Reports dyspnea; Denies cough, orthopnea or paroxysmal nocturnal dyspnea Gastrointestinal Gastrointestinal: Reports nausea and other Details: Dry heaves. ; Denies abdominal pain, constipation, diarrhea or melena Genitourinary Genitourinary ED: Denies dysuria, hematuria or urinary frequency Musculoskeletal Musculoskeletal: Reports neck pain; Denies arthralgias, back pain, myalgias or other Integumentary Denies Abrasions or rash Neurologic Neurologic: Reports headache(s); Denies paresthesias or weakness Hematologic/Lymphatic Hematologic/Lymphatic: Reports systems reviewed and no addt'l complaints, except as documented, as per HPI and none; Denies easy bleeding or easy bruising EXAM Physical Exam Const Vital Signs: 12/22/21 07:45 12/22/21 07:56 12/22/21 07:56 Temperature 97.5 F L Temperature Source Temporal Pulse Rate 61 Respiratory Rate 12 Respiratory Effort Short of Breath Blood Pressure 114/82 H Blood Pressure Mean 92 Pulse Ox 98 Oxygen Delivery Method Room Air Room Air 12/22/21 08:01 12/22/21 08:03 12/22/21 08:07 Temperature Temperature Source Pulse Rate 55 L 55 L 65 Respiratory Rate 12 Respiratory Effort Blood Pressure 144/67 H 144/67 H 112/65 Blood Pressure Mean 92 Pulse Ox 97 Oxygen Delivery Method Room Air 12/22/21 09:07 12/22/21 09:51 12/22/21 10:01 Temperature Temperature Source Pulse Rate 61 53 L 53 L Respiratory Rate 12 16 Respiratory Effort Blood Pressure 141/78 H 135/73 H Blood Pressure Mean 93 Pulse Ox 98 97 Oxygen Delivery Method Room Air Room Air Positive well nourished, well developed and obese General Appearance ED: well developed and NAD; Negative for cyanotic, diaphoretic or pallor Nutritional Appearance: obese HEENT Reports dry mucous membranes HEENT Narrative: There is no clinical find a basal skull fracture. There is no septal deviation hematoma. Negative for trauma or tenderness Mouth ED: Yes dry mucous membranes Mouth: dry mucous membranes Eyes PERRL and EOMs intact bilaterally Eyes Narrative: There is no subconjunctival hemorrhage noted. General Eye ED: Negative for pale conjunctiva or scleral icterus Neck no lymphadenopathy, supple and no JVD General: Negative for tenderness Chest Wall inspection of chest normal and palpation of chest normal Resp normal respiratory effort and clear to auscultation bilaterally Cardio regular rate, S1 normal heart sound, S2 normal heart sound and no murmurs Rhythm: abnormal rhythm ectopic beats (Monitor as these are premature atrial beats.) GI normal to inspection, nondistended, normoactive bowel sounds, non-tender, non-distended and no masses; Negative for hepatosplenomegaly Back/Spine no CVA tenderness Thoracic Spine / Upper Back: Negative for thoracic spinal tenderness Lumbar Spine / Lower Back: Negative for lumbar spinal tenderness Extremity Negative for normal to inspection Extremity Narrative: Stigmata of peripheral arterial disease with absent hair on toes and significantly diminished hair right and left leg. General Extremety ED: Yes edema; Negative for tenderness General Extremity: edema Neuro oriented x3, CN's II-XII intact bilaterally and no sensory deficits noted Sensorium / Orientation: alert; Negative for orientation impaired Sensory Exam: No sensory level loss detected Motor Exam: Negative for strength 5/5 throughout Psych mental status grossly normal Psych Narrative: Patient did become agitated at times because respiratory therapist, nursing staff and I were asking him to answer or perform activities simultaneously. Attitude: agitated Skin no rashes or lesions noted and no wounds General Skin Exam: Negative for jaundice or pallor MDM MDM MDM Narrative Medical decision making narrative: Cardiac work-up was undertaken because of concern that patient's chest tightness may represent coronary disease versus noncardiac etiology. EKG, chest x-ray appropriate labs including troponin and 2-hour troponin were ordered. He was not given aspirin because there is a concern for intracranial bleed since his headaches have gotten worse over the past 6 days and now having dry heaves. Nitroglycerin was ordered for his chest tightness to determine if this would help. If it does help this would either indicate esophageal pathology versus cardiac. CT of the head was obtained to rule out intracranial bleed and specifically subdural versus contusion versus traumatic subarachnoid hemorrhage. Since there was no evidence of intracranial bleed on his CAT scan patient received 4 baby aspirin. He developed chest tightness again with associated symptoms. Repeat EKG reveals a sinus rhythm rate of 64 with premature atrial complexes. ID interval is 208 ms per cures duration 84 ms. QT duration 390 ms. [place] is normal. There is no acute ischemic changes. With a heart score of 4 recurrent chest tightness hospitalist has been paged for admission/observation status to PCU for serial enzymes and cardiac work-up/rule out. Lab Data Attestation: I reviewed the patient's lab results. Lab results narrative: CBC and differential are unremarkable. Labs: Laboratory Results - last 24 hr 12/22/21 12/22/21 07:51 07:51 WBC 5.3 RBC 4.61 Hgb 14.5 Hct 43.0 MCV 93.3 MCH 31.5 MCHC 33.7 RDW Std Deviation 44.9 H RDW Coeff of A[place] 13.2 Plt Count 163 MPV 10.0 Immature Gran % (Auto) 0.200 Neut % (Auto) 57.2 Lymph % (Auto) 30.4 [place] % (Auto) 9.9 Eos % (Auto) 1.7 Baso % (Auto) 0.6 Absolute Neuts (auto) 3.0 Absolute Lymphs (auto) 1.60 Nucleated RBC % 0 Sodium 142 Potassium 4.3 Chloride 109 H Carbon Dioxide 29.0 Anion Gap 4 L BUN 21 H Creatinine 1.47 H Estim Creat Clear Calc 46.21 Est GFR (MDRD) Af Amer 60 Est GFR (MDRD) Non-Af 50 L BUN/Creatinine Ratio 14.3 Glucose 90 Calcium 9.0 Troponin I High Sens 8 Radiography Chest X-Ray - ED: 1 View and Read by ED Physician (Cardiac silhouette and size normal. Perihilar region unremarkable. Lung parenchyma is unremarkable. Osseous trucks unremarkable. Lead wires noted. This was an independently interpreted and reviewed by me at 0832.) Diagnostic Testing: Clinical Impression(s) from Imaging Studies Brain CT 12/22/21 07:52 IMPRESSION: 1. No acute intracranial abnormality. 2. Senescent changes. Electronically Signed: Deandre Gan MD at 9:33 EDT , Chest X-Ray 12/22/21 07:52 IMPRESSION: Degenerative changes, as described above. No demonstrated acute cardiopulmonary process. Electronically Signed: Andres Arriaga MD at 9:46 EDT , CT of the head without contrast was reviewed by me at 0832. There is no evidence of subdural hematoma, epidural hematoma, traumatic subarachnoid hemorrhage or intraparenchymal contusion. Since there is no evidence of bleed will have nurse administer 4 baby aspirin. EKG Initial EKG: Attestation: I personally reviewed and interpreted this EKG as follows: Interpretation: Sinus Bradycardia (Rate is 57 with a first-degree AV block. ID interval is 216 ms. QS duration 88 ms. QT duration 392 ms. [place] is normal.) Prior EKG tracings: available for review Prior: Unchanged Follow-up EKG: Attestation: I personally reviewed and interpreted this EKG as follows: Interpretation: Sinus Rhythm (Rate is 64. There is a premature atrial complex noted. The EKG is otherwise unremarkable. There is no acute ischemic changes. The first-degree heart block that was noted on first EKG is not present.) Critical Care Time Critical Care Time: Yes Critical care time (excluding procedures): 30-74 minutes (31), Including time spent: (History, physical, documentation, interpretation laboratory results and imaging), Discussing w/Patient &/or Family/Apartment Maintenance Manager (Lengthy discussion with patient and regarding use of aspirin after it initially was withheld.), Discussing w/Consultants and Arranging Admission or Transfer Discharge Plan Dx/Rx/DC Orders Clinical Impression: Chest tightness, Concussion, Hx of hypercholesterolemia, History of essential hypertension Disposition Disposition: Acute Care Hospital [facility]
[2021-12-22 08:36] LABS: Anion Gap 4 (5-15); BUN 21 mg/dL (7-18); BUN/Creat Ratio 14.3 RATIO (10-20); Chloride 109 mmol/L (98-107); Creatinine, Serum 1.47 mg/dL (0.70-1.30); EST Glomerular Filtration Rate 50 mL/min (>60); Est Glom Filt Rate - Afr Amer 60 mL/min (>60); Estimated Creatinine Clearance 46.21 ml/min; Glucose 90 mg/dL (74-106); Potassium 4.3 mmol/L (3.5-5.1); Sodium Level 142 mmol/L (136-145); Troponin-I HS 8 pg/mL (3.0-78.0)
[2021-12-22] MEDS: Aspirin 81 MG TAB.CHEW 324 MG PO (09:01)
--- NOTE | 2021-12-22 10:12 | NURSING ---
DR RADHA LUGO
--- NOTE | 2021-12-22 10:13 | EKG12_ITS ---
Test Reason : CP Blood Pressure : / mmHG Vent. Rate : 057 BPM Atrial Rate : 057 BPM P-R Int : 216 ms QRS Dur : 088 ms QT Int : 392 ms P-R-T Axes : 069 017 040 degrees QTc Int : 381 ms Sinus bradycardia with 1st degree A-V block with Premature atrial complexes Otherwise normal ECG Confirmed by QUINTEN WITT, ANTONIETA ([id number]), tape editor JENNIFER WARREN ([id number]) on 12/25/2021 9:19:56 AM Referred By: [facility] Confirmed By:ANTONIETA SHIPLEY MD
[2021-12-22] MEDS: Ondansetron 4 MG/2 ML Vial IV (10:42)
[2021-12-22] MEDS: Morphine 4 MG/ML Syringe IV (10:42)
--- NOTE | 2021-12-22 10:53 | NURSING ---
PCU OBS ARDHA CHEST TIGHTNESS
--- NOTE | 2021-12-22 11:08 | PCM.HP.STD ---
HPI - General General Date of Admission: 12/22/21 Date of Service: 12/22/21 Chief Complaint: Headache/chest pain/nausea HPI Narrative PIO HOANG, is a 71 M who presented to the emergency department was coming hospital on 12/22/2021 secondary to chest pain. The patient reports last Saturday he bumped his head on his car door while he was taking things out of his car. He states he has had ongoing headache intermittently that has become more severe since that point in time and has fluctuated since then as well. He is neighbors with Dr. Heard from the emergency department he discussed this with him on Saturday. Dr. Heard evaluated him and recommended he stop his aspirin at that time and felt he had a light concussion based on the symptoms he was of which she was complaining. Other than the headaches he had been feeling relatively at baseline up until this morning. He states he woke up and had worsening headache with neck pain that radiated into his back. He awakened however because he had to go to the bathroom. He went to get up to go the bathroom and he developed tightening across his upper chest that had no radiation with associated shortness of breath and nausea. He states the nausea actually preceded any of the pain or shortness of breath he had. He has a known history of nonobstructive coronary disease with his last cardiac catheterization being several years ago. He has had 2 recent stress tests with the most recent being in July 2020 that was negative for any inducible ischemia. He works out regularly and has not had any exertional angina with his exercise regimen. He follows with Dr. Anderson at baseline. Vital signs upon presentation the emergency department show temperature of 97.5, heart rate of 61, blood pressure 114/82, respiratory rate of 12, and oxygen saturations were 98% on room air. CBC was overall unremarkable. His chemistry panel showed chronic stable kidney disease with a BUN of 21 and a serum creatinine of 1.47. His initial troponin was 8. Given his recent head injury and headache a CT of his brain was performed and showed no acute intracranial abnormalities but did demonstrate some senescent changes. His chest x-ray showed degenerative changes but no acute cardiopulmonary process. EKG shows first-degree heart block with a few PACs but no ST-T wave changes consistent with acute ischemia. It appears first-degree heart block is a chronic issue for him when compared to previous EKG scanned in the computer. He is also had PACs noted on those EKGs as well. In the emergency department he was treated with nitroglycerin as well as morphine and the patient indicated he did get relief with these. He was also given some Zofran for nausea. Overall right now at my evaluation he was not having any chest pain but complained of a mild headache. The neck and back pain has resolved at this time. ON LICENSE OF [facility] Medical History Abdominal pain Anxiety Arthritis Atherosclerotic heart disease of [place] coronary artery without angina pectoris Atrial fibrillation bilaterl vein ablation ble BiPAP (biphasic positive airway pressure) dependence Cancer Cellulitis of left lower extremity COPD (chronic obstructive pulmonary disease) Costochondritis Degenerative disc disease, lumbar Essential hypertension Fatigue Former smoker GERD (gastroesophageal reflux disease) Hemorrhoids History of prostate cancer Hyperlipidemia Hypertension Knee pain Long-term use of high-risk medication Lumbar radiculopathy, right YENNI (obstructive sleep apnea) Osteoarthritis of left knee Paroxysmal atrial fibrillation Premature atrial contractions Premature ventricular contraction repair right achilles tendon Segmental and somatic dysfunction of cervical region Segmental and somatic dysfunction of lumbar region Segmental and somatic dysfunction of thoracic region Umbilical hernia without obstruction and without gangrene Home Medications aspirin 81 mg tablet,delayed release 81 mg PO DAILY@0800 HEART HEALTH 05/18/13 [History Last Taken 07/23/21] fluticasone propionate 50 mcg/actuation nasal spray,suspension 1 spray NASAL BID ALLERGIES 05/18/13 [History Last Taken 07/23/21] magnesium oxide 400 mg (241.3 mg magnesium) tablet 400 mg PO BID SUPPLEMENT/HEART 05/18/13 [History Last Taken 07/23/21] multivitamin with folic acid 400 mcg tablet 1 tab PO DAILY SUPPLEMENT 05/18/13 [History Last Taken 07/23/21] lansoprazole 30 mg capsule,delayed release 30 mg PO QDAY GERD 06/10/17 [History Last Taken 07/23/21] saw palmetto 500 mg capsule 500 mg PO QDAY SUPPLEMENT 08/29/17 [History Last Taken 07/23/21] cholecalciferol (vitamin D3) 25 mcg (1,000 unit) capsule 1,000 unit PO DAILY 07/17/18 [History Last Taken 07/23/21] coenzyme Q10 50 mg chewable tablet 200 mg PO DAILY SUPPLEMENT 07/17/18 [History Last Taken 07/23/21] echinacea 400 mg capsule 400 mg PO DAILY SUPPLEMENT 08/05/19 [History Last Taken 07/23/21] loratadine 10 mg tablet (Claritin) 10 mg PO QDAY PRN Allergies 08/05/19 [History Last Taken 07/23/21] nitroglycerin 0.3 mg sublingual tablet 0.3 mg sublingual Q5M PRN other 02/09/20 [History Last Taken Unknown] sildenafil 50 mg tablet 50 mg PO DAILY PRN other 05/19/20 [History Last Taken 07/23/21 14:30] simvastatin 40 mg tablet 40 mg PO DAILY #90 tabs 05/01/21 [Rx Last Taken 07/23/21] alfuzosin 10 mg tablet,extended release 24 hr 10 mg PO QDAY 05/15/21 [History Last Taken 07/23/21] flecainide 100 mg tablet 100 mg PO Q12H #60 tabs 07/24/21 [Rx Last Taken Unknown] losartan 25 mg tablet 25 mg PO DAILY #90 tabs 10/23/21 [Rx Last Taken Unknown] alprazolam 0.5 mg tablet 0.25 mg PO BID ANXIETY 11/15/21 [History Last Taken Unknown] metoprolol succinate 25 mg tablet,extended release 24 hr 25 mg PO DAILY #180 tabs 12/18/21 [Rx Last Taken Unknown] Allergy/AdvReac Type Severity Reaction Status Date / Time animal dander Allergy Unknown Verified 12/22/21 07:44 grass pollen Allergy Unknown Verified 12/22/21 07:44 grass pollen-perennial rye, Allergy Unknown Verified 12/22/21 07:44 standar house dust Allergy Unknown Verified 12/22/21 07:44 levofloxacin [From Levaquin] Allergy Unknown Verified 12/22/21 07:44 dabigatran etexilate AdvReac Unknown Unknown Verified 12/22/21 07:44 [From Pradaxa] gabapentin [From Neurontin] AdvReac Other Verified 12/22/21 07:44 NSAIDS (Non-Steroidal AdvReac Other Verified 12/22/21 07:44 Anti-Inflamma pet dander Allergy Unknown Uncoded 12/22/21 07:44 Family History Mother Hypertension CAD (coronary artery disease) Father Hypertension Atrial fibrillation Presence of permanent cardiac pacemaker CVA (cerebral vascular accident) Surgical History Bilateral knee pain H/O cardiac radiofrequency ablation H/O detached retina repair H/O hemorrhoidectomy H/O shoulder surgery H/O sinus surgery H/O sinus surgery History of arthroscopy of knee History of cardiac radiofrequency ablation (RFA) History of cataract surgery History of detached retina repair History of hemorrhoidectomy History of left hip replacement (~03/2021) History of left knee replacement (~04/2021) History of umbilical hernia repair (~04/2018) right shoulder Status post laser ablation of incompetent vein vein Social History household members: spouse Smoking Status: Former smoker Smokeless tobacco user: snuff how long ago did patient quit smoking: Patient quit cigarette tobacco use 1980, smoked age [age], 1 ppd-->Snuff. alcohol intake: current alcohol intake frequency: a few times a week Alcohol type: beer substance use type: does not use caffeine: No ROS Constitutional Constitutional: Denies anorexia, change in weight, chills, fatigue, fever(s), malaise, night sweats, weakness or other Eyes Eyes: Denies blurry vision, change in eye color, change in vision, discharge from eye(s), double vision, erythema, eye pain, loss of vision or other ENT HEENT: Reports headache(s); Denies abnormal hearing, dysphagia, ear pain, epistaxis, hearing loss, nasal congestion, nasal discharge, post nasal drip, sinus pressure, sore throat or other Cardiovascular Cardiovascular: Reports chest pain and rapid heart rate; Denies claudication, dyspnea on exertion, edema, lightheadedness, orthopnea, palpitations, paroxysmal nocturnal dyspnea, syncope or other Respiratory/Chest Respiratory/Chest: Reports dyspnea; Denies cough, excessive phlegm production, hemoptysis, productive cough, shortness of breath at rest, shortness of breath with exertion, wheezing or other Gastrointestinal Gastrointestinal: Reports nausea and vomiting; Denies abdominal pain, coffee ground emesis, constipation, diarrhea, dyspepsia, hematemesis, hematochezia, loose stools, melena or other Genitourinary Genitourinary: Reports difficulty urinating, nocturia, urinary frequency and urinary hesitancy; Denies burning urination, dysuria, hematuria, urinary incontinence, urinary urgency or other Musculoskeletal Musculoskeletal: Reports arthralgias, back pain, joint pain, joint stiffness, myalgias and neck pain; Denies joint swelling or other Neurologic Neurologic: Reports headache(s); Denies abnormal gait, abnormal speech, confusion, disequilibrium, dizziness, focal weakness, numbness, paresthesias, seizure-like activity, seizures, syncope, tingling, tremor(s) or other Psychiatric Psychiatric: Reports anxiety; Denies depression, homicidal ideation, suicidal ideation or other Endocrine Endocrinology: Denies change in body appearance, cold intolerance, excessive sweating, heat intolerance, polydipsia, polyuria or other Hematologic/Lymphatic Hematologic/Lymphatic: Denies anemia, easy bleeding, easy bruising, lymphadenopathy or other Allergic/Immunologic Allergic/Immunologic: Denies rhinitis, hives, eczemia, asthma or other Vital Signs Vital Signs Vital Signs: 12/22/21 07:45 12/22/21 07:56 12/22/21 07:56 Temperature 97.5 F L Temperature Source Temporal Pulse Rate 61 Respiratory Rate 12 Respiratory Effort Short of Breath Blood Pressure 114/82 H Blood Pressure Mean 92 Pulse Ox 98 Oxygen Delivery Method Room Air Room Air 12/22/21 08:01 12/22/21 08:03 12/22/21 08:07 Temperature Temperature Source Pulse Rate 55 L 55 L 65 Respiratory Rate 12 Respiratory Effort Blood Pressure 144/67 H 144/67 H 112/65 Blood Pressure Mean 92 Pulse Ox 97 Oxygen Delivery Method Room Air 12/22/21 09:07 12/22/21 09:51 12/22/21 10:01 Temperature Temperature Source Pulse Rate 61 53 L 53 L Respiratory Rate 12 16 Respiratory Effort Blood Pressure 141/78 H 135/73 H Blood Pressure Mean 93 Pulse Ox 98 97 Oxygen Delivery Method Room Air Room Air 12/22/21 10:45 Temperature 98.2 F Temperature Source Temporal Pulse Rate 58 L Respiratory Rate 16 Respiratory Effort Blood Pressure 138/66 H Blood Pressure Mean 90 Pulse Ox 98 Oxygen Delivery Method Room Air Weight Weight: 110.5 kg Body Mass Index (BMI) 34.9 Physical Exam Const alert, oriented x3 and no apparent distress Constitutional Narrative: Obese, older white male sitting up in bed, appears comfortable and nontoxic, is at bedside, patient does appear somewhat anxious is extremely worried about his medications that he missed this morning prior to arrival General Appearance: cooperative HEENT normocephalic, head/scalp atraumatic and moist oral mucous membranes; Negative for hearing grossly normal bilaterally HEENT Narrative: No outward trauma noted on his head or any persistent ecchymosis, mild hearing loss, Mallampati 3, dentition is fair for age, no thrush Eyes PERRL, EOMs intact bilaterally and conjunctivae normal Eyes Narrative: No scleral icterus Neck no lymphadenopathy, supple and no JVD Neck Narrative: Neck is short and thick, trachea midline, no thyroid enlargement Resp normal respiratory effort, no retractions, no use of accessory muscles and clear to auscultation bilaterally Auscultation: Negative for crackles, rales, rhonchi or wheezes Cardio regular rate, regular rhythm, S1 normal heart sound, S2 normal heart sound, no murmurs, no rub, no gallops, no clicks and no JVD Cardio Narrative: Few ectopic beats GI normal to inspection, nondistended, normoactive bowel sounds, soft to palpation and non-tender Extremity no clubbing, cyanosis or edema Extremity Narrative: 2+ pedal pulses Skin no rashes or lesions noted, no wounds, skin turgor normal, no jaundice, no petechiae and no mottling Skin Narrative: Decreased hair bilateral lower extremities with good cap refill at 2+ and pedal pulses are normal Neuro oriented x3, CN's II-XII intact bilaterally, moves all extremities and no focal motor deficits Sensorium / Orientation: awake, alert, oriented to person, oriented to place and oriented to time Speech: speech normal Psych affect normal Mood & Affect: anxious Results Lab / Micro Data Result Diagrams: 12/22/21 07:51 12/22/21 07:51 Labs: Laboratory Results - last 24 hr 12/22/21 07:51: WBC 5.3, RBC 4.61, Hgb 14.5, Hct 43.0, MCV 93.3, MCH 31.5, MCHC 33.7, RDW Std Deviation 44.9 H, RDW Coeff of Alesha 13.2, Plt Count 163, MPV 10.0, Immature Gran % (Auto) 0.200, Neut % (Auto) 57.2, Lymph % (Auto) 30.4, [place] % (Auto) 9.9, Eos % (Auto) 1.7, Baso % (Auto) 0.6, Absolute Neuts (auto) 3.0, Absolute Lymphs (auto) 1.60, Nucleated RBC % 0 12/22/21 07:51: Sodium 142, Potassium 4.3, Chloride 109 H, Carbon Dioxide 29.0, Anion Gap 4 L, BUN 21 H, Creatinine 1.47 H, Estim Creat Clear Calc 46.21, Est GFR (MDRD) Af Amer 60, Est GFR (MDRD) Non-Af 50 L, BUN/Creatinine Ratio 14.3, Glucose 90, Calcium 9.0, Troponin I High Sens [address] 12/22/21 07:52 IMPRESSION: 1. No acute intracranial abnormality. 2. Senescent changes. Electronically Signed: Deandre Gan MD at 9:33 EDT , Chest X-Ray 12/22/21 07:52 IMPRESSION: Degenerative changes, as described above. No demonstrated acute cardiopulmonary process. Electronically Signed: Andres Arraiga MD at 9:46 EDT , Assessment & Plan Assessment/Plan (1) Chest pain: (2) Closed head injury: (3) Concussion: PLAN: Plan Chest pain -EKG unremarkable for any signs of ischemia -Initial cardiac enzyme is 8 -Cycle cardiac enzymes -Check lipids -Continue home aspirin and statin -Continue home beta-thalia and losartan -We will obtain nuclear stress test in a.m. if enzymes remain unremarkable -If negative patient will likely be able to be discharged home tomorrow, if positive patient will need cardiac catheterization which will likely be done on Saturday Closed head injury/concussion/headache -CT of the head is negative -Suspect neck pain this morning was related to the above -Currently resolved -Continue to monitor and utilize Tylenol for pain -As needed oxycodone available if severe -No NSAIDs secondary to CKD -No need for any furthering imaging at this time but continue to monitor -No neurological changes CKD stage IIIb -Patient's current serum creatinine is 1.47 which appears to be consistent with his baseline -Avoid nephrotoxins including NSAIDs -We will avoid contrast if able -Continue to monitor Chronic rib cage pain/costochondritis -Patient has upcoming evaluation with rheumatology Hypertension -Continue home losartan -Continue home metoprolol Hyperlipidemia -Continue home statin -Check lipids GERD -Continue home PPI History of paroxysmal atrial fibrillation -Patient underwent ablation done at [facility] -Continue home flecainide -Patient is not anticoagulated at baseline neck her neck pain Seasonal allergies -continue home nasal spray Anxiety -Continue home Xanax History of prostate cancer/BPH -Continue home afluzosin -Restart benita marcial at discharge DVT prophylaxis -Heparin 3 times daily -SCDs CODE STATUS -Full code Charges/Coding Visit Charges OBSV E&M: 56782 Initial observation care L3
--- NOTE | 2021-12-22 11:17 | EKG12_ITS ---
Test Reason : CP Blood Pressure : / mmHG Vent. Rate : 053 BPM Atrial Rate : 053 BPM P-R Int : 194 ms QRS Dur : 082 ms QT Int : 400 ms P-R-T Axes : 049 014 032 degrees QTc Int : 375 ms Sinus bradycardia with marked sinus arrhythmia Otherwise normal ECG When compared with ECG of 22-DEC-2021 09:39, MANUAL COMPARISON REQUIRED, DATA IS UNCONFIRMED Confirmed by QUINTEN WITT, ANTONIETA ([id number]), editorial clerk JENNIFER WARREN ([id number]) on 12/26/2021 1:06:20 PM Referred By: Confirmed By:ANTONIETA SHIPLEY MD
[2021-12-22] MEDS: ALPRAZolam 0.25 MG Tablet PO ×2 (11:50→22:14)
[2021-12-22] MEDS: Losartan Potassium 25 MG Tablet PO (11:50)
[2021-12-22] MEDS: Acetaminophen 325 MG Tablet 650 MG PO ×2 (12:01→18:27)
[2021-12-22 12:07] LABS: Troponin-I HS 7 pg/mL (3.0-78.0)
[2021-12-22] MEDS: Lansoprazole 15 MG Capsule.DR 30 MG PO (12:48)
[2021-12-22 14:52] LABS: Troponin-I HS 7 pg/mL (3.0-78.0)
[2021-12-22] MEDS: Fluticasone 0.05% 1 SPRAY NASAL.SRY NASAL (22:12)
[2021-12-22] MEDS: ALFUZOSIN HCL 10 MG TAB.ER.24H PO (22:12)
[2021-12-22] MEDS: Flecainide 100 MG Tablet PO (22:14)
[2021-12-22] MEDS: Atorvastatin Calcium 20 MG Tablet PO (22:14)
[2021-12-22] MEDS: Magnesium Chloride 64 MG Delay Rel.Tablet 128 MG PO (22:15)
[2021-12-23] VITALS (8 sets, daily range): BP systolic 139–159; BP diastolic 68–99; PULSE 52–69; RESP 18; TEMP 36.3–36.6; O2SAT 97–99
[2021-12-23] MEDS: Acetaminophen 325 MG Tablet 650 MG PO ×2 (00:05→06:28)
--- NOTE | 2021-12-23 05:55 | EKG12_ITS ---
Test Reason : AM EKG Blood Pressure : / mmHG Vent. Rate : 060 BPM Atrial Rate : 060 BPM P-R Int : 184 ms QRS Dur : 076 ms QT Int : 410 ms P-R-T Axes : 031 020 056 degrees QTc Int : 410 ms Normal sinus rhythm Junctional ST depression, probably normal Borderline ECG When compared with ECG of 22-DEC-2021 11:44, MANUAL COMPARISON REQUIRED, DATA IS UNCONFIRMED Confirmed by QUINTEN WITT, ANTONIETA ([id number]), acquisition editor JENNIFER WARREN ([id number]) on 12/26/2021 1:10:12 PM Referred By: Confirmed By:ANTONIETA SHIPLEY MD
[2021-12-23] MEDS: Aspirin E.C. 81 MG Tablet PO (06:31)
[2021-12-23] MEDS: Flecainide 100 MG Tablet PO (06:31)
[2021-12-23] MEDS: Losartan Potassium 25 MG Tablet PO (06:31)
--- NOTE | 2021-12-23 06:40 | PCM.HOSP.N ---
Hospitalist Note Patient complaining of ongoing headache. Requested to be evaluated per physician. He notes concern over BL scleral injection concurrently which he noted this AM upon awakening and using the restroom. He notes the headache persists in the frontal region and he also notes strain in the posterior cervical region and into his shoulders, describes being tense. He notes tylenol has been helping but he notes concerns that his head injury could be something else. Discussed that his recent CT upon admission demonstrated no acute findings and his VS were decent with appropriate BP. Noted intention to trial a muscle relaxant given his strain complaint and dose x 1 IV pain meds given current situation with planned stress testing and that his case would be discussed with Dr. Hernández concurrently.
[2021-12-23] MEDS: cycloBENZAPRine HCl 5 MG TABLET PO (06:48)
[2021-12-23] MEDS: Morphine 2 MG/ML Syringe IV (06:49)
[2021-12-23] MEDS: 0.9% Saline Lock 10 ML Syringe IV (06:51)
--- NOTE | 2021-12-23 06:57 | MRI_ITS ---
EXAM: MR HEAD WITHOUT INTRAVENOUS CONTRAST CLINICAL INDICATION: Head trauma TECHNIQUE: Multiplanar and multisequence MR images of the brain were obtained without intravenous contrast. This report was created using [employer] report generation technology. COMPARISON: CT brain 12/22/2021 FINDINGS: BRAIN AND EXTRA-AXIAL SPACES: Increased T2 signal intensity within the cerebral white matter suggestive of chronic microvascular change. No intra- or extra-axial hemorrhage. No evidence of acute infarct. No intracranial mass or mass effect. There is preservation of the faith/white matter interface. Posterior fossa structures are unremarkable. Ventricles are appropriate for age. No hydrocephalus. Basal cisterns are patent. SELLA: Normal. Normal sella turcica, pituitary gland, infundibular stalk, optic chiasm and hypothalamus. AUDITORY SYSTEM: Normal. The internal auditory canals are patent. BONES/JOINTS: Intact calvarium. SINUSES: Unremarkable as visualized. Clear. MASTOID AIR CELLS: Unremarkable as visualized. Clear. ORBITS: Unremarkable as visualized. Both globes, extraocular muscles, optic nerves and retrobulbar fat appear unremarkable. VASCULATURE: Unremarkable as visualized. Normal flow voids in the major intracranial circulation. MRI/Brain without Contrast IMPRESSION: No acute intracranial abnormality. Electronically Signed: Deandre Gan MD at 13:40 EDT ,
[2021-12-23 07:45] LABS: Absolute Neutrophil Count 2.9 X10^3/uL (2.0-7.7); Basophil# 0.04 X10^3/uL; Basophil% 0.8 % (0-1); Eosinophil# 0.09 X10^3/uL; Eosinophils% 1.8 % (0-5); Hematocrit 40.6 % (40-54); Lymphocyte % 30.3 % (19-41); Mean Corp Hgb Conc 34.5 g/dL (32-36); Mean Corpuscular Hgb 31.6 pg (27.0-32.0); Mean Corpuscular Volume 91.6 fL (80-94); Mean Platelet Vol. 10.1 fl (6.2-12.0); Monocyte# 0.43 X10^3/uL; Monocyte% 8.7 % (0-10); NRBC Flagged by Analyzer 0 % (0-5); Neutrophil # 2.88 X10^3/uL (2.7-7.7); Neutrophil % 58.2 % (47-70); Platelet Count 145 K/mm3 (150-450); RBC Distribution Width CV 13.2 % (11.6-14.6); RBC Distribution Width SD 44.8 fl (35.1-43.9); Red Blood Count 4.43 M/mm3 (4.6-6.2)
[2021-12-23] MEDS: Fluticasone 0.05% 1 SPRAY NASAL.SRY NASAL (07:55)
[2021-12-23 08:24] LABS: AST(SGOT) 20 U/L (15-37); Alanine Aminotransfer ALT/SGPT 18 U/L (16-61); Albumin, Serum 3.4 g/dL (3.2-5.0); Alkaline Phosphatase 76 U/L (45-117); Anion Gap 6 (5-15); BUN 22 mg/dL (7-18); BUN/Creat Ratio 14.5 RATIO (10-20); Calcium,Total 8.9 mg/dL (8.5-10.1); Chloride 108 mmol/L (98-107); Cholesterol 124 mg/dL (200); Creatinine, Serum 1.52 mg/dL (0.70-1.30); EST Glomerular Filtration Rate 48 mL/min (>60); Est Glom Filt Rate - Afr Amer 58 mL/min (>60); Estimated Creatinine Clearance 44.69 ml/min; Globulin 3.5 g/dL (2.2-4.2); Glucose 98 mg/dL (74-106); High Density Lipoprotein 44 mg/dL; Magnesium 1.8 mg/dL (1.6-2.6); Phosphorus 3.5 mg/dL (2.5-4.9); Potassium 4.5 mmol/L (3.5-5.1); Protein, Total 6.9 g/dL (6.4-8.2); Sodium Level 140 mmol/L (136-145); Thyroid Stim Hormone (TSH) 3.14 uIU/mL (0.358-3.74); Triglycerides 155 mg/dL; Very Low Density Lipoprotein 31 mg/dL (5-40)
--- NOTE | 2021-12-23 10:38 | CASEMGMT ---
Per Dr. Hernández, pt plan to go home today(pending testing) with OP therapy. Script obtained and to pt. Trinity WRIGHT CM
--- NOTE | 2021-12-23 11:32 | STRESSREP ---
Stress Test Report Pharmacologic myocardial perfusion stress test. 71-year-old man a history of chest pain. Stress protocol: Resting KG demonstrates sinus bradycardia with a rate of 56 bpm premature atrial complexes are noted resting blood pressure is 158/78 mmHg. 0.4 mg of regadenoson was infused per usual protocol. Continuous EKG monitoring was performed. The maximum heart rate was 86 bpm which was 58% of max impacted heart rate the maximum workload was 1 metabolic equivalent. At rest there were no ST or T wave changes noted to suggest abnormal flow reserve and at peak infusion nonspecific ST changes were noted with did not meet the criteria for ischemia. No clinical angina was noted. Myocardial perfusion protocol. 15.0 mCi of technetium 99m sestamibi was injected at rest. 0.4 mg of regadenoson was infused per usual protocol. At peak infusion 45.0 mCi of technetium 99m sestamibi was injected stress images were obtained stress and rest images were reconstructed and compared in the short axis vertical long horizontal long axis. Gated images were also obtained to Perfusion SPECT analysis: Review of the stress images demonstrate normal uptake of tracer noted in all areas of the myocardium. The resting images similar demonstrate normal uptake of tracer noted in all areas of the myocardium. No areas of reversibility are noted to suggest ischemia and no previous infarct is noted. Gated SPECT analysis: The gated ejection fraction is 64%. Conclusion: Normal pharmacologic myocardial perfusion stress test. Preserved ejection fraction.
--- NOTE | 2021-12-23 11:46 | CASEMGMT ---
This RN CM to room with DUBON form and pt is out of dept getting MRI, will check back later. SStap WRIGHT CM
[2021-12-23] MEDS: ALPRAZolam 0.25 MG Tablet PO (12:05)
[2021-12-23] MEDS: Metoprolol(XL)Succ 25 MG Tablet PO (13:23)
[2021-12-23] MEDS: Magnesium Chloride 64 MG Delay Rel.Tablet 128 MG PO (13:24)
[2021-12-23] MEDS: Multivitamins,Therapeutic Tablet 1 TABLET PO (13:24)
--- NOTE | 2021-12-23 13:46 | CASEMGMT ---
This RN SHMUEL to room with DUBON form, explanation done-pt voices understanding and signs DUBON form. Original to chart and copy to pt. Pt has MCR IP vs OBS booklet at bedside. Pt/ voice no further questions/concerns/needs. SStaten ADRIANA MI
--- NOTE | 2021-12-23 13:57 | PCM.DC.SUM ---
Providers Date of Admission: 12/22/21 Date of Discharge: 12/23/21 Primary Care Physician: Dr. Steven Retana MD Reason For Visit: CHEST TIGHTNESS Diagnosis Discharge Diagnosis (1) Chest pain: Status: Acute Code(s): R07.9 - Chest pain, unspecified (2) Closed head injury: Status: Acute Code(s): S09.90XA - Unspecified injury of head, initial encounter (3) Concussion: Status: Acute Code(s): S06.0X9A - Concussion with loss of consciousness of unspecified duration, initial encounter Plan Chest pain -EKG unremarkable for any signs of ischemia -Initial cardiac enzyme is 8 -Cycle cardiac enzymes -Check lipids -Continue home aspirin and statin -Continue home beta-thalia and losartan -We will obtain nuclear stress test in a.m. if enzymes remain unremarkable -If negative patient will likely be able to be discharged home tomorrow, if positive patient will need cardiac catheterization which will likely be done on Saturday Closed head injury/concussion/headache -CT of the head is negative -Suspect neck pain this morning was related to the above -Currently resolved -Continue to monitor and utilize Tylenol for pain -As needed oxycodone available if severe -No NSAIDs secondary to CKD -No need for any furthering imaging at this time but continue to monitor -No neurological changes CKD stage IIIb -Patient's current serum creatinine is 1.47 which appears to be consistent with his baseline -Avoid nephrotoxins including NSAIDs -We will avoid contrast if able -Continue to monitor Chronic rib cage pain/costochondritis -Patient has upcoming evaluation with rheumatology Hypertension -Continue home losartan -Continue home metoprolol Hyperlipidemia -Continue home statin -Check lipids GERD -Continue home PPI History of paroxysmal atrial fibrillation -Patient underwent ablation done at [facility] -Continue home flecainide -Patient is not anticoagulated at baseline neck her neck pain Seasonal allergies -continue home nasal spray Anxiety -Continue home Xanax History of prostate cancer/BPH -Continue home afluzosin -Restart saw aniket at discharge DVT prophylaxis -Heparin 3 times daily -SCDs CODE STATUS -Full code Medications at Discharge Home Medications aspirin 81 mg tablet,delayed release 81 mg PO DAILY@0800 HEART HEALTH 05/18/13 fluticasone propionate 50 mcg/actuation nasal spray,suspension 1 spray NASAL BID ALLERGIES 05/18/13 magnesium oxide 400 mg (241.3 mg magnesium) tablet 400 mg PO BID SUPPLEMENT/HEART 05/18/13 multivitamin with folic acid 400 mcg tablet 1 tab PO DAILY SUPPLEMENT 05/18/13 lansoprazole 30 mg capsule,delayed release 30 mg PO QDAY GERD 06/10/17 saw palmetto 500 mg capsule 500 mg PO QDAY SUPPLEMENT 08/29/17 cholecalciferol (vitamin D3) 25 mcg (1,000 unit) capsule 1,000 unit PO DAILY 07/17/18 coenzyme Q10 50 mg chewable tablet 200 mg PO DAILY SUPPLEMENT 07/17/18 echinacea 400 mg capsule 400 mg PO DAILY SUPPLEMENT 08/05/19 loratadine 10 mg tablet (Claritin) 10 mg PO QDAY PRN Allergies 08/05/19 nitroglycerin 0.3 mg sublingual tablet 0.3 mg sublingual Q5M PRN other 02/09/20 sildenafil 50 mg tablet 50 mg PO DAILY PRN other 05/19/20 simvastatin 40 mg tablet 40 mg PO DAILY #90 tabs 05/01/21 alfuzosin 10 mg tablet,extended release 24 hr 10 mg PO QDAY 05/15/21 flecainide 100 mg tablet 100 mg PO Q12H #60 tabs 07/24/21 losartan 25 mg tablet 25 mg PO DAILY #90 tabs 10/23/21 alprazolam 0.5 mg tablet 0.25 mg PO BID ANXIETY 11/15/21 metoprolol succinate 25 mg tablet,extended release 24 hr 25 mg PO DAILY #180 tabs 12/18/21 acetaminophen 325 mg tablet (Tylenol) 650 mg PO Q6H PRN PRN Pain Score 1-10/Temp > 100.7 F #0 tabs 12/23/21 cyclobenzaprine 5 mg tablet 5 mg PO TID PRN muscle spasm #15 tabs 12/23/21 Hospital Course Operations None Procedures Nuclear stress test and - (CT/MRI brain) Summary of Care Provided Minutes Spent on Discharge: 28 Hospital Course: PIO HOANG, is a 71 M who presented to the emergency department at [facility] on 12/22/2021 secondary to chest pain.? The patient reported that last Saturday he bumped his head on his car door while he was taking things out of his car.? He stated was experiencing ongoing headache intermittently that had become more severe since that point and has fluctuated since then as well.? He is neighbors with Dr. Heard from the emergency department he discussed this with him on Saturday.? Dr. Heard evaluated him and recommended he stop his aspirin at that time and felt he had a light concussion based on the symptoms he was of which she was complaining.? Other than the headaches he had been feeling relatively at baseline up until the morning of admission.? He stated he woke up and had worsening headache with neck pain that radiated into his back.? He awakened however because he had to go to the bathroom.? He went to get up to go the bathroom and he developed tightening across his upper chest that had no radiation with associated shortness of breath and nausea.? He stated the nausea actually preceded any of the pain or shortness of breath he had.? He has a known history of nonobstructive coronary disease with his last cardiac catheterization being several years ago.? He has had 2 recent stress tests with the most recent being in July 2020 that was negative for any inducible ischemia.? He works out regularly and has not had any exertional angina with his exercise regimen.? He follows with Dr. Anderson at baseline. Vital signs upon presentation the emergency department show temperature of 97.5, heart rate of 61, blood pressure 114/82, respiratory rate of 12, and oxygen saturations were 98% on room air.? CBC was overall unremarkable.? His chemistry panel showed chronic stable kidney disease with a BUN of 21 and a serum creatinine of 1.47.? His initial troponin was 8.? Given his recent head injury and headache a CT of his brain was performed and showed no acute intracranial abnormalities but did demonstrate some senescent changes.? His chest x-ray showed degenerative changes but no acute cardiopulmonary process.? EKG shows first-degree heart block with a few PACs but no ST-T wave changes consistent with acute ischemia.? It appears first-degree heart block is a chronic issue for him when compared to previous EKG scanned in the computer.? He is also had PACs noted on those EKGs as well. In the emergency department he was treated with sublingual nitro and morphine and did experience relief from his neck and back pain as well as his chest pain. He was admitted to the PCU and his cardiac enzymes were cycled. High-sensitivity troponins were all normal with no elevation. A stress test was performed on the a.m. of 12/23/2021 and found to be negative. Early on that morning he complained of head pain and neck pain again. He was evaluated by the night covering physician who prescribed him a low-dose of Flexeril. Given this we did complete an MRI of his brain which was negative for any acute findings. Upon my reexamination later in the day he admitted that his head pain and neck pain is not excruciating however there feels like it needed to be treated. It sounds as if the Flexeril was somewhat helpful. He also complains of tightness in bilateral neck region. I told him we would discharge him with low-dose Flexeril 5 mg 3 times daily as needed and suggested that he at the very least take 1 dose at night prior to going to bed. I did report to him it was sedating and could cause some urinary retention. He voiced understanding. 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 He is going to use Tylenol as needed for pain and we did give him a prescription for physical therapy for treatment of cervical spine pain as well as postconcussive syndrome. He indicates that if he is not feeling relief in the next few days that he would call and make an appointment. I have asked him to follow-up with his primary care physician within the next 1 week. He was discharged home in stable condition on 12/23/2021. Discharge diagnoses: Chest pain Close head injury Postconcussive syndrome Headache Neck pain CKD stage IIIb Chronic rib cage pain Costochondritis Hypertension Hyperlipidemia GERD PAF Seasonal allergies Anxiety Prostate cancer BPH Physical Exam Const alert, oriented x3, no apparent distress, healthy appearing and well nourished Constitutional Narrative: Obese, older white male sitting up in bed, appears comfortable and nontoxic, is at bedside, nursing at bedside General Appearance: cooperative, comfortable, well kempt and well developed Orientation / Consciousness: awake Exam Limitations: no limitations Nutritional Appearance: obese HEENT normocephalic, head/scalp atraumatic and moist oral mucous membranes; Negative for hearing grossly normal bilaterally Resp normal respiratory effort, no retractions, no use of accessory muscles and clear to auscultation bilaterally Auscultation: Negative for crackles, rales, rhonchi or wheezes Cardio regular rate, regular rhythm, S1 normal heart sound, S2 normal heart sound, no murmurs, no rub, no gallops, no clicks and no JVD GI normal to inspection, nondistended, normoactive bowel sounds, soft to palpation and non-tender Extremity no clubbing, cyanosis or edema Extremity Narrative: 2+ pedal pulses Neuro oriented x3, CN's II-XII intact bilaterally, moves all extremities and no focal motor deficits Sensorium / Orientation: awake, alert, oriented to person, oriented to place and oriented to time Speech: speech normal Psych Mood & Affect: anxious Weight / BMI Weight Weight: 107.2 kg Body Mass Index (BMI) 33.9 ABG / Lab / Microbiology Data Result Diagrams: 12/23/21 07:25 12/23/21 07:25 Laboratory: Laboratory Results - last 24 hr 12/22/21 13:55: Troponin I High Sens 7 12/23/21 07:25: WBC 5.0, RBC 4.43 L, Hgb 14.0, Hct 40.6, MCV 91.6, MCH 31.6, MCHC 34.5, RDW Std Deviation 44.8 H, RDW Coeff of Alesha 13.2, Plt Count 145 L, MPV 10.1, Immature Gran % (Auto) 0.200, Neut % (Auto) 58.2, Lymph % (Auto) 30.3, [place] % (Auto) 8.7, Eos % (Auto) 1.8, Baso % (Auto) 0.8, Absolute Neuts (auto) 2.9, Absolute Lymphs (auto) 1.50, Nucleated RBC % 0 12/23/21 07:25: Sodium 140, Potassium 4.5, Chloride 108 H, Carbon Dioxide 26.0, Anion Gap 6, BUN 22 H, Creatinine 1.52 H, Estim Creat Clear Calc 44.69, Est GFR (MDRD) Af Amer 58 L, Est GFR (MDRD) Non-Af 48 L, BUN/Creatinine Ratio 14.5, Glucose 98, Calcium 8.9, Phosphorus 3.5, Magnesium 1.8, Total Bilirubin 0.50, AST 20, ALT 18, Alkaline Phosphatase 76, Total Protein 6.9, Albumin 3.4, Globulin 3.5, Albumin/Globulin Ratio 1.0, Triglycerides 155, Cholesterol 124, LDL Cholesterol 49, VLDL Cholesterol 31, HDL Cholesterol 44, TSH 3.14 Radiography Diagnostic Testing: Radiology Impression Brain MRI 12/23/21 06:57 IMPRESSION: No acute intracranial abnormality. Electronically Signed: Deandre Gan MD at 13:40 EDT , Meaningful Use Info Meaningful Use Diagnoses (Choose all that apply): None applicable Discharge Plan Admission Admit Date/Time: 12/22/21 11:00 Primary Reason for Your Visit: Neck pain/chest pain Attending Provider: Kirsten Hernández Primary Care Provider: Steven Retana Discharge Orders/Prescriptions Prescriptions: New acetaminophen [Tylenol] 325 mg Tablet 650 mg PO Q6H PRN PRN (Reason: Pain Score 1-10/Temp > 100.7 F) Qty: 0 0RF cyclobenzaprine 5 mg tablet 5 mg PO TID PRN (Reason: muscle spasm) Qty: 15 0RF Continued saw palmetto 500 mg capsule 500 mg PO QDAY echinacea 400 mg capsule 400 mg PO DAILY loratadine [Claritin] 10 mg tablet 10 mg PO QDAY PRN (Reason: Allergies) alfuzosin 10 mg tablet extended release 24 hr 10 mg PO QDAY cholecalciferol (vitamin D3) 1,000 unit capsule 1,000 unit capsule 1,000 unit PO DAILY nitroglycerin 0.3 mg tablet, sublingual 0.3 mg sublingual Q5M PRN (Reason: other) Rx Instructions: do not exceed 3 doses per episode aspirin 81 MG tablet 81 mg PO DAILY@0800 Label Comments: WAS TOLD TO ASK ABOUT STOPPING magnesium oxide 400 MG tablet 400 mg PO BID fluticasone propionate 1 SPRAY spray,suspension 1 spray NASAL BID multivitamin with folic acid 1 TABLET tablet 1 tab PO DAILY lansoprazole 30 MG capsule 30 mg PO QDAY coenzyme Q10 50 mg tablet,chewable 200 mg PO DAILY alprazolam 0.5 mg tablet 0.25 mg PO BID sildenafil 50 mg tablet 50 mg PO DAILY PRN (Reason: other) Rx Instructions: administer 30 minutes to 4 hours before activity simvastatin 40 mg tablet 40 mg PO DAILY Qty: 90 4RF flecainide 100 mg tablet 100 mg PO Q12H Qty: 60 11RF losartan 25 mg tablet 25 mg PO DAILY Qty: 90 3RF metoprolol succinate 25 mg tablet extended release 24 hr 25 mg PO DAILY Qty: 180 3RF Referrals / Follow Up: Steven Retana MD [Primary Care Provider] - In 1 Week Disposition Disposition (needs filled in before D/C Order can be placed): Home, Self Care Charges/Coding Visit Charges OBSV E&M: 23403 Observation care discharge
--- NOTE | 2021-12-23 14:37 | CASEMGMT ---
Pt declines any further needs at discharge. SStaten RN CM
== END 2021-12-23 13:58 | disposition home or self-care (01) ==
LOC: ED 10:11 → PCU 11:03
PROVIDERS: Admitting Provider Internal Medicine; Emergency Provider Emergency Medicine; PCP Family Medicine; Visit Provider Internal Medicine
DX: R07.89 Other chest pain (principal); J44.9 Chronic obstructive pulmonary disease, unspecified; I73.9 Peripheral vascular disease, unspecified; I48.0 Paroxysmal atrial fibrillation; N18.32 Chronic kidney disease, stage 3b; S06.0X0A Concussion without loss of consciousness, initial encounter; I44.0 Atrioventricular block, first degree; S16.1XXA Strain of muscle, fascia and tendon at neck level, initial encounter; I12.9 Hypertensive chronic kidney disease with stage 1 through stage 4 chronic kidney disease, or unspecified chronic kidney disease; F41.9 Anxiety disorder, unspecified; E78.00 Pure hypercholesterolemia, unspecified; K21.9 Gastro-esophageal reflux disease without esophagitis; Z79.82 Long term (current) use of aspirin; F17.220 Nicotine dependence, chewing tobacco, uncomplicated; N40.0 Benign prostatic hyperplasia without lower urinary tract symptoms; M94.0 Chondrocostal junction syndrome [Tietze]; I25.10 Atherosclerotic heart disease of native coronary artery without angina pectoris; Z79.899 Other long term (current) drug therapy; G47.33 Obstructive sleep apnea (adult) (pediatric); W22.09XA Striking against other stationary object, initial encounter; Y93.89 Activity, other specified; Y92.89 Other specified places as the place of occurrence of the external cause
CPT/HCPCS: 36415; 70450; 70551; 71045; 78452; 80048; 80053; 80061; 83735; 84100; 84443; 84484; 85025; 93005; 93017; 96374; 96375; 96376; 99218; 99251; 99285; 99406; A9500; A4216; G0378; G0463; J2405; J2785

== ENCOUNTER → 2022-01-11 | Outpatient (CLI) | payer MEDICARE, SELFPAY ==
[2020-06-13 13:42] VITALS: BMI 33.3
[2022-01-11 11:56] LABS: Absolute Neutrophil Count 4.9 X10^3/uL (2.0-7.7); Basophil# 0.03 X10^3/uL; Basophil% 0.4 % (0-1); Eosinophil# 0.13 X10^3/uL; Eosinophils% 1.9 % (0-5); Hematocrit 41.6 % (40-54); Lymphocyte % 17.7 % (19-41); Mean Corp Hgb Conc 33.7 g/dL (32-36); Mean Corpuscular Hgb 31.3 pg (27.0-32.0); Mean Corpuscular Volume 93.1 fL (80-94); Mean Platelet Vol. 9.6 fl (6.2-12.0); Monocyte# 0.52 X10^3/uL; Monocyte% 7.7 % (0-10); NRBC Flagged by Analyzer 0 % (0-5); Neutrophil # 4.86 X10^3/uL (2.7-7.7); Neutrophil % 71.9 % (47-70); Platelet Count 160 K/mm3 (150-450); RBC Distribution Width CV 13.2 % (11.6-14.6); Red Blood Count 4.47 M/mm3 (4.6-6.2); White Blood Count 6.8 K/mm3 (4.4-11.0)
[2022-01-11 13:26] LABS: AST(SGOT) 16 U/L (15-37); Alanine Aminotransfer ALT/SGPT 23 U/L (16-61); Albumin, Serum 3.8 g/dL (3.2-5.0); Alkaline Phosphatase 93 U/L (45-117); Anion Gap 6 (5-15); BUN 29 mg/dL (7-18); BUN/Creat Ratio 17.9 RATIO (10-20); Calcium,Total 9.4 mg/dL (8.5-10.1); Chloride 108 mmol/L (98-107); Creatinine, Serum 1.62 mg/dL (0.70-1.30); EST Glomerular Filtration Rate 45 mL/min (>60); Est Glom Filt Rate - Afr Amer 54 mL/min (>60); Globulin 3.9 g/dL (2.2-4.2); Glucose 103 mg/dL (74-106); Potassium 4.3 mmol/L (3.5-5.1); Protein, Total 7.7 g/dL (6.4-8.2); Sodium Level 141 mmol/L (136-145)
== END | disposition home or self-care (01) ==
LOC: LAB 11:35
PROVIDERS: PCP Family Medicine; Visit Provider Family Medicine
DX: R53.83 Other fatigue (principal); I10 Essential (primary) hypertension
CPT/HCPCS: 36415; 80053; 84443; 85025

== ENCOUNTER 2022-01-13 10:15 | Emergency (ER) | payer MEDICARE, SELFPAY ==
[2020-06-13 13:42] VITALS: BMI 33.3
[2022-01-13 10:18] VITALS: BP 159/78; PULSE 57; RESP 22; TEMP 36.3; O2SAT 98; BMI 33.9
--- NOTE | 2022-01-13 10:38 | EKG12_ITS ---
Test Reason : Blood Pressure : / mmHG Vent. Rate : 057 BPM Atrial Rate : 057 BPM P-R Int : 214 ms QRS Dur : 088 ms QT Int : 414 ms P-R-T Axes : 057 012 029 degrees QTc Int : 402 ms Sinus bradycardia with marked sinus arrhythmia with 1st degree A-V block Otherwise normal ECG Confirmed by ARLEEN WITT, ALLISON ([id number]), business editor JENNIFER WARREN ([id number]) on 01/15/2022 10:03:09 AM Referred By: YOLANDA Confirmed By:RADHA BACON MD
[2022-01-13 10:42] VITALS: O2SAT 98
--- NOTE | 2022-01-13 10:42 | EDS_ITS ---
HPI History of Present Illness Chief Complaint: Chest Pain Detail of Chief Complaint: Chest pain and headache and left arm paresthesias Informant: patient and spouse/S.O. Narrative Narrative: Patient presents to the emergency department with complaint of chest discomfort, palpitations, paresthesias left arm, and headache. Patient states that he woke up this morning around 6 AM as they had a event to go to. Patient states he just did not feel right and checked his pulse in his neck and it felt rapid and thready. Patient had some discomfort in his chest. He told his he needed to go back to bed and see if symptoms would pass and he slept for about an hour and upon awakening again felt the thready pulse and numbness in his left arm. Patient also then developed a frontal headache and tightness in his chest. Patient states has had similar symptoms in the past and has been diagnosed with anxiety. Patient states that he did take his Xanax this morning. Patient also recently started Zoloft within the last week. Patient denies recent travel or surgery. Patient states that he was admitted about 3 weeks ago to the hospital and diagnosed with a concussion. At that time patient also was evaluated for chest pain and had negative troponins and a negative stress test. Patient has never had cardiac stents or history of an ME. Patient tells me he also had an MRI of his brain at that time because he had hit his head on a door jam of his car. Patient was diagnosed with concussion at that time. Currently he states that his chest discomfort is mostly resolved and rates it about a 1 out of 10. Patient states that his headaches mostly resolved. Patient does have some mild ongoing paresthesias of the left arm. He denies any weakness of the extremities. He denies difficulty with speech or vision. Prior similar symptoms: Yes [facility] Medical History Abdominal pain Anxiety Arthritis Atherosclerotic heart disease of [place] coronary artery without angina pectoris Atrial fibrillation bilaterl vein ablation ble BiPAP (biphasic positive airway pressure) dependence Cancer Cellulitis of left lower extremity COPD (chronic obstructive pulmonary disease) Costochondritis Degenerative disc disease, lumbar Essential hypertension Fatigue Former smoker GERD (gastroesophageal reflux disease) Hemorrhoids History of prostate cancer Hyperlipidemia Hypertension Knee pain Long-term use of high-risk medication Lumbar radiculopathy, right YENNI (obstructive sleep apnea) Osteoarthritis of left knee Paroxysmal atrial fibrillation Premature atrial contractions Premature ventricular contraction repair right achilles tendon Segmental and somatic dysfunction of cervical region Segmental and somatic dysfunction of lumbar region Segmental and somatic dysfunction of thoracic region Umbilical hernia without obstruction and without gangrene Home Medications aspirin 81 mg tablet,delayed release 81 mg PO DAILY@0800 HEART HEALTH 05/18/13 [History Last Taken 12/21/21] fluticasone propionate 50 mcg/actuation nasal spray,suspension 1 spray NASAL BID ALLERGIES 05/18/13 [History Last Taken 12/21/21] magnesium oxide 400 mg (241.3 mg magnesium) tablet 400 mg PO BID SUPPLEMENT/HEART 05/18/13 [History Last Taken 12/21/21] multivitamin with folic acid 400 mcg tablet 1 tab PO DAILY SUPPLEMENT 05/18/13 [History Last Taken 07/23/21] lansoprazole 30 mg capsule,delayed release 30 mg PO QDAY GERD 06/10/17 [History Last Taken 12/21/21] saw palmetto 500 mg capsule 500 mg PO QDAY SUPPLEMENT 08/29/17 [History Last Taken 07/23/21] cholecalciferol (vitamin D3) 25 mcg (1,000 unit) capsule 1,000 unit PO DAILY 07/17/18 [History Last Taken 07/23/21] coenzyme Q10 50 mg chewable tablet 200 mg PO DAILY SUPPLEMENT 07/17/18 [History Last Taken 07/23/21] echinacea 400 mg capsule 400 mg PO DAILY SUPPLEMENT 08/05/19 [History Last Taken 12/21/21] loratadine 10 mg tablet (Claritin) 10 mg PO QDAY PRN Allergies 08/05/19 [History Last Taken 07/23/21] nitroglycerin 0.3 mg sublingual tablet 0.3 mg sublingual Q5M PRN other 02/09/20 [History Last Taken Unknown] sildenafil 50 mg tablet 50 mg PO DAILY PRN other 05/19/20 [History Last Taken 12/15/21] simvastatin 40 mg tablet 40 mg PO DAILY #90 tabs 05/01/21 [Rx Last Taken 12/21/21] alfuzosin 10 mg tablet,extended release 24 hr 10 mg PO QDAY 05/15/21 [History Last Taken 12/21/21] losartan 25 mg tablet 25 mg PO DAILY #90 tabs 10/23/21 [Rx Last Taken 12/21/21] alprazolam 0.5 mg tablet 0.25 mg PO BID ANXIETY 11/15/21 [History Last Taken 12/21/21] metoprolol succinate 25 mg tablet,extended release 24 hr 25 mg PO DAILY #180 tabs 12/18/21 [Rx Last Taken 12/21/21] acetaminophen 325 mg tablet (Tylenol) 650 mg PO Q6H PRN PRN Pain Score 1-10/Temp > 100.7 F #0 tabs 12/23/21 [Rx Last Taken Unknown] flecainide 100 mg tablet 100 mg PO Q12H #180 tabs 01/09/22 [Rx Last Taken Unknown] Allergy/AdvReac Type Severity Reaction Status Date / Time animal dander Allergy Unknown Verified 01/13/22 10: grass pollen Allergy Unknown Verified 01/13/22 10:22 grass pollen-perennial rye, Allergy Unknown Verified 01/13/22 10:22 standar house dust Allergy Unknown Verified 01/13/22 10:22 levofloxacin [From Levaquin] Allergy Unknown Verified 01/13/22 10:22 dabigatran etexilate AdvReac Unknown Unknown Verified 01/13/22 10:22 [From Pradaxa] gabapentin [From Neurontin] AdvReac Other Verified 01/13/22 10:22 NSAIDS (Non-Steroidal AdvReac Other Verified 01/13/22 10:22 Anti-Inflamma pet dander Allergy Unknown Uncoded 01/13/22 10:22 Family History Mother Hypertension CAD (coronary artery disease) Father Hypertension Atrial fibrillation Presence of permanent cardiac pacemaker CVA (cerebral vascular accident) Surgical History Bilateral knee pain H/O cardiac radiofrequency ablation H/O detached retina repair H/O hemorrhoidectomy H/O shoulder surgery H/O sinus surgery H/O sinus surgery History of arthroscopy of knee History of cardiac radiofrequency ablation (RFA) History of cataract surgery History of detached retina repair History of hemorrhoidectomy History of left hip replacement (~03/2021) History of left knee replacement (~04/2021) History of umbilical hernia repair (~04/2018) right shoulder Status post laser ablation of incompetent vein vein Social History household members: spouse Smoking Status: Former smoker Smokeless tobacco user: snuff how long ago did patient quit smoking: Patient quit cigarette tobacco use 1980, smoked age [age], 1 ppd-->Snuff. alcohol intake: current alcohol intake frequency: a few times a week Alcohol type: beer substance use type: does not use caffeine: No ROS ROS ED Review of Systems ROS Unobtainable: other Constitutional Constitutional ED: Reports lethargy; Denies chills, fever(s), sweats or weight loss Eyes Eyes: Denies blurry vision, change in vision or diplopia ENT ENT ED: Denies rhinorrhea or sore throat Cardiovascular Cardiovascular: Reports chest pain and racing heartbeat; Denies orthopnea Respiratory/Chest Respiratory/Chest: Denies cough, dyspnea, dyspnea on exertion, orthopnea or sputum Gastrointestinal Gastrointestinal: Denies abdominal pain, diarrhea, nausea or vomiting Genitourinary Genitourinary ED: Denies dysuria, hematuria or urinary frequency Musculoskeletal Musculoskeletal: Denies arthralgias, back pain, myalgias or neck pain Integumentary Denies abscess, Abrasions or rash Neurologic Neurologic: Reports headache(s) and paresthesias; Denies weakness Psychiatric Psychiatric: Denies anxiety, depression or suicidal thoughts Endocrine Endocrinology: Denies polydipsia, polyphagia or polyuria Hematologic/Lymphatic Hematologic/Lymphatic: Denies easy bleeding, easy bruising or lymphadenopathy Allergic/Immunologic Allergic/Immunologic ED: Denies mouth swelling, tongue swelling or urticaria EXAM Physical Exam Const Vital Signs: 01/13/22 10:18 01/13/22 10:26 01/13/22 10:42 Temperature 97.4 F L Temperature Source Temporal Pulse Rate 57 L Respiratory Rate 22 H Respiratory Effort Normal Non-Labored Respiratory Pattern Normal Blood Pressure 159/78 H Blood Pressure Mean 105 Pulse Ox 98 98 Oxygen Delivery Method Room Air Room Air 01/13/22 11:15 01/13/22 12:00 01/13/22 13:30 Temperature Temperature Source Pulse Rate 56 L 59 L 65 Respiratory Rate 17 19 H 14 Respiratory Effort Respiratory Pattern Blood Pressure 136/69 H 123/56 H 132/68 H Blood Pressure Mean 91 78 89 Pulse Ox 99 99 94 Oxygen Delivery Method Room Air Room Air Room Air Positive well nourished and well developed General Appearance ED: well developed and NAD HEENT Reports TM's clear and moist mucous membranes normocephalic and atraumatic; Negative for trauma or tenderness Tympanic Membrane ED: Yes TM's clear Eyes PERRL and EOMs intact bilaterally General Eye ED: Negative for pale conjunctiva or scleral icterus Neck no lymphadenopathy, supple and no JVD General: Negative for tenderness Chest Wall inspection of chest normal and palpation of chest normal Chest: Negative for tenderness Resp normal respiratory effort and clear to auscultation bilaterally Effort and Inspection: Negative for respiratory distress or pain with movement Auscultation: Negative for rhonchi, wheezes or diminished lung sounds Cardio regular rhythm, S1 normal heart sound, S2 normal heart sound and no murmurs Rate: bradycardia and other Other Details: Occasional ectopy Peripheral Pulses: pulses 2+ throughout GI normal to inspection, nondistended, normoactive bowel sounds, soft to palpation, non-tender, non-distended and no masses Back/Spine no CVA tenderness and no thoracic nor lumbar tenderness Extremity normal to inspection General Extremety ED: Negative for edema General Extremity: Negative for edema Neuro oriented x3, CN's II-XII intact bilaterally, no sensory deficits noted and gait normal Neuro Narrative: Finger-nose and heel arcos testing within normal limits, negative Romberg, negative pronator drift, fundi benign. No focal weakness noted on exam. Sensorium / Orientation: awake, alert, oriented to person, oriented to place and oriented to time Motor Exam: strength 5/5 throughout and strength abnormal Psych mental status grossly normal Skin no rashes or lesions noted and no wounds MDM MDM MDM Narrative Medical decision making narrative: Line established. Patient placed on secured entrance monitor. Lab work-up was normal including delta troponin. Patient was given Ativan 1 mg IV. I do suspect a large component of anxiety. At this point given that he is describes some racing heart especially in the morning and some palpitations will go ahead and place him on a 48-hour Holter monitor. 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 At this point I feel he is low risk for acute coronary syndrome. Lab Data Attestation: I reviewed the patient's lab results. Labs: Laboratory Results - last 24 hr 01/13/22 01/13/22 01/13/22 10:45 10:45 13:20 WBC 6.9 RBC 4.54 L Hgb 14.1 Hct 42.2 MCV 93.0 MCH 31.1 MCHC 33.4 RDW Std Deviation 44.9 H RDW Coeff of Alesha 13.2 Plt Count 164 MPV 11.0 Immature Gran % (Auto) 0.400 Neut % (Auto) 65.3 Lymph % (Auto) 22.3 [place] % (Auto) 7.9 Eos % (Auto) 3.5 Baso % (Auto) 0.6 Absolute Neuts (auto) 4.5 Absolute Lymphs (auto) 1.53 Nucleated RBC % 0 Sodium 140 Potassium 4.9 Chloride 107 Carbon Dioxide 27.0 Anion Gap 6 BUN 26 H Creatinine 1.47 H Estim Creat Clear Calc 46.21 Est GFR (MDRD) Af Amer 60 Est GFR (MDRD) Non-Af 50 L BUN/Creatinine Ratio 17.7 Glucose 85 Calcium 9.4 Troponin I High Sens 9 7 Radiography Chest X-Ray - ED: 1 View Diagnostic Testing: Clinical Impression(s) from Imaging Studies Chest X-Ray 01/13/22 11:00 IMPRESSION: No acute cardiopulmonary abnormality. No interval change. Electronically Signed: Deandre Gan MD at 11:14 EDT Reading Location ID and State: [address] [place] [address] Tel , Service support , 1 view chest x-ray obtained interpreted by myself as no acute disease process. EKG Initial EKG: Attestation: I personally reviewed and interpreted this EKG as follows: Comments: Sinus bradycardia with a rate of 57 bpm with frequent PACs and first-degree AV block Prior EKG tracings: available for review Prior: Unchanged Discharge Plan Triage Chief Complaint: Chest Pain ED Provider: Chelsea Coombs Dx/Rx/DC Orders Clinical Impression: Palpitations, Chest pain, Anxiety Instructions: ED Anxiety Reaction, ED Chest Pain, Uncertain Cause, ED Palpitations Prescriptions: No Action saw palmetto 500 mg capsule 500 mg PO QDAY echinacea 400 mg capsule 400 mg PO DAILY loratadine [Claritin] 10 mg tablet 10 mg PO QDAY PRN (Reason: Allergies) alfuzosin 10 mg tablet extended release 24 hr 10 mg PO QDAY cholecalciferol (vitamin D3) 1,000 unit capsule 1,000 unit capsule 1,000 unit PO DAILY nitroglycerin 0.3 mg tablet, sublingual 0.3 mg sublingual Q5M PRN (Reason: other) Rx Instructions: do not exceed 3 doses per episode aspirin 81 MG tablet 81 mg PO DAILY@0800 Label Comments: WAS TOLD TO ASK ABOUT STOPPING magnesium oxide 400 MG tablet 400 mg PO BID fluticasone propionate 1 SPRAY spray,suspension 1 spray NASAL BID multivitamin with folic acid 1 TABLET tablet 1 tab PO DAILY lansoprazole 30 MG capsule 30 mg PO QDAY coenzyme Q10 50 mg tablet,chewable 200 mg PO DAILY alprazolam 0.5 mg tablet 0.25 mg PO BID acetaminophen [Tylenol] 325 mg Tablet 650 mg PO Q6H PRN PRN (Reason: Pain Score 1-10/Temp > 100.7 F) Qty: 0 0RF sildenafil 50 mg tablet 50 mg PO DAILY PRN (Reason: other) Rx Instructions: administer 30 minutes to 4 hours before activity simvastatin 40 mg tablet 40 mg PO DAILY Qty: 90 4RF losartan 25 mg tablet 25 mg PO DAILY Qty: 90 3RF metoprolol succinate 25 mg tablet extended release 24 hr 25 mg PO DAILY Qty: 180 3RF flecainide 100 mg tablet 100 mg PO Q12H Qty: 180 3RF Primary Care Provider: Steven Retana Referrals: Jamarcus Anderson MD [Med Staff - Active Staff] - 3-5 Days Steven Retana MD [Primary Care Provider] - Disposition Disposition: Home, Self Care
--- NOTE | 2022-01-13 11:00 | RAD_ITS ---
EXAM: XR CHEST, 1 VIEW CLINICAL INDICATION: chest pain TECHNIQUE: Frontal view of the chest. This report was created using [employer] report generation technology. COMPARISON: XR Chest dated 12/22/2021 FINDINGS: LUNGS AND PLEURAL SPACES: Normal. No consolidation or edema. No pneumothorax. No effusion. HEART: Normal heart size. MEDIASTINUM: No mediastinal or hilar mass. BONES/JOINTS: No acute abnormality. SOFT TISSUES: Normal. RAD/Chest 1 View (Portable) IMPRESSION: No acute cardiopulmonary abnormality. No interval change. Electronically Signed: Deandre Gan MD at 11:14 EDT ,
[2022-01-13] MEDS: 0.9% Normal Saline 1,000 ML 150 ML IV (11:02)
[2022-01-13 11:12] LABS: Absolute Lymphocyte Count 1.53 X10^3/uL (0.83-4.51); Absolute Neutrophil Count 4.5 X10^3/uL (2.0-7.7); Basophil# 0.04 X10^3/uL; Basophil% 0.6 % (0-1); Eosinophil# 0.24 X10^3/uL; Eosinophils% 3.5 % (0-5); Hematocrit 42.2 % (40-54); Hemoglobin 14.1 g/dL (13.0-16.5); Lymphocyte # 1.53 X10^3/ul (0.83-4.51); Lymphocyte % 22.3 % (19-41); Mean Corp Hgb Conc 33.4 g/dL (32-36); Mean Corpuscular Hgb 31.1 pg (27.0-32.0); Monocyte# 0.54 X10^3/uL; Monocyte% 7.9 % (0-10); NRBC Flagged by Analyzer 0 % (0-5); Neutrophil # 4.49 X10^3/uL (2.7-7.7); Neutrophil % 65.3 % (47-70); Platelet Count 164 K/mm3 (150-450); RBC Distribution Width CV 13.2 % (11.6-14.6); RBC Distribution Width SD 44.9 fl (35.1-43.9); Red Blood Count 4.54 M/mm3 (4.6-6.2); White Blood Count 6.9 K/mm3 (4.4-11.0)
[2022-01-13 11:15] VITALS: BP 136/69; PULSE 56; RESP 17; O2SAT 99
[2022-01-13 11:29] LABS: Anion Gap 6 (5-15); BUN 26 mg/dL (7-18); BUN/Creat Ratio 17.7 RATIO (10-20); Calcium,Total 9.4 mg/dL (8.5-10.1); Chloride 107 mmol/L (98-107); Creatinine, Serum 1.47 mg/dL (0.70-1.30); EST Glomerular Filtration Rate 50 mL/min (>60); Est Glom Filt Rate - Afr Amer 60 mL/min (>60); Estimated Creatinine Clearance 46.21 ml/min; Glucose 85 mg/dL (74-106); Potassium 4.9 mmol/L (3.5-5.1); Sodium Level 140 mmol/L (136-145)
[2022-01-13 12:00] VITALS: BP 123/56; PULSE 59; RESP 19; O2SAT 99
--- NOTE | 2022-01-13 12:18 | ED.RN ---
Patient updated on issues with Troponin machine in lab, continues to state multiple complaints that are same as on admission to ER. Dr. Richardson aware, meal given along with water.
[2022-01-13] MEDS: LORazepam 2 MG/ML Syringe 1 MG IV (12:26)
[2022-01-13 13:23] LABS: Troponin-I HS (w/2H Reflex) 9 pg/mL (3.0-78.0)
[2022-01-13 13:24] LABS: Reflex Troponin-HS? (from REC) Y
[2022-01-13 13:30] VITALS: BP 132/68; PULSE 65; RESP 14; O2SAT 94
[2022-01-13 13:45] LABS: Troponin-I HS 7 pg/mL (3.0-78.0)
== END 2022-01-13 14:52 | disposition home or self-care (01) ==
PROVIDERS: Emergency Provider Emergency Medicine; PCP Family Medicine; Visit Provider Emergency Medicine
DX: R00.2 Palpitations (principal); J44.9 Chronic obstructive pulmonary disease, unspecified; R07.9 Chest pain, unspecified; F41.9 Anxiety disorder, unspecified; R20.2 Paresthesia of skin; R51.9 Headache, unspecified; I10 Essential (primary) hypertension; E78.5 Hyperlipidemia, unspecified; I25.10 Atherosclerotic heart disease of native coronary artery without angina pectoris; G47.33 Obstructive sleep apnea (adult) (pediatric); M17.12 Unilateral primary osteoarthritis, left knee; Z79.82 Long term (current) use of aspirin; Z79.899 Other long term (current) drug therapy; Z87.891 Personal history of nicotine dependence; Z85.46 Personal history of malignant neoplasm of prostate; Z96.642 Presence of left artificial hip joint; Z96.652 Presence of left artificial knee joint
CPT/HCPCS: 71045; 80048; 84484; 85025; 93005; 93225; 93226; 96361; 96372; 96374; 99285; J7030

== ENCOUNTER → 2022-01-13 | Outpatient (CLI) | payer MEDICARE, SELFPAY ==
[2020-06-13 13:42] VITALS: BMI 33.3
== END | disposition home or self-care (01) ==
LOC: CVS 14:26
PROVIDERS: PCP Family Medicine; Referring Provider Internal Medicine Cardiovascular Disease; Visit Provider Emergency Medicine
DX: R07.9 Chest pain, unspecified (principal)
CPT/HCPCS: 93225; 93226

== ENCOUNTER 2022-02-01 00:42 | Emergency (ER) | payer MEDICARE, SELFPAY ==
[2020-06-13 13:42] VITALS: BMI 33.3
[2022-02-01 00:44] VITALS: BP 123/102; PULSE 50; RESP 18; TEMP 36.4; O2SAT 98; BMI 34.2
--- NOTE | 2022-02-01 01:57 | CT_ITS ---
INDICATION: NECK PAIN EXAMINATION: CT CERVICAL SPINE - CT Spine Cervical W/O Contrast Injection TECHNIQUE: Helically acquired images were obtained of the cervical spine. 2D reformatted images were reviewed. A radiation dose optimization technique was used for this scan. COMPARISON: CT C-spine 12/13/2019 FINDINGS: ALIGNMENT: Normal. VERTEBRAL BODIES: No fracture or acute abnormality. DISC SPACES: Multilevel degenerative changes throughout the visualized spine continuing to moderate to severe spinal canal and neural foraminal narrowing, similar compared to the prior. POSTERIOR ELEMENTS: Normal. SPINAL CANAL: Normal. PARASPINAL SOFT TISSUES: Normal. LUNG APICES: Visualized portions normal. OTHER: None. CT/Spine Cervical without Contras IMPRESSION: No acute fracture or subluxation. Multilevel degenerative changes, similar to the prior. Electronically Signed: Andres Garza MD at 2:33 EDT ,
[2022-02-01 02:55] LABS: Bedside Glucose 105 mg/dL (74-106)
[2022-02-01 03:58] VITALS: BMI 34.2
--- NOTE | 2022-02-01 03:58 | ED.RN ---
SEE DOWN TIME CHARTING FROM [id number]
[2022-02-01 03:59] VITALS: BP 159/81; PULSE 65; RESP 16; O2SAT 96
--- NOTE | 2022-02-01 08:21 | EX.ED.DYSGE1 ---
HPI History of Present Illness Chief Complaint: Neuro S/Sx Detail of Chief Complaint: neck pain, numb/ting/weak Informant: patient Narrative Narrative: Patient presenting during [employer] for neck pain that has been there for 1 month. He states he had a fall with head injury 1 or 2 weeks prior to the onset of the neck pain which started gradually subsequently. Tonight he presents because he was icing his neck and he got off of the couch and suddenly had tingling in both hands and both feet as well as some weakness in his arms and legs. Still able to walk but felt different. No bowel or bladder dysfunction. Pain often radiates down his spine as it did this morning. No vision trouble or shortness of breath. No falls or injuries. [facility] Medical History Abdominal pain Anxiety Arthritis Atherosclerotic heart disease of [place] coronary artery without angina pectoris Atrial fibrillation bilaterl vein ablation ble BiPAP (biphasic positive airway pressure) dependence Cancer Cellulitis of left lower extremity COPD (chronic obstructive pulmonary disease) Costochondritis Degenerative disc disease, lumbar Essential hypertension Fatigue Former smoker GERD (gastroesophageal reflux disease) Hemorrhoids History of essential hypertension History of prostate cancer Hx of hypercholesterolemia Hyperlipidemia Hypertension Knee pain Long-term use of high-risk medication Lumbar radiculopathy, right YENNI (obstructive sleep apnea) Osteoarthritis of left knee Paroxysmal atrial fibrillation Premature atrial contractions Premature ventricular contraction repair right achilles tendon Segmental and somatic dysfunction of cervical region Segmental and somatic dysfunction of lumbar region Segmental and somatic dysfunction of thoracic region Umbilical hernia without obstruction and without gangrene Home Medications aspirin 81 mg tablet,delayed release 81 mg PO DAILY@0800 HEART HEALTH 05/18/13 [History Last Taken 12/21/21] fluticasone propionate 50 mcg/actuation nasal spray,suspension 1 spray NASAL BID ALLERGIES 05/18/13 [History Last Taken 12/21/21] magnesium oxide 400 mg (241.3 mg magnesium) tablet 400 mg PO BID SUPPLEMENT/HEART 05/18/13 [History Last Taken 12/21/21] multivitamin with folic acid 400 mcg tablet 1 tab PO DAILY SUPPLEMENT 05/18/13 [History Last Taken 07/23/21] lansoprazole 30 mg capsule,delayed release 30 mg PO QDAY GERD 06/10/17 [History Last Taken 12/21/21] saw palmetto 500 mg capsule 500 mg PO QDAY SUPPLEMENT 08/29/17 [History Last Taken 07/23/21] cholecalciferol (vitamin D3) 25 mcg (1,000 unit) capsule 1,000 unit PO DAILY 07/17/18 [History Last Taken 07/23/21] coenzyme Q10 50 mg chewable tablet 200 mg PO DAILY SUPPLEMENT 07/17/18 [History Last Taken 07/23/21] echinacea 400 mg capsule 400 mg PO DAILY SUPPLEMENT 08/05/19 [History Last Taken 12/21/21] loratadine 10 mg tablet (Claritin) 10 mg PO QDAY PRN Allergies 08/05/19 [History Last Taken 07/23/21] nitroglycerin 0.3 mg sublingual tablet 0.3 mg sublingual Q5M PRN other 02/09/20 [History Last Taken Unknown] simvastatin 40 mg tablet 40 mg PO DAILY #90 tabs 05/01/21 [Rx Last Taken 12/21/21] alfuzosin 10 mg tablet,extended release 24 hr 10 mg PO QDAY 05/15/21 [History Last Taken 12/21/21] losartan 25 mg tablet 25 mg PO DAILY #90 tabs 10/23/21 [Rx Last Taken 12/21/21] metoprolol succinate 25 mg tablet,extended release 24 hr 25 mg PO DAILY #180 tabs 12/18/21 [Rx Last Taken 12/21/21] acetaminophen 325 mg tablet (Tylenol) 650 mg PO Q6H PRN PRN Pain Score 1-10/Temp > 100.7 F #0 tabs 12/23/21 [Rx Last Taken Unknown] flecainide 100 mg tablet 100 mg PO Q12H #180 tabs 01/09/22 [Rx Last Taken Unknown] alprazolam 0.5 mg tablet 0.25 mg PO TID ANXIETY 01/16/22 [History Last Taken Unknown] sertraline 50 mg tablet 50 mg PO DAILY 01/16/22 [History Last Taken Unknown] sildenafil 100 mg tablet 100 mg PO ONCE PRN DOESN'T KNOW 01/22/22 [History Last Taken Unknown] Allergy/AdvReac Type Severity Reaction Status Date / Time animal dander Allergy Unknown Verified 02/01/22 08:01 grass pollen Allergy Unknown Verified 02/01/22 08:01 grass pollen-perennial rye, Allergy Unknown Verified 02/01/22 08:01 standar house dust Allergy Unknown Verified 02/01/22 08:01 levofloxacin [From Levaquin] Allergy Unknown Verified 02/01/22 08:01 dabigatran etexilate AdvReac Unknown Unknown Verified 02/01/22 08:01 [From Pradaxa] gabapentin [From Neurontin] AdvReac Other Verified 02/01/22 08:01 NSAIDS (Non-Steroidal AdvReac Other Verified 02/01/22 08:01 Anti-Inflamma Family History (Reviewed 01/22/22 @ 14:18 by Christal Echavarria ASSISTANT ATHLETIC TRAINER, ASSISTANT ATHLETIC TRAINER-C) Mother Hypertension CAD (coronary artery disease) Father Hypertension Atrial fibrillation Presence of permanent cardiac pacemaker CVA (cerebral vascular accident) Surgical History Bilateral knee pain H/O cardiac radiofrequency ablation H/O detached retina repair H/O hemorrhoidectomy H/O shoulder surgery H/O sinus surgery H/O sinus surgery History of arthroscopy of knee History of cardiac radiofrequency ablation (RFA) History of cataract surgery History of detached retina repair History of hemorrhoidectomy History of left hip replacement (~03/2021) History of left knee replacement (~04/2021) History of umbilical hernia repair (~04/2018) right shoulder Status post laser ablation of incompetent vein vein Social History household members: spouse Smoking Status: Former smoker Smokeless tobacco user: snuff how long ago did patient quit smoking: Patient quit cigarette tobacco use 1980, smoked age [age], 1 ppd-->Snuff. alcohol intake: current alcohol intake frequency: a few times a week Alcohol type: beer substance use type: does not use caffeine: No ROS ROS ED Constitutional Constitutional ED: Denies chills or fever(s) Eyes Eyes: Denies change in vision or diplopia ENT ENT ED: Denies rhinorrhea or sore throat Cardiovascular Cardiovascular: Denies chest pain or palpitations Respiratory/Chest Respiratory/Chest: Denies cough or dyspnea Gastrointestinal Gastrointestinal: Denies abdominal pain, diarrhea, nausea or vomiting Genitourinary Genitourinary ED: Denies dysuria or hematuria Musculoskeletal Musculoskeletal: Reports as per HPI, back pain and neck pain; Denies extremity pain Integumentary Denies abscess or rash Neurologic Neurologic: Reports as per HPI, paresthesias RUE, RLE, LUE and LLE and weakness; Denies headache(s) Psychiatric Psychiatric: Denies anxiety or suicidal thoughts EXAM Physical Exam Const Vital Signs: 02/01/22 00:44 02/01/22 03:59 Temperature 97.6 F L Temperature Source Oral Pulse Rate 50 L 65 Respiratory Rate 18 16 Blood Pressure 123/102 H 159/81 H Blood Pressure Mean 109 Pulse Ox 98 96 Oxygen Delivery Method Room Air Positive well nourished and well developed General Appearance ED: well developed and NAD HEENT Reports moist mucous membranes normocephalic and atraumatic Eyes PERRL and EOMs intact bilaterally Neck full ROM and supple Neck Narrative: Painful range of motion bilaterally, no tenderness, no bony step-off. No rash. Resp normal respiratory effort and clear to auscultation bilaterally Cardio regular rate, regular rhythm and no murmurs GI non-tender and non-distended Auscultation: normoactive bowel sounds Palpation: soft Back/Spine no CVA tenderness General Back: other FROM Extremity normal to inspection General Extremety ED: Negative for edema, pulses abnormal or tenderness General Extremity: Negative for edema or pulses abnormal Neuro oriented x3 and CN's II-XII intact bilaterally Neuro Narrative: Strength is normal and symmetric. Patient has subjective decrease sensation but grossly intact throughout all 4 extremities. In the arms it is more the ulnar half of both hands, fingers 2-5, and the posterior aspect of his arm and forearm bilaterally. In his legs it is more the feet stocking glove distribution and some of the distal leg, symmetric bilaterally. Normal pulses. Normal reflexes. Downgoing toes no clonus. Able to stand and walk without difficulty. Sensorium / Orientation: awake and alert Motor Exam: strength 5/5 throughout Psych Mood & Affect: anxious Skin no rashes or lesions noted and no wounds MDM MDM MDM Narrative Medical decision making narrative: CT of the cervical spine was performed, there are multilevel degenerative changes seen, involving moderate to severe canal and neuroforaminal stenoses at multiple levels. However, patient had a CT 1 or 2 months ago, and there are no significant changes. Given that is the case and he has neurologic symptoms now whereas he did not before, I discussed with Dr. Santana on for spine surgery, given that the patient is grossly/objectively neurologically intact, there is no indication for stat MR imaging here or admission to the hospital, patient can follow-up as an outpatient, certainly urgent outpatient MR is indicated, he was given a [place] here for his pain and a prescription for more [place], he said it helped here, and I answered all questions at the bedside. He wanted to know if he could go to the gym and exercise, I advised him against it until he follows up. Lab Data Attestation: I reviewed the patient's lab results. Labs: Laboratory Results - last 24 hr 02/01/22 01:02 POC Glucose 105 Radiography Diagnostic Testing: Clinical Impression(s) from Imaging Studies Cervical Spine CT 02/01/22 01:57 IMPRESSION: No acute fracture or subluxation. Multilevel degenerative changes, similar to the prior. Electronically Signed: Andres Garza MD at 2:33 EDT , Rhythm Strip Rhythm Strip: Sinus Rhythm Rate: 55 Ectopy: None EKG Initial EKG: Attestation: I personally reviewed and interpreted this EKG as follows: Interpretation: Sinus Rhythm and No Acute Injury Pattern Comments: pac Discharge Plan Triage Chief Complaint: Neuro S/Sx Other Complaint: Other, Pain/Inj ED Provider: Andres Goyal Dx/Rx/DC Orders Clinical Impression: Cervical spinal stenosis Prescriptions: No Action saw palmetto 500 mg capsule 500 mg PO QDAY echinacea 400 mg capsule 400 mg PO DAILY loratadine [Claritin] 10 mg tablet 10 mg PO QDAY PRN (Reason: Allergies) alfuzosin 10 mg tablet extended release 24 hr 10 mg PO QDAY cholecalciferol (vitamin D3) 1,000 unit capsule 1,000 unit capsule 1,000 unit PO DAILY nitroglycerin 0.3 mg tablet, sublingual 0.3 mg sublingual Q5M PRN (Reason: other) Rx Instructions: do not exceed 3 doses per episode sildenafil 100 mg tablet 100 mg PO ONCE PRN (Reason: DOESN'T KNOW) Label Comments: TAKE 1 TABLET 1 HOUR PRIOR TO INTERCOURSE aspirin 81 MG tablet 81 mg PO DAILY@0800 Label Comments: WAS TOLD TO ASK ABOUT STOPPING magnesium oxide 400 MG tablet 400 mg PO BID fluticasone propionate 1 SPRAY spray,suspension 1 spray NASAL BID multivitamin with folic acid 1 TABLET tablet 1 tab PO DAILY lansoprazole 30 MG capsule 30 mg PO QDAY coenzyme Q10 50 mg tablet,chewable 200 mg PO DAILY acetaminophen [Tylenol] 325 mg Tablet 650 mg PO Q6H PRN PRN (Reason: Pain Score 1-10/Temp > 100.7 F) Qty: 0 0RF simvastatin 40 mg tablet 40 mg PO DAILY Qty: 90 4RF losartan 25 mg tablet 25 mg PO DAILY Qty: 90 3RF metoprolol succinate 25 mg tablet extended release 24 hr 25 mg PO DAILY Qty: 180 3RF flecainide 100 mg tablet 100 mg PO Q12H Qty: 180 3RF alprazolam 0.5 mg tablet 0.25 mg PO TID sertraline 50 mg tablet 50 mg PO DAILY Rx Instructions: 25 mg x 1 week, then 50 mg daily Primary Care Provider: Steven Retana Referrals: Steven Retana MD [Primary Care Provider] - Daniel Santana DO [Med Staff - Active Staff] - As soon as possible (Call for appointment) Activity Restrictions/Additional Instructions: (Patient seen during downtime and given appropriate preprinted instructions and a written prescription for [place] #[id number]) Disposition Disposition: Home, Self Care Discharge Date/Time: 02/01/22 03:40
== END 2022-02-01 03:40 | disposition home or self-care (01) ==
PROVIDERS: Emergency Provider Emergency Medicine; PCP Family Medicine; Visit Provider Emergency Medicine
DX: M48.02 Spinal stenosis, cervical region (principal); J44.9 Chronic obstructive pulmonary disease, unspecified; I25.10 Atherosclerotic heart disease of native coronary artery without angina pectoris; I10 Essential (primary) hypertension; E78.00 Pure hypercholesterolemia, unspecified; F41.9 Anxiety disorder, unspecified; M19.90 Unspecified osteoarthritis, unspecified site; K21.9 Gastro-esophageal reflux disease without esophagitis; G47.33 Obstructive sleep apnea (adult) (pediatric); Z79.82 Long term (current) use of aspirin; Z85.46 Personal history of malignant neoplasm of prostate; Z87.891 Personal history of nicotine dependence; Z96.642 Presence of left artificial hip joint; Z96.652 Presence of left artificial knee joint
CPT/HCPCS: 72125; 82962

== ENCOUNTER 2022-02-01 07:54 | Emergency (ER) | payer MEDICARE, SELFPAY ==
[2020-06-13 13:42] VITALS: BMI 33.3
[2022-02-01 07:55] VITALS: BP 173/76; PULSE 58; RESP 16; TEMP 36.1; O2SAT 100; BMI 33.7
--- NOTE | 2022-02-01 09:11 | MRI_ITS ---
STUDY: MRI CERVICAL SPINE WITHOUT CONTRAST REASON FOR EXAM: Male, 71 years old. Pain numbness tingling and weakness TECHNIQUE: Standardized fat and water weighted pulse sequences were obtained in the sagittal and axial planes. COMPARISON: CT 02/01/2022 FINDINGS: Normal foramen magnum and brainstem-cervical cord junction. Normal craniovertebral junction. Normal anterior atlantoaxial articulation. Normal odontoid process. Normal cervical lordosis. Normal vertebral bodies and posterior osseous elements. C2-3: Normal endplates. Normal disc height, signal and morphology. Normal central canal and intervertebral neural foramina. C3-4: Moderate bilobed disc osteophyte complex produces moderate spinal stenosis with abutment of the central spinal cord and moderate bilateral neural foraminal stenosis. C4-5: Moderate broad disc osteophyte complex bases moderate spinal stenosis with abutment of the central spinal cord and moderate bilateral neural foraminal stenosis. C5-6: Moderate bilobed disc osteophyte complex produces moderate spinal stenosis with abutment of the central spinal cord and mild bilateral neural foraminal stenosis. C6-7: Mild broad disc osteophyte complex. These mild spinal stenosis. No neural foraminal stenosis. C7-T1: Normal endplates. Normal disc height, signal and morphology. Normal central canal and intervertebral neural foramina. Normal cervical cord. Normal visualized soft tissue structures. MRI/Spine Cervical (Routine) IMPRESSION: Multilevel degenerative changes, as described above. Electronically Signed: Trenton Sales MD at 15:40 EDT ,
--- NOTE | 2022-02-01 09:14 | EDS_ITS ---
HPI History of Present Illness Chief Complaint: Other, Pain/Inj Informant: patient and spouse/S.O. Narrative Narrative: Patient Raymond presents with neck pain numbness tingling and weakness. He was seen here last night. I reviewed that report. I talked with the patient and his . He went home. He finally got comfortable and went to sleep for about 2 hours. He woke up and he states he had tingling of his face and hands. He may have had numbness or tingling or weakness of his legs but he is not sure. However, when the ambulance showed up and he tried to walk he felt a little weaker on his legs. He was able to walk but he felt different. No bowel or bladder dysfunction. He also stated that he felt like he was having trouble getting a full breath. He does have a history of panic attacks. He states this could be a panic attack but he had a lot of neck pain with it to. Patient has a history of spinal stenosis. He hit his head about a month and a half ago. His head is no longer hurting but the neck is gotten progressively worse. He states the pain goes from the base of his neck but will shoot down his whole spine. But he is not having primary lower thoracic pain. He also was admitted recently for issues related to this, hitting his head and some chest symptoms and had stress test that was also negative. Patient has increased Xanax from twice a day to 3 times a day and added half of a sertraline tablet a day to try to control the anxiety. [facility] Medical History Abdominal pain Anxiety Arthritis Atherosclerotic heart disease of [place] coronary artery without angina pectoris Atrial fibrillation bilaterl vein ablation ble BiPAP (biphasic positive airway pressure) dependence Cancer Cellulitis of left lower extremity COPD (chronic obstructive pulmonary disease) Costochondritis Degenerative disc disease, lumbar Essential hypertension Fatigue Former smoker GERD (gastroesophageal reflux disease) Hemorrhoids History of essential hypertension History of prostate cancer Hx of hypercholesterolemia Hyperlipidemia Hypertension Knee pain Long-term use of high-risk medication Lumbar radiculopathy, right YENNI (obstructive sleep apnea) Osteoarthritis of left knee Paroxysmal atrial fibrillation Premature atrial contractions Premature ventricular contraction repair right achilles tendon Segmental and somatic dysfunction of cervical region Segmental and somatic dysfunction of lumbar region Segmental and somatic dysfunction of thoracic region Umbilical hernia without obstruction and without gangrene Home Medications aspirin 81 mg tablet,delayed release 81 mg PO DAILY@0800 HEART HEALTH 05/18/13 [History Last Taken 12/21/21] fluticasone propionate 50 mcg/actuation nasal spray,suspension 1 spray NASAL BID ALLERGIES 05/18/13 [History Last Taken 12/21/21] magnesium oxide 400 mg (241.3 mg magnesium) tablet 400 mg PO BID SUPPLEMENT/HEART 05/18/13 [History Last Taken 12/21/21] multivitamin with folic acid 400 mcg tablet 1 tab PO DAILY SUPPLEMENT 05/18/13 [History Last Taken 07/23/21] lansoprazole 30 mg capsule,delayed release 30 mg PO QDAY GERD 06/10/17 [History Last Taken 12/21/21] saw palmetto 500 mg capsule 500 mg PO QDAY SUPPLEMENT 08/29/17 [History Last Taken 07/23/21] cholecalciferol (vitamin D3) 25 mcg (1,000 unit) capsule 1,000 unit PO DAILY 07/17/18 [History Last Taken 07/23/21] coenzyme Q10 50 mg chewable tablet 200 mg PO DAILY SUPPLEMENT 07/17/18 [History Last Taken 07/23/21] echinacea 400 mg capsule 400 mg PO DAILY SUPPLEMENT 08/05/19 [History Last Taken 12/21/21] loratadine 10 mg tablet (Claritin) 10 mg PO QDAY PRN Allergies 08/05/19 [History Last Taken 07/23/21] nitroglycerin 0.3 mg sublingual tablet 0.3 mg sublingual Q5M PRN other 02/09/20 [History Last Taken Unknown] simvastatin 40 mg tablet 40 mg PO DAILY #90 tabs 05/01/21 [Rx Last Taken 12/21/21] alfuzosin 10 mg tablet,extended release 24 hr 10 mg PO QDAY 05/15/21 [History Last Taken 12/21/21] losartan 25 mg tablet 25 mg PO DAILY #90 tabs 10/23/21 [Rx Last Taken 12/21/21] metoprolol succinate 25 mg tablet,extended release 24 hr 25 mg PO DAILY #180 tabs 12/18/21 [Rx Last Taken 12/21/21] acetaminophen 325 mg tablet (Tylenol) 650 mg PO Q6H PRN PRN Pain Score 1-10/Temp > 100.7 F #0 tabs 12/23/21 [Rx Last Taken Unknown] flecainide 100 mg tablet 100 mg PO Q12H #180 tabs 01/09/22 [Rx Last Taken Unknown] alprazolam 0.5 mg tablet 0.25 mg PO TID ANXIETY 01/16/22 [History Last Taken Unknown] sertraline 50 mg tablet 50 mg PO DAILY 01/16/22 [History Last Taken Unknown] sildenafil 100 mg tablet 100 mg PO ONCE PRN DOESN'T KNOW 01/22/22 [History Last Taken Unknown] prednisone 20 mg tablet 40 mg PO DAILY #10 tabs 02/01/22 [Rx Last Taken Unknown] Allergy/AdvReac Type Severity Reaction Status Date / Time animal dander Allergy Unknown Verified 02/01/22 08:01 grass pollen Allergy Unknown Verified 02/01/22 08:01 grass pollen-perennial rye, Allergy Unknown Verified 02/01/22 08:01 standar house dust Allergy Unknown Verified 02/01/22 08:01 levofloxacin [From Levaquin] Allergy Unknown Verified 02/01/22 08:01 dabigatran etexilate AdvReac Unknown Unknown Verified 02/01/22 08:01 [From Pradaxa] gabapentin [From Neurontin] AdvReac Other Verified 02/01/22 08:01 NSAIDS (Non-Steroidal AdvReac Other Verified 02/01/22 08:01 Anti-Inflamma Family History Mother Hypertension CAD (coronary artery disease) Father Hypertension Atrial fibrillation Presence of permanent cardiac pacemaker CVA (cerebral vascular accident) Surgical History Bilateral knee pain H/O cardiac radiofrequency ablation H/O detached retina repair H/O hemorrhoidectomy H/O shoulder surgery H/O sinus surgery H/O sinus surgery History of arthroscopy of knee History of cardiac radiofrequency ablation (RFA) History of cataract surgery History of detached retina repair History of hemorrhoidectomy History of left hip replacement (~03/2021) History of left knee replacement (~04/2021) History of umbilical hernia repair (~04/2018) right shoulder Status post laser ablation of incompetent vein vein Social History household members: spouse Smoking Status: Former smoker Smokeless tobacco user: snuff how long ago did patient quit smoking: Patient quit cigarette tobacco use 1980, smoked age [age], 1 ppd-->Snuff. alcohol intake: current alcohol intake frequency: a few times a week Alcohol type: beer substance use type: does not use caffeine: No ROS ROS ED Constitutional Constitutional ED: Denies fever(s) or sweats Eyes Eyes: Denies blurry vision, change in vision or diplopia ENT ENT ED: Denies rhinorrhea Cardiovascular Cardiovascular: Denies chest pain or palpitations Respiratory/Chest Respiratory/Chest: Reports other Details: Patient states he did not really have chest pain or dyspnea. He just felt as though it was hard to take a deep breath or he had to gasp. ; Denies cough or dyspnea Gastrointestinal Gastrointestinal: Denies nausea or vomiting Genitourinary Genitourinary ED: Reports other Details: No incontinence or difficulty with urination. Musculoskeletal Musculoskeletal: Reports back pain and neck pain Integumentary Denies rash Neurologic Neurologic: Reports paresthesias and weakness; Denies headache(s) Endocrine Endocrinology: Denies polydipsia or polyuria Hematologic/Lymphatic Hematologic/Lymphatic: Denies easy bleeding or easy bruising Allergic/Immunologic Allergic/Immunologic ED: Denies urticaria EXAM Physical Exam Const Vital Signs: 02/01/22 07:55 02/01/22 07:59 02/01/22 11:02 Temperature 96.9 F L Temperature Source Temporal Pulse Rate 58 L 62 Respiratory Rate 16 18 Respiratory Effort Normal Non-Labored Respiratory Pattern Normal Blood Pressure 173/76 H 152/61 H Blood Pressure Mean 108 91 Pulse Ox 100 95 Oxygen Delivery Method Room Air Room Air Positive well nourished and well developed General Appearance ED: well developed and NAD HEENT Reports moist mucous membranes Eyes PERRL and EOMs intact bilaterally Neck no JVD Neck Narrative: Most of the patient's neck is toward the base. Is not really reproducible with palpation. Turning and moving does hurt. But that does not reproduce his paresthesias. I did not put it through extreme ranges of motion because of his symptomatology. Of note, he has no recent injury. Chest Wall inspection of chest normal Resp normal respiratory effort and clear to auscultation bilaterally Auscultation: Negative for rales, rhonchi or wheezes Cardio regular rate and regular rhythm Back/Spine no CVA tenderness Extremity normal to inspection Extremity Narrative: Normal peripheral pulses General Extremety ED: Negative for tenderness Neuro Neuro Narrative: I did not walk the patient at this time due to needing assistance for safety. But he can push on his toes and pull up well. He seems to have good quad strength. Sensation reflexes are intact. Reservations Specialist strength bicep tricep are all full normal and strong. I am not getting any neurologic deficit. Sensorium / Orientation: alert Psych mental status grossly normal Skin no rashes or lesions noted MDM MDM MDM Narrative Medical decision making narrative: MRI shows some stenosis but no significant cord compression. Blood work including troponin and CBC are normal. Electrolytes show baseline renal dysfunction with a creatinine of 1.55 This patient had an episode where he woke up breathing quickly with paresthesias of his hands and face. He was not sure if he had them of his legs. This could be spinal stenosis causing some of the paresthesias of the hands but this also could have been another panic attack that caused all his symptoms. With his repeat visit and symptoms we did do MRI that not showing any process that needs acute admission or surgical intervention. He has follow-up with Dr. Santana organized already. He has prescription for [place] which has not yet been filled because of the timing. I talked with him and his about prednisone. He has been on prednisone before and it has not caused him a problem. I discussed with him that some people will get anxious on this and he already has significant anxiety so he needs to be aware of that and may need to stop it if it worsens in. But it is reasonable to try a short course of prednisone. Because of his significant anxiety history, we will try 40 mg a day. He has [place]. I will give him some more pain meds here because his pain is starting to come back but he overall feels better. All questions were answered. Reasons to return and follow-up were discussed. Lab Data Attestation: I reviewed the patient's lab results. Labs: Laboratory Results - last 24 hr 02/01/22 02/01/22 09:23 09:23 WBC 6.8 RBC 4.53 L Hgb 14.5 Hct 41.4 MCV 91.4 MCH 32.0 MCHC 35.0 RDW Std Deviation 43.5 RDW Coeff of Alesha 13.0 Plt Count 166 MPV 9.6 Immature Gran % (Auto) 0.400 Neut % (Auto) 69.2 Lymph % (Auto) 19.0 [place] % (Auto) 8.5 Eos % (Auto) 2.3 Baso % (Auto) 0.6 Absolute Neuts (auto) 4.7 Absolute Lymphs (auto) 1.30 Nucleated RBC % 0 Sodium 137 Potassium 4.1 Chloride 105 Carbon Dioxide 26.0 Anion Gap 6 BUN 30 H Creatinine 1.55 H Estim Creat Clear Calc 43.83 Est GFR (MDRD) Af Amer 57 L Est GFR (MDRD) Non-Af 47 L BUN/Creatinine Ratio 19.4 Glucose 93 Calcium 9.5 Troponin I High Sens 6 Radiography Diagnostic Testing: Clinical Impression(s) from Imaging Studies Cervical Spine MRI 02/01/22 09:11 IMPRESSION: Multilevel degenerative changes, as described above. Electronically Signed: Trenton Sales MD at 15:40 EDT , Chest X-Ray 02/01/22 09:35 IMPRESSION: Normal x-ray examination of the chest. Electronically Signed: Bala Gusman MD at 9:53 EDT , Chest x-ray showed no acute process. MRI showed multiple degenerative changes with mild to moderate stenosis. But no significant cord compression in any area. Discharge Plan Triage Chief Complaint: Other, Pain/Inj ED Provider: Vince Vazquez Dx/Rx/DC Orders Clinical Impression: Cervical spinal stenosis, Anxiety Instructions: ED Neck Pain Prescriptions: New prednisone 20 mg tablet 40 mg PO DAILY Qty: 10 0RF No Action saw palmetto 500 mg capsule 500 mg PO QDAY echinacea 400 mg capsule 400 mg PO DAILY loratadine [Claritin] 10 mg tablet 10 mg PO QDAY PRN (Reason: Allergies) alfuzosin 10 mg tablet extended release 24 hr 10 mg PO QDAY cholecalciferol (vitamin D3) 1,000 unit capsule 1,000 unit capsule 1,000 unit PO DAILY nitroglycerin 0.3 mg tablet, sublingual 0.3 mg sublingual Q5M PRN (Reason: other) Rx Instructions: do not exceed 3 doses per episode sildenafil 100 mg tablet 100 mg PO ONCE PRN (Reason: DOESN'T KNOW) Label Comments: TAKE 1 TABLET 1 HOUR PRIOR TO INTERCOURSE aspirin 81 MG tablet 81 mg PO DAILY@0800 Label Comments: WAS TOLD TO ASK ABOUT STOPPING magnesium oxide 400 MG tablet 400 mg PO BID fluticasone propionate 1 SPRAY spray,suspension 1 spray NASAL BID multivitamin with folic acid 1 TABLET tablet 1 tab PO DAILY lansoprazole 30 MG capsule 30 mg PO QDAY coenzyme Q10 50 mg tablet,chewable 200 mg PO DAILY acetaminophen [Tylenol] 325 mg Tablet 650 mg PO Q6H PRN PRN (Reason: Pain Score 1-10/Temp > 100.7 F) Qty: 0 0RF simvastatin 40 mg tablet 40 mg PO DAILY Qty: 90 4RF losartan 25 mg tablet 25 mg PO DAILY Qty: 90 3RF metoprolol succinate 25 mg tablet extended release 24 hr 25 mg PO DAILY Qty: 180 3RF flecainide 100 mg tablet 100 mg PO Q12H Qty: 180 3RF alprazolam 0.5 mg tablet 0.25 mg PO TID sertraline 50 mg tablet 50 mg PO DAILY Rx Instructions: 25 mg x 1 week, then 50 mg daily Primary Care Provider: Steven Retana Referrals: Daniel Santana DO [Med Staff - Active Staff] - As soon as possible Steven Retana MD [Primary Care Provider] - Disposition Disposition: Home, Self Care
[2022-02-01] MEDS: Morphine 4 MG/ML Syringe IV ×2 (09:26→16:52)
[2022-02-01] MEDS: Ondansetron 4 MG/2 ML Vial IV (09:26)
--- NOTE | 2022-02-01 09:27 | EKG12_ITS ---
Test Reason : NECK PAIN Blood Pressure : / mmHG Vent. Rate : 049 BPM Atrial Rate : 049 BPM P-R Int : 196 ms QRS Dur : 086 ms QT Int : 424 ms P-R-T Axes : 074 015 035 degrees QTc Int : 383 ms Sinus bradycardia Otherwise normal ECG Confirmed by QUINTEN WITT, ANTONIETA ([id number]), telegraph editor JENNIFER WARREN ([id number]) on 02/05/2022 1:12:53 PM Referred By: Confirmed By:ANTONIETA SHIPLEY MD
--- NOTE | 2022-02-01 09:35 | RAD_ITS ---
STUDY: X-RAY CHEST REASON FOR EXAM: Male, 71 years old. SOB TECHNIQUE: Single AP portable view of the chest. COMPARISON: Comparison is made with prior study dated 01/13/2022. FINDINGS: The lungs are clear and expanded. There is no demonstrated pleural abnormality. Normal size heart. Normal mediastinum and cori. Normal visualized pulmonary arteries. There is atherosclerotic tortuosity of the aortic arch and descending thoracic aorta. There are diffuse degenerative changes of the visualized thoracic spine. Normal visualized ribs, clavicles, and shoulders. There is no demonstrated abnormality of the visualized soft tissue structures of the upper abdomen. RAD/Chest 1 View (Portable) IMPRESSION: Normal x-ray examination of the chest. Electronically Signed: Bala Gusman MD at 9:53 EDT ,
[2022-02-01 09:42] LABS: Absolute Neutrophil Count 4.7 X10^3/uL (2.0-7.7); Basophil# 0.04 X10^3/uL; Basophil% 0.6 % (0-1); Eosinophil# 0.16 X10^3/uL; Eosinophils% 2.3 % (0-5); Hematocrit 41.4 % (40-54); Hemoglobin 14.5 g/dL (13.0-16.5); Mean Corpuscular Volume 91.4 fL (80-94); Mean Platelet Vol. 9.6 fl (6.2-12.0); Monocyte# 0.58 X10^3/uL; Monocyte% 8.5 % (0-10); NRBC Flagged by Analyzer 0 % (0-5); Neutrophil # 4.72 X10^3/uL (2.7-7.7); Neutrophil % 69.2 % (47-70); Platelet Count 166 K/mm3 (150-450); RBC Distribution Width SD 43.5 fl (35.1-43.9); Red Blood Count 4.53 M/mm3 (4.6-6.2); White Blood Count 6.8 K/mm3 (4.4-11.0)
[2022-02-01 09:56] LABS: Anion Gap 6 (5-15); BUN 30 mg/dL (7-18); BUN/Creat Ratio 19.4 RATIO (10-20); Calcium,Total 9.5 mg/dL (8.5-10.1); Chloride 105 mmol/L (98-107); Creatinine, Serum 1.55 mg/dL (0.70-1.30); EST Glomerular Filtration Rate 47 mL/min (>60); Est Glom Filt Rate - Afr Amer 57 mL/min (>60); Estimated Creatinine Clearance 43.83 ml/min; Glucose 93 mg/dL (74-106); Potassium 4.1 mmol/L (3.5-5.1); Sodium Level 137 mmol/L (136-145); Troponin-I HS 6 pg/mL (3.0-78.0)
[2022-02-01 11:02] VITALS: BP 152/61; PULSE 62; RESP 18; O2SAT 95
[2022-02-01] MEDS: Aspirin 81 MG TAB.CHEW PO (11:37)
[2022-02-01] MEDS: Flecainide 100 MG Tablet PO (11:37)
[2022-02-01] MEDS: ALPRAZolam 0.25 MG Tablet PO (11:37)
[2022-02-01] MEDS: Losartan Potassium 25 MG Tablet PO (11:37)
[2022-02-01] MEDS: Metoprolol(XL)Succ 25 MG Tablet PO (11:37)
[2022-02-01] MEDS: LORazepam 2 MG/ML Syringe 0.25 MG IV (16:51)
[2022-02-01 16:56] VITALS: BP 187/76; PULSE 62; RESP 16; O2SAT 98
== END 2022-02-01 17:06 | disposition home or self-care (01) ==
PROVIDERS: Emergency Provider Emergency Medicine; PCP Family Medicine; Visit Provider Emergency Medicine
DX: M48.02 Spinal stenosis, cervical region (principal); J44.9 Chronic obstructive pulmonary disease, unspecified; I48.0 Paroxysmal atrial fibrillation; M54.2 Cervicalgia; E78.00 Pure hypercholesterolemia, unspecified; F41.9 Anxiety disorder, unspecified; I25.10 Atherosclerotic heart disease of native coronary artery without angina pectoris; I10 Essential (primary) hypertension; M19.90 Unspecified osteoarthritis, unspecified site; K21.9 Gastro-esophageal reflux disease without esophagitis; G47.33 Obstructive sleep apnea (adult) (pediatric); Z79.82 Long term (current) use of aspirin; Z79.899 Other long term (current) drug therapy; Z87.891 Personal history of nicotine dependence; Z85.46 Personal history of malignant neoplasm of prostate; Z96.642 Presence of left artificial hip joint; Z96.652 Presence of left artificial knee joint
CPT/HCPCS: 71045; 72125; 72141; 80048; 82962; 84484; 85025; 93005; 96374; 96375; 96376; 99282; 99283; 99285; J7030; A4216; J2405

== ENCOUNTER 2022-02-14 11:14 | Emergency (ER) | payer MEDICARE, SELFPAY ==
[2020-06-13 13:42] VITALS: BMI 33.3
[2022-02-14 11:18] VITALS: BP 138/73; PULSE 58; RESP 15; TEMP 36.6; O2SAT 99; BMI 33.7
[2022-02-14 11:24] VITALS: BP 138/73; PULSE 60; RESP 15; O2SAT 100
--- NOTE | 2022-02-14 12:14 | RAD_ITS ---
STUDY: X-RAY CHEST REASON FOR EXAM: Male, 71 years old. Chest pain TECHNIQUE: Single AP portable view of the chest. COMPARISON: Comparison is made with prior study 02/01/2022. FINDINGS: EKG electrodes are seen. Minimal increased linear markings at the left lung base suggests underlying linear atelectasis. There is no demonstrated pleural abnormality. Normal size heart. Normal mediastinum and cori. Normal visualized pulmonary arteries. Normal visualized aortic arch and descending thoracic aorta. There are diffuse degenerative changes of the visualized thoracic spine. Normal visualized ribs, clavicles, and shoulders. There is no demonstrated abnormality of the visualized soft tissue structures of the upper abdomen. RAD/Chest 1 View (Portable) IMPRESSION: Mild degree of increased linear markings at the left lung base suggestive of linear atelectasis. Electronically Signed: Bala Gusman MD at 12:41 EST ,
[2022-02-14 12:24] LABS: Absolute Lymphocyte Count 0.71 X10^3/uL (0.83-4.51); Absolute Neutrophil Count 10.2 X10^3/uL (2.0-7.7); Basophil# 0.04 X10^3/uL; Basophil% 0.3 % (0-1); Eosinophil# 0.07 X10^3/uL; Eosinophils% 0.6 % (0-5); Hematocrit 40.8 % (40-54); Hemoglobin 13.7 g/dL (13.0-16.5); Lymphocyte # 0.71 X10^3/ul (0.83-4.51); Mean Corp Hgb Conc 33.6 g/dL (32-36); Mean Corpuscular Hgb 31.9 pg (27.0-32.0); Mean Corpuscular Volume 94.9 fL (80-94); Mean Platelet Vol. 10.1 fl (6.2-12.0); Monocyte# 0.68 X10^3/uL; Monocyte% 5.8 % (0-10); NRBC Flagged by Analyzer 0 % (0-5); Neutrophil # 10.18 X10^3/uL (2.7-7.7); Neutrophil % 86.5 % (47-70); Platelet Count 146 K/mm3 (150-450); White Blood Count 11.8 K/mm3 (4.4-11.0)
[2022-02-14 12:42] LABS: Anion Gap 5 (5-15); BUN 29 mg/dL (7-18); BUN/Creat Ratio 19.7 RATIO (10-20); Calcium,Total 9.3 mg/dL (8.5-10.1); Chloride 104 mmol/L (98-107); Creatinine, Serum 1.47 mg/dL (0.70-1.30); EST Glomerular Filtration Rate 50 mL/min (>60); Est Glom Filt Rate - Afr Amer 60 mL/min (>60); Estimated Creatinine Clearance 46.21 ml/min; Glucose 94 mg/dL (74-106); Sodium Level 137 mmol/L (136-145); Troponin-I HS (w/2H Reflex) 6 pg/mL (3.0-78.0)
--- NOTE | 2022-02-14 14:00 | EX.ED.VIS.PS ---
HPI HPI - Psych History of Present Illness Chief Complaint: Anxiety Narrative Narrative: 71-year-old male presenting with anxiety. He states he is had this before. He states that he is feeling anxious today and went to an event for a cyst on. The onset of his anxiety and subsequent chest pain started about 730 this morning and has been consistently there all day. He was at an event celebrating his son and was speaking on behalf of of his son and started to feel more anxious and having more chest pain. He states it radiated to the left arm. He states this is not a new issue either. He recently had a fall and injury to his head and neck which caused him to have intermittent paresthesias in the bilateral arms. This feels similar in the left arm. Its not uncommon for him to have any unilateral arm. He states that he has had MRIs and was told that he has cervical spinal stenosis. He supposed to see Dr. Watson today at [address] [facility] Medical History Abdominal pain Anxiety Arthritis Atherosclerotic heart disease of [place] coronary artery without angina pectoris Atrial fibrillation bilaterl vein ablation ble BiPAP (biphasic positive airway pressure) dependence Cancer Cellulitis of left lower extremity COPD (chronic obstructive pulmonary disease) Costochondritis Degenerative disc disease, lumbar Essential hypertension Fatigue Former smoker GERD (gastroesophageal reflux disease) Hemorrhoids History of essential hypertension History of prostate cancer Hx of hypercholesterolemia Hyperlipidemia Hypertension Knee pain Long-term use of high-risk medication Lumbar radiculopathy, right YENNI (obstructive sleep apnea) Osteoarthritis of left knee Paroxysmal atrial fibrillation Premature atrial contractions Premature ventricular contraction repair right achilles tendon Segmental and somatic dysfunction of cervical region Segmental and somatic dysfunction of lumbar region Segmental and somatic dysfunction of thoracic region Umbilical hernia without obstruction and without gangrene Home Medications aspirin 81 mg tablet,delayed release 81 mg PO DAILY@0800 HEART HEALTH 05/18/13 [History Last Taken 12/21/21] fluticasone propionate 50 mcg/actuation nasal spray,suspension 1 spray NASAL BID ALLERGIES 05/18/13 [History Last Taken 12/21/21] magnesium oxide 400 mg (241.3 mg magnesium) tablet 400 mg PO BID SUPPLEMENT/HEART 05/18/13 [History Last Taken 12/21/21] multivitamin with folic acid 400 mcg tablet 1 tab PO DAILY SUPPLEMENT 02/17/14 [History Last Taken 07/23/21] lansoprazole 30 mg capsule,delayed release 30 mg PO QDAY GERD 06/10/17 [History Last Taken 12/21/21] saw palmetto 500 mg capsule 500 mg PO QDAY SUPPLEMENT 08/29/17 [History Last Taken 07/23/21] cholecalciferol (vitamin D3) 25 mcg (1,000 unit) capsule 1,000 unit PO DAILY 07/17/18 [History Last Taken 07/23/21] coenzyme Q10 50 mg chewable tablet 200 mg PO DAILY SUPPLEMENT 07/17/18 [History Last Taken 07/23/21] echinacea 400 mg capsule 400 mg PO DAILY SUPPLEMENT 08/05/19 [History Last Taken 12/21/21] loratadine 10 mg tablet (Claritin) 10 mg PO QDAY PRN Allergies 08/05/19 [History Last Taken 07/23/21] nitroglycerin 0.3 mg sublingual tablet 0.3 mg sublingual Q5M PRN other 02/09/20 [History Last Taken Unknown] simvastatin 40 mg tablet 40 mg PO DAILY #90 tabs 05/01/21 [Rx Last Taken 12/21/21] alfuzosin 10 mg tablet,extended release 24 hr 10 mg PO QDAY 05/15/21 [History Last Taken 12/21/21] losartan 25 mg tablet 25 mg PO DAILY #90 tabs 10/23/21 [Rx Last Taken 12/21/21] metoprolol succinate 25 mg tablet,extended release 24 hr 25 mg PO DAILY #180 tabs 12/18/21 [Rx Last Taken 12/21/21] acetaminophen 325 mg tablet (Tylenol) 650 mg PO Q6H PRN PRN Pain Score 1-10/Temp > 100.7 F #0 tabs 12/23/21 [Rx Last Taken Unknown] flecainide 100 mg tablet 100 mg PO Q12H #180 tabs 01/09/22 [Rx Last Taken Unknown] alprazolam 0.5 mg tablet 0.25 mg PO TID ANXIETY 01/16/22 [History Last Taken Unknown] sertraline 50 mg tablet 50 mg PO DAILY 01/16/22 [History Last Taken Unknown] sildenafil 100 mg tablet 100 mg PO ONCE PRN DOESN'T KNOW 01/22/22 [History Last Taken Unknown] prednisone 20 mg tablet 40 mg PO DAILY #10 tabs 02/01/22 [Rx Last Taken Unknown] Allergy/AdvReac Type Severity Reaction Status Date / Time animal dander Allergy Unknown Verified 02/14/22 11:15 grass pollen Allergy Unknown Verified 02/14/22 11:15 grass pollen-perennial rye, Allergy Unknown Verified 02/14/22 11:15 standar house dust Allergy Unknown Verified 02/14/22 11:15 levofloxacin [From Levaquin] Allergy Unknown Verified 02/14/22 11:15 dabigatran etexilate AdvReac Unknown Unknown Verified 02/14/22 11:15 [From Pradaxa] gabapentin [From Neurontin] AdvReac Other Verified 02/14/22 11:15 NSAIDS (Non-Steroidal AdvReac Other Verified 02/14/22 11:15 Anti-Inflamma Family History Mother Hypertension CAD (coronary artery disease) Father Hypertension Atrial fibrillation Presence of permanent cardiac pacemaker CVA (cerebral vascular accident) Surgical History Bilateral knee pain H/O cardiac radiofrequency ablation H/O detached retina repair H/O hemorrhoidectomy H/O shoulder surgery H/O sinus surgery H/O sinus surgery History of arthroscopy of knee History of cardiac radiofrequency ablation (RFA) History of cataract surgery History of detached retina repair History of hemorrhoidectomy History of left hip replacement (~03/2021) History of left knee replacement (~04/2021) History of umbilical hernia repair (~04/2018) right shoulder Status post laser ablation of incompetent vein vein Social History household members: spouse Smoking Status: Former smoker Smokeless tobacco user: snuff how long ago did patient quit smoking: Patient quit cigarette tobacco use 1980, smoked age [age], 1 ppd-->Snuff. alcohol intake: current alcohol intake frequency: a few times a week Alcohol type: beer substance use type: does not use caffeine: No ROS ROS ED Constitutional Constitutional ED: Denies chills or fever(s) Eyes Eyes: Denies blurry vision or change in vision ENT ENT ED: Denies rhinorrhea or sore throat Cardiovascular Cardiovascular: Reports chest pain; Denies palpitations or racing heartbeat Respiratory/Chest Respiratory/Chest: Denies cough, dyspnea or dyspnea on exertion Gastrointestinal Gastrointestinal: Denies abdominal pain or constipation Genitourinary Genitourinary ED: Denies dysuria or hematuria Musculoskeletal Musculoskeletal: Denies arthralgias or back pain Integumentary Denies abscess or Abrasions Neurologic Neurologic: Reports paresthesias RUE and LUE; Denies headache(s) Psychiatric Psychiatric: Reports anxiety; Denies depression EXAM Physical Exam Const Vital Signs: 02/14/22 11:18 02/14/22 11:24 02/14/22 11:24 Temperature 97.8 F Temperature Source Oral Pulse Rate 58 L 60 Respiratory Rate 15 15 Respiratory Effort Normal Non-Labored Respiratory Pattern Normal Blood Pressure 138/73 H 138/73 H Blood Pressure Mean 94 94 Pulse Ox 99 100 Oxygen Delivery Method Room Air Room Air 02/14/22 12:11 02/14/22 14:01 Temperature Temperature Source Pulse Rate 78 Respiratory Rate 20 H Respiratory Effort Respiratory Pattern Blood Pressure 156/67 H Blood Pressure Mean 96 Pulse Ox 96 Oxygen Delivery Method Room Air Room Air Positive well nourished General Appearance ED: NAD; Negative for pallor HEENT Reports moist mucous membranes normocephalic and atraumatic Eyes PERRL and EOMs intact bilaterally General Eye ED: Negative for pale conjunctiva or scleral icterus Resp normal respiratory effort and clear to auscultation bilaterally Auscultation: Negative for rales, rhonchi or wheezes Cardio Rate: regular rate Rhythm: regular rhythm GI non-tender and non-distended Neuro oriented x3, CN's II-XII intact bilaterally and no sensory deficits noted Psych mental status grossly normal Appearance: grossly normal Attitude: calm and engaged Activity / Motor Behavior: appropriate eye contact Speech: normal speech Thought Process: normal thought process Thought Content: normal thought content, No suicidality and No homicidality Memory / Cognition: memory grossly intact Insight: insight good Judgement: judgement good Skin General Skin Exam: Negative for jaundice or pallor MDM MDM MDM Narrative Medical decision making narrative: Patient presenting with chest pain and anxiety which started at 730 this morning. EKG was performed on my interpretation this is a sinus bradycardia with a first-degree AV block at a rate of [address] bpm. No sign of ST elevation or depression. Chest x-ray on my interpretation is no acute cardiopulmonary process and the radiologist agree. Blood work today shows slight leukocytosis 11.8. Hemoglobin hematocrit are stable. Platelets slightly low at 146 and this is the patient's normal range. Creatinine also at baseline at 1.47. Electrolytes within normal limits. High-sensitivity troponin is 5:06 hours of chest pain and I do not think he needs a delta troponin. Vital signs are stable he is afebrile. He is well-appearing. He does admit to a history of anxiety as well as history of neck injury with paresthesias to go to both arms. He is PERC negative. I do believe he needs work-up for PE. At this point feel the patient stable for discharge home. All questions were answered. Impression: 1. Chest pain 2. history of anxiety 3. Thrombocytopenia 4. Cervical radiculopathy Lab Data Attestation: I reviewed the patient's lab results. Labs: Laboratory Results - last 24 hr 02/14/22 02/14/22 12:10 12:10 WBC 11.8 H RBC 4.30 L Hgb 13.7 Hct 40.8 MCV 94.9 H MCH 31.9 MCHC 33.6 RDW Std Deviation 45.0 H RDW Coeff of Alesha 13.0 Plt Count 146 L MPV 10.1 Immature Gran % (Auto) 0.800 Neut % (Auto) 86.5 H Lymph % (Auto) 6.0 L [place] % (Auto) 5.8 Eos % (Auto) 0.6 Baso % (Auto) 0.3 Absolute Neuts (auto) 10.2 H Absolute Lymphs (auto) 0.71 L Nucleated RBC % 0 Sodium 137 Potassium 5.0 Chloride 104 Carbon Dioxide 28.0 Anion Gap 5 BUN 29 H Creatinine 1.47 H Estim Creat Clear Calc 46.21 Est GFR (MDRD) Af Amer 60 Est GFR (MDRD) Non-Af 50 L BUN/Creatinine Ratio 19.7 Glucose 94 Calcium 9.3 Troponin I High Sens 6 Radiography Diagnostic Testing: Clinical Impression(s) from Imaging Studies Chest X-Ray 02/14/22 12:14 IMPRESSION: Mild degree of increased linear markings at the left lung base suggestive of linear atelectasis. Electronically Signed: Bala Gusman MD at 12:41 EST , Discharge Plan Triage Chief Complaint: Anxiety ED Provider: Lam Mendenhall Dx/Rx/DC Orders Instructions: ED Anxiety Reaction, ED Chest Pain, Noncardiac Prescriptions: No Action saw palmetto 500 mg capsule 500 mg PO QDAY echinacea 400 mg capsule 400 mg PO DAILY loratadine [Claritin] 10 mg tablet 10 mg PO QDAY PRN (Reason: Allergies) alfuzosin 10 mg tablet extended release 24 hr 10 mg PO QDAY cholecalciferol (vitamin D3) 1,000 unit capsule 1,000 unit capsule 1,000 unit PO DAILY nitroglycerin 0.3 mg tablet, sublingual 0.3 mg sublingual Q5M PRN (Reason: other) Rx Instructions: do not exceed 3 doses per episode sildenafil 100 mg tablet 100 mg PO ONCE PRN (Reason: DOESN'T KNOW) Label Comments: TAKE 1 TABLET 1 HOUR PRIOR TO INTERCOURSE aspirin 81 MG tablet 81 mg PO DAILY@0800 Label Comments: WAS TOLD TO ASK ABOUT STOPPING magnesium oxide 400 MG tablet 400 mg PO BID fluticasone propionate 1 SPRAY spray,suspension 1 spray NASAL BID multivitamin with folic acid 1 TABLET tablet 1 tab PO DAILY lansoprazole 30 MG capsule 30 mg PO QDAY coenzyme Q10 50 mg tablet,chewable 200 mg PO DAILY acetaminophen [Tylenol] 325 mg Tablet 650 mg PO Q6H PRN PRN (Reason: Pain Score 1-10/Temp > 100.7 F) Qty: 0 0RF prednisone 20 mg tablet 40 mg PO DAILY Qty: 10 0RF simvastatin 40 mg tablet 40 mg PO DAILY Qty: 90 4RF losartan 25 mg tablet 25 mg PO DAILY Qty: 90 3RF metoprolol succinate 25 mg tablet extended release 24 hr 25 mg PO DAILY Qty: 180 3RF flecainide 100 mg tablet 100 mg PO Q12H Qty: 180 3RF alprazolam 0.5 mg tablet 0.25 mg PO TID sertraline 50 mg tablet 50 mg PO DAILY Rx Instructions: 25 mg x 1 week, then 50 mg daily Primary Care Provider: Steven Retana Referrals: Steven Retana MD [Primary Care Provider] - Disposition Disposition: Home, Self Care
[2022-02-14 14:01] VITALS: BP 156/67; PULSE 78; RESP 20; O2SAT 96
[2022-02-14 14:16] VITALS: BP 156/67; PULSE 78
[2022-02-14 14:21] LABS: Reflex Troponin-HS? (from REC) Y
== END 2022-02-14 14:18 | disposition home or self-care (01) ==
PROVIDERS: Emergency Provider Student in an Organized Health Care Education/Training Program; PCP Family Medicine; Visit Provider Student in an Organized Health Care Education/Training Program
DX: F41.9 Anxiety disorder, unspecified (principal); J44.9 Chronic obstructive pulmonary disease, unspecified; I48.0 Paroxysmal atrial fibrillation; R07.9 Chest pain, unspecified; E78.00 Pure hypercholesterolemia, unspecified; I25.10 Atherosclerotic heart disease of native coronary artery without angina pectoris; I10 Essential (primary) hypertension; K21.9 Gastro-esophageal reflux disease without esophagitis; M54.12 Radiculopathy, cervical region; M48.02 Spinal stenosis, cervical region; M51.16 Intervertebral disc disorders with radiculopathy, lumbar region; G47.33 Obstructive sleep apnea (adult) (pediatric); Z87.891 Personal history of nicotine dependence; Z79.899 Other long term (current) drug therapy; Z85.46 Personal history of malignant neoplasm of prostate
CPT/HCPCS: 71045; 80048; 84484; 85025; 93005; 99285; A4216

== ENCOUNTER 2022-03-06 06:16 | Emergency (ER) | payer MEDICARE, SELFPAY ==
[2022-03-01 11:31] VITALS: BMI 33.3
[2022-03-06 06:18] VITALS: BP 153/77; PULSE 60; RESP 18; TEMP 36.8; O2SAT 99; BMI 33.7
--- NOTE | 2022-03-06 06:58 | CT_ITS ---
STUDY: CT CERVICAL SPINE WITHOUT CONTRAST REASON FOR EXAM: Male, 71 years old. Paresthesias RADIATION DOSAGE (If Supplied By Facility): CTDIvol = ( 20.61 ) mGy, DLP = ( 469.30 ) mGycm TECHNIQUE: High resolution transaxial imaging was performed without contrast material. Sagittal and coronal images were reconstructed. Individualized dose optimization techniques were used for this CT. COMPARISON: None FINDINGS: Normal craniovertebral junction. There are degenerative changes of the anterior atlantoaxial articulation. Normal odontoid process. There is straightening of the normal cervical lordosis. Normal vertebral bodies and posterior osseous elements. C2-3: Mild degree about the space narrowing. Anterior spondylosis. There is hypertrophy of the facet joints. No significant stenosis is seen. C3-4: Moderate degree of disc space narrowing and spondylosis. Uncovertebral arthrosis and facet joint osteoarthritis and hypertrophy. There is a marked degree of left neural foraminal stenosis and moderate degree of right neural foraminal stenosis. C4-5: Moderate degree of disc space narrowing and spondylosis. Uncovertebral arthrosis. Facet joint osteoarthritis and hypertrophy. Moderate degree of bilateral neural foraminal stenosis. Mild central canal stenosis. C5-6: Marked degree of disc space narrowing and spondylosis. Uncovertebral arthrosis and hypertrophy of the facet joints causing a moderate to marked degree of bilateral neural foraminal stenosis. Minimal degree of anterior listhesis of C5 on C6 due to facet joint osteoarthritis. C6-7: Moderate degree of disc space narrowing. Spondylosis. Facet joint osteoarthritis. Mild degree of bilateral neural foraminal stenosis. C7-T1: Normal endplates. Normal disc height and morphology. Normal central canal and intervertebral neuroforamina. Atherosclerotic plaque formation of the carotid bifurcations. CT/Spine Cervical without Contras IMPRESSION: Multilevel degenerative changes, as described above. Electronically Signed: Bala Gusman MD at 10:15 EST ,
--- NOTE | 2022-03-06 06:58 | CT_ITS ---
STUDY: CT BRAIN WITHOUT CONTRAST REASON FOR EXAM: Male, 71 years old. Paresthesias RADIATION DOSAGE (If Supplied By Facility): CTDIvol = ( 47.06 ) mGy, DLP = ( 925.62 ) mGycm TECHNIQUE: Transaxial CT imaging of the brain was performed without administration of intravenous contrast material. Individualized dose optimization techniques were used for this CT. COMPARISON: Comparison is made with prior study dated 12/22/2021. FINDINGS: Normal soft tissue structures. Normal calvarium. There is mild cerebral atrophy with widening of the extra-axial spaces and ventricular dilatation. Normal white matter tracts of the cerebral hemispheres. Normal basal ganglia and thalami. Normal brainstem. Normal cerebellum. There is no intracranial hemorrhage. There are no findings of an acute ischemic infarction. There is a 1.7 cm polyp or retention cyst at the base of the right maxillary sinus. CT/Brain/Head without Contrast IMPRESSION: Chronic involutional changes of the brain. Electronically Signed: Bala Gusman MD at 10:13 EST ,
--- NOTE | 2022-03-06 07:00 | EDS_ITS ---
HPI <Dr. Jose Heart, DO - Last Filed: 03/07/22 23:20> History of Present Illness Chief Complaint: Numb/Ting Informant: patient and spouse/S.O. Narrative Narrative: Presents by private vehicle spouse is present for evaluation of paresthesias a fter waking at 5 AM. States was numb on the back of the head went down his spine to his legs. There is no weakness. He said intermittent symptoms of November from a head injury with concussion. He hit his head on the trunk in November had headache dizziness and nausea. Had mild neck pain at that time. 2 weeks later worsening neck pain had paresthesia intermittent weakness. Since then has has MRIs of his brain and cervical spine with no cord findings. Degenerative changes were noted. He is followed by Dr. Santana. He also seen Dr. Watson with C7 epidural injection. He states there was some improvement of symptoms. Yesterday had pain throughout chest and back vest like pattern. However none today. He woken today more with numbness and without pain. He did walk in here he states he felt wobbly. Denies any loss of bowel or bladder control. He has a neurology appointment this coming Saturday in [place]. In addition reports 2 weeks ago was doing laundry with arm slipped hitting his nose on the lid. [facility] <Dr. Jose Heart, DO - Last Filed: 03/07/22 23:20> [facility] Medical History Abdominal pain Anxiety Arthritis Atherosclerotic heart disease of [place] coronary artery without angina pectoris Atrial fibrillation bilaterl vein ablation ble BiPAP (biphasic positive airway pressure) dependence Cancer Cellulitis of left lower extremity COPD (chronic obstructive pulmonary disease) Costochondritis Degenerative disc disease, lumbar Essential hypertension Fatigue Former smoker GERD (gastroesophageal reflux disease) Hemorrhoids History of essential hypertension History of prostate cancer Hx of hypercholesterolemia Hyperlipidemia Hypertension Knee pain Long-term use of high-risk medication Lumbar radiculopathy, right YENNI (obstructive sleep apnea) Osteoarthritis of left knee Paroxysmal atrial fibrillation Premature atrial contractions Premature ventricular contraction repair right achilles tendon Segmental and somatic dysfunction of cervical region Segmental and somatic dysfunction of lumbar region Segmental and somatic dysfunction of thoracic region Umbilical hernia without obstruction and without gangrene Home Medications aspirin 81 mg tablet,delayed release 81 mg PO DAILY@0800 [facility] 05/18/13 [History Last Taken 12/21/21] fluticasone propionate 50 mcg/actuation nasal spray,suspension 1 spray NASAL BID ALLERGIES 05/18/13 [History Last Taken 12/21/21] magnesium oxide 400 mg (241.3 mg magnesium) tablet 400 mg PO BID SUPPLEMENT/HEART 05/18/13 [History Last Taken 12/21/21] multivitamin with folic acid 400 mcg tablet 1 tab PO DAILY SUPPLEMENT 05/18/13 [History Last Taken 07/23/21] lansoprazole 30 mg capsule,delayed release 30 mg PO QDAY GERD 06/10/17 [History Last Taken 12/21/21] saw palmetto 500 mg capsule 500 mg PO QDAY SUPPLEMENT 08/29/17 [History Last Taken 07/23/21] cholecalciferol (vitamin D3) 25 mcg (1,000 unit) capsule 1,000 unit PO DAILY 07/17/18 [History Last Taken 07/23/21] coenzyme Q10 50 mg chewable tablet 200 mg PO DAILY SUPPLEMENT 07/17/18 [History Last Taken 07/23/21] echinacea 400 mg capsule 400 mg PO DAILY SUPPLEMENT 08/05/19 [History Last Taken 12/21/21] loratadine 10 mg tablet (Claritin) 10 mg PO QDAY PRN Allergies 08/05/19 [History Last Taken 07/23/21] nitroglycerin 0.3 mg sublingual tablet 0.3 mg sublingual Q5M PRN other 02/09/20 [History Last Taken Unknown] simvastatin 40 mg tablet 40 mg PO DAILY #90 tabs 05/01/21 [Rx Last Taken 12/21/21] alfuzosin 10 mg tablet,extended release 24 hr 10 mg PO QDAY 05/15/21 [History Last Taken 12/21/21] losartan 25 mg tablet 25 mg PO DAILY #90 tabs 10/23/21 [Rx Last Taken 12/21/21] metoprolol succinate 25 mg tablet,extended release 24 hr 25 mg PO DAILY #180 tabs 12/18/21 [Rx Last Taken 12/21/21] acetaminophen 325 mg tablet (Tylenol) 650 mg PO Q6H PRN PRN Pain Score 1-10/Temp > 100.7 F #0 tabs 12/23/21 [Rx Last Taken Unknown] flecainide 100 mg tablet 100 mg PO Q12H #180 tabs 01/09/22 [Rx Last Taken Unknown] alprazolam 0.5 mg tablet 0.25 mg PO TID ANXIETY 01/16/22 [History Last Taken U nknown] sertraline 50 mg tablet 50 mg PO DAILY 01/16/22 [History Last Taken Unknown] sildenafil 100 mg tablet 100 mg PO ONCE PRN DOESN'T KNOW 01/22/22 [History Last Taken Unknown] prednisone 20 mg tablet 40 mg PO DAILY #10 tabs 02/01/22 [Rx Last Taken Unknown] hydrocodone-acetaminophen 5-325mg 5mg-325mg 1 tab PO Q12H PRN 03/01/22 [History Last Taken Unknown] Allergy/AdvReac Type Severity Reaction Status Date / Time animal dander Allergy Unknown Verified 03/06/22 14:15 grass pollen Allergy Unknown Verified 03/06/22 14:15 grass pollen-perennial rye, Allergy Unknown Verified 03/06/22 14:15 standar house dust Allergy Unknown Verified 03/06/22 14:15 levofloxacin [From Levaquin] Allergy Unknown Verified 03/06/22 14:15 dabigatran etexilate AdvReac Unknown Unknown Verified 03/06/22 14:15 [From Pradaxa] gabapentin [From Neurontin] AdvReac Other Verified 03/06/22 14:15 NSAIDS (Non-Steroidal AdvReac Other Verified 03/06/22 14:15 Anti-Inflamma Family History Mother Hypertension CAD (coronary artery disease) Father Hypertension Atrial fibrillation Presence of permanent cardiac pacemaker CVA (cerebral vascular accident) Surgical History Bilateral knee pain H/O cardiac radiofrequency ablation H/O detached retina repair H/O hemorrhoidectomy H/O shoulder surgery H/O sinus surgery H/O sinus surgery History of arthroscopy of knee History of cardiac radiofrequency ablation (RFA) History of cataract surgery History of detached retina repair History of hemorrhoidectomy History of left hip replacement (~03/2021) History of left knee replacement (~04/2021) History of umbilical hernia repair (~04/2018) right shoulder Status post laser ablation of incompetent vein vein Social History household members: spouse Smoking Status: Former smoker Smokeless tobacco user: snuff how long ago did patient quit smoking: Patient quit cigarette tobacco use 1980, smoked age [age], 1 ppd-->Snuff. alcohol intake: current alcohol intake frequency: a few times a week Alcohol type: beer substance use type: does not use caffeine: No ROS <Dr. Jose Heart, DO - Last Filed: 03/07/22 23:20> ROS ED Constitutional Constitutional ED: Denies chills, fever(s) or sweats Eyes Eyes: Denies change in vision ENT ENT ED: Denies dysphagia or sore throat Cardiovascular Cardiovascular: Denies chest pain, leg edema, palpitations or racing heartbeat Respiratory/Chest Respiratory/Chest: Denies cough, dyspnea or dyspnea on exertion Gastrointestinal Gastrointestinal: Denies abdominal pain, diarrhea, nausea or vomiting Genitourinary Genitourinary ED: Denies dysuria, hematuria or urinary frequency Musculoskeletal Musculoskeletal: Denies back pain, extremity pain or neck pain Integumentary Denies rash or wounds Neurologic Neurologic: Reports paresthesias; Denies headache(s) or weakness EXAM <Dr. Jose Heart, DO - Last Filed: 03/07/22 23:20> Physical Exam Const Vital Signs: 03/06/22 06:18 03/06/22 08:16 03/06/22 10:00 Temperature 98.2 F 98.1 F Temperature Source Temporal Temporal Pulse Rate 60 55 L 58 L Respiratory Rate 18 18 16 Blood Pressure 153/77 H 141/78 H 148/73 H Blood Pressure Mean 102 99 98 Pulse Ox 99 96 97 Oxygen Delivery Method Room Air Room Air Room Air Positive well nourished and well developed General Appearance ED: well developed and NAD HEENT Reports moist mucous membranes normocephalic and atraumatic Eyes PERRL, EOMs intact bilaterally and conjunctivae normal General Eye ED: Yes normal appearance of both eyes Neck no lymphadenopathy and supple General: Negative for tenderness Chest Wall Chest: Negative for tenderness Resp normal respiratory effort and normal air movement Effort and Inspection: symmetric chest movement; Negative for respiratory distress Cardio regular rate, regular rhythm and no murmurs Peripheral Pulses: pulses 2+ throughout GI normal to inspection, nondistended, normoactive bowel sounds and non-tender Palpation: Negative for guarding or rebound tenderness present Back/Spine no CVA tenderness and no thoracic nor lumbar tenderness Extremity normal to inspection General Extremety ED: Negative for edema or tenderness General Extremity: Negative for edema Neuro oriented x3 Neuro Narrative: 25-gauge needle for evaluation of sensation there was scattered areas of paresthesias posterior occiput however other areas similar patterns had sensation. Similar effects neck region. Normal sensation thoracic lumbar spine. Leg evaluation with 25-gauge needle had spots of paresthesias L1 dermatome however other areas were intact bilaterally. Strength was intact upper extremities equal and symmetric. Strength intact lower extremities at the hip flexors bilaterally. Sensorium / Orientation: awake and alert Skin no rashes or lesions noted and no wounds <Cb Méndez MD - Last Filed: 03/06/22 10:35> Physical Exam Const Vital Signs: 03/06/22 06:18 03/06/22 08:16 03/06/22 10:00 Temperature 98.2 F 98.1 F Temperature Source Temporal Temporal Pulse Rate 60 55 L 58 L Respiratory Rate 18 18 16 Blood Pressure 153/77 H 141/78 H 148/73 H Blood Pressure Mean 102 99 98 Pulse Ox 99 96 97 Oxygen Delivery Method Room Air Room Air Room Air MDM <Dr. Jose Heart DO - Last Filed: 03/07/22 23:20> [facility] Narrative Medical decision making narrative: There is no current weakness he had scattered paresthesias regions occiput cervical spine and lower extremities L1 dermatome. There is no weakness. Reported new injury 2 weeks ago. We will obtain a CT head and neck. We will check labs. We will need to reevaluate after results. 0850: Lab work all normal. Pending CT head and neck results. Plan signed out to morning physician. Lab Data Labs: Laboratory Results - last 24 hr 03/06/22 03/06/22 03/06/22 07:55 07:55 07:55 WBC 7.3 RBC 4.38 L Hgb 13.6 Hct 41.3 MCV 94.3 H MCH 31.1 MCHC 32.9 RDW Std Deviation 43.7 RDW Coeff of Alesha 12.5 Plt Count 163 MPV 9.4 Immature Gran % (Auto) 0.400 Neut % (Auto) 70.8 H Lymph % (Auto) 19.7 [place] % (Auto) 7.3 Eos % (Auto) 1.5 Baso % (Auto) 0.3 Absolute Neuts (auto) 5.2 Absolute Lymphs (auto) 1.44 Nucleated RBC % 0 PT 13.0 INR 1.0 APTT 24.8 Sodium 141 Potassium 4.1 Chloride 106 Carbon Dioxide 27.0 Anion Gap 8 BUN 31 H Creatinine 1.39 H Estim Creat Clear Calc 48.87 Est GFR (MDRD) Af Amer 64 Est GFR (MDRD) Non-Af 53 L BUN/Creatinine Ratio 22.3 H Glucose 92 Calcium 9.2 Magnesium 2.0 TSH 2.34 Radiography Diagnostic Testing: Clinical Impression(s) from Imaging Studies Brain CT 03/06/22 06:58 IMPRESSION: Chronic involutional changes of the brain. Electronically Signed: Bala Gusman MD at 10:13 EST , Cervical Spine CT 03/06/22 06:58 IMPRESSION: Multilevel degenerative changes, as described above. Electronically Signed: Bala Gusman MD at 10:15 EST , <Cb Méndez MD - Last Filed: 03/06/22 10:35> [facility] MDM Narrative Medical decision making narrative: There is no current weakness he had scattered paresthesias regions occiput cervical spine and lower extremities L1 dermatome. There is no weakness. Reported new injury 2 weeks ago. We will obtain a CT head and neck. We will check labs. We will need to reevaluate after results. 0850: Lab work all normal. Pending CT head and neck results. Plan signed out to morning physician. Dr. Méndez: Patient endorsed to me by Dr. Heart to check the CT scans of this patient with numbness of his occipital scalp, and pain. CT of the brain shows chronic involutional changes. CT of the cervical spine shows multilevel degenerative changes. No acute fracture. At this point in time, his numbness had resolved upon Dr. Heart's examination. He states he has an appointment with neurology scheduled for Saturday. He has been to pain management and has even seen a spine surgeon. I feel he be discharged safely home with follow-up. 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 Additionally, he states he has had MRIs, along with nerve conduction studies/EMGs. He will continue follow-up as an outpatient with his multidisciplinary physicians. Return instructions were reviewed. Disposition is discharged home in stable condition. Lab Data Attestation: I reviewed the patient's lab results. Labs: Laboratory Results - last 24 hr 03/06/22 03/06/22 03/06/22 07:55 07:55 07:55 WBC 7.3 RBC 4.38 L Hgb 13.6 Hct 41.3 MCV 94.3 H MCH 31.1 MCHC 32.9 RDW Std Deviation 43.7 RDW Coeff of Alesha 12.5 Plt Count 163 MPV 9.4 Immature Gran % (Auto) 0.400 Neut % (Auto) 70.8 H Lymph % (Auto) 19.7 [place] % (Auto) 7.3 Eos % (Auto) 1.5 Baso % (Auto) 0.3 Absolute Neuts (auto) 5.2 Absolute Lymphs (auto) 1.44 Nucleated RBC % 0 PT 13.0 INR 1.0 APTT 24.8 Sodium 141 Potassium 4.1 Chloride 106 Carbon Dioxide 27.0 Anion Gap 8 BUN 31 H Creatinine 1.39 H Estim Creat Clear Calc 48.87 Est GFR (MDRD) Af Amer 64 Est GFR (MDRD) Non-Af 53 L BUN/Creatinine Ratio 22.3 H Glucose 92 Calcium 9.2 Magnesium 2.0 TSH 2.34 Radiography Diagnostic Testing: Clinical Impression(s) from Imaging Studies Brain CT 03/06/22 06:58 IMPRESSION: Chronic involutional changes of the brain. Electronically Signed: Bala Gusman MD at 10:13 EST , Cervical Spine CT 03/06/22 06:58 IMPRESSION: Multilevel degenerative changes, as described above. Electronically Signed: Bala Gusman MD at 10:15 EST , Discharge Plan Triage Chief Complaint: Numb/Ting ED Provider: Jose Heart Dx/Rx/DC Orders Clinical Impression: Paresthesias Instructions: ED Paraesthesias Prescriptions: No Action saw palmetto 500 mg capsule 500 mg PO QDAY echinacea 400 mg capsule 400 mg PO DAILY loratadine [Claritin] 10 mg tablet 10 mg PO QDAY PRN (Reason: Allergies) alfuzosin 10 mg tablet extended release 24 hr 10 mg PO QDAY cholecalciferol (vitamin D3) 1,000 unit capsule 1,000 unit capsule 1,000 unit PO DAILY nitroglycerin 0.3 mg tablet, sublingual 0.3 mg sublingual Q5M PRN (Reason: other) Rx Instructions: do not exceed 3 doses per episode sildenafil 100 mg tablet 100 mg PO ONCE PRN (Reason: DOESN'T KNOW) Label Comments: TAKE 1 TABLET 1 HOUR PRIOR TO INTERCOURSE hydrocodone-acetaminophen 5-325 mg tablet 1 tab PO Q12H PRN aspirin 81 MG tablet 81 mg PO DAILY@0800 Label Comments: WAS TOLD TO ASK ABOUT STOPPING magnesium oxide 400 MG tablet 400 mg PO BID fluticasone propionate 1 SPRAY spray,suspension 1 spray NASAL BID multivitamin with folic acid 1 TABLET tablet 1 tab PO DAILY lansoprazole 30 MG capsule 30 mg PO QDAY coenzyme Q10 50 mg tablet,chewable 200 mg PO DAILY acetaminophen [Tylenol] 325 mg Tablet 650 mg PO Q6H PRN PRN (Reason: Pain Score 1-10/Temp > 100.7 F) Qty: 0 0RF prednisone 20 mg tablet 40 mg PO DAILY Qty: 10 0RF simvastatin 40 mg tablet 40 mg PO DAILY Qty: 90 4RF losartan 25 mg tablet 25 mg PO DAILY Qty: 90 3RF metoprolol succinate 25 mg tablet extended release 24 hr 25 mg PO DAILY Qty: 180 3RF flecainide 100 mg tablet 100 mg PO Q12H Qty: 180 3RF alprazolam 0.5 mg tablet 0.25 mg PO TID sertraline 50 mg tablet 50 mg PO DAILY Rx Instructions: 25 mg x 1 week, then 50 mg daily Primary Care Provider: Steven Retana Referrals: Steven Retana MD [Primary Care Provider] - 3-5 Days Activity Restrictions/Additional Instructions: Laboratory study all normal including electrolytes thyroid and magnesium. Keep your follow-up with your neurologist this coming Saturday. Disposition Disposition: Home, Self Care Discharge Date/Time: 03/06/22 10:37
[2022-03-06 08:14] LABS: Absolute Lymphocyte Count 1.44 X10^3/uL (0.83-4.51); Absolute Neutrophil Count 5.2 X10^3/uL (2.0-7.7); Basophil# 0.02 X10^3/uL; Basophil% 0.3 % (0-1); Eosinophil# 0.11 X10^3/uL; Eosinophils% 1.5 % (0-5); Hematocrit 41.3 % (40-54); Hemoglobin 13.6 g/dL (13.0-16.5); Lymphocyte # 1.44 X10^3/ul (0.83-4.51); Lymphocyte % 19.7 % (19-41); Mean Corp Hgb Conc 32.9 g/dL (32-36); Mean Corpuscular Hgb 31.1 pg (27.0-32.0); Mean Corpuscular Volume 94.3 fL (80-94); Mean Platelet Vol. 9.4 fl (6.2-12.0); Monocyte# 0.53 X10^3/uL; Monocyte% 7.3 % (0-10); NRBC Flagged by Analyzer 0 % (0-5); Neutrophil # 5.18 X10^3/uL (2.7-7.7); Neutrophil % 70.8 % (47-70); Platelet Count 163 K/mm3 (150-450); RBC Distribution Width CV 12.5 % (11.6-14.6); RBC Distribution Width SD 43.7 fl (35.1-43.9); Red Blood Count 4.38 M/mm3 (4.6-6.2); White Blood Count 7.3 K/mm3 (4.4-11.0)
[2022-03-06 08:16] VITALS: BP 141/78; PULSE 55; RESP 18; O2SAT 96
[2022-03-06 08:38] LABS: Anion Gap 8 (5-15); BUN 31 mg/dL (7-18); BUN/Creat Ratio 22.3 RATIO (10-20); Calcium,Total 9.2 mg/dL (8.5-10.1); Chloride 106 mmol/L (98-107); Creatinine, Serum 1.39 mg/dL (0.70-1.30); EST Glomerular Filtration Rate 53 mL/min (>60); Est Glom Filt Rate - Afr Amer 64 mL/min (>60); Estimated Creatinine Clearance 48.87 ml/min; Glucose 92 mg/dL (74-106); Potassium 4.1 mmol/L (3.5-5.1); Sodium Level 141 mmol/L (136-145); Thyroid Stim Hormone (TSH) 2.34 uIU/mL (0.358-3.74)
[2022-03-06 09:01] LABS: Partial Thromboplast Time 24.8 Seconds (24.1-36.2)
[2022-03-06 10:00] VITALS: BP 148/73; PULSE 58; RESP 16; TEMP 36.7; O2SAT 97
--- NOTE | 2022-03-06 10:13 | NURSING ---
03/07/22 @ 0930- Patient ambulated in hallway with SBA. Patient denied n/t while walking and stated his neck and back pain was back to normal. Notified.
[2022-03-06 10:33] VITALS: BP 131/67; PULSE 82; RESP 16; O2SAT 97
== END 2022-03-06 10:37 | disposition home or self-care (01) ==
PROVIDERS: Emergency Provider Emergency Medicine; PCP Family Medicine; Visit Provider Emergency Medicine
DX: R20.2 Paresthesia of skin (principal); J44.9 Chronic obstructive pulmonary disease, unspecified; I25.10 Atherosclerotic heart disease of native coronary artery without angina pectoris; E78.5 Hyperlipidemia, unspecified; M54.81 Occipital neuralgia; I10 Essential (primary) hypertension; Z87.891 Personal history of nicotine dependence; R20.0 Anesthesia of skin
CPT/HCPCS: 70450; 72125; 80048; 83735; 84443; 85025; 85610; 85730; 99283; A4216

== ENCOUNTER → 2022-03-19 | Outpatient (CLI) | payer MEDICARE, SELFPAY ==
[2020-06-13 13:42] VITALS: BMI 33.3
[2022-03-01 11:31] VITALS: BMI 33.3
--- NOTE | 2022-03-19 14:06 | CT_ITS ---
EXAM: CT RIGHT LOWER EXTREMITY WITHOUT INTRAVENOUS CONTRAST CLINICAL INDICATION: PREOP TECHNIQUE: Helically acquired images were obtained of the right lower extremity without intravenous contrast. 2-D reformats were performed by the technologist. CTDIvol = ( 18.76 ) mGy, DLP = ( 2186.22 ) mGycm This CT exam was performed using one or more of the following dose reduction techniques: automated exposure control, adjustment of the mA and/or kV according to patient size, and/or use of iterative reconstruction technique. This report was created using [facility] report [employer] technology. COMPARISON: None. FINDINGS: BONES/JOINTS: Moderate tricompartmental osteoarthrosis, worse at the medial femorotibial compartment. Interosseous ganglion cyst at the posterior aspect lateral tibial plateau and also at the No acute fracture. No subluxation. Normal alignment. Preservation of the joint space. No sclerotic or destructive changes. SOFT TISSUES: Prominent prostate with fiducial markers in place. No soft tissue swelling or gas. No radiopaque foreign body. CT/Extremity Lower without Contra IMPRESSION: No acute findings in the right lower extremity. Electronically Signed: Giacomo Rabago MD at 3:26 EST ,
== END | disposition home or self-care (01) ==
LOC: CT 14:05
PROVIDERS: PCP Family Medicine; Visit Provider Specialist
DX: M21.161 Varus deformity, not elsewhere classified, right knee (principal)
CPT/HCPCS: 73700

== ENCOUNTER 2022-04-04 14:55 | Observation (INO) | payer MEDICARE, SELFPAY ==
[2020-06-13 13:42] VITALS: BMI 33.3
[2022-03-01 11:31] VITALS: BMI 33.3
--- NOTE | 2022-03-19 21:04 | PCM.HP.BLA ---
History and Physical History and Physical [facility] Patient Name: Reinaldo Hearn : 1950 From:? ELIAS CORNEJO PA-C? DATE OF SURGERY:? 04/04/2022 SCHEDULED PROCEDURE:? Right total knee arthroplasty HISTORY OF PRESENT ILLNESS: Preoperative history and physical exam was performed on March 19, 2022.? This is a 71-year-old male who has had ongoing pain for years for his right knee.? Patient does have previous history of a left total knee arthroplasty by Dr. Stephane Kang on April 25, 2021 and a left total hip arthroplasty on March 07, 2021.? He is doing well from those procedures.? Patient does report having an injury on the right knee over 50 years ago while playing high school football.? He had a repeat injury playing football in college which did require lateral meniscectomy.? This was an open lateral procedure in 1967.? He has been dealing with pain off and on since then.? He states the pain has been limiting his activities.? Pain is intermittent, dull, sharp, sore.? Pain is increased with going up and down stairs and walking.? Patient has difficulty with activities of daily living including shopping and leisure activities.? The pain can reach as high as a 6/10.? Patient states the pain is across the anterior knee and medial and lateral joint lines.? Pain does awaken him at night.? He has tried rest, ice, heat, elevation with minimal relief.? He has tried previous corticosteroid injection with no relief in symptoms.? He has tried physical therapy and home exercises without relief.? He had previous Euflexxa injection with minimal relief.? He has also attempted bracing without relief.? He has tried oral medications including Tylenol and nonsteroidal anti-inflammatories.? We are obtaining surgical clearance from the primary care physician Dr. Retana and his fiberglass quality technician Dr. Anderson.? Patient is currently followed by pain management Dr. Watson.? We are reaching out to pain management for postoperative pain control and who will be managing this.? Patient does have a history of a concussion in November 2021 when he was unloading his car when he leaned into the car hitting his forehead.? Patient has had MRI, CT scan and EMG.? He has seen a neurologist.? He is cleared for surgery from that standpoint.? He has been through certified caregiver and physical therapy.? He feels significantly better.? He does have medical history of previous prostate radiation treatment in which he was treated with ibuprofen postoperatively.? He states this did affect his kidneys and has now developed chronic kidney disease.? He has previous history of atrial fibrillation with ablation.? History of sleep apnea and hypertension.? He denies recent chest pain or shortness of breath.? No recent fevers, chills, recent infections.? After failing conservative measures and discussing treatment options with Dr. Stephane Kang, the patient does wish to proceed with a right total knee arthroplasty. REVIEW OF SYSTEMS: Review Of Systems: Constitutional: Reports anxiety, but denies anorexia, change in appetite, fever and weight change,hard of hearing, and vision problems. Cardiovasular: Reports irregular heartbeat, but denies chest pain, heart murmur and peripheral vascular disease. Respiratory: Reports sleep apnea, but denies asthma, cough, pneumonia, shortness of breath, tuberculosis and wheezing. Gastrointestinal: Denies constipation, diarrhea, heartburn, nausea, bloody stools and vomiting, and difficulty swallowing. Genitourinary: Denies incontinence. Musculoskeletal: Reports injury, leg swelling, pain, stiffness, trouble walking and weakness and limp. Skin: Denies Raynaud's, history of shingles and tattoo. Neurological: Reports ambulatory dysfunction and numbness/tingling but denies dizziness and tremor. Psychiatric: Reports anxiety and stress, but denies depression, insomnia and mental illness. Hematologic/Lymphatic: Denies anemia, bleeding/bruising tendency and past transfusion. Reviewed, no changes. PAST MEDICAL HISTORY: Advance Care Plan: Other Directive, LIVING WILL Effective Date: 07/03/2017 Other Directive, POA Effective Date: 02/06/2018 Past Medical History: Medical Problems: Arthritis A-Fib - NO LONGER HAD AN ABLATION Sleep Apnea Covid- 19 - 01/2020 Cancer - PROSTATE- COMPLETED RADIATION ON 07/22/2020 CKD, High Blood Pressure Accidents: Sports Related Injury - BILAT Knee Concussion To Forehead - (12/16/2021) Surgical Hx: RT Knee - 40 YRS AGO LT Knee Arthroscopy, RT Shoulder Heart Cath - X2 Hemorroid, RT Eye Surgery, Sinus Surgery Heart Ablation - (03/2012) RT Dannie Gastrocnemius Recession - (03/30/2014) [facility] @ [facility] Vein Ablations In Legs Hernia Repair - (04/16/2018) Hip Replacement LT - (03/07/2021) [facility] @ [facility] Cataracts - BILAT Urolift - (2020) [facility] Knee Replacement LT - (04/25/2021) [facility] @ [facility] Cervical injection, Dr. Umaña - (02/20/2022) Anesthesia Complications: None Assistive Devices: Glasses, Contacts, Cane Reviewed, no changes. SOCIAL HISTORY: Social History: Marital: .Occupation: Retired.Work Status: Retired.Hand Dominance: Right-handed. Personal Habits:? Tobacco Use: Patient is a former smoker.Cigarette Use: Former.Smokeless Tobacco: Current Smokeless Tobacco User.E-Cigarette Use: Never used.Alcohol: Occasionally.Drug Use: Denies Use.Enjoy Exercising: Exercises 1-3 X/Week. Reviewed and updated. VITALS: Ht: 70 Wt: 238lb Wt k.957 BMI: 34.1 BP: 130/78 Pulse: 74 Resp: 20 T: 97.7 T: 36.5C Pain Level: 1 O2SatR: 99 ALLERGIES: Pradaxa Levaquin Gabapentin Neurontin - Psychological affects Levofloxacin Dabigatran NSAIDS? MEDICATIONS: Echinacea? 1 po qdAY, Multivitamins? 1 PO qday, Flonase 50 mcg/Act 2 puffs each side at bedtime, Loratadine 10 mg 1 po qdAY, Magox 400 400 (241.3 mg) mg 1 po qdAY, Metoprolol Succinate ER 25 mg 1 po bid, Nitrostat 0.4 mg as needed, Coq10 200 mg 1po qday, Vitamin D3? 1po qday, Saw Red House 450 mg 2 a day, Alfuzosin HCL ER 10 mg one PO daily, Flecainide Acetate 150 mg 1po bid, Lansoprazole 30 mg 1 by mouth every day, Alprazolam 0.5 mg 1 by mouth twice a day, Simvastatin 40 mg 1 by mouth every day, Sildenafil Citrate 50 mg 1po prn, Losartan Potassium 25 mg 1 by mouth every day, Sertraline HCL 50 mg 1 PO qdaily, Hydrocodone Bitartrate/Acetaminophen 5-325 mg take 1 tablet by mouth every 6 hours as needed for pain, Lyrica 25 mg 2x daily PRE-OP EXAM:? General appearance:NORMAL? ? ? Other: Eyes: Conjunctivae and lids: NORMAL? Pupils: ERR Ears, Nose, Mouth, and Throat: NORMAL? Other: Inspection of lips, teeth and gums: NORMAL? ?Other: Neck: Examination of neck: no masses noted. Respiratory: Assessment of respiratory effort: NORMAL? ?Other: ?Auscultation of lungs: clear to auscultation no wheezes, rhonchi or rales. Cardiovascular:? Auscultation of heart: regular rate and rhythm, no murmurs, gallops or rubs. PHYSICAL EXAMINATION: Patient does walk with an antalgic gait.? Previous incisions are well healed without erythema.? His right knee has moderate effusion.? He has tenderness to palpation over the medial lateral joint line.? He has crepitus with range of motion.? Range of motion right knee: Lacks 10 full extension to 115 flexion.? He does have atrophy appreciated on the right.? Stable to varus/valgus stress test but does have soft end point on Charly exam and anterior drawer exam.? Sensation intact to light touch. IMAGING STUDIES: Previous x-rays of the right knee reveal varus alignment with joint space narrowing, subchondral sclerosis, osteophyte formation consistent with severe stage IV tricompartmental osteoarthritis. IMPRESSION: 1.? Severe right knee osteoarthritis 2.? History of atrial fibrillation with previous ablation 2.? Sleep apnea 3.? Previous prostate cancer with radiation treatment 4.? Chronic kidney disease 5.? Hypertension 6. Cervical Degenerative Disc Disease 7. History of Concussion PLAN: Dr. Stephane Kang did discuss and review with the patient all treatment options including surgical versus nonsurgical options.? Patient does wish to proceed with the above-stated procedure.? Potential risks, benefits, and complications of the procedure were discussed in detail including but not limited to , infection, nerve and blood vessel damage, persistent pain, numbness, tingling, paresthesias, blood clot, pulmonary embolism, and requirement for possible further surgery.? The patient expressed full understanding and has no further questions for the doctor.? Patient does agree to proceed with the above-stated procedure and has signed the surgery consent form. We discussed the current risks associated with COVID 19.? This does include the risk of exposure while in the hospital.? Patient was reassured local hospitals have low infection rates and are taking all necessary precautions to avoid exposure to patients.? In addition, we discussed strategies that can be used to help limit exposure including those that limit the patient's time in the hospital.? Also using strategies to limit the patient's need for continued inpatient services after being discharged from the hospital.? Patient was notified that we will need to comply with any screening or testing the hospital wishes to perform or that surgery may be delayed for any positive results. This dictation was created using voice recognition software. Phonetic and/or grammatical errors may exist. ___? I have re-examined the patient.? There are no clinical changes since date of exam. ___? See progress notes for changes. ___? Dictated on admission Date: ? ? ?Time: Signature:
[2022-03-22 12:28] LABS: Albumin, Serum 3.7 g/dL (3.2-5.0); Anion Gap 2 (5-15); BUN 34 mg/dL (7-18); BUN/Creat Ratio 21.7 RATIO (10-20); Calcium,Total 9.3 mg/dL (8.5-10.1); Chloride 109 mmol/L (98-107); Creatinine, Serum 1.57 mg/dL (0.70-1.30); EST Glomerular Filtration Rate 46 mL/min (>60); Est Glom Filt Rate - Afr Amer 56 mL/min (>60); Glucose 96 mg/dL (74-106); Potassium 4.3 mmol/L (3.5-5.1); Sodium Level 140 mmol/L (136-145)
[2022-03-22 12:40] LABS: Magnesium 2.1 mg/dL (1.6-2.6)
[2022-03-22 12:50] LABS: Hemoglobin A1c 5.5 % (3.8-5.6)
[2022-04-04] VITALS (15 sets, daily range): BP systolic 99–153; BP diastolic 42–100; PULSE 60–84; RESP 16–18; TEMP 35.9–37.1; O2SAT 95–100; BMI 34.8
--- NOTE | 2022-04-04 07:02 | OP.PCM_ITS ---
Report of Operation Date of Procedure: 04/04/22 Pre-Operative Diagnosis: Right knee primary osteoarthritis Post-Operative Diagnosis: Right knee primary osteoarthritis Surgery/Procedure Performed:: Right minimally invasive robotic total knee replacement Description of Surgical Findings:: Stable knee with good patella tracking Surgeon: Stephane Kang plastic mould maker: Angel Sandhu Type of Anesthesia: Spinal Anesthesiologist: Konrad Santos Special Medications: 2 g Ancef, 1 g TXA at incision, 1 g TXA closure, 10 mg Decadron, joint cocktail (5 mg Duramorph, 30 mL of 0.5% Ropivicaine, 1000 units of epinephrine, 30 mg of Toradol) Specimen's removed: Bony cuts Estimated Blood Loss (mL): 150 Fluids Replaced: 1200 mL crystalloid Description of Procedure: Implants used: 1. [place] size 6 triathlon cruciate retaining distal femoral press-fit component 2. [place] size 7 press-fit tritanium tibial baseplate 3. [place] X3 9 mm CS polyethylene 4. Edgardo X3 38 mm press-fit asymmetric patella Brief history operative indications: 71-year-old M with history of right knee osteoarthritis with radiographic findings with loss of joint space, osteophyte formation and subchondral sclerosis. Failed conservative measures as mentioned in the H&P. Discussion of total knee arthroplasty as well as risk and benefits were discussed the patient including but not limited to blood loss, DVTs, PEs, neurovascular damage, general risk of anesthesia including loss of life, and stiffness or instability were discussed with patient. Patient demonstrated understanding and was able to sign informed consent. Procedure: On the date of procedure patient's right lower extremity was marked in the preoperative area. The patient was then taken back to the operating room where the patient was placed on the table in the supine position. All bony prominences were identified a well-padded. Anesthesia assumed control of the C-spine and airway and remained controlled throughout the remainder of the procedure. A tourniquet was placed on the right upper thigh and the leg was prepped in a sterile fashion. The surgeon then scrubbed at this time .Upon reentering the room right lower extremity was draped in a standard orthopedic fashion. A timeout was then called and everyone agreed upon the side, the site, the procedure to be performed, patient's identity and antibiotics given. Esmarch bandage was used to exsanguinate the extremity and the tourniquet was placed up to 250 mmHg with the knee in flexion. A midline skin incision was made and sharp dissection was taken down through skin subcutaneous tissue and fat. The standard medial parapatellar incision was made and the patella was subluxed laterally. An Appropriate deep MCL release was done and the fat pad was resected. Our attention was then directed to the patella. The patella was everted and a flat resection was made. The knee was then flexed up in 2 femoral pins were placed inside the incision and 2 tibial pins were placed outside the incision in the medial tibia bicortically. Once this was completed the 2 checkpoints in the femur and tibia were placed. Knee was then flexed up and the bony landmarks were registered. Once this was completed knee was taken through range of motion and manually stressed allowing us to a plan for an appropriate tibial cut. The robotic arm was brought into the field sterilely and checkpoint and saw were registered. Based on the patient's deformity the tibial cut was made in 2 degrees of varus. At this time the tensioner was then placed in the joint and ligament tension was checked at 90 degrees and full extension. Based on the patient's ligamentous tension appropriate adjustments were made to the operative plan and ligament releases were done. Once we were happy with our operative plan with balanced flexion and extension gaps our attention was directed to the femur. The robot was brought into the field sterilely and registered. Posterior condylar cuts, anterior chamfer cuts and anterior cuts were appropriately made for a size 6 femur. When these were completed the saws were switched out in the distal femoral and posterior chamfer cuts were made. Protecting the soft tissue throughout this time. A size 7 tibial base plate was selected. the knee was flexed to 90 degrees and the soft tissues and posterior osteophytes were removed from the joint. 40 cc of the periarticular injection was injected into the posterior medial corner of the joint. The appropriate trials were then placed on the femur and tibia. A trial polyethylene was trialed to ensure proper balancing and stability of the knee. The appropriate tibial internal rotation was then marked with a bovie. Our attention was then directed to the patella. The lug holes were drilled and the patella trial was placed. Patellar tracking was checked and deemed appropriate. Once we were happy lug holes were drilled for the femur and trial components were removed. the tibia was subluxed and pinned into place and the keel was pun ched and drilled appropriately. Final components were verified and opened, and cement was mixed in a vacuum. Evocalize Simplex cement was used. The wound was copiously irrigated with normal saline. When the cement was ready the components were impacted into place starting with the tibia, femur and finally impacting the patella. The trial poly component was placed and the knee was placed in full extension. All excess cement was removed in the process. Once the cement had cured the tracking, alignment and balance were verified and a size 9 mm CS polyethylene component was placed. Once the final components were placed a 3-minute dilute Betadine lavage was performed followed by an Irrisept lavage was performed and the wound was copiously irrigated with normal saline solution and the periarticular injection was given. The wound was closed in a layer angulo fashion using #1 vicryl interrupted sutures for the arthrotomy, 2-0 interrupted Vicryl suture for the subcuticular layer and liz for final skin closure. A sterile compressive dressing was then placed. The patient was then awakened from anesthesia, transferred to the [facility] and transferred to the PACU for recovery. Post op plan DVT ppx: ASA 81mg BID, thigh high compression stockings Follow up: in office in 2 weeks for wound check PT: to start POD #0 at hospital, outpatient PT should be arranged. My physician bacteriology research assistant was a vital part of this case. He was important in appropriate retraction during the case, and protection of soft tissues during bony cuts. His intimate knowledge of the case and my steps aided in safe and expedient completion of the procedure as well as appropriate position of the leg during the case. He was also vital in assisting with closure under my direct supervision. Due to the complexity of this case robotic arm was used to assist in the surgery to improve accuracy and clinical outcomes. Complications No intraoperative complications Admit VTE Documentation VTE Present on Admission: No VTE Mechan Device Prophylaxis: SCD's and Thigh High LEO Hose VTE Pharm Prophylaxis ordered?: Yes
[2022-04-04] MEDS: Lactated Ringers 1,000 ML 999 ML IV ×2 (09:20→13:06)
[2022-04-04] MEDS: Magnesium 1 GM over 15 mins IV (09:25)
[2022-04-04] MEDS: Acetaminophen 500 MG Tablet 1000 MG PO ×2 (09:30→22:38)
[2022-04-04 10:27] LABS: Bedside Glucose 88 mg/dL (74-106)
[2022-04-04] MEDS: Cefazolin 2 GM in 0.9% Normal Saline 100 ML IV (11:13)
[2022-04-04] MEDS: TXA 1000mg in NS100 100ml (IVPB at Closure) 660 MG IV (11:28)
[2022-04-04] MEDS: dexAMETHasone 10 MG/ML Vial IV (11:30)
--- NOTE | 2022-04-04 12:00 | KNEE_PTH ---
PATIENT: PIO HOANG LOC: MS3 U#:[id number] AGE/SX: 71/M ROOM: CA317 RE04/04/[address]: Dr. Stephane Kang MD : 1950 BED: 1 DIS: 04/05/2022 SPEC #: [id number] RECD: 04/04/22 14:49 STATUS: RICKY REQ #: [id number] ARUNA: 04/04/22 12:[address]: Stephane Kang DEPT: SURGICAL PATHOLOGY RECD BY: Christin Green ENTERED: 04/05/22 12:22 SP TYPE: TOTAL KNEE OTHR DR: DO Dr. Steven Alfonso MD Tissues: Knee, NOS Procedures: Decalcification bone/plaque Surgery Specimen Level IV HEADER OPERATION: ERAS, total knee replacement robotic arm assist PRE-OP DIAGNOSIS: Severe right knee osteoarthritis TISSUE SUBMITTED: Right knee bone MICROSCOPIC DIAGNOSIS Bone and tissue of right knee, total knee resection: Severe degenerative joint disease. AM:arias 04/11/2022 MICROSCOPIC DESCRIPTION Slides are reviewed. GROSS DESCRIPTION Received is one container designated right knee bone. The specimen consists of multiple fragments of [place]-yellow bone measuring in aggregate 12 x 11 x 4 cm. Also in the specimen container are multiple fragments of yellow-white soft tissue measuring in aggregate 6 x 5 x 3.5 cm. A number of bony fragments contain articular surfaces consistent with tibial plateau and femoral condyle and displaying prominent osteophyte formation, eburnation, and bone erosion. Customer Servicer sections are submitted in two cassettes as follows: 1 - soft tissue, 2 - bone after decalcification. / SJ:arias 04/05/2022 TC:5 CPT: 93337, 02094
[2022-04-04] MEDS: TXA 1000mg in NS100 100ml (IVPB at Incision) 660 MG IV (12:20)
--- NOTE | 2022-04-04 13:15 | RAD_ITS ---
STUDY: X-RAY - RIGHT KNEE REASON FOR EXAM: Male, 71 years old. Post op -- AP and Lateral xray of operative knee in PACU TECHNIQUE: 2 view(s) of the knee. COMPARISON: None. FINDINGS: Normal visualized distal femur. Normal visualized proximal tibia and fibula. Normal proximal tibiofibular articulation. Patient is status post total knee replacement. There is good alignment. Postoperative soft tissue changes. RAD/Knee 1 or 2 Views IMPRESSION: Status post total knee replacement. There is good alignment. Postoperative soft tissue changes. Electronically Signed: Bala Gusman MD at 13:57 EST ,
[2022-04-04] MEDS: Lactated Ringers 1,000 ML 125 ML IV (14:11)
[2022-04-04] MEDS: Aspirin 81 MG TAB.CHEW PO (17:04)
[2022-04-04] MEDS: Sertraline 50 MG Tablet PO (17:04)
[2022-04-04] MEDS: ALPRAZolam 0.25 MG Tablet PO ×2 (17:04→22:39)
[2022-04-04] MEDS: Tamsulosin HCl 0.4 MG Capsule PO (17:05)
--- NOTE | 2022-04-04 17:17 | PCM.PN.HOSP ---
Subjective Subjective Feels well. Still feel little groggy postoperatively. Objective Data Objective Data Vital Signs: Vital Signs Temp Pulse Resp BP Pulse Ox O2 Del Method O2 Flow Rate 36.6 C 82 18 142/62 H 95 Room Air 4 04/04/22 16:20 04/04/22 16:20 04/04/22 16:20 04/04/22 16:20 04/04/22 16:20 04/04/22 16:22 04/04/22 14:45 Oxygen Flow Rate (L/min) 4 Oxygen Delivery Method Room Air Weight: 110.223 kg Body Mass Index (BMI) 34.8 Intake & Output: Intake and Output for Last 24 Hours 04/02/22 04/03/22 04/04/22 23:59 23:59 23:59 Intake Total 3713.25 / 3713.25 Balance 3713.25 / 3713.25 Lab / Micro Data Result Diagrams: 03/22/22 11:09 Labs: Laboratory Results - last 24 hr 04/04/22 09:24: POC Glucose 88 Micro: Microbiology 03/22/22 11:09 Swab (Method) Nasal Screen MRSA/MSSA - Final Radiography Diagnostic Testing: Radiology Impression Knee X-Ray 04/04/22 13:15 IMPRESSION: Status post total knee replacement. There is good alignment. Postoperative soft tissue changes. Electronically Signed: Bala Gusman MD at 13:57 EST , Physical Exam Narrative Up in bed eating. Const alert and no apparent distress Resp normal respiratory effort, no retractions, no use of accessory muscles and clear to auscultation bilaterally Cardio regular rate, regular rhythm, S1 normal heart sound and S2 normal heart sound GI normal to inspection, nondistended, normoactive bowel sounds, soft to palpation, non-tender and non-distended Extremity Extremity Narrative: Ice on right knee, did not remove. Assessment & Plan Assessment/Plan (1) Paroxysmal atrial fibrillation: PLAN: Plan 1. Hypertension: Stable. Continue with losartan, Toprol-XL. 2. Hyperlipidemia: Stable. Continue with atorvastatin 3. BPH: Continue tamsulosin 4. History of paroxysmal atrial fibrillation. Stable. Continue flecainide. Status post ablation at [facility]. Not on anticoagulation at baseline. 5. Status post right knee replacement. Management per orthopedics. 6. VTE prophylaxis: BID ASA per orthopaedics Patient medically stable. Will sign off. Please not hesitate to contact the hospitalist service if any new events arise. Charges/Coding Visit Charges Inpatient E&M: 07796 Subs Hosp L2
[2022-04-04] MEDS: Cefazolin 1 GM/50 ML BAG IV (18:10)
[2022-04-04] MEDS: oxyCODONE 5 MG Tablet PO ×2 (18:10→22:39)
[2022-04-04] MEDS: Fluticasone 0.05% 1 SPRAY NASAL.SRY NASAL (22:34)
[2022-04-04] MEDS: Atorvastatin Calcium 20 MG Tablet PO (22:35)
[2022-04-04] MEDS: Senna/Docusate Sodium 1 Tablet 2 TABLET PO (22:38)
[2022-04-04] MEDS: Flecainide 100 MG Tablet PO (22:38)
[2022-04-04] MEDS: Magnesium Chloride 64 MG Delay Rel.Tablet 128 MG PO (22:38)
[2022-04-05 02:00] VITALS: BP 139/66; PULSE 73; RESP 17; TEMP 36.5; O2SAT 93
[2022-04-05] MEDS: Cefazolin 1 GM/50 ML BAG IV (03:09)
[2022-04-05] MEDS: oxyCODONE 5 MG Tablet PO ×2 (03:14→11:53)
[2022-04-05 05:49] LABS: Hematocrit 37.3 % (40-54); Hemoglobin 12.1 g/dL (13.0-16.5); Mean Corp Hgb Conc 32.4 g/dL (32-36); Mean Corpuscular Hgb 31.5 pg (27.0-32.0); Mean Corpuscular Volume 97.1 fL (80-94); Mean Platelet Vol. 10.9 fl (6.2-12.0); Platelet Count 136 K/mm3 (150-450); RBC Distribution Width CV 12.6 % (11.6-14.6); RBC Distribution Width SD 44.8 fl (35.1-43.9); Red Blood Count 3.84 M/mm3 (4.6-6.2)
[2022-04-05] MEDS: ALPRAZolam 0.25 MG Tablet PO (05:57)
[2022-04-05] MEDS: Acetaminophen 500 MG Tablet 1000 MG PO (05:57)
[2022-04-05 06:02] LABS: Anion Gap 8 (5-15); BUN 41 mg/dL (7-18); Calcium,Total 8.4 mg/dL (8.5-10.1); Chloride 105 mmol/L (98-107); Creatinine, Serum 1.78 mg/dL (0.70-1.30); EST Glomerular Filtration Rate 40 mL/min (>60); Est Glom Filt Rate - Afr Amer 48 mL/min (>60); Estimated Creatinine Clearance 38.16 ml/min; Glucose 125 mg/dL (74-106); Sodium Level 138 mmol/L (136-145)
[2022-04-05 07:50] VITALS: O2SAT 97
[2022-04-05 08:20] VITALS: BP 145/61; PULSE 74; RESP 18; TEMP 36.6; O2SAT 97
[2022-04-05] MEDS: Fluticasone 0.05% 1 SPRAY NASAL.SRY NASAL (08:31)
[2022-04-05] MEDS: Aspirin 81 MG TAB.CHEW PO (08:32)
[2022-04-05] MEDS: Losartan Potassium 25 MG Tablet PO (08:33)
[2022-04-05] MEDS: Multivitamins,Therapeutic Tablet 1 TABLET PO (08:33)
[2022-04-05] MEDS: Magnesium Chloride 64 MG Delay Rel.Tablet 128 MG PO (08:33)
[2022-04-05] MEDS: Famotidine 20 MG Tablet PO (08:33)
[2022-04-05 08:34] VITALS: PULSE 74
[2022-04-05] MEDS: Sertraline 50 MG Tablet PO (08:34)
[2022-04-05] MEDS: Pregabalin 50 MG Capsule PO (08:34)
[2022-04-05] MEDS: Cholecalciferol (VIT D3) 25 MCG TABLET (1,000 UNITS) PO (08:34)
[2022-04-05] MEDS: Senna/Docusate Sodium 1 Tablet 2 TABLET PO (08:34)
[2022-04-05] MEDS: Pantoprazole Sodium 40 MG Tablet PO (08:34)
[2022-04-05] MEDS: Metoprolol(XL)Succ 25 MG Tablet PO (08:34)
[2022-04-05] MEDS: Flecainide 100 MG Tablet PO (08:34)
[2022-04-05 09:15] VITALS: O2SAT 98
--- NOTE | 2022-04-05 09:55 | CASEMGMT ---
ADRIANA MI Assessment: Face to Face with pt for initial transition planning/care coordination assessment. RN SHMUEL introduced self and role at [facility], pt voices understanding and consents to assessment. Pt is A/O x4 and answers all questions appropriately at this time. Pt sitting in chair with at bedside in no distress. Care providers, pharmacy, and demographics verified/updated. Admitting Dx: R total knee with amanda PCP: Mazin Specialists: Pearl, ortho;Edgar, nephro; Monica, cardio; Ben, GI; Shirley, pain mgmt; Sibilia, pulm; Thania, ENT; Dossi, chiro Preferred Pharmacy: [facility] Insurance: [employer] [facility] Prescription Benefit: yes LNOK: Sara Hearn, ; Minal Deras, dtr Living Arrangements: Pt lives with in a single story house with 2 steps to enter. Pt reports he is I in ADL's and denies concerns at home. Transportation: Pt drives self and denies concerns with transportation. Pt will transport pt until he is able to drive again. DME/HHC/SNF: Pt has high toilets, bipap, FWW and cane at home. Pt denies previous HHC or SNF stays. Pt states no concerns with going home at time of dc. He has outpt therapy set up at [facility] on Saturday. Pt states no further concerns/needs. CM to follow. Advised pt to ask CM if any further question/concerns/needs arise, voices understanding. Pt Goal: Home with outpt therapy already set up Plan: Home with outpt therapy already set up
--- NOTE | 2022-04-05 10:08 | PN.ORTHO_ITS ---
Subjective Subjective The patient was sitting in bedside chair eating breakfast upon examination. Patient denies any chest pain, shortness of breath, dizziness, lightheadedness, nausea or vomiting, or calf pain. Pain is controlled on medications. No adverse overnight events. Patient states he is doing very well and has been up walking. He has also been able to urinate on his own as he does have underlying benign prostatic hyperplasia and treated with tamsulosin. Patient is doing well and wishes to try to go home today. Objective Data Objective Data Vital Signs: Vital Signs Temp Pulse Resp BP Pulse Ox O2 Del Method O2 Flow Rate 98 F 74 18 145/61 H 97 Room Air 4 04/05/22 08:20 04/05/22 08:34 04/05/22 08:20 04/05/22 08:20 04/05/22 08:20 04/05/22 08:20 04/04/22 14:45 Oxygen Flow Rate (L/min) 4 Oxygen Delivery Method Room Air Weight: 110.223 kg Body Mass Index (BMI) 34.8 Intake & Output: Intake and Output for Last 24 Hours 04/03/22 04/04/22 04/05/22 23:59 23:59 23:59 Intake Total 4253.25 / 4253.25 470 / 470 Output Total 200 / 200 550 / 550 Balance 4053.25 / 4053.25 -80 / -80 Lab / Micro Data Result Diagrams: 04/05/22 04:54 04/05/22 04:54 Labs: Laboratory Results - last 24 hr 04/04/22 09:24: POC Glucose 88 04/05/22 04:54: WBC 18.0 H, RBC 3.84 L, Hgb 12.1 L, Hct 37.3 L, MCV 97.1 H, MCH 31.5, MCHC 32.4, RDW Std Deviation 44.8 H, RDW Coeff of Alesha 12.6, Plt Count 136 L, MPV 10.9 04/05/22 04:54: Sodium 138, Potassium 5.0, Chloride 105, Carbon Dioxide 25.0, Anion Gap 8, BUN 41 H, Creatinine 1.78 H, Estim Creat Clear Calc 38.16, Est GFR (MDRD) Af Amer 48 L, Est GFR (MDRD) Non-Af 40 L, BUN/Creatinine Ratio 23.0 H, Glucose 125 H, Calcium 8.4 L Micro: Microbiology 03/22/22 11:09 Swab (Method) Nasal Screen MRSA/MSSA - Final Radiography Diagnostic Testing: Radiology Impression Knee X-Ray 04/04/22 13:15 IMPRESSION: Status post total knee replacement. There is good alignment. Postoperative soft tissue changes. Electronically Signed: Bala Gusman MD at 13:57 EST , Physical Exam Narrative Vital signs stable and afebrile. SCDs and LEO hose are in place bilaterally Patient is able to plantarflex and dorsiflex actively. Sensation is intact to light touch to saphenous, sural, superficial and deep peroneal, and tibial distribution. Proximal pin site and Mepilex dressing is clean dry and intact. Distal pin site dressing has trace drainage Negative Homans bilaterally, negative signs and symptoms of DVT. Const alert, oriented x3 and no apparent distress Assessment & Plan Assessment/Plan (1) Status post total right knee replacement: PLAN: 1. S/P right total knee arthroplasty POD #1 2. Continue Pain Medications: Tylenol and oxycodone. Patient is seen by local pain management doctor Dr. Watson in which she is treated for chronic pain with Warner. We did reach out to pain management and orthopedics will manage postoperative pain medications for the first 6 weeks. I discussed this with the patient. He is also never to take the Warner while he is on the oxycodone postoperatively for the postoperative treatment for his knee surgery. Patient voiced understanding and agreement 3. DVT Prophylaxis: Take 81 mg aspirin twice daily for 4 weeks postoperatively for DVT prophylaxis. Patient denies previous history of DVT or pulmonary embolism 4. PT/OT: Weightbearing as tolerated with walker 5. H & H: 12.1/37.3, asymptomatic. Postoperative anemia secondary to acute blood loss from surgery without any intra operative complications. 6. Reactive leukocytosis: Currently 18.0, afebrile. Patient did receive Decadron intraoperatively 7. Continue postoperative medical management per medicine 8. Encouraged Incentive Spirometry 9. Disposition: Patient overall is doing very well this morning. Plan will be for discharge home this afternoon as long as patient remains medically stable, tolerates physical therapy, and pain is well controlled. We did discuss his block for the knee replacement in which she can start having some increased pain as this wears off. He did voiced understanding agreement. We also discussed in detail his narcotics and he will only be using the oxycodone for the first 6 weeks postoperatively. He has never to mix the 2 narcotic medications. He also voiced understanding. He would like his prescriptions E scribed to [facility] in [facility]. He will follow-up per postop instructions. He does have outpatient physical therapy established. He will contact her office upon discharge with any concerns or complications. I have reviewed the [facility] [employer] [facility] Reporting System ([facility]ARRS) report for this patient for refill pattern and other prescriber involvement as part of the appropriate surveillance for the provision of acute and chronic controlled medications. The report was requested and reviewed on the date of this entry and was considered in the prescribing process. This dictation was created using voice recognition software. Phonetic and/or grammatical errors may exist.
--- NOTE | 2022-04-05 10:12 | PCM.DC ---
Discharge Instructions Diet Discharge Diet: No restrictions Activity Discharge Activity: May Not Drive (No driving for 6 weeks postoperatively) May shower in (days): 1 (Please turn dressing away from water. Okay to get wet as long as dressing is intact to skin.) Ice area for (Minutes): 20 (Every 1-2 hours while awake[address] Please place barrier between the skin and ice pack.) Weight Bearing Status: Weight bearing as tolerated Keep extremity elevated above heart level: Operative Extremity Dressing / Incision Call your doctor if your incision/area has: Continuous Slow Oozing, Sudden Increased Bleeding, Increased Pain/ Swelling, Increased Redness and Foul Smelling Discharge Call your doctor if you observe: Fever of 101 or Higher, Coldness, Increased Pain, Numbness or Tingling, Change in Color, Shortness of breath, Chest pain, Calf discomfort and Uncontrolled pain Remove Dressing in: 4 days (Okay to remove dressing on April 09, 2022) Additional Dressing/Incision Instructions:: Follow [facility] Post-op Instructions. Once postoperative dressing has been removed only use gentle soap and water over the incision. Do not use any ointments, Neosporin, salves, alcohol pads over the incision for 6 weeks postoperatively. Do not submerge underwater for 6 weeks postoperatively. Continue with LEO hose/elastic stockings for 2 weeks postoperatively. May remove at nighttime but needs to be placed back on the leg during the day. Do NOT use alcohol with narcotic pain medication. Do NOT make important decisions while taking narcotic medication. If you have problems with taking your medication (rash, itching, nausea, etc.) call the office at once. Follow Up Care Test Results: Test results from this visit will be discussed in further detail at your follow-up appointment, if applicable. Discharge Plan Admission Admit Date/Time: 04/04/22 14:55 Attending Provider: Stephane Kang Primary Care Provider: Steven Retana Consulting Providers: Kirsten Hernández Discharge Orders/Prescriptions Prescriptions: New acetaminophen 500 mg Tablet 1,000 mg PO TID Qty: 100 0RF Rx Instructions: Do not take more than 3000 mg Tylenol in a 24-hour period. aspirin 81 mg Tablet,Chewable 81 mg PO BIDCM Qty: 0 0RF Rx Instructions: Take 81 mg aspirin twice daily for 4 weeks postoperatively for DVT prophylaxis. oxycodone 5 mg Tablet 5 - 10 mg PO Q4H PRN PRN (Reason: Pain Score 4-10) 5 Days Qty: 42 0RF sennosides-docusate sodium [Stool Softener-Stimulant Laxat] 8.6-50 mg Tablet 2 tab PO BID Qty: 12 0RF Rx Instructions: Take until first bowel movement, then as needed Continued saw palmetto 500 mg capsule 500 mg PO QDAY echinacea 400 mg capsule 400 mg PO DAILY loratadine [Claritin] 10 mg tablet 10 mg PO QDAY PRN (Reason: Allergies) alfuzosin 10 mg tablet extended release 24 hr 10 mg PO QDAY cholecalciferol (vitamin D3) 1,000 unit capsule 1,000 unit capsule 1,000 unit PO DAILY nitroglycerin 0.3 mg tablet, sublingual 0.3 mg sublingual Q5M PRN (Reason: other) Rx Instructions: do not exceed 3 doses per episode sildenafil 100 mg tablet 50 mg PO ONCE PRN (Reason: DOESN'T KNOW) Label Comments: TAKE 1 TABLET 1 HOUR PRIOR TO INTERCOURSE baclofen 10 mg tablet 10 mg PO QHS PRN (Reason: Pain) magnesium oxide 400 MG tablet 400 mg PO BID fluticasone propionate 1 SPRAY spray,suspension 1 spray NASAL BID multivitamin with folic acid 1 TABLET tablet 1 tab PO DAILY lansoprazole 30 MG capsule 30 mg PO QDAY coenzyme Q10 50 mg tablet,chewable 200 mg PO DAILY pregabalin [Lyrica] 50 mg Capsule 50 mg PO BID simvastatin 40 mg tablet 40 mg PO DAILY Qty: 90 4RF losartan 25 mg tablet 25 mg PO DAILY Qty: 90 3RF metoprolol succinate 25 mg tablet extended release 24 hr 25 mg PO DAILY Qty: 180 3RF flecainide 100 mg tablet 100 mg PO Q12H Qty: 180 3RF alprazolam 0.5 mg tablet 0.25 mg PO TID sertraline 50 mg tablet 50 mg PO DAILY Rx Instructions: 25 mg x 1 week, then 50 mg daily Discontinued hydrocodone-acetaminophen 5-325 mg tablet 1 tab PO Q12H PRN (Reason: Pain) aspirin 81 MG tablet 81 mg PO DAILY@0800 Label Comments: WAS TOLD TO ASK ABOUT STOPPING acetaminophen [Tylenol] 325 mg Tablet 650 mg PO Q6H PRN PRN (Reason: Pain Score 1-10/Temp > 100.7 F) Qty: 0 0RF Referrals / Follow Up: Physical,Therapy [Other] - 04/09/22 1:30 pm Steven Retana MD [Primary Care Provider] - Angel Sandhu PA-C [Med Staff - [facility]] - 04/19/22 2:00 pm Disposition Disposition (needs filled in before D/C Order can be placed): Home, Self Care
[2022-04-05 11:56] VITALS: BP 129/65; PULSE 70; RESP 18; TEMP 36.8; O2SAT 96
== END 2022-04-05 13:22 | disposition home or self-care (01) ==
LOC: SDC 14:55 → MS3 14:55
PROVIDERS: Anesthesiology; Admitting Provider Specialist; PCP Family Medicine; Referring Provider Specialist; Visit Provider Specialist
PROC: 0SRC0JZ Replacement of Right Knee Joint with Synthetic Substitute, Open Approach (ICD-10-PCS; CPT 27447; principal; 2022-04-04 11:30)
DX: M17.11 Unilateral primary osteoarthritis, right knee (principal); I48.0 Paroxysmal atrial fibrillation; N18.30 Chronic kidney disease, stage 3 unspecified; M50.30 Other cervical disc degeneration, unspecified cervical region; I12.9 Hypertensive chronic kidney disease with stage 1 through stage 4 chronic kidney disease, or unspecified chronic kidney disease; G47.30 Sleep apnea, unspecified; Z87.891 Personal history of nicotine dependence; Z79.899 Other long term (current) drug therapy; Z79.82 Long term (current) use of aspirin; I25.10 Atherosclerotic heart disease of native coronary artery without angina pectoris; M99.01 Segmental and somatic dysfunction of cervical region; M99.02 Segmental and somatic dysfunction of thoracic region; M99.03 Segmental and somatic dysfunction of lumbar region; M99.05 Segmental and somatic dysfunction of pelvic region; F41.9 Anxiety disorder, unspecified; F32.A Depression, unspecified; K21.9 Gastro-esophageal reflux disease without esophagitis; M51.36 Other intervertebral disc degeneration, lumbar region; N40.0 Benign prostatic hyperplasia without lower urinary tract symptoms
CPT/HCPCS: 27447; 01402; S2900; 64447; 36415; 73560; 80048; 82040; 82962; 83036; 83735; 85027; 87081; 88305; 88311; 93005; 96365; 96366; 97110; 97116; 97162; 97166; 97530; 97535; 99221; 99252; C1776; J7120; G0378; G0463; J2405; J3475

== ENCOUNTER → 2022-04-11 | Outpatient (CLI) | payer MEDICARE, SELFPAY ==
[2022-03-01 11:31] VITALS: BMI 33.3
--- NOTE | 2022-04-11 10:49 | VDLE_ITS ---
Reason For Study: Pain RIGHT LEFT GSV is normal. CFV is compressible, spontaneous, phasic, CFV is compressible, spontaneous, phasic, competent, and demonstrates normal competent and demonstrates normal augmentation. augmentation. FV is compressible, spontaneous, phasic, competent and demonstrates normal augmentation. POP V is compressible, spontaneous, phasic, competent and demonstrates normal augmentation. T/P Trunk is compressible. PTV is compressible. RT PerV is compressible. Procedure This is a venous duplex using B-mode, color flow and spectral Doppler. Exam performed in department. A preliminary report was called and/or faxed to [facility]. VL/Venous Duplex US, Unilateral Interpretation Summary There is no evidence of right lower extremity deep vein thrombosis. Imaging sug gest the right great saphenous vein has been treated with Endo venous ablation Normal flow patterns left common femoral vein Ordering Physician: Stephane Kang Referring Physician: Steven Retana Performed By: Jamia Mello RVT
== END | disposition home or self-care (01) ==
LOC: CVS 10:48
PROVIDERS: PCP Family Medicine; Visit Provider Specialist
DX: M79.661 Pain in right lower leg (principal); Z47.1 Aftercare following joint replacement surgery
CPT/HCPCS: 93971

== ENCOUNTER → 2022-05-15 | Outpatient (CLI) | payer MEDICARE, SELFPAY ==
[2020-06-13 13:42] VITALS: BMI 33.3
[2022-03-01 11:31] VITALS: BMI 33.3
[2022-05-15 14:52] LABS: Absolute Lymphocyte Count 1.05 X10^3/uL (0.83-4.51); Absolute Neutrophil Count 4.6 X10^3/uL (2.0-7.7); Basophil# 0.03 X10^3/uL; Basophil% 0.5 % (0-1); Eosinophil# 0.15 X10^3/uL; Eosinophils% 2.4 % (0-5); Hematocrit 36.3 % (40-54); Hemoglobin 12.2 g/dL (13.0-16.5); Lymphocyte # 1.05 X10^3/ul (0.83-4.51); Lymphocyte % 16.7 % (19-41); Mean Corp Hgb Conc 33.6 g/dL (32-36); Mean Corpuscular Hgb 31.9 pg (27.0-32.0); Mean Corpuscular Volume 94.8 fL (80-94); Mean Platelet Vol. 10.1 fl (6.2-12.0); Monocyte# 0.46 X10^3/uL; Monocyte% 7.3 % (0-10); NRBC Flagged by Analyzer 0 % (0-5); Neutrophil # 4.57 X10^3/uL (2.7-7.7); Neutrophil % 72.8 % (47-70); Platelet Count 159 K/mm3 (150-450); RBC Distribution Width CV 12.5 % (11.6-14.6); RBC Distribution Width SD 43.3 fl (35.1-43.9); Red Blood Count 3.83 M/mm3 (4.6-6.2); White Blood Count 6.3 K/mm3 (4.4-11.0)
[2022-05-15 15:39] LABS: Albumin, Serum 3.7 g/dL (3.2-5.0); BUN 28 mg/dL (7-18); BUN/Creat Ratio 18.9 RATIO (10-20); Calcium,Total 9.2 mg/dL (8.5-10.1); Chloride 107 mmol/L (98-107); Creatinine, Serum 1.48 mg/dL (0.70-1.30); EST Glomerular Filtration Rate 49 mL/min (>60); Est Glom Filt Rate - Afr Amer 60 mL/min (>60); Glucose 100 mg/dL (74-106); Phosphorus 3.6 mg/dL (2.5-4.9); Potassium 4.5 mmol/L (3.5-5.1); Sodium Level 140 mmol/L (136-145)
== END | disposition home or self-care (01) ==
PROVIDERS: Physician Assistant Medical; PCP Family Medicine; Visit Provider Internal Medicine Nephrology
DX: N18.31 Chronic kidney disease, stage 3a (principal)
CPT/HCPCS: 36415; 80069; 85025

== ENCOUNTER → 2022-05-29 | Outpatient (CLI) | payer MEDICARE, SELFPAY ==
[2022-03-01 11:31] VITALS: BMI 33.3
[2022-05-29 16:32] LABS: PSA,Total- Diagnostic 0.41 ng/mL (0.0-4.0)
== END | disposition home or self-care (01) ==
LOC: LAB 14:20
PROVIDERS: PCP Family Medicine; Visit Provider Urology
DX: R97.20 Elevated prostate specific antigen [PSA] (principal)
CPT/HCPCS: 36415; 84153

== ENCOUNTER → 2022-06-11 | Outpatient (CLI) | payer MEDICARE, SELFPAY ==
[2022-03-01 11:31] VITALS: BMI 33.3
== END | disposition home or self-care (01) ==
PROVIDERS: PCP Family Medicine; Visit Provider Otolaryngology Otolaryngology/Facial Plastic Surgery
DX: J32.8 Other chronic sinusitis (principal)
CPT/HCPCS: 87070; 87077; 87186; 87205

== ENCOUNTER → 2022-12-05 | Outpatient (CLI) | payer MEDICARE, SELFPAY ==
[2022-03-01 11:31] VITALS: BMI 33.3
[2022-12-05 12:43] LABS: PSA,Total- Diagnostic 0.32 ng/mL (0.0-4.0)
== END | disposition home or self-care (01) ==
LOC: LAB 10:59
PROVIDERS: PCP Family Medicine; Referring Provider Registered Nurse; Visit Provider Registered Nurse
DX: C61 Malignant neoplasm of prostate (principal)
CPT/HCPCS: 36415; 84153

== ENCOUNTER → 2022-12-18 | Outpatient (CLI) | payer MEDICARE, SELFPAY ==
[2022-03-01 11:31] VITALS: BMI 33.3
[2022-12-18 15:48] LABS: Albumin, Serum 3.8 g/dL (3.2-5.0); BUN 26 mg/dL (7-18); BUN/Creat Ratio 16.4 RATIO (10-20); Calcium,Total 9.1 mg/dL (8.5-10.1); Chloride 108 mmol/L (98-107); Creatinine, Serum 1.59 mg/dL (0.70-1.30); EST Glomerular Filtration Rate 45 mL/min (>60); Est Glom Filt Rate - Afr Amer 55 mL/min (>60); Glucose 97 mg/dL (74-106); Potassium 4.3 mmol/L (3.5-5.1); Sodium Level 139 mmol/L (136-145)
== END | disposition home or self-care (01) ==
LOC: LAB 14:00
PROVIDERS: PCP Family Medicine; Referring Provider Internal Medicine Nephrology; Visit Provider Internal Medicine Nephrology
DX: N18.31 Chronic kidney disease, stage 3a (principal)
CPT/HCPCS: 36415; 80069

== ENCOUNTER 2023-03-23 23:16 | Emergency (ER) | payer MEDICARE, SELFPAY ==
[2022-03-01 11:31] VITALS: BMI 33.3
[2023-03-23 23:17] VITALS: BP 131/74; BP 146/76; PULSE 49; PULSE 53; RESP 16; RESP 20; TEMP 36.1; O2SAT 96; O2SAT 98
[2023-03-23 23:18] VITALS: BMI 35.6
--- NOTE | 2023-03-23 23:30 | EKG12_ITS ---
Test Reason : CP Blood Pressure : / mmHG Vent. Rate : 053 BPM Atrial Rate : 053 BPM P-R Int : 188 ms QRS Dur : 086 ms QT Int : 386 ms P-R-T Axes : 074 019 041 degrees QTc Int : 362 ms Sinus bradycardia Otherwise normal ECG Confirmed by QUINTEN WITT, ANTONIETA ([id number]), news assignment editor PIERRE CALDWELL ([id number]) on 04/02/2023 9:06:28 AM Referred By: GEE Confirmed By:ANTONIETA SHIPLEY MD
[2023-03-23 23:43] LABS: Absolute Lymphocyte Count 1.48 X10^3/uL (0.83-4.51); Absolute Neutrophil Count 4.8 X10^3/uL (2.0-7.7); Basophil# 0.03 X10^3/uL; Basophil% 0.4 % (0-1); Eosinophil# 0.09 X10^3/uL; Eosinophils% 1.3 % (0-5); Hematocrit 40.4 % (40-54); Hemoglobin 13.5 g/dL (13.0-16.5); Lymphocyte # 1.48 X10^3/ul (0.83-4.51); Mean Corp Hgb Conc 33.4 g/dL (32-36); Mean Corpuscular Hgb 31.7 pg (27.0-32.0); Mean Corpuscular Volume 94.8 fL (80-94); Mean Platelet Vol. 9.9 fl (6.2-12.0); Monocyte# 0.58 X10^3/uL; Monocyte% 8.2 % (0-10); NRBC Flagged by Analyzer 0 % (0-5); Neutrophil # 4.84 X10^3/uL (2.7-7.7); Neutrophil % 68.8 % (47-70); Platelet Count 160 K/mm3 (150-450); RBC Distribution Width CV 12.4 % (11.6-14.6); Red Blood Count 4.26 M/mm3 (4.6-6.2)
--- NOTE | 2023-03-23 23:50 | RAD_ITS ---
INDICATION: chest pain EXAMINATION/TECHNIQUE: X-RAY - XR Chest 2 Views COMPARISON: 02/14/2022 FINDINGS: LINES/DEVICES: None. LUNGS: No consolidation, edema or effusion. No pneumothorax. MEDIASTINUM AND CARDIOVASCULAR STRUCTURES: Cardiac silhouette not enlarged. Central airways and mediastinal contour are unremarkable. BONES AND SOFT TISSUES: Unremarkable. RAD/Chest PA and Lateral IMPRESSION: No radiographic evidence of acute cardiopulmonary disease. Electronically Signed: Bing Andrade MD at 0:36 EST ,
[2023-03-24] VITALS (29 sets, daily range): BP systolic 139–171; BP diastolic 67–156; PULSE 46–57; RESP 11–22; O2SAT 94–96
[2023-03-24 00:01] LABS: Anion Gap 3 (5-15); BUN 30 mg/dL (7-18); BUN/Creat Ratio 18.4 RATIO (10-20); Calcium,Total 9.4 mg/dL (8.5-10.1); Chloride 106 mmol/L (98-107); Creatinine, Serum 1.63 mg/dL (0.70-1.30); EST Glomerular Filtration Rate 44 mL/min (>60); Est Glom Filt Rate - Afr Amer 53 mL/min (>60); Glucose 104 mg/dL (74-106); Potassium 4.3 mmol/L (3.5-5.1); Sodium Level 137 mmol/L (136-145); Troponin-I HS (w/2H Reflex) 6 pg/mL (3.0-78.0)
[2023-03-24] MEDS: 0.9% Normal Saline (500mL Bag) 500 ML 999 ML IV (01:33)
[2023-03-24 01:41] LABS: Reflex Troponin-HS? (from REC) Y
--- NOTE | 2023-03-24 01:50 | CT_ITS ---
STUDY: CTA CHEST REASON FOR EXAM: Male, 72 years old. chest pain, elevated dimer RADIATION DOSAGE (If Supplied By Facility): CTDIvol = ( 13.46 ) mGy, DLP = ( 591.48 ) mGycm TECHNIQUE: The examination was performed with the intravenous administration of IV 100mL Isovue-370. Post-processing of the angiographic images was performed, with multiplanar reformation and 3D reconstruction. Individualized dose optimization techniques were used for this CT. COMPARISON: 05/04/2013 FINDINGS: Normal enhancement of the main pulmonary artery and right and left pulmonary arteries. Normal enhancement of the bilateral peripheral pulmonary arteries. There is no demonstrated pulmonary embolism. Normal thoracic aorta and visualized great vessels. There is no demonstrated aortic dissection. Normal heart and pericardium. Normal mediastinum. Normal hilar regions. Normal visualized trachea and bronchi. The lungs are well expanded. Normal pulmonary parenchyma. Normal pleura. Normal chest wall structures. Normal osseous structures. Bilateral renal cysts, the largest measures [address]/CTA Chest W/WO Contrast IMPRESSION: No demonstrated pulmonary embolism or arterial dissection. Electronically Signed: Bing Andrade MD at 3:06 EST ,
--- NOTE | 2023-03-24 01:50 | ED.VIS.CHEST ---
HPI History of Present Illness Chief Complaint: Chest Pain Informant: patient Narrative Narrative: Patient is a 72-year-old male with history of of degenerative disc disease with recent injection to his neck, CKD, hypertension, coronary artery disease, proximal atrial fibrillation (not on any anticoagulation) and hyperlipidemia presenting for chest and back pain. Patient notes that he was started on venlafaxine this weeks and is not sure if his symptoms are a side effect of this new medication. In addition he did have an injection in his neck by Dr. Watson with a mixture of Kenalog and steroids. His neck is feeling better. He notes that 2 days ago, Thursday 03/22, he was driving in the car when he started to have a headache. He still notes his face was red and flushed. He checked his blood pressure that evening a couple times and his maximum blood pressure was 185 systolic. He notes his vision was a little off as well. He notes he normally has very normal blood pressure with his medications. He has had intermittent high blood pressure since. In addition tonight he developed a tightness in his chest and then pain in the center of his chest. He also developed pain in the center of his back. He did not really feel like it radiated there. He notes on his way here of his breathing started to feel worse but he attributed to anxiety but otherwise his breathing is been all right. Denies any swelling of his legs. Movement does seem to make the pain worse. Does have nitroglycerin but did not take it. Did take his evening medicines and notes his symptoms currently are improving when I evaluate him. Besides the headache states he does some chronic sinus conditions but denies any other URI symptoms. Denies any cough. Denies any sores or rashes mouth. Denies any urinary symptoms or GI symptoms. No other complaints or concerns at this time. Denies any sick contacts. Prior Similar Symptoms: Yes and - (Costochondritis and anxiety) [facility] Medical History Abdominal pain Alcohol use Anxiety Arthritis Atherosclerotic heart disease of jackson coronary artery without angina pectoris Atrial fibrillation Back pain bilaterl vein ablation ble BiPAP (biphasic positive airway pressure) dependence Cancer Cardiology follow-up encounter Cellulitis of left lower extremity Costochondritis Degenerative disc disease, lumbar Depression Essential hypertension Fatigue Former smoker GERD (gastroesophageal reflux disease) Head ache Hemorrhoids History of echocardiogram History of edema History of essential hypertension History of hiatal hernia History of pain when walking History of prostate cancer History of renal disease History of stress test Hx of hypercholesterolemia Hyperlipidemia Hypertension Injury of head and neck Knee pain Long-term use of high-risk medication Lumbar radiculopathy, right Paroxysmal atrial fibrillation Premature atrial contractions Premature ventricular contraction repair right achilles tendon Restless legs Segmental and somatic dysfunction of cervical region Segmental and somatic dysfunction of lumbar region Segmental and somatic dysfunction of thoracic region Slow gastric motility Tinnitus Umbilical hernia without obstruction and without gangrene Wears contact lenses Home Medications fluticasone propionate 50 mcg/actuation nasal spray,suspension 1 spray NASAL BID ALLERGIES 05/18/13 [History Last Taken 04/04/22] magnesium oxide 400 mg (241.3 mg magnesium) tablet 400 mg PO BID SUPPLEMENT/HEART 05/18/13 [History Last Taken 04/03/22] multivitamin with folic acid 400 mcg tablet 1 tab PO DAILY SUPPLEMENT 05/18/13 [History Last Taken 07/23/21] lansoprazole 30 mg capsule,delayed release 30 mg PO QDAY GERD 06/10/17 [History Last Taken 04/04/22 07:30] saw palmetto 500 mg capsule 500 mg PO QDAY SUPPLEMENT 08/29/17 [History Last Taken 03/30/22] cholecalciferol (vitamin D3) 25 mcg (1,000 unit) capsule 1,000 unit PO DAILY 07/17/18 [History Last Taken 04/04/22] coenzyme Q10 50 mg chewable tablet 200 mg PO DAILY SUPPLEMENT 07/17/18 [History Last Taken 04/04/22] echinacea 400 mg capsule 400 mg PO DAILY SUPPLEMENT 08/05/19 [History Last Taken 04/04/22] loratadine 10 mg tablet (Claritin) 10 mg PO QDAY PRN Allergies 08/05/19 [History Last Taken 07/23/21] nitroglycerin 0.3 mg sublingual tablet 0.3 mg sublingual Q5M PRN other 02/09/20 [History Last Taken Unknown] sildenafil 100 mg tablet 50 mg PO ONCE PRN DOESN'T KNOW 01/22/22 [History Last Taken Unknown] simvastatin 40 mg tablet 40 mg PO DAILY #90 tabs 05/07/22 [Rx Last Taken Unknown] losartan 25 mg tablet 25 mg PO DAILY #90 tabs 10/26/22 [Rx Last Taken Unknown] acetaminophen 500 mg tablet 1,000 mg PO ONCE PRN pain or fever 01/31/23 [History Last Taken Unknown] aspirin 81 mg chewable tablet 81 mg PO DAILY 01/31/23 [History Last Taken Unknown] flecainide 50 mg tablet 50 mg PO Q12H 01/31/23 [History Last Taken Unknown] metoprolol succinate 25 mg tablet,extended release 24 hr See Rx Instructions .Route .COMPLEX #180 tabs 03/18/23 [Rx Last Taken Unknown] Saccharomyces boulardii 1 cap PO DAILY 03/24/23 [History Last Taken Unknown] alfuzosin 10 mg tablet,extended release 24 hr 10 mg PO DAILY 03/24/23 [History Last Taken Unknown] alprazolam 0.25 mg tablet 0.5 mg PO BID anxiety 03/24/23 [History Last Taken Unknown] cyclosporine 0.05 % eye drops in a dropperette (Restasis) 1 drp EACH EYE Q12H dry eyes 03/24/23 [History Last Taken Unknown] fluticasone propionate 2 spray intranasal BID allergy 03/24/23 [History Last Taken Unknown] venlafaxine 37.5 mg capsule,extended release 24 hr (Effexor XR) 37.5 mg PO DAILY depression 03/24/23 [History Last Taken Unknown] Allergy/AdvReac Type Severity Reaction Status Date / Time animal dander Allergy sneezy Verified 03/23/23 23:18 grass pollen Allergy sneeay Verified 03/23/23 23:18 grass pollen-perennial rye, Allergy sneezy Verified 03/23/23 23:18 standar house dust Allergy sneezy Verified 03/23/23 23:18 levofloxacin [From Levaquin] Allergy joint pain Verified 03/23/23 23:18 dabigatran etexilate AdvReac Unknown stomach Verified 03/23/23 23:18 [From Pradaxa] cramps ciprofloxacin [From Cipro] AdvReac UNSURE Verified 03/23/23 23:19 gabapentin [From Neurontin] AdvReac feel like Verified 03/23/23 23:18 losing my mind NSAIDS (Non-Steroidal AdvReac infected Verified 03/23/23 23:18 Anti-Inflamma creatin level with kidney Family History Mother Hypertension CAD (coronary artery disease) Father Hypertension Atrial fibrillation Presence of permanent cardiac pacemaker CVA (cerebral vascular accident) Surgical History H/O hemorrhoidectomy H/O shoulder surgery H/O sinus surgery History of arthroscopy of knee History of cardiac catheterization History of cardiac radiofrequency ablation History of cataract surgery History of detached retina repair History of hemorrhoidectomy History of left hip replacement (~03/2021) History of left knee replacement (~04/2021) History of umbilical hernia repair (~04/2018) Hx of cystoscopy right shoulder Status post laser ablation of incompetent vein vein Social History household members: spouse Smoking Status: Former smoker Smokeless tobacco user: snuff how long ago did patient quit smoking: Patient quit cigarette tobacco use 1980, smoked age [age], 1 ppd-->Snuff. alcohol intake: current alcohol intake frequency: a few times a week Alcohol type: beer substance use type: does not use caffeine: No ROS ROS ED Constitutional Constitutional ED: Denies chills or fever(s) Eyes Eyes: Reports change in vision ENT ENT ED: Reports other Details: chronic sinusitis ; Denies ear pain, rhinorrhea or sore throat Cardiovascular Cardiovascular: Reports as per HPI and chest pain; Denies palpitations Respiratory/Chest Respiratory/Chest: Denies cough, dyspnea or dyspnea on exertion Gastrointestinal Gastrointestinal: Denies abdominal pain, nausea or vomiting Genitourinary Genitourinary ED: Denies dysuria or urinary frequency Musculoskeletal Musculoskeletal: Reports back pain; Denies arthralgias or neck pain Integumentary Reports other Details: redness to face ; Denies rash Neurologic Neurologic: Reports headache(s); Denies paresthesias or weakness Psychiatric Psychiatric: Reports anxiety Hematologic/Lymphatic Hematologic/Lymphatic: Denies easy bleeding or easy bruising EXAM Physical Exam Const Vital Signs: 03/23/23 23:17 03/23/23 23:30 03/23/23 23:17 Temperature 97 F L Temperature Source Temporal Pulse Rate 53 L 49 L Respiratory Rate 16 20 H Respiratory Effort Respiratory Pattern Blood Pressure 131/74 H 146/76 H Blood Pressure Mean 93 99 Pulse Ox 98 96 Oxygen Delivery Method Room Air Room Air Room Air 03/24/23 00:17 03/24/23 01:00 03/24/23 01:36 Temperature Temperature Source Pulse Rate 50 L 46 L 50 L Respiratory Rate 12 12 12 Respiratory Effort Respiratory Pattern Blood Pressure 149/73 H 171/80 H 165/81 H Blood Pressure Mean 98 110 109 Pulse Ox 95 95 95 Oxygen Delivery Method Room Air Room Air Room Air 03/23/23 23:30 03/24/23 01:45 03/24/23 03:00 Temperature Temperature Source Pulse Rate 51 L 50 L Respiratory Rate 16 14 Respiratory Effort Normal Respiratory Pattern Normal Blood Pressure 160/85 H 163/86 H Blood Pressure Mean 110 111 Pulse Ox 95 95 Oxygen Delivery Method Room Air Room Air 03/24/23 00:34 03/24/23 00:40 03/24/23 00:45 Temperature Temperature Source Pulse Rate 56 L 47 L 47 L Respiratory Rate 19 H 18 11 L Respiratory Effort Respiratory Pattern Blood Pressure 139/67 H Blood Pressure Mean 89 Pulse Ox 95 95 94 Oxygen Delivery Method 03/24/23 00:50 03/24/23 01:00 03/24/23 01:10 Temperature Temperature Source Pulse Rate 52 L 53 L 52 L Respiratory Rate 18 11 L 15 Respiratory Effort Respiratory Pattern Blood Pressure 164/142 H Blood Pressure Mean 149 Pulse Ox 96 96 95 Oxygen Delivery Method 03/24/23 01:15 03/24/23 01:20 03/24/23 01:30 Temperature Temperature Source Pulse Rate 53 L 48 L 48 L Respiratory Rate 12 13 12 Respiratory Effort Respiratory Pattern Blood Pressure 171/80 H 165/81 H Blood Pressure Mean 100 104 Pulse Ox 96 96 96 Oxygen Delivery Method 03/24/23 01:40 03/24/23 01:45 03/24/23 01:50 Temperature Temperature Source Pulse Rate 50 L 54 L Respiratory Rate 15 17 Respiratory Effort Respiratory Pattern Blood Pressure 146/70 H Blood Pressure Mean 92 Pulse Ox 96 96 Oxygen Delivery Method 03/24/23 02:00 03/24/23 02:09 03/24/23 02:10 Temperature Temperature Source Pulse Rate 57 L 57 L Respiratory Rate 19 H 22 H Respiratory Effort Respiratory Pattern Blood Pressure 171/156 H Blood Pressure Mean 163 Pulse Ox 96 96 Oxygen Delivery Method 03/24/23 02:15 03/24/23 02:20 03/24/23 02:30 Temperature Temperature Source Pulse Rate 57 L 54 L Respiratory Rate 15 13 Respiratory Effort Respiratory Pattern Blood Pressure 160/85 H 171/78 H Blood Pressure Mean 98 101 Pulse Ox 96 96 Oxygen Delivery Method 03/24/23 02:40 03/24/23 02:45 03/24/23 02:50 Temperature Temperature Source Pulse Rate 53 L 48 L Respiratory Rate 13 12 Respiratory Effort Respiratory Pattern Blood Pressure 144/106 H Blood Pressure Mean 116 Pulse Ox 95 96 Oxygen Delivery Method 03/24/23 03:00 03/24/23 03:10 03/24/23 03:15 Temperature Temperature Source Pulse Rate 47 L 46 L Respiratory Rate 14 13 Respiratory Effort Respiratory Pattern Blood Pressure 163/86 H 162/86 H Blood Pressure Mean 106 107 Pulse Ox 94 96 Oxygen Delivery Method 03/24/23 03:20 03/24/23 03:30 03/24/23 03:40 Temperature Temperature Source Pulse Rate 53 L 50 L Respiratory Rate 19 H 14 Respiratory Effort Respiratory Pattern Blood Pressure 160/86 H Blood Pressure Mean 105 Pulse Ox 96 95 Oxygen Delivery Method Room Air Room Air Positive well nourished and well developed General Appearance ED: well developed and NAD HEENT Reports TM's clear and moist mucous membranes HEENT Narrative: normal nasal mucosa, normal oral pharyngeal exam normocephalic and atraumatic Tympanic Membrane ED: Yes TM's clear Eyes PERRL and EOMs intact bilaterally Neck supple and no JVD General: Negative for tenderness Chest Wall inspection of chest normal Chest Narrative: Mild tenderness palpation of the sternum. No chest wall crepitus. Resp normal respiratory effort and clear to auscultation bilaterally Cardio regular rhythm and no murmurs Rate: bradycardia Peripheral Pulses: pulses 2+ throughout GI normal to inspection, nondistended, normoactive bowel sounds, soft to palpation and non-tender Back/Spine no CVA tenderness and no thoracic nor lumbar tenderness Extremity normal to inspection Extremity Narrative: Trace pitting edema Neuro oriented x3 Sensorium / Orientation: awake and alert Motor Exam: Negative for general weakness Psych mental status grossly normal Mood & Affect: anxious Skin no rashes or lesions noted and no wounds Rashes: No rashes noted MDM MDM MDM Narrative Medical decision making narrative: Patient valuated for chest and back pain. Is also had elevated blood pressure. Reports associated headache over the past few days. Is concerned that this could be associated with new medication, venlafaxine. I do not think this is an allergic reaction but it is possible this could be from the venlafaxine as it cannot definitively rule it out. In addition he received a recent cortisone injection which could be upping his blood pressure. He does have cardiac risk factors and cardiac workup will be obtained. Patient is currently asymptomatic however so is not given any aspirin or nitro at this time. Differential does also include pulmonary emboli so D-dimer is ordered. Initial high-sensitivity troponin is normal at 6. Will obtain a delta. EKG shows sinus bradycardia however patient is on a beta-thalia. Is not consistent with ACS. D-dimer is elevated at 0.80 so I will obtain CTA of the chest. Is given some IV fluids as he does have CKD however he is at his baseline. COVID and flu test pending at this time. 2 view chest x-ray reviewed by myself as well as radiology does not show any acute process. Viral tests are negative at this time. CT of the chest not show any acute process. Patient's blood pressure fluctuate slightly in the ER but he remains asymptomatic from a chest pain standpoint. Exact cause of symptoms not clear at this time however I feel he stable for outpatient follow-up. He is already started to hold his venlafaxine. Discussed with him I cannot say for certain if this is a medication side effect or something else but at this time I feel he can safely be discharged home. Patient is quite agreeable with this. Discussed signs symptoms of a hypertensive emergency and keeping a blood pressure log for outpatient follow-up. Given return precautions. Patient verbalized agreement understand this plan. Discharged home in stable condition. Lab Data Attestation: I reviewed the patient's lab results. Labs: Laboratory Results - last 24 hr 03/23/23 03/24/23 23:39 01:50 WBC 7.0 RBC 4.26 L Hgb 13.5 Hct 40.4 MCV 94.8 H MCH 31.7 MCHC 33.4 RDW Std Deviation 43.0 RDW Coeff of Alesha 12.4 Plt Count 160 MPV 9.9 Immature Gran % (Auto) 0.300 Neut % (Auto) 68.8 Lymph % (Auto) 21.0 [place] % (Auto) 8.2 Eos % (Auto) 1.3 Baso % (Auto) 0.4 Absolute Neuts (auto) 4.8 Absolute Lymphs (auto) 1.48 Nucleated RBC % 0 D-Dimer Quant (PE/DVT) 0.80 H* Sodium 137 Potassium 4.3 Chloride 106 Carbon Dioxide 28.0 Anion Gap 3 L BUN 30 H Creatinine 1.63 H Est GFR (MDRD) Af Amer 53 L Est GFR (MDRD) Non-Af 44 L BUN/Creatinine Ratio 18.4 Glucose 104 Calcium 9.4 Troponin I High Sens 6 7 Radiography Chest X-Ray - ED: 2 View, Read by ED Physician, Read by Radiologist and No Acute Disease Diagnostic Testing: Clinical Impression(s) from Imaging Studies Chest X-Ray 03/23/23 23:50 IMPRESSION: No radiographic evidence of acute cardiopulmonary disease. Electronically Signed: Bing Andrade MD at 0:36 EST , Chest CTA 03/24/23 01:50 IMPRESSION: No demonstrated pulmonary embolism or arterial dissection. Electronically Signed: Bing Andrade MD at 3:06 EST , Rhythm Strip Rhythm Strip: Sinus Rhythm Rate: 53 Ectopy: None EKG Initial EKG: Attestation: I personally reviewed and interpreted this EKG as follows: Interpretation: Sinus Bradycardia Comments: Bradycardia rate of 53 bpm Normal axis Normal intervals Normal ST segments Compared to prior EKG 03/22/2022, no significant changes Discharge Plan Triage Chief Complaint: Chest Pain ED Provider: Nuvia Rivas Dx/Rx/DC Orders Clinical Impression: Elevated blood pressure reading, Back pain, Chest pain of uncertain etiology Instructions: ED Chest Pain, Uncertain Cause Prescriptions: No Action saw palmetto 500 mg capsule 500 mg PO QDAY echinacea 400 mg capsule 400 mg PO DAILY loratadine [Claritin] 10 mg tablet 10 mg PO QDAY PRN (Reason: Allergies) cholecalciferol (vitamin D3) 1,000 unit capsule 1,000 unit capsule 1,000 unit PO DAILY nitroglycerin 0.3 mg tablet, sublingual 0.3 mg sublingual Q5M PRN (Reason: other) Rx Instructions: do not exceed 3 doses per episode sildenafil 100 mg tablet 50 mg PO ONCE PRN (Reason: DOESN'T KNOW) Patient Comments: TAKE 1 TABLET 1 HOUR PRIOR TO INTERCOURSE acetaminophen 500 mg tablet 1,000 mg PO ONCE PRN (Reason: pain or fever) Rx Instructions: Do not take more than 3000 mg Tylenol in a 24-hour period. flecainide 50 mg tablet 50 mg PO Q12H aspirin 81 mg tablet,chewable 81 mg PO DAILY magnesium oxide 400 MG tablet 400 mg PO BID fluticasone propionate 1 SPRAY spray,suspension 1 spray NASAL BID multivitamin with folic acid 1 TABLET tablet 1 tab PO DAILY lansoprazole 30 MG capsule 30 mg PO QDAY coenzyme Q10 50 mg tablet,chewable 200 mg PO DAILY alprazolam 0.25 mg tablet 0.5 mg PO BID fluticasone propionate [Flonase Allergy Relief] 2 spray intranasal BID alfuzosin 10 mg tablet extended release 24 hr 10 mg PO DAILY Saccharomyces boulardii [Daily Probiotic (S. boulardii)] 1 cap PO DAILY cyclosporine [Restasis] 0.05 % dropperette 1 drp EACH EYE Q12H venlafaxine [Effexor XR] 37.5 mg capsule,extended release 24hr 37.5 mg PO DAILY simvastatin 40 mg tablet 40 mg PO DAILY Qty: 90 4RF losartan 25 mg tablet 25 mg PO DAILY Qty: 90 3RF metoprolol succinate 25 mg tablet extended release 24 hr See Rx Instructions .ROUTE .COMPLEX Qty: 180 3RF Dose Instruction: TAKE 1 TABLET DAILY Rx Instructions: TAKE 1 TABLET DAILY Primary Care Provider: Steven Retana Referrals: Steven Retana MD [Primary Care Provider] - Activity Restrictions/Additional Instructions: The cause of your symptoms is not clear however your workup was largely normal. Your blood pressure was mildly elevated in the ER. Please keep a log of this. If you develop severe chest pain please return the emergency room and take your nitroglycerin that you have at home. Otherwise continue to take your regular medicines. Possible this could be the result of the new anxiety medicine (venlafaxine) or from the neck injection medications. Please follow-up with your primary care doctor. Disposition Disposition: Home, Self Care Discharge Date/Time: 03/24/23 03:52
[2023-03-24 02:15] LABS: Troponin-I HS 7 pg/mL (3.0-78.0)
== END 2023-03-24 03:52 | disposition home or self-care (01) ==
PROVIDERS: Emergency Provider Emergency Medicine; PCP Family Medicine; Visit Provider Emergency Medicine
DX: R07.9 Chest pain, unspecified (principal); I48.0 Paroxysmal atrial fibrillation; I25.10 Atherosclerotic heart disease of native coronary artery without angina pectoris; R51.9 Headache, unspecified; R79.89 Other specified abnormal findings of blood chemistry; R03.0 Elevated blood-pressure reading, without diagnosis of hypertension; M54.9 Dorsalgia, unspecified; F41.9 Anxiety disorder, unspecified; R00.1 Bradycardia, unspecified; N18.9 Chronic kidney disease, unspecified; E78.00 Pure hypercholesterolemia, unspecified; Z87.891 Personal history of nicotine dependence; Z79.899 Other long term (current) drug therapy
CPT/HCPCS: 71046; 71275; 80048; 84484; 85025; 85379; 87428; 93005; 96360; 99283; J7040; Q9967; A4216

== ENCOUNTER → 2023-05-21 | Outpatient (CLI) | payer MEDICARE, SELFPAY ==
[2022-03-01 11:31] VITALS: BMI 33.3
--- NOTE | 2023-05-21 07:27 | ECHOD_ITS ---
Reason For Study: CHEST PAIN, ASHD Procedure This was a 2D Doppler, Color Flow transthoracic echocardiogram. Exam performed in department. Left Ventricle Normal LV size. Mild concentric left ventricular hypertrophy. The left ventricular ejection fraction is 60 %. No regional wall motion abnormalities noted. Right Ventricle Normal RV size. Normal systolic function. Atria Normal left atrium. Normal right atrium. Mitral Valve There is mild mitral annular calcification. Tricuspid Valve Normal tricuspid valve. Mild (1+) tricuspid valve insufficiency. Pulmonary artery systolic pressure is 27 mmHg. Aortic Valve Trisinus/trileaflet aortic valve. Mild focal aortic valve calcification. Pulmonic Valve Normal pulmonic valve. Great Vessels Normal aortic root. The pulmonary artery is normal size. Normal inferior vena cava. Pericardium/Pleural No pericardial effusion. MMode/2D Measurements & Calculations LVIDd: 4.9 cm IVSd: 1.2 cm Ao root diam: 3.2 cm LVIDs: 3.5 cm LVPWd: 1.2 cm RVDd: 3.9 cm FS: 30.3 % LAV(MOD-bp): 54.3 ml LVAd ap4: 35.3 cm2 SV(MOD-sp4): 74.5 ml LAV(MOD-bp) Indexed: 23.9 ml/m2 LVLd ap4: 8.3 cm LAV(MOD-sp2): 53.5 ml EDV(MOD-sp4): 123.2 ml LAV(MOD-sp4): 54.6 ml EDV(sp4-el): 127.7 ml LVAs ap4: 20.0 cm2 LVLs ap4: 7.0 cm ESV(MOD-sp4): 48.7 ml ESV(sp4-el): 48.7 ml EF(MOD-sp4): 60.4 % EF(sp4-el): 61.9 % SV(sp4-el): 79.0 ml LA A4 area: 20.0 cm2 LA dimension(2D): 3.8 cm RA A4 area: 20.1 cm2 TAPSE: 2.6 cm Time Measurements MV dec time: 0.25 sec Doppler Measurements & Calculations MV E max chris: 102.5 cm/sec Lat Peak E' Chris: 10.5 cm/sec Med Peak E' Chris: 10.0 cm/sec MV A max chris: 69.6 cm/sec E/E' lat: 9.7 E/E' med: 10.2 MV E/A: 1.5 Ao V2 max: 156.9 cm/sec LV V1 max: 125.9 cm/sec PA V2 max: 122.0 cm/sec Ao max P.8 mmHg LV V1 max P.3 mmHg TR max chris: 241.9 cm/sec TR max P.4 mmHg ECHO/Echo Complete Interpretation Summary Normal LV size. The left ventricular ejection fraction is 60 %. Mild concentric left ventricular hypertrophy. There is mild mitral annular calcification. Mild (1+) tricuspid valve insufficiency. Ordering Physician: Raeann Paredes/Jesus Manuel Stubbs Referring Physician: TC LORA Performed By: Lila Gracia RDCS
--- OUTSIDE RECORDS SUMMARY | 2023-05-21 07:29 | XMS RPT_ITS | CCD ---
Author Name Unknown Address [address] [place] [address] Organization [facility] Care Team Providers Care Information Services Manager Name Role Phone NATALIIA BUTTS Unavailable Unavailable PHYSICIAN, NOT RECORDED Primary Care Physician U james LORA MD, DR MONTEZ Primary Care Physician SHIRAZ TURNER MD Attending Unavailable SHIRAZ TURNER MD Primary Care Unavailable SHIRAZ TURNER MD Admitting Unavailable Steven Lora MD Primary Care Provider Steven Lora MD Primary Care Provider Steven Lora MD Primary Care Provider Steven Lora MD Primary Care Provider Han Flores MD Unavailable [phone] Edgar Rinaldi DO, Christine Unavailable Daniel Santana Unavailable Pa Reyes Unavailable Steven Lora MD Primary Care Provider Jamarcus Anderson MD Unavailable [phone] Han Flores MD Unavailable Steven Lora MD Primary Care Provider Han Flores MD Unavailable Pa Reyes Unavailable Pa Reyes MD Unavailable Steven Lora MD Primary Care Provider GENO WITT, DR MONTEZ Primary Care Physician DR PA REYES MD Attending DR STEVEN Strong MD Primary Care Unavailable GENO, STEVEN POMPA Attending Unavailab le GENO, STEVEN POMPA Primary Care Unavailab le GENO, STEVEN POMPA Attending Unavailab le GENO, STEVEN POMPA Primary Care Unavailab le GENO, STEVEN POMPA Referring Unavailab le GENO, STEVEN POMPA Primary Care Unavailab le GENO, STEVEN POMPA Referring Unavailab le GENO, STEVEN POMPA Primary Care Unavailab le GENO, STEVEN Daley Primary Care Unavailable BUDDY CENTENO Attending Unavailable SELF, SELF Referring Unavailable GENOSTEVEN Primary Care Unavailable WANDA GOMEZ Attending Unavailable SELF, SELF Referring Unavailable Allergies Allergy Classification Reported Allergen(s) Allergy Type Date of Onset Reaction(s) Facility (4 sources) dabigatran etexilate; Translations: [dabigatran] Drug Allergy Stomach ache (finding) [facility] (20 sources) gabapentin; Translations: [gabapentin] Drug Allergy 06-07-19 21 Other: See Comments, Unknown, Confusion [facility] (20 sources) levoFLOXacin; Translations: [levofloxacin] Drug Allergy 06-07-19 21 Joint pain (finding), Unknown, Myalgia, Other: See Comments [facility] (20 sources) celecoxib; Translations: [celecoxib] Drug Allergy 01-09-20 Other: See Comments [facility] (2 sources) NSAIDs; Translations: [NSAIDs] Propensity to adverse reactions to drug ELEVATED CREATININE [facility] (1 source) levoFLOXacin Drug Allergy [facility] Repository (19 sources) Dust; Translations: [DUST] Allergy to substance 10-16-19 17 Unknown [facility] (19 sources) Grass pollen; Translations: [GRASS POLLEN] Drug Allergy 12-11-19 17 Unknown [facility] (19 sources) MITE EXTRACT; Translations: [MITE EXTRACT] Drug Allergy 09-25-19 12 Unknown [facility] (19 sources) Seasonal allergy; Translations: [SEASONAL ALLERGIES] Allergy to substance 09-25-19 12 Unknown [facility] (19 sources) Animal Dander; Translations: [ANIMAL DANDER] Drug Allergy 09-25-19 12 Other: See Comments, Unknown [facility] (19 sources) Citalopram; Translations: [CITALOPRAM] Drug Allergy 06-07-19 21 Other: See Comments, Depression [facility] (18 sources) dabigatran etexilate; Translations: [DABIGATRAN ETEXILATE] Drug Allergy 07-18-19 19 Other: See Comments, Unknown, GI Upset [facility] (18 sources) Non-steroidal anti-inflammatory agent; Translations: [NSAIDS (NON-STEROIDAL ANTI-INFLAMMATORY DRUG)] Drug Allergy 01-09-20 22 Other: See Comments [facility] (19 sources) Sulfamethoxazole / Trimethoprim; Translations: [SULFAMETHOXAZOLE-T RIMETHOPRIM] Drug Allergy 06-07-19 21 Myalgia [facility] (15 sources) house dust allergenic extract; Translations: [HOUSE DUST] Drug Allergy 11-11-19 21 Unknown [facility] (1 source) House dust mite Propensity to adverse reactions to drug 09-25-19 12 [facility] Work Phone: (1 source) *Animal Dander Propensity to adverse reactions to substance 09-25-19 12 Sneezing [facility] (1 source) *Seasonal Propensity to adverse reactions to substance 09-25-19 12 [facility] (2 sources) venlafaxine; Translations: [VENLAFAXINE] Drug Allergy 03-26-20 23 Mental Status Change [facility] Repository Medications Current Medications Medication Drug Class(es) Dates Sig (Normalized) Sig (Original) acetaminophen 1000 mg oral tablet (3 sources) Start: 04-26-2021 take 1 tablet by mouth once daily Tylenol Dose : 1,000 mg = 2 tab(s), Oral, TID, not to exceed 3000 mg/day, 0 Refill(s) Start Date: 04/26/21 Status: Ordered Completed/Discontinued Medications Medication Drug Class(es) Dates Sig (Normalized) Sig (Original) acetaminophen 325 mg / HYDROcodone bitartrate 5 mg oral tablet (13 sources) Opioid Agonist Start: 03-02-2022 take 1 tablet by mouth three times daily HYDROcodone-aceta minophen (NORCO) 5-325 mg per tablet TAKE 1 TABLET BY MOUTH THREE TIMES DAILY FOR 14 DAYS 0 03/02/2022 Active Problems Active Problems Problem Classification Problem Date Documented Da te Episodic/Chronic Acute and unspecified renal failure (1 source) Acute renal failure syndrome; Translations: [Acute kidney failure, unspecified] Onset: 1 Episodic Allergic reactions (17 sources) Atopic dermatitis; Translations: [Atopic dermatitis, unspecified] Onset: 7 12-30-2021 Chronic Anxiety disorders (20 sources) Anxiety disorder; Translations: [Anxiety disorder, unspecified] Onset: 7 Chronic Cancer of prostate (20 sources) Malignant tumor of prostate; Translations: [Malignant neoplasm of prostate] Onset: 1 12-30-2021 Chronic Cardiac dysrhythmias (20 sources) Unspecified atrial fibrillation; Translations: [Atrial fibrillation] Onset: 2 Chronic Chronic kidney disease (9 sources) Chronic kidney disease; Translations: [Chronic kidney disease, unspecified] Onset: 1 Chronic Chronic kidney disease (2 sources) Chronic kidney disease; Translations: [Stage 3 chronic kidney disease, unspecified whether stage 3a or 3b CKD (HCC)] Onset: 3 Coronary atherosclerosis and other heart disease (19 sources) Coronary arteriosclerosis; Translations: [Atherosclerotic heart disease of [place] coronary artery without angina pectoris] Onset: 2 12-30-2021 Chronic Disorders of lipid metabolism (20 sources) Hyperlipidemia; Translations: [Hyperlipidemia, unspecified] Onset: 2 12-30-2021 Chronic Esophageal disorders (20 sources) Gastroesophageal reflux disease without esophagitis; Translations: [Gastro-esophageal reflux disease without esophagitis] Onset: 2 Chronic Essential hypertension (20 sources) Essential hypertension; Translations: [Essential (primary) hypertension] Onset: 7 Chronic Hyperplasia of prostate (1 source) Benign prostatic hypertrophy without outflow obstruction; Translations: [Benign prostatic hyperplasia without lower urinary tract symptoms] Onset: 2 Chronic Mood disorders (20 sources) Depressive disorder; Translations: [Depression] Onset: 7 12-30-2021 Chronic Nutritional deficiencies (17 sources) Vitamin D deficiency; Translations: [Vitamin D deficiency, unspecified] Onset: 9 12-30-2021 Chronic Osteoarthritis (15 sources) Osteoarthritis; Translations: [Unspecified osteoarthritis, unspecified site] Onset: 1 Chronic Other connective tissue disease (14 sources) Hip joint prosthesis present; Translations: [Presence of left artificial hip joint] Onset: 1 Chronic Other gastrointestinal disorders (17 sources) Irritable bowel syndrome with diarrhea; Translations: [Irritable bowel syndrome with diarrhea] Onset: 9 12-30-2021 Chronic Other inflammatory condition of skin (13 sources) Rosacea; Translations: [Rosacea, unspecified] Onset: 2 03-12-2022 Chronic Residual codes; unclassified (19 sources) Sleep apnea; Translations: [Sleep apnea, unspecified] Onset: 2 Chronic Past or Other Problems Problem Classification Problem Date Documented Da te Episodic/Chronic Abdominal hernia (13 sources) Umbilical hernia; Translations: [Umbilical hernia without obstruction or gangrene] Onset: 03-12-2022 03-12-2022 Episodic Administrative/social admission (1 source) Other specified counseling; Translations: [Advanced directives, counseling/discussi on] Onset: 09-05-2022 Episodic Cancer of prostate (16 sources) History of malignant neoplasm of prostate; Translations: [Personal history of malignant neoplasm of prostate] Onset: 03-12-2022 03-12-2022 Episodic Cardiac dysrhythmias (13 sources) Palpitations; Translations: [Palpitations] Onset: 09-13-2021 03-12-2022 Episodic Deficiency and other anemia (18 sources) Anemia; Translations: [Anemia, unspecified] Onset: 12-22-2020 12-30-2021 Episodic Hemorrhoids (18 sources) Thrombosed external hemorrhoids; Translations: [Perianal venous thrombosis] Onset: 11-27-2011 11-27-2011 Episodic Malaise and fatigue (18 sources) Fatigue; Translations: [Other fatigue] Onset: 12-22-2020 12-30-2021 Episodic Mood disorders (1 source) Mood disorders Onset: 11-20-2022 11-20-2022 Nonspecific chest pain (18 sources) Chest pain; Translations: [Chest pain, unspecified] Onset: 12-07-2011 12-30-2021 Episodic Other bone disease and musculoskeletal deformities (13 sources) Segmental and somatic dysfunction; Translations: [Segmental and somatic dysfunction of abdomen and other regions] Onset: 08-15-2021 03-12-2022 Episodic Other circulatory disease (13 sources) H/O: hypertension; Translations: [Personal history of other diseases of the circulatory system] Onset: 03-12-2022 03-12-2022 Episodic Other diseases of kidney and ureters (18 sources) Renal impairment; Translations: [Disorder of kidney and ureter, unspecified] Onset: 01-10-2021 12-30-2021 Episodic Other nervous system disorders (13 sources) Paresthesia; Translations: [Paresthesia of skin] Onset: 03-12-2022 03-12-2022 Episodic Other nutritional; endocrine; and metabolic disorders (13 sources) History of hypercholesterolemi a; Translations: [Personal history of other endocrine, nutritional and metabolic disease] Onset: 03-12-2022 03-12-2022 Episodic Other nutritional; endocrine; and metabolic disorders (8 sources) Weight gain; Translations: [Abnormal weight gain] Onset: 09-05-2022 Episodic Other nutritional; endocrine; and metabolic disorders (1 source) Abnormal weight gain; Translations: [Weight gain] Onset: 09-05-2022 Episodic Other screening for suspected conditions (not mental disorders or infectious disease) (20 sources) Patient encounter status; Translations: [Encounter for screening for malignant neoplasm of prostate] Onset: 06-17-2018 12-30-2021 Episodic Other skin disorders (13 sources) Inflammatory dermatosis; Translations: [Disorder of the skin and subcutaneous tissue, unspecified] Onset: 03-12-2022 03-12-2022 Episodic Residual codes; unclassified (15 sources) Tobacco user; Translations: [Tobacco use] Onset: 03-07-2021 Episodic Residual codes; unclassified (2 sources) Personal history of irradiation; Translations: [Personal history of irradiation] Onset: 11-20-2022 Episodic Screening and history of mental health and substance abuse codes (1 source) Encounter for screening for depression; Translations: [Screening for depression] Onset: 09-05-2022 Episodic Spondylosis; intervertebral disc disorders; other back problems (19 sources) Dorsalgia, unspecified; Translations: [Backache] Onset: 11-27-2017 12-30-2021 Episodic Results Test Name Value Interpretation Reference Range Facil ity Vital Signs Date Time Vital Sign Value Performing Clinician Margarito parks 11-20-2022 14:50-0400 Body mass index (BMI) [Ratio] 35.13 kg/m2 Wanda Beth [employer] Work Phone: [facility] 11-20-2022 14:50-0400 Body temperature 98.01 [degF] Wanda Beth [employer] Work Phone: [facility] 11-20-2022 14:50-0400 Body weight 111.04 kg Wanda Barrytz [employer] Work Phone: [facility] 11-20-2022 14:50-0400 Diastolic blood pressure 72 mm[Hg] Wanda Beth [employer] Work Phone: [facility] 11-20-2022 14:50-0400 Heart rate 62 /min Wanda Barrytz [employer] Work Phone: [facility] 11-20-2022 14:50-0400 Respiratory rate 18 /min Wanda Beth [employer] Work Phone: [facility] 11-20-2022 14:50-0400 SaO2% (BldA) [Mass fraction] 97 % Wanda Beth [employer] Work Phone: [facility] 11-20-2022 14:50-0400 Systolic blood pressure 163 mm[Hg] Wanda Gomez [employer] Work Phone: [facility] 09-05-2022 13:43-0400 Body height 177.8 cm Steven Lora MD Work Phone: [facility] 09-05-2022 13:43-0400 Body temperature 96.91 [degF] Steven Lora MD Work Phone: [facility] 09-05-2022 13:43-0400 Body weight 113 kg Steven Lora MD Work Phone: [facility] 09-05-2022 13:43-0400 Diastolic blood pressure 68 mm[Hg] Steven Lora MD Work Phone: [facility] 09-05-2022 13:43-0400 Heart rate 60 /min Steven Lora MD Work Phone: [facility] 09-05-2022 13:43-0400 Respiratory rate 18 /min Steven Lora MD Work Phone: [facility] 09-05-2022 13:43-0400 SaO2% (BldA) [Mass fraction] 97 % Steven Lora MD Work Phone: [facility] 09-05-2022 13:43-0400 Systolic blood pressure 128 mm[Hg] Steven Lora MD Work Phone: [facility] 03-12-2022 13:39-0500 Body height 177.8 cm Jefflyne Benny [employer] Work Phone: [facility] 03-12-2022 13:39-0500 Body temperature 97.5 [degF] Jefferie Benny [employer] Work Phone: [facility] 03-12-2022 13:39-0500 Body weight 108.59 kg Tonjae Benny [employer] Work Phone: [facility] 03-12-2022 13:39-0500 Diastolic blood pressure 72 mm[Hg] Shaunerie Benny [employer] Work Phone: [facility] 03-12-2022 13:39-0500 Heart rate 56 /min Shaunerie Benny [employer] Work Phone: [facility] 03-12-2022 13:39-0500 Respiratory rate 14 /min Shaunerie Benny [employer] Work Phone: [facility] 03-12-2022 13:39-0500 SaO2% (BldA) [Mass fraction] 99 % Shaunlyndarcy Benny [employer] Work Phone: [facility] 03-12-2022 13:39-0500 Systolic blood pressure 130 mm[Hg] Yaneli Zapata APRN.[employer]IGH [employer]CHO[employer] PROFESSIONAL Work Phone: [facility] 03-09-2022 14:58-0500 Body height 177.8 cm Solange Lambert MD Work Phone: [facility] 03-09-2022 14:58-0500 Body weight 109.18 kg Solange Lambert MD Work Phone: [facility] 03-09-2022 14:58-0500 Diastolic blood pressure 58 mm[Hg] Solange Lambert MD Work Phone: [facility] 03-09-2022 14:58-0500 Heart rate 66 /min Solange Lambert MD Work Phone: [facility] 03-09-2022 14:58-0500 SaO2% (BldA) [Mass fraction] 98 % Solange Lambert MD Work Phone: [facility] 03-09-2022 14:58-0500 Systolic blood pressure 126 mm[Hg] Solange Lambert MD Work Phone: [facility] 01-08-2022 15:01-0400 Body height 177.8 cm Steven Lora MD Work Phone: [facility] 01-08-2022 15:01-0400 Body temperature 97.81 [degF] Steven Lora MD Work Phone: [facility] 01-08-2022 15:01-0400 Body weight 109.95 kg Steven Lora MD Work Phone: [facility] 01-08-2022 15:01-0400 Diastolic blood pressure 78 mm[Hg] Steven Lora MD Work Phone: [facility] 01-08-2022 15:01-0400 Heart rate 64 /min Steven Lora MD Work Phone: [facility] 01-08-2022 15:01-0400 Respiratory rate 18 /min Steven Lora MD Work Phone: [facility] 01-08-2022 15:01-0400 SaO2% (BldA) [Mass fraction] 97 % Steven Lora MD Work Phone: [facility] 01-08-2022 15:01-0400 Systolic blood pressure 130 mm[Hg] Steven Lora MD Work Phone: [facility] 08-16-2021 22:35-0400 Body temperature 96.91 [degF] Christopher Stetler DO Work Phone: [facility] 08-16-2021 22:35-0400 Body weight 107.32 kg Christopher Stetler DO Work Phone: [facility] 08-16-2021 22:35-0400 Diastolic blood pressure 64 mm[Hg] Christopher Stetler DO Work Phone: [facility] 08-16-2021 22:35-0400 Heart rate 53 /min Christopher Stetler DO Work Phone: [facility] 08-16-2021 22:35-0400 Respiratory rate 18 /min Christopher Stetler DO Work Phone: [facility] 08-16-2021 22:35-0400 Systolic blood pressure 128 mm[Hg] Christopher Stetler DO Work Phone: [facility] 04-26-2021 09:50-0500 Body temperature 97.52 [degF] DR STEPHANE CURRIE MD [facility] 04-26-2021 09:50-0500 Diastolic Blood Pressure NBP [address] STEPHANE CURRIE MD [facility] 04-26-2021 09:50-0500 Heart rate 60 /min DR STEPHANE CURRIE MD [facility] 04-26-2021 09:50-0500 Respiratory rate 20 /min DR STEPHANE CURRIE MD [facility] 04-26-2021 09:50-0500 Systolic Blood Pressure NBP [address] STEPHANE UCRRIE MD [facility] 04-26-2021 04:00-0500 Diastolic Blood Pressure NBP [address] STEPHANE CURRIE MD [facility] 04-26-2021 04:00-0500 Heart rate 57 /min DR STEPHANE CURRIE MD [facility] 04-26-2021 04:00-0500 Systolic Blood Pressure NBP [address] STEPHANE CURRIE MD [facility] 04-25-2021 23:54-0500 Body temperature 97.7 [degF] DR STEPHANE CURRIE MD [facility] 04-25-2021 23:54-0500 Diastolic Blood Pressure NBP [address] STEPHANE CURRIE MD [facility] 04-25-2021 23:54-0500 Heart rate 57 /min DR STEPHANE CURRIE MD [facility] 04-25-2021 23:54-0500 Respiratory rate 16 /min DR STEPHANE CURRIE MD [facility] 04-25-2021 23:54-0500 Systolic Blood Pressure NBP [address] STEPHANE CURRIE MD [facility] 04-25-2021 19:31-0500 Heart rate 62 /min DR STEPHANE CURRIE MD [facility] 04-25-2021 18:06-0500 Body height 177.[address] STEPHANE CURRIE MD [facility] 04-25-2021 18:06-0500 Body weight 104.[address] STEPHANE CURRIE MD [facility] 04-25-2021 18:06-0500 Body weight 33.06 kg/m2 DR STEPHANE CURRIE MD [facility] 04-25-2021 16:06-0500 Body temperature 96.8 [degF] DR STEPHANE CURRIE MD [facility] 04-25-2021 13:39-0500 Heart rate 55 /min DR STEPHANE CURRIE MD [facility] 04-25-2021 11:55-0500 Body height 177.[address] STEPHANE CURRIE MD [facility] 04-25-2021 11:55-0500 Body temperature 97.7 [degF] DR STEPHANE CURRIE MD [facility] 04-25-2021 11:55-0500 Body weight 104.[address] STEPHANE CURRIE MD [facility] 04-25-2021 11:55-0500 Diastolic blood pressure 62 mm[Hg] DR STEPHANE CURRIE MD [facility] 04-25-2021 11:55-0500 Heart rate 61 /min DR STEPHANE CURRIE MD [facility] 04-25-2021 11:55-0500 Systolic blood pressure 101 mm[Hg] DR STEPHANE CURRIE MD [facility] 03-08-2021 08:52-0500 Heart rate 79 /min DR STEPHANE CURRIE MD [facility] 03-08-2021 08:40-0500 Body temperature 98.06 [degF] DR STEPHANE CURRIE MD [facility] 03-08-2021 08:40-0500 Diastolic blood pressure 76 mm[Hg] DR STEPHANE CURRIE MD [facility] 03-08-2021 08:40-0500 Heart rate 79 /min DR STEPHANE CURRIE MD [facility] 03-08-2021 08:40-0500 Mean blood pressure 106 mm[Hg] DR STEPHANE CURRIE MD [facility] 03-08-2021 08:40-0500 Reason For Taking VItal Signs DR STEPHANE CURRIE MD [facility] 03-08-2021 08:40-0500 Respiratory rate 20 /min DR STEPHANE CURRIE MD [facility] 03-08-2021 08:40-0500 Systolic blood pressure 165 mm[Hg] DR STEPHANE CURRIE MD [facility] 03-08-2021 03:32-0500 Body temperature 97.7 [degF] DR STEPHANE CURRIE MD [facility] 03-08-2021 03:32-0500 Diastolic blood pressure 66 mm[Hg] DR STEPHANE CURRIE MD [facility] 03-08-2021 03:32-0500 Heart rate 55 /min DR STEPHANE CURRIE MD [facility] 03-08-2021 03:32-0500 Reason For Taking VItal Signs DR STEPHANE CURRIE MD [facility] 03-08-2021 03:32-0500 Respiratory rate 18 /min DR STEPHANE CURRIE MD [facility] 03-08-2021 03:32-0500 Systolic blood pressure 126 mm[Hg] DR STEPHANE CURRIE MD [facility] 03-07-2021 23:49-0500 Diastolic blood pressure 76 mm[Hg] DR SETPHANE CURRIE MD [facility] 03-07-2021 23:49-0500 Respiratory rate 18 /min DR STEPHANE CURRIE MD [facility] 03-07-2021 23:49-0500 Systolic blood pressure 150 mm[Hg] DR STEPHANE CURIRE MD [facility] 03-07-2021 23:40-0500 Body temperature 97.7 [degF] DR STEPHANE CURRIE MD [facility] 03-07-2021 23:40-0500 Heart rate 56 /min DR STEPHANE CURRIE MD [facility] 03-07-2021 23:40-0500 Mean blood pressure 113 mm[Hg] DR STEPHANE CURRIE MD [facility] 03-07-2021 23:40-0500 Reason For Taking VItal Signs DR STEPHANE CURRIE MD [facility] 03-07-2021 22:13-0500 Heart rate 61 /min DR STEPHANE CURRIE MD [facility] 03-07-2021 20:04-0500 Heart rate 49 /min DR STEPHANE CURRIE MD [facility] 03-07-2021 17:20-0500 Mean blood pressure 99 mm[Hg] DR STEPHANE CURRIE MD [facility] 03-07-2021 17:13-0500 Body height 177.[address] STEPHANE CURRIE MD [facility] 03-07-2021 17:13-0500 Body weight 104.[address] STEPHANE CURRIE MD [facility] 03-07-2021 17:13-0500 Body weight 33.06 kg/m2 DR STEPHANE CURRIE MD [facility] 03-07-2021 13:58-0500 Body temperature 96.44 [degF] DR STEPHANE CURRIE MD [facility] 03-07-2021 13:47-0500 Body temperature 95.72 [degF] DR STEPHANE CURRIE MD [facility] 03-07-2021 13:35-0500 Diastolic Blood Pressure NBP [address] STEPHANE CURRIE MD [facility] 03-07-2021 13:35-0500 Systolic Blood Pressure NBP [address] STEPHANE CURRIE MD [facility] 03-07-2021 13:30-0500 Diastolic Blood Pressure NBP [address] STEPHANE CURRIE MD [facility] 03-07-2021 13:30-0500 Systolic Blood Pressure NBP [address] STEPHANE CURRIE MD [facility] 03-07-2021 13:25-0500 Diastolic Blood Pressure NBP [address] STEPHANE CURRIE MD [facility] 03-07-2021 13:25-0500 Systolic Blood Pressure NBP [address] STEPHANE CURRIE MD [facility] 03-07-2021 10:45-0500 Body height 177.[address] STEPHANE CURRIE MD [facility] 03-07-2021 10:45-0500 Body temperature 96.8 [degF] DR STEPHANE CURRIE MD [facility] 03-07-2021 10:45-0500 Body weight 104.[address] STEPHANE CURRIE MD [facility] 02-27-2021 15:10-0500 Body height 177.[address] STEPHANE CURRIE MD [facility] 02-27-2021 15:10-0500 Body weight 104.[address] STEPHANE CURRIE MD [facility] 02-27-2021 15:10-0500 diastolic 68 mm[Hg] DR STEPHANE CURRIE MD [facility] 02-27-2021 15:10-0500 Heart rate 58 /min DR STEPHANE CURRIE MD [facility] 02-27-2021 15:10-0500 Respiratory rate 18 /min DR STEPHANE CURRIE MD [facility] 02-27-2021 15:10-0500 systolic 112 mm[Hg] DR STEPHANE CURRIE MD [facility] Encounters Encounter Date Encounter Type Care Provider Facility Start: 05-20-2023 ambulatory STEVEN LORA Facilit y:[facility] Procedures Date Procedure Procedure Detail Performing Clinician Start: 03-26-2023 Lipid 1995 panel - S jacinda or Plasma Steven Lora MD Work Phone: Start: 09-10-2022 PSA TUMOR MARKER(DIAGNOSTIC), MANUAL ENTER Historical Provider Start: 09-10-2022 Lipid 1996 panel - S jacinda or Plasma [facility] Provider Start: 05-29-2022 PSA screening Other ([facility]) Work Phone: Start: 05-15-2022 CBCDIF (EXTERNAL) Farzad Lora MD Work Phone: Start: 05-15-2022 RENAL FUNCTION PANEL EXTERNAL QAI Steven Lora MD Work Phone: Start: 03-22-2022 Hemoglobin A1c/Hemoglobin.total in Blood Steven Lora MD Work Phone: Start: 04-25-[address] STEPHANE CURRIE MD Plan of Treatment Date Care Activity Detail Author Start: 03-26-2028 Lipid panel Lipid Screening [facility] Start: 09-11-2027 Lipid 1996 panel - S jacinda or Plasma Lipid Screening [facility] Start: 09-11-2027 LIPID SCREEN LIPID SCREEN [facility] Start: 09-16-2026 Colonoscopy COLONOSCOPY [facility] Start: 09-16-2026 COLORECTAL CANCER SCREENING COLORECTAL CANCER SCREENING [facility] Start: 09-16-2026 Screening for malign ant neoplasm of colon [facility] Start: 03-26-2026 Diabetes Screening Diabetes Screenin g [facility] Start: 09-10-2025 DIABETES SCREEN DIABETES SCREEN [facility] Start: 09-10-2025 Diabetes Screening Diabetes Screenin g [facility] Start: 03-22-2025 DIABETES SCREEN DIABETES SCREEN [facility] Start: 12-31-2024 DIABETES SCREEN DIABETES SCREEN [facility] Start: 03-26-2024 Creatinine measurement Serum Creatin ine [facility] Start: 03-26-2024 Hepatitis B surface antibody level LDL Cholesterol [facility] Start: 03-18-2024 Annual PCP Team Sleeping Car Service Attendant ashutosh Disease Visit Annual PCP Team Chronic Disease Visit [facility] Start: 09-11-2023 Complete blood count Hemoglobin/Hans tocrit [facility] Start: 09-11-2023 HEMOGLOBIN/HEMATOCRIT HEMOGLOBIN/HEM ATOCRIT [facility] Start: 09-11-2023 Hepatitis B surface antibody level LDL CHOLESTEROL [facility] Start: 09-11-2023 Prostate specific antigen measurement PROSTATE CANCER SCREENING DISCUSSION [facility] Start: 09-11-2023 SERUM CREATININE SERUM CREATININE [facility] Start: 09-06-2023 ANNUAL PCP TEAM DIALYSIS REGISTERED NURSE ASHUTOSH DISEASE VISIT ANNUAL PCP TEAM CHRONIC DISEASE VISIT [facility] Start: 09-06-2023 BP CONTROLLED (<130/80) BP CONTROLLE D (<130/80) [facility] Start: 05-23-2023 End: 11-21-2023 PSA - DIAGNOSTIC/TUMOR MARKER PSA - DIAGNOSTIC/TUMOR MARKER Lab Routine History of prostate cancer History of radiation therapy Expected: 05/23/2023 (Approximate), Expires: 11/21/2023 [facility] Immunizations Immunization Date Immunization Notes Care Provider Jarrett lu 01-22-2022 influenza (HD-IIV4) vaccine, age 65+ yr, high dose, quadrivalent, PF (FLUZONE HIGH-DOSE) Steven Lora MD Work Phone: [facility] 01-22-2022 influenza virus vaccine, unspecified formulation Wanda Gomez [employer] PROFESSIONAL Work Phone: [facility] 03-22-2021 SARS-CoV-2 mRNA (tozinameran) vaccine DR STEPHANE CURRIE MD [facility] 02-06-2021 influenza (aIIV4) vaccine, age 65+ yr, quadrivalent, PF (FLUAD QUADRIVALENT) Rolander Stetler DO Work Phone: [facility] 08-01-2020 COVID-19 original vaccine, full dose, monovalent (MODERNA) Christopher Stetler DO Work Phone: [facility] 06-29-2020 SARS-CoV-2 (COVID-19 ) mRNA-12[address] STEPHANE CURRIE MD [facility] 06-02-2020 SARS-CoV-2 (COVID-19 ) mRNA-[address] STEPHANE CURRIE MD [facility] Payers Date Payer Category Payer Medicare [id number] 2017 Private Health Insurance [id number] 1950 Unknown [id number] 1950 Unknown [id number] 1950 Unknown [id number] 1950 Unknown [id number] Social History Date Type Detail Facility Start: 02-27-2021 End: 04-01-1980 Smoker (finding) [facility] Sex Assigned At [facility] Start: 03-07-2021 End: 01-08-2022 Ex-smoker (finding) [facility] End: 04-01-1980 History of tobacco use Cigarette Smoker [facility] Start: 11-27-2011 End: 03-18-2023 Alcohol intake Current drinker of alcohol (finding) [facility] Start: 11-27-2011 History SDOH Alcohol Comment moderate amt [facility] Start: 11-27-2011 End: 01-08-2022 Tobacco Comment quit approx 30 yrs ago [facility] Start: 1950 Sex Assigned At Not on file [facility] Start: 12-02-2021 End: 01-08-2022 Exposure to SARS-CoV-2 (event) Not sure [facility] Start: 01-08-2022 Tobacco use and exposure Smoke less tobacco non-user [facility] Start: 09-05-2022 History SDOH Alcohol Frequency 4 [facility] Start: 09-05-2022 History SDOH Alcohol Std Drinks 1 [facility] Start: 09-05-2022 History SDOH Social Connections Phone 5 [facility] Start: 09-05-2022 History SDOH Social Connections Get Together 2 [facility] Start: 09-05-2022 History SDOH Social Connections [facility] Start: 06-06-2020 End: 09-05-2022 Cigarettes smoked current (pack per day) - Reported 1 [facility] Start: 06-06-2020 Tobacco use and exposure User of smokeless tobacco [facility] History of tobacco use Snuff User [facility] Start: 09-05-2022 End: 11-20-2022 Tobacco use panel [facility] Adolescent depressio n screening assessment 0 [facility] Do you belong to any clubs or organizations such as christian groups, unions, fraternal or athletic groups, or school groups? Yes [facility] Are you now , , , , never or living with a partner? [facility] How often to you hav e a drink containing alcohol? 2-3 time sa week [facility] How many standard dr inks containing alcohol do you have on a typical day? 1 or 2 [facility] How often do you hav e 6 or more drinks on 1 occasion? Never [facility] Do you feel stress - tense, restless, nervous, or anxious, or unable to sleep at night because your mind is troubled all the time - these days [OSQ] Rather much [facility] (I/We) worried josé er (my/our) food would run out before (I/we) got money to buy more. Never true [facility] In the past 12 month s, was there a time when you were not able to pay the mortgage or rent on time? No [facility] Start: 03-12-2022 Gender identity Identifies as male gender (finding) [facility] Start: 03-18-2023 Education 17 [facility] Medical Equipment Procedure Code Equipment Code Equipment Origin al Text Equipment Identifier Dates [employer] [id number] Reveal Xt 09/25/2011 [id number] Start: 09-25-2011 Space Oar Gel-06/23/2020 [id number] Start: 06-23-2020 Clinical Notes 12-10-2016 to 05-20-2023 Telephone Encounter - Brunilda Romo LPN - 05/20/2023 2:24 PM ESTTelephone Encounter - Brunilda Romo LPN - 01/08/2023 2:24 PM Eusebia Rivera RN - 12/17/2022 3:21 PM EDTPatient Instructions Note Date & Type Note Facility 05-20-2023 Miscellaneous Notes Patient called requesting the following refill. Requested Prescriptions Pending Prescriptions Disp Refills ALPRAZolam (XANAX) 0.25 mg tablet 90 tablet 2 Sig: Take 1 tablet by mouth every 8 hours as needed for up to 90 days. Patient last appointment: 03/18/2023 Next appointment 09/18/2023 Patient Phone numbers: [phone] (home) Request is for script(s) to be escript to [facility] pharmacy. Brunilda Romo LPN documented in this encounter [facility] 03-23-2023 Note HNO ID: [id number] Author: Steven Lora MD Service: ? Author Type: Physician Type: Progress Notes Filed: 03/23/2023 3:00 PM Note Text: Subjective Pio Hoang is a 72 year old male.Pio is here today for a 6 month check up for his chronic health conditions Pastor is concerned because he keeps gaining weight in spite of watching his diet and he does exercise 3-4 times daily He gets a little short of breath when he works out (walking the track) He does have an appointment with pulmonoloigst Dr Garner this afternoon for a PFT He also has an appointment with cardiology [facility] in April 2023 He does admit to having a few days here and there but he does get down in the dumps and depressed He was prescribed Sertraline at one time but he did not like it as it made him feel spacey and woozey Review of Systems All other systems reviewed and are negative. PAST SURGICAL HISTORY Procedure Laterality Date HEART CATHETERIZATION x3 HEMORRHOIDECTOMY 1994 PAST SURGICAL HISTORY OF bilat knee surgeries R x2 and left x1 PAST SURGICAL HISTORY OF right rotator cuff repair REPAIR, DETACHED RETINA, LASER x 3 right PAST MEDICAL HISTORY Diagnosis Date A-fib (HCC) Anxiety GERD (gastroesophageal reflux disease) HTN (hypertension) Irregular heart beat FAMILY HISTORY Problem Relation Age of Onset Allergies Father environmental Cancer Maternal Grandfather lung Heart Father Hypertension Mother Hypertension Father Social History Tobacco Use Smoking status: Former Types: Cigarettes Smokeless tobacco: Never Tobacco comments: quit approx 30 yrs ago Vaping Use Vaping Use: Never used Substance Use Topics Alcohol use: Yes Comment: moderate amt Drug use: Not Currently ALLERGIES Allergen Reactions Animal Dander Other: See Comments, Unknown Dust Unknown Grass Pollen Unknown Levofloxacin Unknown, Myalgia, Other: See Comments Celecoxib Other: See Comments Citalopram Other: See Comments House Dust Unknown Mite Extract Unknown congestion Nsaids (Non-Steroid* Other: See Comments Seasonal Allergies Unknown sneezing Sulfamethoxazole-Tr* Myalgia And Fatigue Dabigatran Etexilate Other: See Comments, Unknown, GI Upset Gabapentin Other: See Comments, Unknown MEDICATIONS: fluorometholone (FML LIQUID FILM) 0.1 % ophthalmic suspension erythromycin (ROMYCIN) 5 mg/gram (0.5 %) ophthalmic ointment cycloSPORINE (RESTASIS) 0.05 % ophthalmic emulsion Chlorhexidine Gluconate (PERIDEX) 0.12 % solution ALPRAZolam (XANAX) 0.25 mg tablet Take 1 tablet by mouth every 8 hours as needed for up to 90 days. lansoprazole (PREVACID) 30 mg capsule Take 30 mg by mouth once daily. HYDROcodone-acetaminophen (NORCO) 5-325 mg per tablet TAKE 1 TABLET BY MOUTH THREE TIMES DAILY FOR 14 DAYS baclofen (LIORESAL) 10 mg tablet Take 1 tablet by mouth at bedtime as needed. alfuzosin SR (UROXATRAL) 10 mg 24 hr tablet Take 10 mg by mouth daily at bedtime. ADULT ASPIRIN ORAL Take 1 tablet by mouth once daily. multivitamin (MULTIPLE VITAMINS ORAL) 1 Cap daily. Saw [place] 500 mg cap Take by mouth. flecainide (TAMBOCOR) 150 mg tablet Take 1 tablet by mouth twice daily. losartan (COZAAR) 25 mg tablet Take by mouth. nitroglycerin sublingual (NITROQUICK) 0.4 mg SL tablet Nitrostat 0.4 mg tablet, sublingual sildenafil (VIAGRA) 50 mg tablet Take by mouth. magnesium oxide 400 mg tablet Take 400 mg by mouth twice daily. loratadine 10 mg tablet Take 10 mg by mouth as needed. fluticasone (FLONASE) 50 mcg/actuation nasal spray Use 1 Moville in each nostril as needed. LACTOBACILLUS ACIDOPHILUS (PROBIOTIC ORAL) Take 175 mg by mouth once daily. Cholecalciferol, Vitamin D3, 50 mcg (2,000 unit) cap Take 1 capsule by mouth once daily. UBIDECARENONE (COENZYME Q10) 200 mg tab Take 200 mg by mouth once daily. metoprolol succinate XL, long acting, 25 mg 24 hr tablet Take 25 mg by mouth once daily. simvastatin (ZOCOR) 40 mg tablet Take 20 mg by mouth daily at bedtime. venlafaxine ER (EFFEXOR XR) 37.5 mg 24 hr capsule Take 1 capsule by mouth once daily. Allergies, past surgical history, family history and past medical history were reviewed per this encounter. Medications were reviewed and verified. Objective BP 138/80 (BP Site: Left Arm, BP Position: Sitting, BP Cuff Size: Large Adult) Pulse 60 Temp 36.4 ?C (97.6 ?F) (Temporal) Resp 16 Ht 177.8 cm (5' 10 ) Wt 113 kg (249 lb 3.2 oz) SpO2 97% BMI 35.76 kg/m? Physical Exam Vitals reviewed. Constitutional: Appearance: Normal appearance. HENT: Head: Normocephalic and atraumatic. Nose: Nose normal. Eyes: Extraocular Movements: Extraocular movements intact. Pupils: Pupils are equal, round, and reactive to light. Cardiovascular: Rate and Rhythm: Normal rate and regular rhythm. Pulmonary: Effort: Pulmonary effort is normal. Breath sounds: Normal breath sounds. (more content not included)... [facility] 03-18-2023 Note HNO ID: [id number] Author: Brunilda Romo LPN Service: ? Author Type: LICENSED NURSE Type: Progress Notes Filed: 03/23/2023 3:00 PM Note Text: Pio is here today for a 6 month check up for his chronic health conditions Pastor is concerned because he keeps gaining weight in spite of watching his diet and he does exercise 3-4 times daily He gets a little short of breath when he works out (walking the track) He does have an appointment with pulmonoloigst Dr Garner this afternoon for a PFT He also has an appointment with cardiology [facility] in April 2023 He does admit to having a few days here and there but he does get down in the dumps and depressed He was prescribed Sertraline at one time but he did not like it as it made him feel spacey and woozey BP is elevated 144/84 pulse is 60---right arm Recheck 140/78---left Recheck left arm 138/80 Brunilda Romo LPN March 18, 2023 11:52 AM [facility] 01-28-2023 Note ORIGINAL EXAMINATION: GASTRIC EMPTYING STUDY01/28/2023 2:14 pm TECHNIQUE: The patient received an oral radiolabeled solid-phase meal utilizing 2.1 mCi of Tc-99m sulfur colloid in cooked egg. Sequential anterior and posterior images of the abdomen were then acquired over the next 3 hours. Computer quantification of gastric emptying (using geometric mean activity) was performed. COMPARISON: None HISTORY: ORDERING SYSTEM PROVIDED HISTORY: Reason for Exam: Gastro esophageal reflux disease FINDINGS: Sequential static images demonstrates radiotracer within the gastric lumen, progressively emptying into small bowel. Computer quantification demonstrates gastric retention as follows: 57 % at 0.5 hr (normal min 70%) 39 % at 1 hr (normal 30%-90%) 20 % at 2 hr (normal max 60%) 1 % at 3 hr (normal max 30%) IMPRESSION: Rapid gastric emptying of radiolabeled solid meal, which can be a source of gastrointestinal symptoms. No evidence of gastroparesis. Interpreted by: Gumaro Ji DO Preliminary Report By: Gumaro Ji DO Electronically signed By Gumaro Ji DO Dictated Date: 01/28/2023 4:48:03 PM Prelim Date: 01/28/2023 4:50:07 PM Sign Date: 01/28/2023 4:50:07 PM Ordering Provider: PA REYES [facility] 01-08-2023 Miscellaneous Notes Patient called requesting the following refill. Requested Prescriptions Pending Prescriptions Disp Refills ALPRAZolam (XANAX) 0.25 mg tablet 90 tablet 2 Sig: Take 1 tablet by mouth every 8 hours as needed for up to 90 days. Patient last appointment: 09/05/2022 Next appointment 03/18/2023 Patient Phone numbers: [phone] (home) Request is for script(s) to be escript to [facility] pharmacy. Brunilda Romo LPN documented in this encounter [facility] 12-17-2022 Note HNO ID: [id number] Author: Eusebia Kraus RN Service: ? Author Type: Registered Nurse Type: Progress Notes Filed: 12/17/2022 3:22 PM Note Text: CC [facility] NURSE - CHART REVIEW Provider FYI PCC Action Chart review Non [facility] PCP Pt identified by name and . Reason for Review: Payor request Patient Attributed To: QAE Payer: [employer] Chart Review For: Utilization: Avoidable ED Total Patient High CostTotal Patient High Cost {HIGH COST:020012) Quality measure review Payor request for assistance Action Taken: No action needed Eusebia Kraus RN December 17, 2022 3:22 PM [facility] 12-17-2022 History of Present illness Narrative CC [facility] NURSE - CHART REVIEW Provider VALENTINO PCC Action Chart review Non [facility] PCP Pt identified by name and . Reason for Review: Payor request Patient Attributed To: QAE Payer: [employer] Chart Review For: Utilization: Avoidable ED Total Patient High CostTotal Patient High Cost {HIGH COST:721559) Quality measure review Payor request for assistance Action Taken: No action needed Eusebia Kraus RN December 17, 2022 3:22 PM documented in this encounter [facility] 12-17-2022 Note Patient Outreach ([facility] PIO HOANG ([id number]) 1950 M Date Time Provider Department 12/17/22 [place]RA[place] [facility] [place] your visit today, we recorded the following information about you: Eusebia Kraus RN 12/17/2022 3:22 PM Signed CC [facility] NURSE - CHART REVIEW Provider VALENTINO PCC Action Chart review Non [facility] PCP Pt identified by name and . Reason for Review: Payor request Patient Attributed To: QAE Payer: [employer] Chart Review For: Utilization: Avoidable ED Total Patient High CostTotal Patient High Cost {HIGH COST:155467) Quality measure review Payor request for assistance Action Taken: No action needed Eusebia Kraus RN December 17, 2022 3:22 PM Allergies As of Date: 12/17/2022 Noted Allergy Reaction ANIMAL DANDER 09/25/2011 14 - Other: See Comments 16 - Unknown DUST 10/15/2016 16 - Unknown GRASS POLLEN 12/10/2016 16 - Unknown LEVOFLOXACIN 06/06/2020 16 - Unknown 17 - Myalgia 14 - Other: See Comments CELECOXIB 01/08/2022 14 - Other: See Comments CITALOPRAM 06/06/2020 14 - Other: See Comments HOUSE DUST 11/10/2020 16 - Unknown MITE EXTRACT 09/25/2011 16 - Unknown Comments: congestion NSAIDS (NON-STEROIDAL ANTI-INFLAM*01/08/2022 14 - Other: See Comments SEASONAL ALLERGIES 09/25/2011 16 - Unknown Comments: sneezing SULFAMETHOXAZOLE-TRIMETHOPRIM 06/06/2020 17 - Myalgia Comments: And Fatigue DABIGATRAN ETEXILATE 07/17/2018 14 - Other: See Comments 16 - Unknown 8 - GI Upset GABAPENTIN 06/06/2020 14 - Other: See Comments 16 - Unknown Date Reviewed: 09/05/2022 Reviewed by: Shahnaz Helm LPN - Fully Assessed Prescriptions as of 12/17/2022 - lansoprazole (PREVACID) 30 mg capsule Take 30 mg by mouth once daily. - sertraline (ZOLOFT) 50 mg tablet Take 1 tablet by mouth once daily. - HYDROcodone-acetaminophen (NORCO) 5-325 mg per tablet TAKE 1 TABLET BY MOUTH THREE TIMES DAILY FOR 14 DAYS - oxyCODONE IR (ROXICODONE) 5 mg immediate release tablet TAKE 1 TO 2 TABLETS BY MOUTH EVERY 4 TO 6 HOURS NEEDED FOR UP TO 7 DAYS - baclofen (LIORESAL) 10 mg tablet Take 1 tablet by mouth at bedtime as needed. - alfuzosin SR (UROXATRAL) 10 mg 24 hr tablet Take 10 mg by mouth daily at bedtime. - ADULT ASPIRIN ORAL ADULT ASPIRIN EC LOW STRENGTH 81 MG ORAL TABLET DELAYED RELEASE - multivitamin (MULTIPLE VITAMINS ORAL) 1 Cap daily. - Saw [place] 500 mg cap Take by mouth. - flecainide (TAMBOCOR) 150 mg tablet Take 1 tablet by mouth twice daily. - losartan (COZAAR) 25 mg tablet Take by mouth. - nitroglycerin sublingual (NITROQUICK) 0.4 mg SL tablet Nitrostat 0.4 mg tablet, sublingual - sildenafil (VIAGRA) 50 mg tablet Take by mouth. - magnesium oxide 400 mg tablet Take 400 mg by mouth twice daily. - loratadine 10 mg tablet Take 10 mg by mouth as needed. - fluticasone (FLONASE) 50 mcg/actuation nasal spray Use 1 Moville in each nostril as needed. - LACTOBACILLUS ACIDOPHILUS (PROBIOTIC ORAL) Take 175 mg by mouth once daily. - Cholecalciferol, Vitamin D3, 50 mcg (2,000 unit) cap Take 1 capsule by mouth once daily. - UBIDECARENONE (COENZYME Q10) 200 mg tab Take 200 mg by mouth once daily. - metoprolol succinate XL, long acting, 25 mg 24 hr tablet Take 25 mg by mouth once daily. - simvastatin (ZOCOR) 40 mg tablet Take 20 mg by mouth daily at bedtime. Problem List As Of Date 12/17/2022 Noted Resolved Thrombosed external hemorrhoid [K64.5] 11/27/2011 Anemia [D64.9] 12/22/2020 Anxiety [F41.9] 12/10/2016 Atopic dermatitis [L20.9] 10/15/2016 Atrial fibrillation (HCC) [I48.91] 08/30/2011 PAF (paroxysmal atrial fibrillation) (HCC) [I48*12/30/2021 Back pain with radiculopathy [M54.10] 12/23/2018 Chest pain [R07.9] 12/07/2011 Coronary artery disease, non-occlusive [I25.10] 09/25/2011 Depression [F32.A] 12/10/2016 Hypertension, benign [I10] 12/10/2016 Essential hypertension [I10] 12/30/2021 Fatigue [R53.83] 12/22/2020 GERD (gastroesophageal reflux disease) [K21.9] 09/25/2011 Hyperlipidemia [E78.5] 12/06/2011 Irritable bowel syndrome with diarrhea [K58.0] 12/03/2018 Prostate cancer (HCC) [C61] 08/10/2020 Pure hypercholesterolemia, unspecified [E78.00] 12/10/2016 Renal insufficiency syndrome [N28.9] 01/10/2021 Sleep apnea [G47.30] 12/30/2021 Vitamin D deficiency [E55.9] 06/17/2018 Well adult health check [Z00.00] 06/11/2017 Encounter for screening for malignant neoplasm *06/17/2018 History of malignant neoplasm of prostate [Z85.*03/12/2022 History of hypercholesterolemia [Z86.39] 03/12/2022 History of hypertension [Z86.79] 03/12/2022 Osteoarthritis [M19.90] 03/07/2021 Palpitations [R00.2] 09/13/2021 Paresthesia [R20.2] 03/12/2022 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 [facility] 11-20-2022 History of Present illness Narrative Images from the original note were not included. RADIATION ONCOLOGY FOLLOW-UP Date of service: 11/20/2022 Diagnosis: 1. History of prostate cancer 2. History of radiation therapy CHIEF COMPLAINT: Chief Complaint Patient presents with Follow-up HISTORY OF PRESENT ILLNESS Pio Hoang is a 72 y.o. male diagnosed with unfavorable intermediate risk prostate cancer, cT1c, GS 3+4=7 (3/11 cores), PSA 10.10 ng/mL, s/p cystoscopy with UroLift Implant and TRUS guided prostate biopsy 05/06/20. He completed definitive treatment with SBRT prostate to 3625 cGy in 5 fractions every other day on 07/22/20. INTERVAL HISTORY Mr. Pio Hoang presents today with his 1 year & 4 months s/p SBRT. Urinary symptoms remain stable on Alfuzosin. Diurnal frequency 2-3 hrs. Nocturia x 2. He continues to follow with his local urologist. Sildenafil prn for ED is effective. Denies hematuria, dysuria, constipation, diarrhea or rectal bleeding. States he has been diagnosed with cervical stenosis and has received a steroid injection & takes Oxycodone prn. I-PSS International Prostate Symptom Score (I-PSS) Incomplete emptying: Less than half the time Frequency: Less than 1 time in 5 Intermittency: Less than half the time Urgency: Less than 1 time in 5 Weak stream: More than half the time Straining: Less than 1 time in 5 Nocturia: 2 times Total AUA score: 13 Quality of life due to urinary symptoms Rate current urinary condition: Mostly satisfied FRED FRED Survey Confidence to get and keep an erection?: Very low Sexual stimulation - how often erections hard enough for penetration?: A few times (much less than half the time) How often maintain erection after penetration?: Sometimes (about half the time) Difficulty to maintain erection to intercourse completion?: Very difficult [place] satisfactory for you?: A few times (much less than half the time) Total FRED score: 10 PSA/TESTOSTERONE Lab Results Component Value Date PSA 0.32 09/10/2022 PSA 0.41 05/29/2022 PSA 0.59 05/22/2021 PSA 10.10 (H) 03/15/2020 PSA 10.10 (H) 03/15/2020 PSA 8.22 (H) 08/10/2019 PSA 6.05 (H) 06/18/2018 PSA 6.10 (H) 12/23/2017 PSA 7.74 (H) 06/10/2017 PSA 6.27 (H) 06/04/2016 PSA 5.46 (H) 09/01/2015 PSA 6.39 (H) 05/24/2015 No results found for: TESTOSTERONE I have reviewed [facility] medical, surgical and other pertinent history in detail, and have updated medication and allergy information in the electronic medical record. ONCOLOGICAL HISTORY Oncology History Prostate cancer 08/10/2019 Tumor Markers Lab Results Component Value Date PSA 8.22 (H) 08/10/2019 PSA 6.05 (H) 06/18/2018 PSA 6.10 (H) 12/23/2017 PSA 7.74 (H) 06/10/2017 PSA 6.27 (H) 06/04/2016 PSA 5.46 (H) 09/01/2015 PSA 6.39 (H) 05/24/2015 03/15/2020 Tumor Markers PSA 10.10 03/17/2020 Other Presented to urology (Teodoro Flores MD) with continued worsening symptoms of BPH (20 yr history) including very weak urinary stream while taking Uroxatrol. Also experiencing ED issues. 04/21/2020 Procedure Cystoscopy 05/06/2020 Initial Diagnosis Prostate cancer 05/06/2020 Procedure Cystoscopy with UrolLift Implant and TRUS guided prostate biopsy 05/06/2020 - Cancer Staged Staging form: Prostate, AJCC 8th Edition - Clinical stage from 05/06/2020: cT1c, PSA: 10.1, Grade Group: 2 05/17/2020 Other Discussed radiation therapy and ADT. Referred to Radiation Oncologist Romel Mejia DO. 05/25/2020 Other Consultation with Radiation Oncologist, Romel Mejia in [place], [place] PHYSICAL EXAM Vital Signs: Blood pressure 163/72, pulse 62, temperature 98 F (36.7 C), temperature source Infrared, resp. rate 18, weight 111 kg (244 lb 12.8 oz), SpO2 97 %. Karnofsky Performance Performance status: Karnofsky scale 100 (ECOG grade 0) No limitations Physical Exam Vitals and nursing note reviewed. Constitutional: Appearance: Normal appearance. Cardiovascular: Rate and Rhythm: Normal rate and regular rhythm. Pulses: Normal pulses. Heart sounds: Normal heart sounds. Pulmonary: Effort: Pulmonary effort is normal. Breath sounds: Normal breath sounds. Abdominal: General: Bowel sounds are normal. Palpations: Abdomen is soft. Tenderness: There is no right CVA tenderness or left CVA tenderness. Musculoskeletal: General: Normal range of motion. Cervical back: No bony tenderness. Thoracic back: No bony tenderness. Lumbar back: No bony tenderness. Skin: General: Skin is warm and dry. Neurological: General: No focal deficit present. Mental Status: He is alert and oriented to person, place, and time. Psychiatric: Mood and Affect: Mood normal. Behavior: Behavior normal. Thought Content: Thought content normal. Judgment: Judgment normal. ASSESSMENT & PLAN Pio Hoang is a 72 y.o. male diagnosed with unfavorable intermediate risk prostate cancer, cT1c, GS 3+4=7 (3/11 cores), PSA 10.10 ng/mL, s/p cystoscopy with UroLift Implant and TRUS guided prostate biopsy 05/06/20. He completed definitive treatment with SBRT prostate to 3625 cGy in 5 fractions every other day on 07/22/20. IPSS 13, urinary symptoms remain unchanged and stable with daily Alfuzosin. He continues to follow with a local urologist. PSA 0.32 ng/mL on 09/10/22, continues to show good response to treatment. Mr. Hoang prefers to follow with Dr. Centeno. PLAN Telephone follow up with Dr. Centeno in 6 months, PSA to be obtained with local urologist Encouraged healthy lifestyle with a well balanced diet and exercise as well as continue with recommended health and cancer screening guidelines. Pio Hoang verbalized understanding and agreed to the plan. Signs of recurrent disease and treatment related side-effects with the patient. He has our contact information and was instructed to call should he have questions or concerns. SHAINA Cam was present for and completed an independent history and physical on this patient. The case was discussed and plan of care developed by SHAINA Cam. SHAINA Cam Department of Radiation Oncology A total of 20+ minutes was spent on 11/20/2022's encounter, this includes time spent with the patient and time spent documenting in the electronic medical record. RADIATION ONCOLOGY GENITOURINARY FOLLOW-UP VISIT Pio Hoang is a 72 y.o. male who is here for a follow-up visit regarding radiation treatment. Allergies, medications and history reviewed. Diagnosis: Malignant neoplasm of the prostate TREATMENT SUMMARY XRT - Completion Date: 07/22/2020 - Fractions Received: 5 SBRT - Dosage Received: 3625 cGy VITAL SIGNS BP: 163/72 HR: 62 O2: 97 % RR: 18 Temperature: 98 F (36.7 C) Weight: 111 kg (244 lb 12.8 oz) NURSING ASSESSMENT Falls: - History of Falls: no - Altered Mobility: no - Altered Mental Status: no Pain: - Presence of Pain: denies pain/discomfort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 Vitamin C 200 mg. 1 tablet daily. metoprolol succinate XL, long acting, 25 mg 24 hr tablet Take 1 tablet by mouth twice daily. simvastatin (ZOCOR) 40 mg tablet Take 20 mg by mouth daily at bedtime. 0 DULoxetine (CYMBALTA) 20 mg capsule Take 1 capsule by mouth once daily. 30 capsule 0 baclofen (LIORESAL) 10 mg tablet Take 1 tablet by mouth at bedtime as needed. 15 tablet 1 lansoprazole orally disintegrating 30 mg disintegrating tablet Take 1 tablet by mouth once daily. PLACE ONE(1) TABLET UNDER TONGUE, ALLOW TO DISSOLVE, AND SWALLOW ONCE DAILY. (Patient not taking: Reported on 03/09/2022) 0 No current facility-administered medications for this visit. Social Connections: Not on file Neck pain (primary encounter diagnosis) Assessment and Plan Patient is 71 years old man with intractable neck pain since hitting his head Discussed trial of Cymbalta and magnesium Physical therapy Office Visit on 03/09/22 CONSULT TO PHYSICAL THERAPY Symptomatic treatmen tof Total time in minutes spent with patient, reviewing records, labs, imaging, formulating plan, and documentin minutes with more than 50% of the time spent in patient education/counselling/coordinating care with the patient and /or family. March 09, 2022 Solange Lambert M.D. [facility] [place] Department of Neurology documented in this encounter [facility] 01-08-2022 History of Present illness Narrative This note was created using [employer]ane[employer]ation[employer]. Subjective Pio Hoang is a 71 year old male. Shaun presents today with multiple complaints. First is he complains of fatigue. He was falling asleep frequently throughout the day if he sits down. Additionally complains of increased anxiety and depression. Is currently on Xanax low-dose twice a day. He was seen in a hospital in [place] for acute chest pain. It was negative for cardiac event. He was given anxiety medication and it improved. Review of Systems All other systems reviewed and are negative. Objective BP 130/78 (BP Site: Left Arm, BP Position: Sitting, BP Cuff Size: Large Adult) Pulse 64 Temp 36.6 C (97.8 F) (Temporal) Resp 18 Ht 177.8 cm (5' 10 ) Wt 110 kg (242 lb 6.4 oz) SpO2 97% BMI 34.78 kg/m Physical Exam Vitals reviewed. Constitutional: Appearance: Normal appearance. HENT: Head: Normocephalic and atraumatic. Nose: Nose normal. Eyes: Extraocular Movements: Extraocular movements intact. Pupils: Pupils are equal, round, and reactive to light. Cardiovascular: Rate and Rhythm: Normal rate and regular rhythm. Pulmonary: Effort: Pulmonary effort is normal. Breath sounds: Normal breath sounds. Abdominal: General: Bowel sounds are normal. Palpations: Abdomen is soft. Musculoskeletal: General: Normal range of motion. Cervical back: Normal range of motion and neck supple. Skin: General: Skin is warm and dry. Capillary Refill: Capillary refill takes less than 2 seconds. Neurological: General: No focal deficit present. Mental Status: He is alert and oriented to person, place, and time. Mental status is at baseline. Psychiatric: Behavior: Behavior normal. Comments: Depressed mood and anxious Assessment and Plan Pio was seen today for surgical clearance. Diagnoses and all orders for this visit: Primary hypertension - COMP METABOLIC PANEL; Future Fatigue, unspecified type - CBC + DIFF; Future - COMP METABOLIC PANEL; Future - TSH BLD; Future Anxiety - ALPRAZolam (XANAX) 0.25 mg tablet; Take 1 tablet by mouth three times daily as needed for up to 90 days. Paroxysmal atrial fibrillation (HCC) Coronary artery disease, non-occlusive Hypertension, benign Renal insufficiency syndrome Anemia, unspecified type Current mild episode of major depressive disorder, unspecified whether recurrent (HCC) Other orders - sertraline (ZOLOFT) 50 mg tablet; Take 1 tablet by mouth once daily. Patient in office today for surgical clearance for right knee replacement. Patient stated that she is having increased fatigue, anxiety, and depression. Patient requesting medication adjustment. Patient denies seeing psychiatrist Patient stated that current depressive state is making him very concerned on where his path with depression will be, when asked if has suicidal thoughts. Denies suicidal thoughts at this time Veronica Rogers LPN January 08, 2022 3:01 PM documented in this encounter [facility] 06-13-2021 Note [facility] CONSULTATION REPORT NAME ACCOUNT SEX AGE ADMIT DISCHARGE PT MED. RECORD# NUMBER DATE DATE TYPE NATALYA [id number] M 70 05/31/2021 06/02/2021 2 PIO [id number] ROOM: [facility] DATE OF : 1950 DICTATING PHYSICIAN: Sergo Jaramillo DATE OF CONSULTATION: June 02, 2021 REQUESTING PROVIDER: Dr. Turner REASON FOR CONSULTATION: Left hip pain. HISTORY OF PRESENT ILLNESS: This is a 70-year-old male who is seen in the outpatient setting for left hip osteoarthritis. He underwent a complicated left total hip arthroplasty through an anterior supine incision March 07, 2021. She subsequently underwent a left total knee arthroplasty with Dr. Currie on April 25, 2021. He is currently in physical therapy for his left knee. He states that he has been doing well with his left hip. He noted some increased soreness with physical therapy early this week and then developed acute onset of left hip pain while he was walking at an auction 2 days ago. X-rays were obtained in the [facility] which were negative for acute process. CT scan was also obtained and demonstrated no obvious acute changes. CT scan was also obtained and demonstrated no obvious acute changes. He was admitted under the service of Dr. Turner. I was asked to see the patient in consultation. The patient did complain of some mild pain while in bed. He states that most of the pain was up and bearing weight. He has attempted physical therapy while he has been in the hospital. PAST MEDICAL HISTORY: Significant for prostate cancer status post chemotherapy, stage III chronic kidney disease, obstructive sleep apnea, GERD, history of atrial fibrillation, status post ablation in 2011, dyslipidemia. PAST SURGICAL HISTORY: As above. (1) Left TKA on 04/25/2021. (2) Left BRIAN on 03/07/2021. Both procedures performed by Dr. Currie. CURRENT MEDICATIONS: (1) Ipratropium bromide 0.06% spray one each b.i.d. (2) Sildenafil 100 mg p.r.n. (3) Losartan 25 mg p.o. daily. (4) Simvastatin 40 mg p.o. daily. (5) Alprazolam 0.25 mg p.o. b.i.d. (6) Lansoprazole 30 mg p.o. daily. (7) Fluticasone 2 sprays nasally daily. (8) Flecainide 150 mg p.o. b.i.d. (9) Alfuzosin 20 mg p.o. daily. ALLERGIES: NSAIDs. Page 1 of 3 PIO HOANG [employer] Person Report PIO HOANG : 1950 SOCIAL HISTORY: Nonsmoker. Denies excessive alcohol consumption or illicit drug use. REVIEW OF SYSTEMS: Ten systems are reviewed and negative except as mentioned above. PHYSICAL EXAMINATION: VITAL SIGNS: 06/01/2021 at 0711 hours: Blood pressure 151/72, heart rate 56, respires 18, temperature 36.4 C orally, spO2 96% on room air. GENERAL: Alert and oriented x3. NAD. HEENT: Normocephalic, atraumatic. LUNGS: Normal chest rise. Normal work of breathing. No intercostal retractions. CARDIOVASCULAR: Regular rate and rhythm. No murmurs, gallops or rubs. ABDOMEN: Soft, nontender, nondistended. SKIN: Intact circumferentially. Well healed anterior left hip incision as well as anterior knee incision without significant erythema. No drainage. NEUROLOGIC: Cranial nerves II-XII are grossly intact. Sensation intact throughout extremities. EXTREMITIES: Focus of examination is to the left hip. There is tenderness to palpation along the lateral hip, along the lateral hip, along the abductor insertion and greater trochanter. No pain with passive flexion or extension. Internal and external rotation are relatively benign. No gross instability is noted. Compartment soft and compressible. No short arc range of motion pain. Dorsiflexion, plantar flexion, EHR, 5/5 in the lower leg. Palpable DP pulses and brisk capillary refill in the toes. Mildly tender over the AIIS. No pain with femoral stress. Negative straight leg raise. Able to perform straight leg raise without significant pain. DIAGNOSTIC DATA: Hemoglobin from 06/01/2021 is 12, hematocrit 36, WBC 8.6, platelets 188,000, sodium 140, potassium 4.3, ____103, CO2 22.6, glucose 99, BUN 37, creatinine 1.56. ESR and CRP within normal limits. X-rays and CT scan reviewed. No acute process identified. Well positioned left toe. Hip arthroplasty as noted. ASSESSMENT: Left hip pain status post left anterior BRIAN. RECOMMENDATIONS: I recommended a continued nonoperative management, weightbearing as tolerated, PT/OT. Pain control. Continue judicious narcotic use. Tylenol as needed. I recommended a single dose 10 mg IV Decadron. Follow up as an outpatient with Dr. Currie. Continue physical therapy as tolerated. Do not hesitate to call if any questions or concerns arise. Thank you for this consultation. Dictated By: Sergo Jaramillo DO 06/02/2021 15:56 JOB #: [id number] Transcribed By: kate 06/02/2021 17:14 Electronically signed by: Page 2 of 3 PIO HOANG [employer] Person Report PIO HOANG : 1950 Dr. Sergo Jaramillo, 06/13/21 06:33 P (more content not included)... [facility] 04-26-2021 Hospital Discharge instructions Patient Education 04/26/2021 07:06:30 5 - [facility] Post-op Instruction 10/2016 ([id number]) [facility] Post-operative Instructions PLEASE FOLLOW [facility] POST-OP INSTRUCTIONS GIVEN WATCH FOR SIGNS OF INFECTION: call the office ([phone]) if experencing any of the following: (Usually appears 36-48 hours after surgery) Increased temperature (101 degrees Fahrenheit or higher) Redness or swelling Increased uncontrolled pain Foul odor or drainage Calf discomfort Significant swelling Or if having any chest pain, shortness of breath, or difficulty breathing or swallowing call the office or go the nearest Emergency Room. If you have any questions, please call your doctor at the number listed on your follow up instructions. Form: [id number]) R: 08/05 Follow Up Care 04/03/2021 08:32:55 With:Physical Therapy @ [facility] with Jamarcus Address:Unknown When:04/27/2021 13:30:00 With:DEEPTHI HUMPHREYS Address: [address] [place] [address] [address] [facility], [place] [address]- [phone] Business (1) When:05/08/2021 09:15:00 [facility] 03-08-2021 Hospital Discharge instructions Patient Education 03/08/2021 11:55:48 Total Hip Replacement, Anterior, Care After, [id number] Total Hip Replacement, Anterior, Care After This sheet gives you information about how to care for yourself after your procedure. Your doctor may also give you more specific instructions. If you have problems or questions, contact your doctor. What can I expect after the procedure? After the procedure, it is common to have: Pain. Stiffness. Discomfort. Follow these instructions at home: Medicines Take vjig-eqt-bjjxcog and prescription medicines only as told by your doctor. If you were prescribed a medicine to thin your blood (anticoagulant), take it as told by your doctor. Surgery cut care Follow instructions from your doctor about how to take care of your cut (incision) from surgery. Make sure you: ?Wash your hands with soap and water before you change your bandage (dressing). If you cannot use soap and water, use alcohol-based hand lawyer. ?Change your bandage as told by your doctor. ?Leave stitches (sutures), skin glue, or skin tape (adhesive) strips in place. They may need to stay in place for 2 weeks or longer. If tape strips get loose and curl up, you may trim the loose edges. Do not remove tape strips completely unless your doctor tells you to do that. Check your surgical cut every day for signs of infection. Check for: ?Redness, swelling, or pain. ?Fluid or blood. ?Warmth. ?Pus or a bad smell. Bathing Do not take baths, swim, or use a hot tub until your doctor says it is okay. Keep the bandage dry until your doctor says it can be removed. Managing pain, stiffness, and swelling If directed, put ice on the hip area. ?Put ice in a plastic bag. ?Place a towel between your skin and the bag. ?Leave the ice on for 20 minutes, 2 3 times a day. Move your toes often to avoid stiffness and to lessen swelling. Raise (elevate) your leg above the level of your heart while you are sitting or lying down. Activity Rest as told by your doctor. Do not sit for a long time without moving. Get up to take short walks every 1 2 hours. This is important. Ask for help if you feel weak or unsteady. Do exercises as told by your doctor or physical therapist. Use a walker, crutches, or a cane as told by your doctor. ?You may use your legs to support (bear) your body weight as told by your doctor. Follow instructions about how much weight you may safely support on your affected leg (weight-bearing restrictions). ?A physical therapist may show you how to get out of a bed and chair and how to go up and down stairs. You will first do this with a walker, crutches, or a cane. Then you will do it without any of these devices. ?Once you are able to walk without a limp, you may stop using a walker, crutches, or cane. Return to your normal activities as told by your doctor. Ask your doctor what activities are safe for you. Safety To help prevent falls: ?Keep floors clear of objects you may trip over. ?Place items that you may need within easy reach. Wear an apron or tool belt with pockets for carrying objects. This leaves your hands free to help with your balance. Driving Do not drive or use heavy machinery while taking prescription pain medicine. Ask your doctor when it is safe to drive. General instructions Wear compression stockings as told by your doctor. These help to prevent blood clots and reduce swelling in your legs. Keep doing breathing exercises as told by your doctor. This helps prevent lung infection. If you are taking prescription pain medicine, take actions to prevent or treat constipation. Your doctor may suggest that you: ?Drink enough fluid to keep your pee (urine) pale yellow. ?Eat foods that are high in fiber. These include fresh fruits and vegetables, whole grains, and beans. ?Limit foods that are high in fat and sugar. These include fried or sweet foods. ?Take an [id number] or prescription medicine for constipation. Do not use any products that have nicotine or tobacco in them, such as cigarettes and e-cigarettes. These can delay bone healing. If you need help quitting, ask your doctor. Tell your doctor if you plan to have dental work. Also: ?Tell your dentist about your joint replacement. ?Ask your doctor if there are instructions you need to follow before dental care and routine cleanings. Keep all follow-up visits as told by your doctor. This is important. Contact a doctor if: You have a fever or chills. You have a cough. You feel short of breath. Your medicine is not helping your pain. You have any of these at or near your cut from surgery: ?Redness, swelling, or pain. ?Fluid or blood. ?An area that feels warm when you touch it. ?Pus or a bad smell. Get help right away if: You have very bad pain. You have trouble breathing. You have chest pain. You have redness, swelling, pain, and warmth in your calf or leg. Summary Follow instructions from your doctor about how to take care of your surgery cut (incision). Do not take baths, swim, or use a hot tub until your doctor says it is okay. Use crutches, a walker, or a cane as told by your doctor. If you were prescribed a medicine to thin your blood (anticoagulant), take it as told by your doctor. This information is not intended to replace advice given to you by your health care provider. Make sure you discuss any questions you have with your health care provider. Document Released: 07/02/2018 Document Revised: 07/27/2019 Document Reviewed: 07/02/2018 [employer] Patient Education 2020 [employer]. 03/08/2021 11:55:40 Venous Thromboembolism Prevention Venous Thromboembolism Prevention Venous thromboembolism (VTE) is a condition in which a blood clot (thrombus) develops in the body. A deep vein thrombosis (DVT) is a blood clot that usually occurs in a deep vein in the leg or the pelvis, but it can also occur in the arm. Sometimes, pieces of a thrombus can break off and travel through the bloodstream to other parts of the body. When that happens, the thrombus is called an embolus. An embolus that travels to the lungs is called a pulmonary embolism. An embolism can block the blood flow in the blood vessels of other organs as well. How can this condition affect me? VTE is a serious health condition that can cause disability or . It is very important to get help right away. Do not ignore your symptoms. What can increase my risk? You are more likely to develop this condition if you: Have had recent major surgery or trauma. Have certain health conditions, such as cancer. Are in the hospital for a sudden illness. Have not moved for a long period of time, such as if you are on bed rest or traveling a long distance. Take certain medicines, such as control pills or hormone replacement therapy. Are or recently gave . Have a personal or family history of VTE. Are overweight. Are 60 years of age or older. Use products that contain nicotine and tobacco. What actions can I take to prevent this? In the hospital A VTE may be prevented by taking medicines that are prescribed to prevent blood clots (anticoagulants). You can also help to prevent VTE while in the hospital by taking these actions: Get out of bed and walk. Ask your health care provider if this is safe for you to do. Ask your health care provider if you should use a sequential compression device (SCD). This is a machine that pumps air into compression sleeves that are wrapped around your legs. Ask your health care provider if you should wear tight, elastic stockings that apply pressure to the lower legs (compression stockings). Compression stockings are sometimes used with SCDs. At home after surgery Understand that you have an increased risk for VTE for the first 4 6 weeks after surgery. During this time: Avoid traveling for more than 4 hours. If you must travel after surgery, ask your health care provider about additional preventive actions that you can take. Avoid sitting or lying still for too long. If possible, get up and walk around one time every hour. Ask your health care provider when this is safe for you to do. While traveling Travel that takes more than 4 hours can increase the risk of a VTE. To prevent VTE when traveling: Exercise your arms and legs every hour. You can do this by standing, stretching, and bending and straightening your arms and legs. If you are traveling by airplane, train, or bus, walk up and down the aisle as often as possible to get your blood moving. If you are traveling by car, stop and get out of the car every hour to exercise your arms and legs and stretch. Other types of exercise might include: ?Keeping your feet flat on the ground and raising your toes. ?Switching from tightening the muscles in your calves and thighs to relaxing those same muscles while you are sitting. ?Pointing and flexing your feet at the ankle joints while you are sitting. Drink enough water to keep your urine pale yellow. Avoid drinking alcohol during long travel. Generally, it is not recommended that you take medicines to prevent DVT during routine travel. Activity Stay active. Avoid sitting or lying in bed for long periods of time without moving your arms and legs. Exercise by moving your arms and legs for 30 minutes or more every day. Try not to bump or injure your legs. Avoid crossing your legs when you are sitting. Lifestyle Do not use any products that contain nicotine or tobacco, such as cigarettes, e-cigarettes, and chewing tobacco. If you need help quitting, ask your health care provider. This is especially important if you take estrogen medicines. Avoid wearing tight clothing around your legs or waist. General information Wear compression stockings as told by your health care provider. These stockings help to prevent blood clots and reduce swelling in your legs. Do not let them bunch up when you are wearing them. Avoid using medicines that contain estrogen if you do not need them. These include control pills and hormone replacement therapy. Do not use pillows under your knees while lying down unless told by your health care provider. Maintain a healthy weight. Where to find more information Centers for Disease Control and Prevention: www.cdc.gov [employer]: www.heart.org Get help right away if: You have chest pain or shortness of breath. You cough up blood. You have a rapid or irregular heartbeat. You feel light-headed or dizzy. You have new or increased pain, swelling, or redness in an arm or leg. You have numbness or tingling in an arm or leg. You have blood in your vomit, stool, or urine. These symptoms may represent a serious problem that is an emergency. Do not wait to see if the symptoms will go away. Get medical help right away. Call your local emergency services (911 in the [place] Do not drive yourself to the hospital. Summary Venous thromboembolism (VTE) is a condition in which a blood clot (thrombus)develops in the body. A deep vein thrombosis (DVT) is a blood clot that usually occurs in a deep vein in the leg or the pelvis, but it can also occur in the arm. VTE is a serious health condition that can cause disability or . It is very important to get help right away. Do not ignore your symptoms. If you are traveling, exercise your arms and legs every hour. Stay active to help prevent blood clots. Avoid sitting or lying in bed for long periods of time without moving your arms and legs. This information is not intended to replace advice given to you by your health care provider. Make sure you discuss any questions you have with your health care provider. Document Released: 03/06/2010 Document Revised: 07/07/2019 Document Reviewed: 05/26/2019 [employer] Patient Education 2020 [place]. 03/08/2021 11:55:38 Anticoagulation, Generic Anticoagulation, Generic Anticoagulants are medicines used to prevent clots from developing in your veins. These medicine are also known as blood thinners. If blood clots are untreated, they could travel to your lungs. This is called a pulmonary embolus. A blood clot in your lungs can be fatal. Health care providers often use anticoagulants to prevent clots following surgery. Anticoagulants are also used along with aspirin when the heart is not getting enough blood. Another anticoagulant called warfarin is started 2 to 3 days after a rapid-acting injectable anticoagulant is started. The rapid-acting anticoagulants are usually continued until warfarin has begun to work. Your health care provider will transcribing machine operator this length of time by blood tests known as the prothrombin time (PT) and International Normalization Ratio (INR). This means that your blood is at the necessary and best level to prevent clots. RISKS AND COMPLICATIONS If you have received recent epidural anesthesia, spinal anesthesia, or a spinal tap while receiving anticoagulants, you are at risk for developing a blood clot in or around the spine. This condition could result in long-term or permanent paralysis. Because anticoagulants thin your blood, severe bleeding may occur from any tissue or organ. Symptoms of the blood being too thin may include: ? Bleeding from the nose or gums that does not stop quickly. ? Blood in bowel movements which may appear as bright red, dark, or black tarry stools. ? Blood in the urine which may appear as pink, red, or brown urine. ? Unusual bruising or bruising easily. ? A cut that does not stop bleeding within 10 minutes. ? Vomiting blood or continuous nausea for more than 1 day. ? Coughing up blood. ? Broken blood vessels in your eye (subconjunctival hemorrhage). ? Abdominal or back pain with or without flank bruising. ? Sudden, severe headache. ? Sudden weakness or numbness of the face, arm, or leg, especially on one side of the body. ? Sudden confusion. ? Trouble speaking (aphasia) or understanding. ? Sudden trouble seeing in one or both eyes. ? Sudden trouble walking. ? Dizziness. ? Loss of balance or coordination. ? Vaginal bleeding. ? Swelling or pain at an injection site. ? Superficial fat tissue (necrosis) which may cause skin scarring. This is more common in women and may first present as pain in the waist, thighs, or buttocks. ? Fever. Too little anticoagulation continues to allow the risk for blood clots. HOME CARE INSTRUCTIONS Due to the complications of anticoagulants, it is very important that you take your anticoagulant as directed by your health care provider. Anticoagulants need to be taken exactly as instructed. Be sure you understand all your anticoagulant instructions. Keep all follow-up appointments with your health care provider as directed. It is very important to keep your appointments. Not keeping appointments could result in a chronic or permanent injury, pain, or disability. Warfarin. Your health care provider will advise you on the length of treatment (usually 3 6 months, sometimes lifelong). ? Take warfarin exactly as directed by your health care provider. It is recommended that you take your warfarin dose at the same time of the day. It is preferred that you take warfarin in the late afternoon. If you have been told to stop taking warfarin, do not resume taking warfarin until directed to do so by your health care provider. Follow your health care provider's instructions if you accidentally take an extra dose or miss a dose of warfarin. It is very important to take warfarin as directed since bleeding or blood clots could result in chronic or permanent injury, pain, or disability. ? Too much and too little warfarin are both dangerous. Too much warfarin increases the risk of bleeding. Too little warfarin continues to allow the risk for blood clots. While taking warfarin, you will need to have regular blood tests to measure your blood clotting time. These blood tests usually include both the prothrombin time (PT) and International Normalized Ratio (INR) tests. The PT and INR results allow your health care provider to adjust your dose of warfarin. The dose can change for many reasons. It is critically important that you have your PT and INR levels drawn exactly as directed. Your warfarin dose may stay the same or change depending on what the PT and INR results are. Be sure to follow up with your health care provider regarding your PT and INR test results and what your warfarin dosage should be. ? Many medicines can interfere with warfarin and affect the PT and INR results. You must tell your health care provider about any and all medicines you take, this includes all vitamins and supplements. Ask your health care provider before taking these. Prescription and idyt-pxr-rirhwse medicine consistency is critical to warfarin management. It is important that potential interactions are checked before you start a new medicine. Be especially cautious with aspirin and anti-inflammatory medicines. Ask your health care provider before taking these. Medicines such as antibiotics and acid-reducing medicine can interact with warfarin and can cause an increased warfarin effect. Warfarin can also interfere with the effectiveness of medicines you are taking. Do not take or discontinue any prescribed or jqio-zej-uelzdsa medicine except on the advice of your health care provider or pharmacist. ? Some vitamins, supplements, and herbal products interfere with the effectiveness of warfarin. Vitamin E may increase the anticoagulant effects of warfarin. Vitamin K may can cause warfarin to be less effective. Do not take or discontinue any vitamin, supplement, or herbal product except on the advice of your health care provider or pharmacist. ? Eat what you normally eat and keep the vitamin K content of your diet consistent. Avoid major changes in your diet, or notify your health care provider before changing your diet. Suddenly getting a lot more vitamin K could cause your blood to clot too quickly. A sudden decrease in vitamin K intake could cause your blood to clot too slowly. These changes in vitamin K intake could lead to dangerous blood clots or to bleeding. To keep your vitamin K intake consistent, you must be aware of which foods contain moderate or high amounts of vitamin K. Some foods high in vitamin K include spinach, kale, broccoli, cabbage, greens, [place] sprouts, asparagus, [place], coleslaw, parsley, and green tea. Arrange a visit with a dietitian to answer your questions. ? If you have a loss of appetite or get the stomach flu (viral gastroenteritis), talk to your health care provider as soon as possible. A decrease in your normal vitamin K intake can make you more sensitive to your usual dose of warfarin. ? Some medical conditions may increase your risk for bleeding while you are taking warfarin. A fever, diarrhea lasting more than a day, worsening heart failure, or worsening liver function are some medical conditions that could affect warfarin. Contact your health care provider if you have any of these medical conditions. ? Alcohol can change the body's ability to handle warfarin. It is best to avoid alcoholic drinks or consume only very small amounts while taking warfarin. Notify your health care provider if you change your alcohol intake. A sudden increase in alcohol use can increase your risk of bleeding. Chronic alcohol use can cause warfarin to be less effective. Be careful not to cut yourself when using sharp objects or while shaving. Inform all your health care providers and your dentist that you take an anticoagulant. Limit physical activities or sports that could result in a fall or cause injury. Avoid contact sports. Wear medical alert jewelry or carry a medical alert card. SEEK IMMEDIATE MEDICAL CARE IF: You cough up blood. You have dark or black stools or there is bright red blood coming from your rectum. You vomit blood or have nausea for more than 1 day. You have blood in the urine or pink colored urine. You have unusual bruising or have increased bruising. You have bleeding from the nose or gums that does not stop quickly. You have a cut that does not stop bleeding within a 2 3 minutes. You have sudden weakness or numbness of the face, arm, or leg, especially on one side of the body. You have sudden confusion. You have trouble speaking (aphasia) or understanding. You have sudden trouble seeing in one or both eyes. You have sudden trouble walking. You have dizziness. You have a loss of balance or coordination. You have a sudden, severe headache. You have a serious fall or head injury, even if you are not bleeding. You have swelling or pain at an injection site. You have unexplained tenderness or pain in the abdomen, back, waist, thighs or buttocks. You have a fever. Any of these symptoms may represent a serious problem that is an emergency. Do not wait to see if the symptoms will go away. Get medical help right away. Call your local emergency services (911 in [place] Do not drive yourself to the hospital. Document Released: 03/18/2006 Document Revised: 03/23/2014 Document Reviewed: 10/20/2008 [facility] Patient Information 2015 [facility], [facility]. This information is not intended to replace advice given to you by your health care provider. Make sure you discuss any questions you have with your health care provider. 03/08/2021 07:25:25 5 - [facility] Post-op Instruction 10/2016 ([id number]) [facility] Post-operative Instructions PLEASE FOLLOW [facility] POST-OP INSTRUCTIONS GIVEN WATCH FOR SIGNS OF INFECTION: call the office ([phone]) if experencing any of the following: (Usually appears 36-48 hours after surgery) Increased temperature (101 degrees Fahrenheit or higher) Redness or swelling Increased uncontrolled pain Foul odor or drainage Calf discomfort Significant swelling Or if having any chest pain, shortness of breath, or difficulty breathing or swallowing call the office or go the nearest Emergency Room. If you have any questions, please call your doctor at the number listed on your follow up instructions. Form: 338A ([id number]) R: 08/05 Follow Up Care 02/15/2021 08:55:17 With:[facility] Address: [address] [place] [phone] When:03/09/2021 13:30:00 Comments:This is your first physical therapy appointment. Follow-up as scheduled. With:ELIAS CORNEJO PA-C, Orthopedic, Orthopedic Address: [facility] [address] [place] [address]- When:03/23/2021 15:30:00 Comments:This is your post-op appointment. Follow-up as scheduled. [facility] 02-27-2021 Evaluation + Plan note Future Appointments Future Scheduled TestsCT Knee w/o Contrast Left 02/27/21CT Knee w/o Contrast Right 02/27/21 [facility] 02-27-2021 Evaluation + Plan note Future Scheduled TestsCT Knee w/o Contrast Left 02/27/21CT Knee w/o Contrast Right 02/27/21 [facility] documented as of this encounter (statuses as of 05/20/2023) [facility] note* Diagnosis Primary hypertension- Primary Unspecified essential hypertension Fatigue, unspecified type Anxiety Anxiety state, unspecified Paroxysmal atrial fibrillation (HCC) Atrial fibrillation Coronary artery disease, non-occlusive Coronary atherosclerosis of unspecified type of vessel, [place] or graft Hypertension, benign Essential hypertension, benign Renal insufficiency syndrome Unspecified disorder of kidney and ureter Anemia, unspecified type Current mild episode of major depressive disorder, unspecified whether recurrent (HCC) [facility] Diagnosis Neck pain- Primary Cervicalgia documented in this encounter [facility] note* Diagnosis Preoperative clearance- Primary Preoperative examination, unspecified documented in this encounter [facility] note* Diagnosis Advanced directives, counseling/discussion- Primary Other specified counseling Screening for depression Stage 3 chronic kidney disease, unspecified whether stage 3a or 3b CKD (HCC) Current mild episode of major depressive disorder, unspecified whether recurrent (HCC) Prostate cancer (HCC) Malignant neoplasm of prostate Paroxysmal atrial fibrillation (HCC) Atrial fibrillation Screening PSA (prostate specific antigen) Special screening for malignant neoplasm of prostate Pure hypercholesterolemia Hypertension, essential Unspecified essential hypertension Screening for deficiency anemia Screening for other and unspecified deficiency anemia Weight gain Abnormal weight gain [facility] Diagnosis History of prostate cancer- Primary Personal history of malignant neoplasm of prostate History of radiation therapy Personal history of irradiation, presenting hazards to health [facility] Diagnosis Anxiety Anxiety state, unspecified [facility] Diagnosis Anxiety Anxiety state, unspecified documented in [facility] Narrative No data available for this section [facility] Hospital Discharge instructions No data available for this section [facility] Progress note No data available for this section [facility] Summary Purpose Family History No Family History Records FoundNo Family History Records Found No data available for this section No Family History Records FoundNo Family History Records FoundNo Family History Records FoundNo Family History Records Found Advance Directives Latest Code Status on File Code Status Date Activated Date Inactivated Comments Full Code 12/05/2011 4:38 PM 12/06/2011 3:26 PM Code Status History Code Status Date Activated Date Inactivated Comments Full Code 09/25/2011 1:52 PM 09/25/2011 6:07 PM Reason for Referral Specialty Diagnoses / Procedures Referred By Michelle t Referred To Contact [facility] Diagnoses Neck pain Procedures CONSULT TO PHYSICAL THERAPY PHYSICAL THERAPY EVALUATION HIGH COMPLEX 45 MINS Solange Lambert MD [address] [place] [address] [facility] [address] [address] Referral ID Status Reason Start Date Expiration Date Visits Requested Visits Authorized [id number] Pending Review Auto-Generat ed Referral 03/09/2022 03/09/2023 1 1 Additional Source Comments (unrecognized sect ion and content) No Status Records FoundNo Status Records FoundNo Status Records FoundNo Status Records FoundNo Status Records FoundNo Status Records Found INFORMATION SOURCE (unrecogn ized section and content) DATE CREATED AUTHOR AUTHOR'S ORGANIZ ATION 06/13/2021 [facility] DATE CREATED AUTHOR AUTHOR'S ORGANIZ ATION 02/19/2023 [facility] ([place]) DATE CREATED AUTHOR AUTHOR'S ORGANIZ ATION 03/28/2023 [facility] DATE CREATED AUTHOR AUTHOR'S ORGANIZ ATION 03/28/2023 [facility] DATE CREATED AUTHOR AUTHOR'S ORGANIZ ATION 05/20/2023 [facility] Source Comments (unrecognize d section and content) In the event this informatio n is protected by the Federal Confidentiality of Alcohol and Drug Abuse Patient Records regulations: The Federal rules restrict any use of the information to criminally investigate or prosecute any alcohol or drug abuse patient.[facility] the event this information is protected by the Federal Confidentiality of Alcohol and Drug Abuse Patient Records regulations: The Federal rules restrict any use of the information to criminally investigate or prosecute any alcohol or drug abuse patient.[facility] the event this information is protected by the Federal Confidentiality of Alcohol and Drug Abuse Patient Records regulations: The Federal rules restrict any use of the information to criminally investigate or prosecute any alcohol or drug abuse patient.[facility] System[facility] the event this information is protected by the Federal Confidentiality of Alcohol and Drug Abuse Patient Records regulations: The Federal rules restrict any use of the information to criminally investigate or prosecute any alcohol or drug abuse patient.[facility] System[facility] the event this information is protected by the Federal Confidentiality of Alcohol and Drug Abuse Patient Records regulations: The Federal rules restrict any use of the information to criminally investigate or prosecute any alcohol or drug abuse patient.[facility] System[facility] the event this information is protected by the Federal Confidentiality of Alcohol and Drug Abuse Patient Records regulations: The Federal rules restrict any use of the information to criminally investigate or prosecute any alcohol or drug abuse patient.[facility] System[facility] the event this information is protected by the Federal Confidentiality of Alcohol and Drug Abuse Patient Records regulations: The Federal rules restrict any use of the information to criminally investigate or prosecute any alcohol or drug abuse patient.[facility] System[facility] the event this information is protected by the Federal Confidentiality of Alcohol and Drug Abuse Patient Records regulations: The Federal rules restrict any use of the information to criminally investigate or prosecute any alcohol or drug abuse patient.[facility] System[facility] the event this information is protected by the Federal Confidentiality of Alcohol and Drug Abuse Patient Records regulations: The Federal rules restrict any use of the information to criminally investigate or prosecute any alcohol or drug abuse patient.[facility] System[facility] the event this information is protected by the Federal Confidentiality of Alcohol and Drug Abuse Patient Records regulations: The Federal rules restrict any use of the information to criminally investigate or prosecute any alcohol or drug abuse patient.[facility] System[facility] the event this information is protected by the Federal Confidentiality of Alcohol and Drug Abuse Patient Records regulations: The Federal rules restrict any use of the information to criminally investigate or prosecute any alcohol or drug abuse patient.[facility] System[facility] the event this information is protected by the Federal Confidentiality of Alcohol and Drug Abuse Patient Records regulations: The Federal rules restrict any use of the information to criminally investigate or prosecute any alcohol or drug abuse patient.[facility] System[facility] the event this information is protected by the Federal Confidentiality of Alcohol and Drug Abuse Patient Records regulations: The Federal rules restrict any use of the information to criminally investigate or prosecute any alcohol or drug abuse patient.[facility] System[facility] the event this information is protected by the Federal Confidentiality of Alcohol and Drug Abuse Patient Records regulations: The Federal rules restrict any use of the information to criminally investigate or prosecute any alcohol or drug abuse patient.[facility] SystemIn the event this information is protected by the Federal Confidentiality of Alcohol and Drug Abuse Patient Records regulations: The Federal rules restrict any use of the information to criminally investigate or prosecute any alcohol or drug abuse patient.[facility] SystemIn the event this information is protected by the Federal Confidentiality of Alcohol and Drug Abuse Patient Records regulations: The Federal rules restrict any use of the information to criminally investigate or prosecute any alcohol or drug abuse patient.[facility] SystemIn the event this information is protected by the Federal Confidentiality of Alcohol and Drug Abuse Patient Records regulations: The Federal rules restrict any use of the information to criminally investigate or prosecute any alcohol or drug abuse patient.[facility] SystemIn the event this information is protected by the Federal Confidentiality of Alcohol and Drug Abuse Patient Records regulations: The Federal rules restrict any use of the information to criminally investigate or prosecute any alcohol or drug abuse patient.[facility] Care Teams (unrecognized sec tion and content) Information Services Manager Relationship Specialty Start Date End Date Steven Lora MD PCP - General 09/06/08 Information Services Manager Relationship Specialty Start Date End Date Steven Lora MD PCP - General 09/06/08 Information Services Manager Relationship Specialty Start Date End Date Steven Lora MD PCP - General 09/06/08 Information Services Manager Relationship Specialty Start Date End Date Steven Lora MD PCP - General 09/06/08 Information Services Manager Relationship Specialty Start Date End Date Steven Lora MD PCP - General 09/06/08 Information Services Manager Relationship Specialty Start Date End Date Steven Lora MD PCP - General 09/06/08 Information Services Manager Relationship Specialty Start Date End Date Steven Lora MD PCP - General 09/06/08 Information Services Manager Relationship Specialty Start Date End Date Steven Lora MD PCP - General 09/06/08 Information Services Manager Relationship Specialty Start Date End Date Steven Lora MD [address] [place] [address] PCP - General Family Medicine 08/23/22 Han Flores MD [address] [place] [address] [phone] Urology 06/05/22 Gaye Hernández I, DO [address] [place] [address] Nephrology 05/26/22 Daniel Santana [address] [place] [id number] [phone] Orthopedics 02/26/[address] [facility] [address] [place] [address] Gastroenterology 08/23/22 Information Services Manager Relationship Specialty Start Date End Date Steven Lora MD [address] [place], [place] [phone] PCP - General Family Medicine 08/23/22 Han Flores MD [address] [place] [address] Urology 06/05/22 Gaye Hernánedz I, DO [address] [place] [address] Nephrology 05/26/22 Daniel Santana [address] [place] [phone] Orthopedics 02/26/[address] [facility] [address] [place] [address] Gastroenterology 08/23/22 Information Services Manager Relationship Specialty Start Date End Date Steven Lora MD [address] [place] [address] PCP - General Family Medicine 08/23/22 Han Flores MD [address], [place] [id number] Urology 06/05/22 Gaye Hernández I, DO [address] [place], [place] [address] Nephrology 05/26/22 Daniel Santana [address] [place] [phone] Orthopedics 02/26/22 Pa Reyes [address] [place] [address] Gastroenterology 08/23/22 Information Services Manager Relationship Specialty Start Date End Date Steven Lora MD [address] [place] [address] PCP - General Family Medicine 08/30/11 Jamarcus Anderson MD [address] [place] [address] Cardiovascular Disease 01/29/14 Han Flores MD 546 [facility] [address] [place], [place] [phone] Urology 05/09/22 Information Services Manager Relationship Specialty Start Date End Date Steven Lora MD [address] [place] [address] PCP - General Family Medicine 08/23/22 Han Flores MD 546 [facility] 210 [place] [address] Urology 06/05/22 Gaye Hernández I, DO [address] [place] [address] Nephrology 05/26/22 Daniel Santana [address] [place] [phone] Orthopedics 02/26/22 Pa Reyes [address] [facility] [address] [place] [address] Gastroenterology 08/23/22 Information Services Manager Relationship Specialty Start Date End Date Steven Lora MD [address] [place], [place] [id number] PCP - General Family Medicine 08/23/22 Han Flores MD [address] [place] [address] [address] [place] [address] Urology 06/05/22 Gaye Hernández I, DO [address] [place] [address] Nephrology 05/26/22 Daniel Santana [address] [place] [phone] Orthopedics 02/26/22 Pa Reyes [address] [facility] [address] ED[address] [place] [address] Gastroenterology 08/23/22 Information Services Manager Relationship Specialty Start Date End Date Steven Lora MD [address] [place], [place] [id number] PCP - General Family Medicine 08/23/22 Han Flores MD 546 [facility] [address] [place], [place] [address] Urology 06/05/22 Gaye Hernández I, DO [address] [place], [place] [id number] Nephrology 05/26/22 Daniel Santana [address] [place] [phone] Orthopedics 02/26/22 Pa Reyes MD [address] [place] [address] Gastroenterology 08/23/22 Information Services Manager Relationship Specialty Start Date End Date Steven Lora MD [address] [place], [place] [address] PCP - General Family Medicine 08/23/22 Han Flores MD [address] [address] [place] [address] Urology 06/05/22 Gaye Hernández I, DO [address] [place] [address] Nephrology 05/26/22 Daniel Santana [address] [place] [phone] Orthopedics 02/26/22 Pa Reyes MD [address] [place] [address] Gastroenterology 08/23/22 Information Services Manager Relationship Specialty Start Date End Date Steven Lora MD [address] [place] [address] PCP - General Family Medicine 08/23/22 Han Flores MD 546 [facility] 210 [place], [place] [address] Urology 06/05/22 Gaye Hernández I, DO [address] [facility] [address] [place], [place] [address] Nephrology 05/26/22 Daniel Santana [address] [facility] 2 [place] [phone] Orthopedics 02/26/22 Pa Reyes MD [address] [facility] [address] [place] [address] Gastroenterology 08/23/22 Reason for Visit (unrecogniz ed section and content) Reason Comments New Patient Evaluation Reason Comments Medical Clearance Surgery clearance fo r upcoming right total knee replacement on 04/04/2022 at [place] [facility] per Dr Stephane Currie. Reason Comments Patient Update Reason Onset Date Comments Refill Request 05/04/2022 Reason Comments Medicare Wellness Exam Reason Comments Population Health Navigation Outreach Reason Comments Follow-up Reason Onset Date Comments Refill Request 01/08/2023 Reason Onset Date Comments Refill Request 05/20/2023 FOR RECORDS PERTAINING TO PATIENTS WHO ARE OR HAVE BEEN ENROLLED IN A CHEMICAL DEPENDENCY/SUBSTANCEABUSE PROGRAM, SOME INFORMATION MAY BE OMITTED. This clinical summary was aggregated from multiple sources. Caution should be exercised in using it in the provision of clinical care. This summary normalizes information from multiple sources, and as a consequence, information in this document may materially change the coding, format and clinical context of patient data. In addition, data may be omitted in some cases. CLINICAL DECISIONS SHOULD BE BASED ON THE PRIMARY CLINICAL RECORDS. [facility]. provides no warranty or guarantee of the accuracy or completeness of information in this document.
--- NOTE | 2023-05-21 18:05 | STRESSREP ---
Stress Test Report Pharmacologic myocardial perfusion stress test. 72-year-old man with a history of chest discomfort. Resting EKG demonstrates sinus rhythm at with a rate of 57 bpm. Resting blood pressure is 144/82 mmHg. 0.4 mg of regadenoson was infused per usual protocol followed by rapid intravenous saline flush injection. Continuous EKG monitoring was performed. The maximum heart rate was 85 bpm which was 58% of max impacted heart rate the maximum workload was 1 metabolic equivalent. At rest there were no ST or T wave changes noted to suggest ischemia and at peak infusion nonspecific ST changes were noted which did not meet the criteria for ischemia. No clinical angina is noted. The final blood pressure was 1 44/72 mmHg. Myocardial perfusion protocol. 14.3 mCi of technetium 99m sestamibi was injected at rest. 0.4 mg of regadenoson was infused per usual protocol. At peak infusion 44.1 mCi of technetium 99m sestamibi was injected stress images were obtained stress and rest images were reconstructed and compared in the short axis vertical long and horizontal long axis. Gated images were also obtained. Perfusion SPECT analysis: Review of the stress images demonstrate normal uptake of tracer noted in all areas of the myocardium. The resting images similar demonstrated normal uptake of tracer noted in all areas of the myocardium. No areas of reversibility are noted to suggest ischemia and no previous infarct is noted. Gated SPECT analysis: The gated ejection fraction is 63%. Conclusion: Normal pharmacologic myocardial perfusion stress test. Preserved ejection fraction.
== END | disposition home or self-care (01) ==
LOC: CVS 07:19
PROVIDERS: PCP Family Medicine; Referring Provider Physician Assistant Medical; Visit Provider Physician Assistant Medical
DX: R06.02 Shortness of breath (principal); R07.9 Chest pain, unspecified; I25.10 Atherosclerotic heart disease of native coronary artery without angina pectoris
CPT/HCPCS: 78452; 93017; 93306; A9500; A4216; J2785

== ENCOUNTER → 2023-06-05 | Outpatient (CLI) | payer MEDICARE, SELFPAY ==
[2022-03-01 11:31] VITALS: BMI 33.3
[2023-06-05 18:01] LABS: PSA,Total- Diagnostic 0.26 ng/mL (0.0-4.0)
== END | disposition home or self-care (01) ==
PROVIDERS: PCP Family Medicine; Referring Provider Urology; Visit Provider Urology
DX: C61 Malignant neoplasm of prostate (principal)
CPT/HCPCS: 36415; 84153

== ENCOUNTER → 2023-07-15 | Outpatient (CLI) | payer MEDICARE, SELFPAY ==
[2022-03-01 11:31] VITALS: BMI 33.3
[2023-07-15 16:11] LABS: Albumin, Serum 3.6 g/dL (3.2-5.0); BUN 30 mg/dL (7-18); BUN/Creat Ratio 17.6 RATIO (10-20); Chloride 108 mmol/L (98-107); EST Glomerular Filtration Rate 42 mL/min (>60); Est Glom Filt Rate - Afr Amer 51 mL/min (>60); Glucose 105 mg/dL (74-106); Phosphorus 2.7 mg/dL (2.5-4.9); Potassium 4.4 mmol/L (3.5-5.1); Sodium Level 139 mmol/L (136-145)
== END | disposition home or self-care (01) ==
LOC: MTLAB 14:17
PROVIDERS: PCP Family Medicine; Referring Provider Internal Medicine Nephrology; Visit Provider Internal Medicine Nephrology
DX: N18.31 Chronic kidney disease, stage 3a (principal)
CPT/HCPCS: 36415; 80069

== ENCOUNTER 2023-09-19 06:40 | Day surgery (SDC) | payer MEDICARE, SELFPAY ==
[2022-03-01 11:31] VITALS: BMI 33.3
[2023-09-19] VITALS (10 sets, daily range): BP systolic 121–182; BP diastolic 54–82; PULSE 55–64; RESP 12–19; TEMP 36.2–36.6; O2SAT 95–99; BMI 35.4
--- NOTE | 2023-09-19 07:08 | RAD_ITS ---
STUDY: X-RAY CHEST REASON FOR EXAM: Male, 72 years old. Chest pain TECHNIQUE: Single AP portable view of the chest. COMPARISON: Comparison is made with prior study March 23, 2023. FINDINGS: EKG electrodes are seen. The lungs are clear and expanded. Scattered calcified granulomas. There is no demonstrated pleural abnormality. Normal size heart. Normal mediastinum and cori. Normal visualized pulmonary arteries. There is atherosclerotic tortuosity of the aortic arch and descending thoracic aorta. There are diffuse degenerative changes of the visualized thoracic spine. Normal visualized ribs, clavicles, and shoulders. There is no demonstrated abnormality of the visualized soft tissue structures of the upper abdomen. RAD/Chest 1 View (Portable) IMPRESSION: No acute abnormality is seen. Electronically Signed: Bala Gusman MD at 8:11 EDT ,
--- NOTE | 2023-09-19 07:08 | EKG12_ITS ---
Test Reason : CHEST PAIN Blood Pressure : / mmHG Vent. Rate : 056 BPM Atrial Rate : 056 BPM P-R Int : 224 ms QRS Dur : 086 ms QT Int : 390 ms P-R-T Axes : 079 016 039 degrees QTc Int : 376 ms Sinus bradycardia with marked sinus arrhythmia with 1st degree A-V block Otherwise normal ECG Confirmed by QUINTEN WITT, ANTONIETA ([id number]), publication editor JENNIFER WARREN ([id number]) on 09/23/2023 11:09:02 AM Referred By: Confirmed By:ANTONIETA SHIPLEY MD
[2023-09-19] MEDS: Aspirin 81 MG TAB.CHEW 324 MG PO (07:13)
[2023-09-19 07:20] LABS: Absolute Lymphocyte Count 1.61 X10^3/uL (0.83-4.51); Absolute Neutrophil Count 3.5 X10^3/uL (2.0-7.7); Basophil# 0.02 X10^3/uL; Basophil% 0.4 % (0-1); Eosinophil# 0.09 X10^3/uL; Eosinophils% 1.6 % (0-5); Hematocrit 42.7 % (40-54); Hemoglobin 14.1 g/dL (13.0-16.5); Lymphocyte # 1.61 X10^3/ul (0.83-4.51); Lymphocyte % 28.4 % (19-41); Mean Corpuscular Hgb 31.1 pg (27.0-32.0); Mean Corpuscular Volume 94.1 fL (80-94); Mean Platelet Vol. 10.2 fl (6.2-12.0); Monocyte# 0.45 X10^3/uL; Monocyte% 7.9 % (0-10); NRBC Flagged by Analyzer 0 % (0-5); Neutrophil # 3.48 X10^3/uL (2.7-7.7); Neutrophil % 61.3 % (47-70); POSITIVE COUNT YES; Platelet Count 132 K/mm3 (150-450); RBC Distribution Width CV 12.7 % (11.6-14.6); RBC Distribution Width SD 43.5 fl (35.1-43.9); Red Blood Count 4.54 M/mm3 (4.6-6.2); White Blood Count 5.7 K/mm3 (4.4-11.0)
[2023-09-19 07:44] LABS: Anion Gap 7 (5-15); BUN 33 mg/dL (7-18); BUN/Creat Ratio 22.9 RATIO (10-20); Calcium,Total 9.4 mg/dL (8.5-10.1); Chloride 107 mmol/L (98-107); Creatinine, Serum 1.44 mg/dL (0.70-1.30); EST Glomerular Filtration Rate 51 mL/min (>60); Est Glom Filt Rate - Afr Amer 62 mL/min (>60); Estimated Creatinine Clearance 56.42 ml/min; Glucose 102 mg/dL (74-106); Potassium 4.1 mmol/L (3.5-5.1); Sodium Level 141 mmol/L (136-145); Troponin-I HS (w/2H Reflex) 8 pg/mL (3.0-78.0)
--- NOTE | 2023-09-19 08:28 | EKG12_ITS ---
Test Reason : CHST KEVIN REPEAT Blood Pressure : / mmHG Vent. Rate : 061 BPM Atrial Rate : 061 BPM P-R Int : 220 ms QRS Dur : 084 ms QT Int : 392 ms P-R-T Axes : 072 018 035 degrees QTc Int : 394 ms Sinus rhythm with marked sinus arrhythmia with 1st degree A-V block Otherwise normal ECG Confirmed by QUINTEN WITT, ANTONIETA ([id number]), videotape editor JENNIFER WARREN ([id number]) on 09/23/2023 11:11:55 AM Referred By: Confirmed By:ANTONIETA SHIPLEY MD
[2023-09-19] MEDS: Nitroglycerin SL (ED/IMG/CATH) 0.4 MG TABLET SL ×3 (08:55→09:03)
[2023-09-19 09:15] LABS: Reflex Troponin-HS? (from REC) Y
[2023-09-19 10:01] LABS: Troponin-I HS 7 pg/mL (3.0-78.0)
--- NOTE | 2023-09-19 10:02 | ED.VIS.CHEST ---
HPI History of Present Illness Chief Complaint: Chest Pain Narrative Narrative: 72-year-old male presenting with chest pain. He describes it as retrosternal and squeezing in nature radiates to the back. He states it started about 6 AM this morning and lasted about an hour at a level 10/10. He states it is improving now that he is here in the emergency room. He states that he did take a baby aspirin this morning. He has a history of A-fib in the past but denies history of cardiac stent or CAD. Patient denies cough, fever, chills. Denies nausea, vomiting. He did state he felt short of breath when he was having the chest pain. Patient is not on a blood thinner. [facility] Medical History Tinnitus Wears contact lenses Depression Alcohol use History of renal disease Restless legs Back pain Head ache Injury of head and neck Slow gastric motility History of hiatal hernia History of pain when walking History of edema Cardiology follow-up encounter History of stress test History of echocardiogram History of essential hypertension Hx of hypercholesterolemia Cellulitis of left lower extremity History of prostate cancer Cancer Anxiety Former smoker BiPAP (biphasic positive airway pressure) dependence Atrial fibrillation bilaterl vein ablation ble repair right achilles tendon Knee pain Fatigue Hemorrhoids Essential hypertension Umbilical hernia without obstruction and without gangrene Abdominal pain Premature ventricular contraction Premature atrial contractions Degenerative disc disease, lumbar Lumbar radiculopathy, right Segmental and somatic dysfunction of thoracic region Segmental and somatic dysfunction of lumbar region Segmental and somatic dysfunction of cervical region Atherosclerotic heart disease of [place] coronary artery without angina pectoris Long-term use of high-risk medication Paroxysmal atrial fibrillation Costochondritis Hypertension Hyperlipidemia GERD (gastroesophageal reflux disease) Arthritis Home Medications ?Medication ?Instructions ?Recorded ?Last Taken ?Type fluticasone propionate 50 1 spray NASAL BID ALLERGIES 05/18/13 04/04/22 History mcg/actuation nasal spray,suspension magnesium oxide 400 mg (241.3 mg 400 mg PO BID SUPPLEMENT/HEART 05/18/13 04/03/22 History magnesium) tablet multivitamin with folic acid 400 1 tab PO DAILY SUPPLEMENT 05/18/13 07/23/21 History mcg tablet lansoprazole 30 mg capsule,delayed 30 mg PO QDAY GERD 06/10/17 04/04/22 07:30 History release saw palmetto 500 mg capsule 500 mg PO QDAY SUPPLEMENT 08/29/17 03/30/22 History cholecalciferol (vitamin D3) 25 1,000 unit PO DAILY 07/17/18 04/04/22 History mcg (1,000 unit) capsule coenzyme Q10 50 mg chewable tablet 200 mg PO DAILY SUPPLEMENT 07/17/18 04/04/22 History echinacea 400 mg capsule 400 mg PO DAILY SUPPLEMENT 08/05/19 04/04/22 History loratadine 10 mg tablet (Claritin) 10 mg PO QDAY PRN Allergies 08/05/19 07/23/21 History nitroglycerin 0.3 mg sublingual 0.3 mg sublingual Q5M PRN other 02/09/20 Unknown History tablet sildenafil 100 mg tablet 50 mg PO ONCE PRN DOESN'T KNOW 01/22/22 Unknown History losartan 25 mg tablet 25 mg PO DAILY #90 tabs 10/26/22 Unknown Rx acetaminophen 500 mg tablet 1,000 mg PO ONCE PRN pain or fever 01/31/23 Unknown History aspirin 81 mg chewable tablet 81 mg PO DAILY 01/31/23 Unknown History Saccharomyces boulardii 1 cap PO DAILY 03/24/23 Unknown History alfuzosin 10 mg tablet,extended 10 mg PO DAILY 03/24/23 Unknown History release 24 hr alprazolam 0.25 mg tablet 0.5 mg PO BID anxiety 03/24/23 Unknown History cyclosporine 0.05 % eye drops in a 1 drp ophthalmic (eye) Q12H 04/12/23 Unknown History dropperette (Restasis) metoprolol succinate 25 mg 25 mg PO QHS #90 tabs 04/17/23 Unknown Rx tablet,extended release 24 hr ezetimibe 10 mg tablet (Zetia) 10 mg PO DAILY #90 tabs 08/20/23 Unknown Rx flecainide 50 mg tablet 100 mg PO Q12H 09/19/23 Unknown History Allergy/AdvReac Type Severity Reaction Status Date / Time animal dander Allergy sneezy Verified 09/19/23 06:42 grass pollen Allergy sneeay Verified 09/19/23 06:42 grass pollen-perennial rye, Allergy sneezy Verified 09/19/23 06:42 standar house dust Allergy sneezy Verified 09/19/23 06:42 levofloxacin (From Levaquin) Allergy joint pain Verified 06/20/24 06:42 dabigatran etexilate (From AdvReac Unknown stomach Verified 09/19/23 06:42 Pradaxa) cramps ciprofloxacin (From Cipro) AdvReac UNSURE Verified 09/19/23 06:42 gabapentin (From Neurontin) AdvReac feel like Verified 09/19/23 06:42 losing my mind NSAIDS (Non-Steroidal AdvReac infected Verified 09/19/23 06:42 Anti-Inflamma creatin level with kidney Family History Mother Hypertension CAD (coronary artery disease) Father Hypertension Atrial fibrillation Presence of permanent cardiac pacemaker CVA (cerebral vascular accident) Surgical History History of cardiac catheterization History of cardiac radiofrequency ablation Hx of cystoscopy History of left knee replacement (~04/2021) History of left hip replacement (~03/2021) History of umbilical hernia repair (~04/2018) History of cataract surgery History of detached retina repair History of hemorrhoidectomy History of arthroscopy of knee Status post laser ablation of incompetent vein H/O sinus surgery H/O shoulder surgery vein H/O hemorrhoidectomy right shoulder Social History household members: spouse Smoking Status: Former smoker Smokeless tobacco user: snuff how long ago did patient quit smoking: Patient quit cigarette tobacco use 1980, smoked age [age], 1 ppd-->Snuff. alcohol intake: current alcohol intake frequency: a few times a week Alcohol type: beer substance use type: does not use caffeine: No ROS ROS ED Constitutional Constitutional ED: Denies chills, fever(s) or sweats Eyes Eyes: Denies blurry vision or change in vision ENT ENT ED: Denies ear pain or sore throat Cardiovascular Cardiovascular: Reports chest pain; Denies palpitations or racing heartbeat Respiratory/Chest Respiratory/Chest: Reports dyspnea; Denies cough or sputum Gastrointestinal Gastrointestinal: Denies abdominal pain, constipation, diarrhea, nausea or vomiting Genitourinary Genitourinary ED: Denies dysuria, hematuria or urinary frequency Musculoskeletal Musculoskeletal: Denies arthralgias, myalgias or neck pain Integumentary Denies abscess, Abrasions or rash Neurologic Neurologic: Denies headache(s), paresthesias or weakness Psychiatric Psychiatric: Denies anxiety, depression, suicidal ideation or suicidal thoughts Endocrine Endocrinology: Denies polydipsia or polyuria EXAM Physical Exam Const Vital Signs: 09/19/23 06:41 09/19/23 06:41 09/19/23 07:15 Temperature 97.9 F Temperature Source Temporal Pulse Rate 61 Respiratory Rate 15 Respiratory Effort Normal Non-Labored Blood Pressure 182/82 H Blood Pressure Mean 115 Pulse Ox 96 96 Oxygen Delivery Method Room Air Room Air 09/19/23 08:41 09/19/23 08:55 09/19/23 08:56 Temperature 97.2 F L Temperature Source Oral Pulse Rate 60 55 L 61 Respiratory Rate 16 Respiratory Effort Blood Pressure 166/80 H 153/72 H 125/66 H Blood Pressure Mean 108 Pulse Ox 99 Oxygen Delivery Method Room Air 09/19/23 09:01 09/19/23 09:03 09/19/23 10:00 Temperature 97.2 F L 97.5 F L Temperature Source Oral Oral Pulse Rate 64 61 61 Respiratory Rate 15 19 H Respiratory Effort Blood Pressure 125/61 H 125/61 H 123/54 H Blood Pressure Mean 82 77 Pulse Ox 95 96 Oxygen Delivery Method Room Air Room Air 09/19/23 11:00 09/19/23 12:54 Temperature 97.5 F L Temperature Source Pulse Rate 57 L 57 L Respiratory Rate 12 12 Respiratory Effort Blood Pressure 121/62 H 121/62 H Blood Pressure Mean 81 81 Pulse Ox 97 97 Oxygen Delivery Method Room Air Positive well nourished General Appearance ED: NAD; Negative for pallor HEENT Reports moist mucous membranes normocephalic Eyes PERRL and EOMs intact bilaterally Chest Wall inspection of chest normal Resp normal respiratory effort and clear to auscultation bilaterally Auscultation: Negative for rales, rhonchi or wheezes Cardio regular rate and regular rhythm GI normal to inspection, nondistended, normoactive bowel sounds Neuro oriented x3 and CN's II-XII intact bilaterally Sensorium / Orientation: awake Motor Exam: strength 5/5 throughout Psych mental status grossly normal Skin General Skin Exam: Negative for jaundice or pallor Heart Score History: Moderately Suspicious ECG: Normal Age: >/= 65 years Risk Factors: >/= 3 Risk Factors or History of CAD Troponin: </= Normal Limit Score: 5 MDM MDM MDM Narrative Medical decision making narrative: 22-year-old male present with chest pain. Differential includes but is not limited to ACS, PE, aortic dissection, pneumonia, pneumothorax, muscle strain, costochondritis. Unlikely to be PE because he is PERC negative. Patient not have a ripping tearing sensation that makes me think this is an aortic dissection. Patient's pain had resolved initially. CBC will be obtained to assess white blood cell count, hemoglobin, platelets. BMP to assess renal function, electrolytes, glucose. High-sensitivity troponin and EKG to assess for ischemia/dysrhythmia. Chest x-ray to rule out pneumonia. Patient also reports a chemical stress test less than a year ago. He states this was normal. CBC with normal white blood cell count of 5.7. Hemoglobin 14.1. Platelets slightly low at 132. Renal function near baseline. Electrolytes unremarkable. High-sensitivity troponin was 8, however before we can get a delta troponin the patient had an episode of chest pain again was given nitroglycerin which nearly resolved all his chest pain. His delta troponin did come back at 7. Chest x-ray shows no acute cardiopulmonary process. During his second episode of chest pain is on EKG showed a sinus rhythm at 61 bpm with first-degree AV block on my interpretation. This was similar to his first EKG which showed a sinus bradycardia with third-degree AV block at 56 bpm interpreted by. Discussed with Dr. Doss who is on-call for cardiology and he is going to take the patient down for cardiac cath. Fluoroscopy was patient main stable to transfer. Impression: 1. Chest pain Lab Data Attestation: I reviewed the patient's lab results. Labs: Laboratory Results - last 24 hr 09/19/23 09/19/23 06:40 09:28 WBC 5.7 RBC 4.54 L Hgb 14.1 Hct 42.7 MCV 94.1 H MCH 31.1 MCHC 33.0 RDW Std Deviation 43.5 RDW Coeff of Alesha 12.7 Plt Count 132 L MPV 10.2 Immature Gran % (Auto) 0.400 Neut % (Auto) 61.3 Lymph % (Auto) 28.4 [place] % (Auto) 7.9 Eos % (Auto) 1.6 Baso % (Auto) 0.4 Absolute Neuts (auto) 3.5 Absolute Lymphs (auto) 1.61 Nucleated RBC % 0 Sodium 141 Potassium 4.1 Chloride 107 Carbon Dioxide 27.0 Anion Gap 7 BUN 33 H Creatinine 1.44 H Estim Creat Clear Calc 56.42 Est GFR (MDRD) Af Amer 62 Est GFR (MDRD) Non-Af 51 L BUN/Creatinine Ratio 22.9 H Glucose 102 Calcium 9.4 Troponin I High Sens 8 7 Radiography Diagnostic Testing: Clinical Impression(s) from Imaging Studies Chest X-Ray 09/19/23 07:08 IMPRESSION: No acute abnormality is seen. Electronically Signed: Bala Gusman MD at 8:11 EDT , Discharge Plan Disposition Disposition: Acute Care Hospital [facility] Discharge Date/Time: 09/19/23 12:55
--- NOTE | 2023-09-19 13:53 | CL.I_ITS ---
Patient Name: PIO HOANG Study Date: 09/19/2023 Performing: Massimo Doss MD Ht: 70 inches 177.8 cm : 1950 Wt: 247.09 lbs 112.08 kg Age: 72 Gender: male BSA: 2.28 PROCEDURE(S) PERFORMED DC02-(09109)LHC/COR IC10-([id number])FFR, CORONARY OR GRAFT, INITIAL VESSEL CLINICAL PROFILE AND CO-MORBIDITIES Heart Failure: None CAD Presentations: Unstable angina. CONCLUSIONS Non obstructive CAD as described. RECOMMENDATIONS DESCRIPTION OF PROCEDURE The patient arrived to the procedure lab. The risks and benefits of the procedure as well as a full description of our services here and lack of surgical backup were fully explained to the patient and/or their significant other prior to the catheterization. The Timeout was completed, verifying the correct patient and procedure. The patient's procedural site was prepped and draped in the usual fashion. Local anesthetic was given subcutaneously to right radial region with Lidocaine 2%. Using a modified Seldinger technique, arterial access was obtained via the right radial artery, a 6Fr sheath was inserted.. Left Coronary Artery selective angiography was performed in multiple views using a 5 Fr. JL3.5 catheter. Right Coronary Artery selective angiography was then performed in multiple views using a 5 Fr. JR 4 catheterThe images were reviewed and options discussed. A decision was then made to proceed with an Intervention, IVUS or other adjunct procedure. XB 3.0 Guide catheter was inserted and engaged into the LCA. The FFR/iFR wire was inserted. iFR measurements were performed. iFR Ratio: 0.96 The FFR/iFR wire was then removed. The arterial sheath was pulled and a TR Band was applied for hemostasis. 15cc air CORONARY ANGIOGRAPHY DOMINANCE: Right Dominant LEFT MAIN: Mild luminal irregularities LEFT ANTERIOR DESCENDING ARTERY: PROX LAD: 50-60 % Stenosis, 50-60 % Stenosis, iFR was 0.96 MID LAD: Mild luminal irregularities CIRCUMFLEX ARTERY: Mild to moderate diffuse disease INTERVENTION INFORMATION LESION SITE: LAD (Proximal) Lesion Devices: WebKite Coronary FFR Wire Cordis 6 Fr XB3.0 100cm Guide Catheter COMPLICATIONS No Complications PROCEDURE MEDICATIONS Fentanyl 50 mcg IV Versed 1 mg IV Oxygen: 2 L/min via nasal cannula Heparin given IA 09/19/2023 13:12:24 Verapamil 2.5mg, Ntg 100mcgs, 3000 units of Heparin given IA 09/19/2023 13:12:24 SUMMARY OF HEMODYNAMIC DATA Time AIR REST AO 113/66 (86) SA 13:14:18 ECG 13:49:11 13:49:11 Signed By Massimo Doss MD On 09/19/2023 13:52:00 Massimo Doss MD
--- NOTE | 2023-09-19 13:55 | CON.PCM.CA_ITS ---
Assessment & Plan Assessment/Plan (1) Chest pain: QUALIFIERS: Chest pain type: unspecified Qualified Code(s): R07.9 - Chest pain, unspecified PLAN: There are some features of the chest pain that are concerning for anginal etiology. We discussed treatment options, risks and benefits with the patient in detail. Patient was agreeable with proceeding with coronary angiography which I think is reasonable in this patient. Patient underwent coronary angiography which revealed nonobstructive coronary artery disease. Recommend continued medical therapy for coronary artery disease. Patient had similar discomfort in March 2023 and at that time his D-dimer was elevated. He had a CT chest that was negative for PE or dissection. He does have history of CAD with his creatinine being around 1.4 today. We will hold off on further testing. It is reasonable for the patient to be discharged home and he can follow-up with cardiology service as an outpatient. HPI Consult Data Date of Consult: 09/19/23 HPI Narrative Reason for Consultation: Chest pain HPI Narrative: PIO HOANG, is a 72 M who presents with chest pain that woke him up from sleep. It was retrosternal and also radiating to the back. It was relieved with nitroglycerin that patient received in the emergency room. His troponin x 2 was negative however patient had recurrence of the chest pain. Patient has history of nonobstructive coronary artery disease, paroxysmal atrial fibrillation, PACs/PVCs, superimposed upon a history of hyperlipidemia, hypertension, and prostate carcinoma having undergone [facility] radiation therapy. Review of systems: All systems reviewed. All else is negative except that in [facility] Medical History Tinnitus Wears contact lenses Depression Alcohol use History of renal disease Restless legs Back pain Head ache Injury of head and neck Slow gastric motility History of hiatal hernia History of pain when walking History of edema Cardiology follow-up encounter History of stress test History of echocardiogram History of essential hypertension Hx of hypercholesterolemia Cellulitis of left lower extremity History of prostate cancer Cancer Anxiety Former smoker BiPAP (biphasic positive airway pressure) dependence Atrial fibrillation bilaterl vein ablation ble repair right achilles tendon Knee pain Fatigue Hemorrhoids Essential hypertension Umbilical hernia without obstruction and without gangrene Abdominal pain Premature ventricular contraction Premature atrial contractions Degenerative disc disease, lumbar Lumbar radiculopathy, right Segmental and somatic dysfunction of thoracic region Segmental and somatic dysfunction of lumbar region Segmental and somatic dysfunction of cervical region Atherosclerotic heart disease of [place] coronary artery without angina pectoris Long-term use of high-risk medication Paroxysmal atrial fibrillation Costochondritis Hypertension Hyperlipidemia GERD (gastroesophageal reflux disease) Arthritis Home Medications ?Medication ?Instructions ?Recorded ?Last Taken ?Type fluticasone propionate 50 1 spray NASAL BID ALLERGIES 05/18/13 04/04/22 History mcg/actuation nasal spray,suspension magnesium oxide 400 mg (241.3 mg 400 mg PO BID SUPPLEMENT/HEART 05/18/13 04/03/22 History magnesium) tablet multivitamin with folic acid 400 1 tab PO DAILY SUPPLEMENT 05/18/13 07/23/21 History mcg tablet lansoprazole 30 mg capsule,delayed 30 mg PO QDAY GERD 06/10/17 04/04/22 07:30 History release saw palmetto 500 mg capsule 500 mg PO QDAY SUPPLEMENT 08/29/17 03/30/22 History cholecalciferol (vitamin D3) 25 1,000 unit PO DAILY 07/17/18 04/04/22 History mcg (1,000 unit) capsule coenzyme Q10 50 mg chewable tablet 200 mg PO DAILY SUPPLEMENT 07/17/18 04/04/22 History echinacea 400 mg capsule 400 mg PO DAILY SUPPLEMENT 08/05/19 04/04/22 History loratadine 10 mg tablet (Claritin) 10 mg PO QDAY PRN Allergies 08/05/19 07/23/21 History nitroglycerin 0.3 mg sublingual 0.3 mg sublingual Q5M PRN other 02/09/20 Unknown History tablet sildenafil 100 mg tablet 50 mg PO ONCE PRN DOESN'T KNOW 01/22/22 Unknown History losartan 25 mg tablet 25 mg PO DAILY #90 tabs 10/26/22 Unknown Rx acetaminophen 500 mg tablet 1,000 mg PO ONCE PRN pain or fever 01/31/23 Unknown History aspirin 81 mg chewable tablet 81 mg PO DAILY 01/31/23 Unknown History Saccharomyces boulardii 1 cap PO DAILY 03/24/23 Unknown History alfuzosin 10 mg tablet,extended 10 mg PO DAILY 03/24/23 Unknown History release 24 hr alprazolam 0.25 mg tablet 0.5 mg PO BID anxiety 03/24/23 Unknown History cyclosporine 0.05 % eye drops in a 1 drp ophthalmic (eye) Q12H 04/12/23 Unknown History dropperette (Restasis) metoprolol succinate 25 mg 25 mg PO QHS #90 tabs 04/17/23 Unknown Rx tablet,extended release 24 hr ezetimibe 10 mg tablet (Zetia) 10 mg PO DAILY #90 tabs 08/20/23 Unknown Rx flecainide 50 mg tablet 100 mg PO Q12H 09/19/23 Unknown History Allergy/AdvReac Type Severity Reaction Status Date / Time animal dander Allergy sneezy Verified 09/19/23 06:42 grass pollen Allergy sneeay Verified 09/19/23 06:42 grass pollen-perennial rye, Allergy sneezy Verified 09/19/23 06:42 standar house dust Allergy sneezy Verified 09/19/23 06:42 levofloxacin (From Levaquin) Allergy joint pain Verified 09/19/23 06:42 dabigatran etexilate (From AdvReac Unknown stomach Verified 09/19/23 06:42 Pradaxa) cramps ciprofloxacin (From Cipro) AdvReac UNSURE Verified 09/19/23 06:42 gabapentin (From Neurontin) AdvReac feel like Verified 09/19/23 06:42 losing my mind NSAIDS (Non-Steroidal AdvReac infected Verified 09/19/23 06:42 Anti-Inflamma creatin level with kidney Family History Mother Hypertension CAD (coronary artery disease) Father Hypertension Atrial fibrillation Presence of permanent cardiac pacemaker CVA (cerebral vascular accident) Surgical History History of cardiac catheterization History of cardiac radiofrequency ablation Hx of cystoscopy History of left knee replacement (~04/2021) History of left hip replacement (~03/2021) History of umbilical hernia repair (~04/2018) History of cataract surgery History of detached retina repair History of hemorrhoidectomy History of arthroscopy of knee Status post laser ablation of incompetent vein H/O sinus surgery H/O shoulder surgery vein H/O hemorrhoidectomy right shoulder Social History household members: spouse Smoking Status: Former smoker Smokeless tobacco user: snuff how long ago did patient quit smoking: Patient quit cigarette tobacco use 1980, smoked age [age], 1 ppd-->Snuff. alcohol intake: current alcohol intake frequency: a few times a week Alcohol type: beer substance use type: does not use caffeine: No Physical Exam Const alert and oriented x3 HEENT normocephalic Eyes no scleral icterus Chest inspection of chest normal Resp normal respiratory effort Cardio regular rate Extremity no pedal edema Skin no rashes or lesions noted Psych mental status grossly normal Risk Stratification Risk Stratification Applicable: No Charges/Coding Visit Charges Inpatient E&M: 51399 Init Hosp L2 Objective Data Vital Signs: Vital Signs Temp Pulse Resp BP Pulse Ox O2 Del Method 97.5 F L 57 L 12 121/62 H 97 Room Air 09/19/23 12:54 09/19/23 12:54 09/19/23 12:54 09/19/23 12:54 09/19/23 12:54 09/19/23 11:00 Oxygen Delivery Method Room Air Weight: 247 lb 1.6 oz Body Mass Index (BMI) 35.4 Intake & Output: Intake and Output for Last 24 Hours 09/17/23 09/18/23 09/19/23 23:59 23:59 23:59 Intake Total 0 / 0 Balance 0 / 0 Lab / Micro Data 09/19/23 06:40 09/19/23 06:40 Labs: Laboratory Results - last 24 hr 09/19/23 06:40: WBC 5.7, RBC 4.54 L, Hgb 14.1, Hct 42.7, MCV 94.1 H, MCH 31.1, MCHC 33.0, RDW Std Deviation 43.5, RDW Coeff of Alesha 12.7, Plt Count 132 L, MPV 10.2, Immature Gran % (Auto) 0.400, Neut % (Auto) 61.3, Lymph % (Auto) 28.4, Nuckolls % (Auto) 7.9, Eos % (Auto) 1.6, Baso % (Auto) 0.4, Absolute Neuts (auto) 3.5, Absolute Lymphs (auto) 1.61, Nucleated RBC % 0, Sodium 141, Potassium 4.1, Chloride 107, Carbon Dioxide 27.0, Anion Gap 7, BUN 33 H, Creatinine 1.44 H, Estim Creat Clear Calc 56.42, Est GFR (MDRD) Af Amer 62, Est GFR (MDRD) Non-Af 51 L, BUN/Creatinine Ratio 22.9 H, Glucose 102, Calcium 9.4, Troponin I High Sens 8 09/19/23 09:28: Troponin I High Sens 7 Cardiology Labs/Tests 09/19/23 06:40: WBC 5.7, RBC 4.54 L, Hgb 14.1, Hct 42.7, MCV 94.1 H, MCH 31.1, MCHC 33.0, Plt Count 132 L, MPV 10.2, Immature Gran % (Auto) 0.400, Neut % (Auto) 61.3, Lymph % (Auto) 28.4, [place]uckolls % (Auto) 7.9, Eos % (Auto) 1.6, Baso % (Auto) 0.4, Absolute Neuts (auto) 3.5, Nucleated RBC % 0, Sodium 141, Potassium 4.1, Chloride 107, Carbon Dioxide 27.0, Anion Gap 7, BUN 33 H, Creatinine 1.44 H , Est GFR (MDRD) Af Amer 62, Est GFR (MDRD) Non-Af 51 L, BUN/Creatinine Ratio 22.9 H, Glucose 102, Calcium 9.4 Rhythm: EKG: ECHO: Stress Test: Cardiac Cath: PCI: CT Surgery: Holter monitor: EPS: PPM: CXR: Chest CT Scan: Radiography Diagnostic Testing: Radiology Impression Chest X-Ray 09/19/23 07:08 IMPRESSION: No acute abnormality is seen. Electronically Signed: Bala Gusman MD at 8:11 EDT ,
== END 2023-09-19 15:40 | disposition home or self-care (01) ==
LOC: ED 12:38 → CLSP 12:43
PROVIDERS: Emergency Provider Student in an Organized Health Care Education/Training Program; PCP Family Medicine; Visit Provider Specialist
DX: I25.110 Atherosclerotic heart disease of native coronary artery with unstable angina pectoris (principal); I48.0 Paroxysmal atrial fibrillation; R07.9 Chest pain, unspecified; E78.00 Pure hypercholesterolemia, unspecified; Z87.891 Personal history of nicotine dependence; I10 Essential (primary) hypertension; I44.0 Atrioventricular block, first degree; K21.9 Gastro-esophageal reflux disease without esophagitis
CPT/HCPCS: 71045; 80048; 84484; 85025; 93005; 93454; 93571; 99152; 99153; 99285; J7040; Q9967; A4216; C1769; C1887; C1894

== ENCOUNTER → 2023-12-16 | Outpatient (CLI) | payer MEDICARE, SELFPAY ==
[2022-03-01 11:31] VITALS: BMI 33.3
[2023-12-16 18:17] LABS: PSA,Total- Diagnostic 0.28 ng/mL (0.0-4.0)
== END | disposition home or self-care (01) ==
PROVIDERS: Radiology Radiation Oncology; PCP Family Medicine; Referring Provider Urology; Visit Provider Urology
DX: C61 Malignant neoplasm of prostate (principal)
CPT/HCPCS: 36415; 84153

== ENCOUNTER → 2024-01-10 | Outpatient (CLI) | payer MEDICARE, SELFPAY ==
[2023-12-23 11:21] VITALS: BMI 33.3
== END | disposition home or self-care (01) ==
LOC: PSN 11:49
PROVIDERS: PCP Family Medicine; Referring Provider Physician Assistant Medical; Visit Provider Physician Assistant Medical
DX: M54.2 Cervicalgia (principal); R53.83 Other fatigue; R42 Dizziness and giddiness
CPT/HCPCS: 93225; 93226

== ENCOUNTER → 2024-01-13 | Outpatient (CLI) | payer MEDICARE, SELFPAY ==
[2023-12-23 11:21] VITALS: BMI 33.3
--- NOTE | 2024-01-13 10:53 | CDU_ITS ---
Reason For Study: Dizziness Rt. Velocities/BP Lt. Velocities/BP Prox CCA 94.8/16.3 cm/sec. Prox CCA 104.7/21.2 cm/sec. Mid CCA 97.6/18.2 cm/sec. Mid CCA 108/25.6 cm/sec. Dist CCA 87.2/19.2 cm/sec. Dist CCA 96/16.8 cm/sec. Prox ICA 85.1/12.6 cm/sec. Prox ICA 64.1/17.9 cm/sec. Mid ICA 80.2/21.2 cm/sec. Mid ICA 64.1/17.9 cm/sec. Dist ICA 87.6/23.7 cm/sec. Dist ICA 70.7/21.2 cm/sec. Rt. ICA/CCA = 0.90. Lt. ICA/CCA = 0.65. Prox ECA 108.4/7.7 cm/sec. Prox ECA 93.8/14.6 cm/sec. Rt. Vert. 47.5/8.8 cm/sec. Lt. Vert. 35.2/8.1 cm/sec. Right Extracranial There is intimal thickening but no significant atherosclerotic plaque noted in the right common carotid artery. There is heterogeneous, irregular atherosclerotic plaque noted in the right internal carotid artery. There is intimal thickening but no significant atherosclerotic plaque noted in the right external carotid artery. Antegrade flow is noted in the right vertebral artery. Left Extracranial There is intimal thickening but no significant atherosclerotic plaque noted in the left common carotid artery. There is heterogeneous, irregular atherosclerotic plaque noted in the left internal carotid artery. There is intimal thickening but no significant atherosclerotic plaque noted in the left external carotid artery. Antegrade flow is noted in the left vertebral artery. Procedure Carotid Duplex 10870. This is a Carotid Duplex examination using B-mode, color flow and specral Doppler. Exam performed in department. VL/Carotid Duplex Ultrasound Interpretation Summary Mild (<50%) stenosis right extracranial internal carotid. Mild (<50%) stenosis left extracranial internal carotid. Patent and antegrade vertebrals bilaterally. Ordering Physician: Raeann Paredes Referring Physician: Steven Retana Performed By: Jamia Mello RVT
== END | disposition home or self-care (01) ==
LOC: CVS 10:52
PROVIDERS: PCP Family Medicine; Referring Provider Physician Assistant Medical; Visit Provider Physician Assistant Medical
DX: R42 Dizziness and giddiness (principal); M54.2 Cervicalgia; R53.83 Other fatigue
CPT/HCPCS: 93880

== ENCOUNTER 2024-01-30 14:54 | Emergency (ER) | payer MEDICARE, SELFPAY ==
[2023-12-23 11:21] VITALS: BMI 33.3
[2024-01-30 14:55] VITALS: BP 140/67; PULSE 69; RESP 15; TEMP 36.1; O2SAT 99; BMI 35.4
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
--- NOTE | 2024-01-30 15:56 | CT_ITS ---
STUDY: CT CERVICAL SPINE WITHOUT CONTRAST REASON FOR EXAM: Male, 73 years old. Injury/Pain RADIATION DOSAGE (If Supplied By Facility): CTDIvol = ( 31.05 ) mGy, DLP = ( 758.14 ) mGycm TECHNIQUE: High resolution transaxial imaging was performed without contrast material. Sagittal and coronal images were reconstructed. Individualized dose optimization techniques were used for this CT. COMPARISON: February 01, 2022 FINDINGS: Normal craniovertebral junction. Normal anterior atlantoaxial articulation. Normal odontoid process. Straightening of normal lordotic curvature possibly due to positioning artifact. Normal vertebral bodies and posterior osseous elements. C2-3: Mild anterior endplate spurring. Normal disc height and morphology. Normal central canal and intervertebral neuroforamina. C3-4: Narrowed disc space and endplate spurring.. Normal central canal. Severe bilateral neural foraminal stenosis secondary to bony hypertrophy worse on the left C4-5: Narrowed disc space and endplate spurring. Mild narrowing of the central canal. Severe bilateral neural foraminal stenosis secondary to bony hypertrophy. C5-6: Narrowed disc space and endplate spurring normal central canal. Severe bilateral neural foraminal stenosis secondary to bony hypertrophy. C6-7: Mild anterior endplate spurring. Narrowed disc space and normal disc morphology. Normal central canal and intervertebral neuroforamina. C7-T1: Normal endplates. Normal disc height and morphology. Normal central canal and intervertebral neuroforamina. Normal visualized soft tissue structures. CT/Spine Cervical without Contras IMPRESSION: Advanced spondylosis and multilevel spinal stenosis secondary to bony hypertrophy No acute fracture or other significant abnormality Electronically Signed: Daniel Telles MD at 16:20 EDT Reading Location ID and State: [facility] / [place] Tel , Service support ,
--- NOTE | 2024-01-30 15:56 | CT_ITS ---
STUDY: CT BRAIN WITHOUT CONTRAST REASON FOR EXAM: Male, 73 years old. Injury/Pain RADIATION DOSAGE (If Supplied By Facility): CTDIvol = ( 44.99 ) mGy, DLP = ( 849.54 ) mGycm TECHNIQUE: Transaxial CT imaging of the brain was performed without administration of intravenous contrast material. Individualized dose optimization techniques were used for this CT. COMPARISON: March 06, 2022 FINDINGS: Normal soft tissue structures. Normal calvarium. Mild calcific plaquing of the cavernous carotids Mild atrophy and periventricular white matter ischemic change . Normal basal ganglia and thalami. Normal brainstem. Normal cerebellum. There is no intracranial hemorrhage. There are no findings of an acute ischemic infarction. Small mucous retention cyst in right maxillary sinus. Postsurgical changes of the orbits CT/Brain/Head without Contrast IMPRESSION: Mild atrophy and periventricular white matter ischemic change. No acute intra-cranial hemorrhage. Electronically Signed: Daniel Telles MD at 16:17 EDT ,
--- NOTE | 2024-01-30 16:07 | RAD_ITS ---
STUDY: X-RAY - THORACIC SPINE REASON FOR EXAM: Male, 73 years old. Injury/Pain TECHNIQUE: 3 view(s) of the thoracic spine were obtained. COMPARISON: None. FINDINGS: Normal kyphosis of the thoracic spine. There is no substantial scoliosis. Diffuse arthritic changes are noted. Normal disc space heights. The soft tissue structures are unremarkable. RAD/Thoracic Spine 3 Views IMPRESSION: Diffuse arthritic changes. No evidence for acute fracture or subluxation Electronically Signed: Daniel Telles MD at 16:33 EDT ,
--- NOTE | 2024-01-30 16:07 | RAD_ITS ---
STUDY: X-RAY - LUMBAR SPINE REASON FOR EXAM: Male, 73 years old. Injury/Pain TECHNIQUE: 3 view(s) of the lumbar spine were obtained. COMPARISON: None FINDINGS: Normal lumbar lordosis. There is no substantial scoliosis. Grade 1 spondylolisthesis L4-5 Multilevel disc space narrowing and endplate spurring as well as facet arthropathy. No acute fracture or subluxation. No lytic destructive changes . The soft tissue structures are unremarkable. RAD/Lumbar Spine 2 or 3 Views IMPRESSION: Moderate to severe spondylosis. No acute fracture or subluxation Electronically Signed: Daniel Telles MD at 16:35 EDT ,
[2024-01-30 17:18] VITALS: BP 151/72; PULSE 53; RESP 16; TEMP 36.6; O2SAT 97
== END 2024-01-30 17:19 | disposition home or self-care (01) ==
PROVIDERS: Emergency Provider Emergency Medicine; PCP Family Medicine; Visit Provider Emergency Medicine
DX: S39.012A Strain of muscle, fascia and tendon of lower back, initial encounter (principal); I48.0 Paroxysmal atrial fibrillation; S16.1XXA Strain of muscle, fascia and tendon at neck level, initial encounter; S29.012A Strain of muscle and tendon of back wall of thorax, initial encounter; V43.52XA Car driver injured in collision with other type car in traffic accident, initial encounter; R42 Dizziness and giddiness; E78.00 Pure hypercholesterolemia, unspecified; I10 Essential (primary) hypertension; I25.10 Atherosclerotic heart disease of native coronary artery without angina pectoris; Z79.82 Long term (current) use of aspirin; Z79.899 Other long term (current) drug therapy; Z87.891 Personal history of nicotine dependence
CPT/HCPCS: 70450; 72072; 72100; 72125; 99282

== ENCOUNTER → 2024-06-15 | Outpatient (CLI) | payer MEDICARE, SELFPAY ==
[2023-12-23 11:21] VITALS: BMI 33.3
[2024-06-15 16:16] LABS: PSA,Total- Diagnostic 0.28 ng/mL (0.00-4.00)
== END | disposition home or self-care (01) ==
LOC: MTLAB 13:34
PROVIDERS: PCP Family Medicine; Referring Provider Nurse Practitioner; Visit Provider Nurse Practitioner
DX: C61 Malignant neoplasm of prostate (principal)
CPT/HCPCS: 36415; 84153

== ENCOUNTER → 2024-08-13 | Outpatient (CLI) | payer MEDICARE, SELFPAY ==
[2023-12-23 11:21] VITALS: BMI 33.3
[2024-08-13 15:35] LABS: ALB/GLOB Ratio 1.5 RATIO (0.9-2.4); AST(SGOT) 20 U/L (<=37); Alanine Aminotransfer ALT/SGPT 16 U/L (<=46); Albumin, Serum 4.2 g/dL (3.4-4.8); Alkaline Phosphatase 88 U/L (40-129); Anion Gap 10 (5-15); BUN 28 mg/dL (4-19); Calcium,Total 9.3 mg/dL (7.6-11.0); Carbon Dioxide 21.1 mmol/L (21.0-32.0); Chloride 107 mmol/L (98-108); Creatinine, Serum 1.56 mg/dL (0.70-1.20); EST Glomerular Filtration Rate 46 (>60); Globulin 2.9 g/dL (2.2-4.2); Glucose 107 mg/dL (70-99); Potassium 4.9 mmol/L (3.3-5.1); Sodium Level 138 mmol/L (133-145); Total Bilirubin 0.41 mg/dL (0.00-1.30)
== END | disposition home or self-care (01) ==
LOC: MTLAB 13:08
PROVIDERS: PCP Family Medicine; Referring Provider Internal Medicine Cardiovascular Disease; Visit Provider Internal Medicine Cardiovascular Disease
DX: I48.0 Paroxysmal atrial fibrillation (principal); Z79.899 Other long term (current) drug therapy
CPT/HCPCS: 36415; 80053

== ENCOUNTER 2024-10-04 17:23 | Inpatient (IN) | payer MEDICARE, SELFPAY ==
[2023-12-23 11:21] VITALS: BMI 33.3
[2024-10-04 17:24] VITALS: BP 158/78; PULSE 62; RESP 18; TEMP 36.9; O2SAT 98; BMI 35.6
[2024-10-04 17:49] LABS: Hematocrit 42.3 % (40-54); Hemoglobin 14.3 g/dL (13.0-16.5); Immature Granulocytes Count 0.040 X10^3/uL (0.0-0.0); Mean Corp Hgb Conc 33.8 g/dL (32-36); Mean Corpuscular Volume 92.8 fL (80-94); Mean Platelet Vol. 9.7 fl (6.2-12.0); NRBC Flagged by Analyzer 0 % (0-5); Platelet Count 161 K/mm3 (150-450); RBC Distribution Width CV 13.1 % (11.6-14.6); RBC Distribution Width SD 44.3 fl (35.1-43.9); Red Blood Count 4.56 M/mm3 (4.6-6.2); White Blood Count 9.2 K/mm3 (4.4-11.0)
[2024-10-04] MEDS: 0.9% Normal Saline (1000mL) 1,000 ML 999 ML IV (17:59)
[2024-10-04 18:29] LABS: AST(SGOT) 20 U/L (<=37); Alanine Aminotransfer ALT/SGPT 15 U/L (<=46); Albumin, Serum 4.2 g/dL (3.4-4.8); Alkaline Phosphatase 91 U/L (40-129); Amylase 194 U/L (28-100); Anion Gap 10 (5-15); BUN 30 mg/dL (4-19); BUN/Creat Ratio 16.3 RATIO (10-20); Calcium,Total 9.3 mg/dL (7.6-11.0); Carbon Dioxide 26.4 mmol/L (21.0-32.0); Chloride 104 mmol/L (98-108); Estimated Creatinine Clearance 42.25 ml/min (50-250); Globulin 2.9 g/dL (2.2-4.2); Glucose 109 mg/dL (70-99); Lipase 26 U/L (13-75); Potassium 4.3 mmol/L (3.3-5.1)
[2024-10-04 19:38] VITALS: BP 161/68; PULSE 55; RESP 18; TEMP 36.6; O2SAT 99
[2024-10-04 20:30] VITALS: BMI 35.6
[2024-10-04 20:36] VITALS: BP 160/62; PULSE 52; RESP 18; TEMP 37; O2SAT 99
[2024-10-04] MEDS: Pantoprazole Sodium 40 MG in 0.9% Normal Saline (100mL MB+) 100 ML 330 MG IV (21:20)
[2024-10-04] MEDS: 0.9% Normal Saline (1000mL) 1,000 ML 150 ML IV (21:20)
[2024-10-04] MEDS: Fluticasone 0.05% 1 SPRAY NASAL.SRY NASAL (21:22)
[2024-10-04 21:43] LABS: Magnesium 1.7 mg/dL (1.5-2.2)
[2024-10-05 01:04] LABS: Mucous, Urine 0 SEEN /hpf (<or=2+); Red Blood Cells-Urine 0 SEEN /hpf (0-5); Squamous Epithelial Cells - UA 0 SEEN /hpf (0-5)
[2024-10-05 01:13] LABS: Color, Urine Yellow (Yellow); Glucose, Dipstick Normal (Normal); Ketone-Dipstick Negative (Negative); Leukocyte Esterase-Dipstick Negative /ul (Negative); Nitrite-Dipstick Negative (Negative); Occult Blood-Urine 10 /ul (Negative); Protein-Dipstick 30 mg/dl (Negative); Specific Gravity, Urine 1.010 (1.002-1.030); Urine Bilirubin Dipstick Negative (Negative)
[2024-10-05] MEDS: Pantoprazole Sodium 40 MG in 0.9% Normal Saline (100mL MB+) 100 ML 300 MG IV (01:44)
[2024-10-05 02:40] VITALS: BP 158/74; PULSE 63; RESP 18; TEMP 36.3; O2SAT 96
[2024-10-05 03:11] VITALS: BMI 35.6
[2024-10-05] MEDS: 0.9% Normal Saline (1000mL) 1,000 ML 150 ML IV (04:09)
[2024-10-05 06:30] LABS: Hematocrit 39.3 % (40-54); Hemoglobin 13.3 g/dL (13.0-16.5); Immature Granulocytes Count 0.030 X10^3/uL (0.0-0.0); Mean Corp Hgb Conc 33.8 g/dL (32-36); Mean Corpuscular Volume 94.2 fL (80-94); Mean Platelet Vol. 9.6 fl (6.2-12.0); NRBC Flagged by Analyzer 0 % (0-5); Platelet Count 140 K/mm3 (150-450); RBC Distribution Width CV 13.2 % (11.6-14.6); RBC Distribution Width SD 45.1 fl (35.1-43.9); Red Blood Count 4.17 M/mm3 (4.6-6.2); White Blood Count 7.0 K/mm3 (4.4-11.0)
[2024-10-05 06:59] LABS: AST(SGOT) 20 U/L (<=37); Alanine Aminotransfer ALT/SGPT 12 U/L (<=46); Albumin, Serum 3.6 g/dL (3.4-4.8); Alkaline Phosphatase 79 U/L (40-129); Anion Gap 9 (5-15); BUN 26 mg/dL (4-19); BUN/Creat Ratio 16.5 RATIO (10-20); Calcium,Total 8.4 mg/dL (7.6-11.0); Carbon Dioxide 23.3 mmol/L (21.0-32.0); Chloride 108 mmol/L (98-108); Estimated Creatinine Clearance 50.37 ml/min (50-250); Globulin 2.4 g/dL (2.2-4.2); Glucose 93 mg/dL (70-99); Potassium 4.1 mmol/L (3.3-5.1)
[2024-10-05 08:00] VITALS: BP 134/74; PULSE 51; RESP 14; TEMP 36.6; O2SAT 98
[2024-10-05] MEDS: Fluticasone 0.05% 1 SPRAY NASAL.SRY NASAL (08:55)
[2024-10-05] MEDS: Pantoprazole Sodium 40 MG in 0.9% Normal Saline (100mL MB+) 100 ML 330 MG IV (08:59)
[2024-10-05] MEDS: 0.9% Saline Lock 10 ML Syringe IV ×2 (11:25→12:38)
[2024-10-05] MEDS: Lorazepam 2 MG/ML WCH Syringe 0.5 MG IV (12:38)
[2024-10-05 14:00] VITALS: BP 157/73; PULSE 100; RESP 15; TEMP 36.4; O2SAT 98
== END 2024-10-05 15:34 | disposition home or self-care (01) | DRG 390 ==
LOC: ED 19:16 → PCU 20:08
PROVIDERS: Admitting Provider Internal Medicine; Emergency Provider Emergency Medicine; PCP Family Medicine; Visit Provider Internal Medicine
DX: K56.0 Paralytic ileus (principal); E66.9 Obesity, unspecified; I48.0 Paroxysmal atrial fibrillation; E78.00 Pure hypercholesterolemia, unspecified; E86.0 Dehydration; N18.32 Chronic kidney disease, stage 3b; I12.9 Hypertensive chronic kidney disease with stage 1 through stage 4 chronic kidney disease, or unspecified chronic kidney disease; G43.909 Migraine, unspecified, not intractable, without status migrainosus; I25.10 Atherosclerotic heart disease of native coronary artery without angina pectoris; K21.9 Gastro-esophageal reflux disease without esophagitis; Z68.35 Body mass index [BMI] 35.0-35.9, adult; F41.1 Generalized anxiety disorder; Z79.82 Long term (current) use of aspirin; Z79.899 Other long term (current) drug therapy; Z87.891 Personal history of nicotine dependence
CPT/HCPCS: 36415; 74177; 74250; 80053; 81001; 82150; 83605; 83690; 83735; 84100; 84443; 85025; 94668; 99284; Q9967; A4216; J2405

== ENCOUNTER → 2024-10-05 | Outpatient (CLI) | payer MEDICARE, SELFPAY ==
[2023-12-23 11:21] VITALS: BMI 33.3
== END | disposition home or self-care (01) ==
LOC: CT 15:49
PROVIDERS: PCP Family Medicine; Referring Provider Otolaryngology; Visit Provider Otolaryngology
DX: G50.1 Atypical facial pain (principal); J32.9 Chronic sinusitis, unspecified
CPT/HCPCS: 70486

== ENCOUNTER 2024-11-10 12:40 | Emergency (ER) | payer MEDICARE, SELFPAY ==
[2023-12-23 11:21] VITALS: BMI 33.3
[2024-11-10 12:41] VITALS: BP 143/65; PULSE 54; RESP 18; TEMP 36.8; O2SAT 97; BMI 35.9
--- NOTE | 2024-11-10 12:56 | EDS_ITS ---
HPI History of Present Illness Chief Complaint: Wound Detail of Chief Complaint: Wound medial mid right leg due to unknown object Informant: patient Occured/Mechanism Mechanism/Context: Yes blunt trauma Onset/Context/Timing Onset: Days (6 to 7 days ago) Context: Sudden Onset Timing: - (Has a wound that has not gotten better) Quality of Pain: Dull Location: Leg and foot with movement Current Severity: Mild Maximum Severity: Moderate Worsened by: Walking Relieved by: Breast Associated Symptoms Associated Symptoms: Negative for Parasthesia, Weakness or Loss of Funtion Narrative Narrative: Patient is a 74-year-old male. He hired someone to weed whack part of his land. He was pointing out areas when something struck his medial leg. He has a wound. He states there was not much bleeding. He is been caring for it and applying bacitracin ointment on it. He is concerned that he may have a foreign body because he still having pain and it has not gotten much better. He is also concerned about the redness. He states he has swelling at the arch of his foot. He is not on any immunosuppressive meds. He is on a baby aspirin a day. Prior similar symptoms: No Recent Illness/Hospitalization: No PFSH PFSH Medical History Essential hypertension Obesity (BMI 30-39.9) History of atrial fibrillation History of renal insufficiency Partial small bowel obstruction Abdominal pain Acute diffuse otitis externa of right ear Tinnitus Wears contact lenses Depression Alcohol use History of renal disease Restless legs Back pain Head ache Injury of head and neck Slow gastric motility History of hiatal hernia History of pain when walking History of edema Cardiology follow-up encounter History of stress test History of echocardiogram History of essential hypertension Hx of hypercholesterolemia Cellulitis of left lower extremity History of prostate cancer Cancer Anxiety Former smoker BiPAP (biphasic positive airway pressure) dependence Atrial fibrillation bilaterl vein ablation ble repair right achilles tendon Knee pain Fatigue Hemorrhoids Essential hypertension Umbilical hernia without obstruction and without gangrene Abdominal pain Premature ventricular contraction Premature atrial contractions Degenerative disc disease, lumbar Lumbar radiculopathy, right Segmental and somatic dysfunction of thoracic region Segmental and somatic dysfunction of lumbar region Segmental and somatic dysfunction of cervical region Atherosclerotic heart disease of [place] coronary artery without angina pectoris Long-term use of high-risk medication Paroxysmal atrial fibrillation Costochondritis Hypertension Hyperlipidemia GERD (gastroesophageal reflux disease) Arthritis Home Medications ?Medication ?Instructions ?Recorded ?Last Taken ?Type fluticasone propionate 50 1 spray NASAL BID ALLERGIES 05/18/13 04/04/22 History mcg/actuation nasal spray,suspension multivitamin with folic acid 400 1 tab PO DAILY SUPPLE MENT 05/18/13 07/23/21 History mcg tablet lansoprazole 30 mg capsule,delayed 30 mg PO QDAY GERD 06/10/17 04/04/22 07:30 History release cholecalciferol (vitamin D3) 25 1,000 unit PO DAILY 04/04/22 History mcg (1,000 unit) capsule loratadine 10 mg tablet (Claritin) 10 mg PO QDAY PRN A llergies 08/05/19 07/23/21 History sildenafil 100 mg tablet 50 mg PO ONCE PRN DOESN'T KN OW 01/22/22 Unknown History aspirin 81 mg chewable tablet 81 mg PO DAILY 01/31/23 Unknown History alfuzosin 10 mg tablet,extended 10 mg PO DAILY 3 Unknown History release 24 hr cyclosporine 0.05 % eye drops in a 1 drp ophthalmic (e ye) Q12H 04/12/23 Unknown History dropperette (Restasis) alprazolam 0.5 mg tablet 0.5 mg PO BID 02/18/24 Unkno wn History lvhfszzgre-jqlqyljuumxoc-lkyhtnyi 1 cap PO TID PRN delilah n 02/18/24 Unknown History 50 mg-300 mg-40 mg capsule nitroglycerin 0.4 mg sublingual 0.4 mg sublingual Q5-1 5M PRN chest 04/16/24 Unknown Rx tablet (Nitrostat) pain #25 tabs flecainide 100 mg tablet 100 mg PO Q12H Pt will run o ut 06/22/24 Unknown Rx before mail order arrives #60 tabs losartan 25 mg tablet 25 mg PO DAILY #90 tabs 05/31 07/24 Unknown Rx ezetimibe 10 mg tablet (Zetia) 10 mg PO DAILY #90 tabs 07/16/24 Unknown Rx metoprolol succinate 25 mg 25 mg PO QHS #90 tabs 09/14 Unknown Rx tablet,extended release 24 hr Allergy/AdvReac Type Severity Reaction Status Date / Time animal dander Allergy sneezy Verified 11/10/24 12:43 grass pollen Allergy sneeay Verified 11/10/24 12:43 grass pollen-perennial rye, Allergy sneezy Verified 11/10/24 12:43 standar house dust Allergy sneezy Verified 11/10/24 12:43 levofloxacin (From Levaquin) Allergy joint pain Verified 11/10/24 12:43 dabigatran etexilate (From AdvReac Unknown stomach Verified 11/10/24 12:43 Pradaxa) cramps ciprofloxacin (From Cipro) AdvReac UNSURE Verified 11/10/24 12:43 gabapentin (From Neurontin) AdvReac feel like Verified 11/10/24 12:43 losing my mind NSAIDS (Non-Steroidal AdvReac infected Verified 11/10/24 12:43 Anti-Inflamma creatin level with kidney Family History Mother Hypertension CAD (coronary artery disease) Father Hypertension Atrial fibrillation Presence of permanent cardiac pacemaker CVA (cerebral vascular accident) Surgical History History of umbilical hernia repair History of cardiac catheterization History of cardiac radiofrequency ablation Hx of cystoscopy History of left knee replacement (~04/2021) History of left hip replacement (~03/2021) History of umbilical hernia repair (~04/2018) History of cataract surgery History of detached retina repair History of hemorrhoidectomy History of arthroscopy of knee Status post laser ablation of incompetent vein H/O sinus surgery H/O shoulder surgery vein H/O hemorrhoidectomy right shoulder Social History household members: spouse Smoking Status: Former smoker Smokeless tobacco user: snuff how long ago did patient quit smoking: Patient quit cigarette tobacco use 1980, smoked age [age], 1 ppd-->Snuff. alcohol intake: current alcohol intake frequency: a few times a week Alcohol type: beer substance use type: does not use caffeine: No ROS ROS ED Constitutional Constitutional ED: Denies chills, fever(s), subjective, sweats or weight loss Integumentary Reports other Details: Small wound size of a BB medial right leg with no erythema, induration, lymphangitis Neurologic Neurologic: Denies paresthesias or weakness Hematologic/Lymphatic Hematologic/Lymphatic: Denies easy bleeding or easy bruising EXAM Physical Exam Const Vital Signs: 11/10/24 12:41 Temperature 98.2 F Temperature Source Oral Pulse Rate 54 L Respiratory Rate 18 Blood Pressure 143/65 H Blood Pressure Mean 91 Pulse Ox 97 Oxygen Delivery Method Room Air Positive well nourished and well developed General Appearance ED: well developed and NAD HEENT normocephalic and atraumatic Resp normal respiratory effort Cardio regular rate Extremity Negative for normal to inspection Extremity Narrative: Patient has a wound size of a BB medial right leg. There is no erythema, warmth, induration, lymphangitis or popliteal lymphadenopathy. There is no fluctuance. I do not appreciate any swelling of the foot. Palpation of the area or did not elicit any obvious pain. There is no palpable mass body. Neuro No oriented x3 and CN's II-XII intact bilaterally Sensorium / Orientation: alert Psych mental status grossly normal Skin Skin Narrative: Described under the extremity portion of the physical exam MDM MDM MDM Narrative Medical decision making narrative: Will obtain x-ray determine if there is a foreign body. If there is we will discuss risk benefits of retrieving it versus leaving it alone. His concern is that he has prosthetic knees. Radiography Chest X-Ray - ED: 2 View (There is no evidence of foreign body or subcutaneous air. Patient has evidence of a total right knee arthroplasty. There is no acute abnormality noted.) and Read by ED Physician Diagnostic Testing: Clinical Impression(s) from Imaging Studies Tibia/Fibula X-Ray 11/10/24 13:00 IMPRESSION: No acute abnormality Reading Location: [facility] Discharge Plan Triage Chief Complaint: Wound ED Provider: Grey Christensen Dx/Rx/DC Orders Clinical Impression: Leg wound, right, Rosacea, Essential hypertension, Hyperlipidemia Instructions: Wound Care Prescriptions: No Action loratadine [Claritin] 10 mg tablet 10 mg PO QDAY PRN (Reason: Allergies) cholecalciferol (vitamin D3) 1,000 unit capsule 1,000 unit PO DAILY sildenafil 100 mg tablet 50 mg PO ONCE PRN (Reason: DOESN'T KNOW) Patient Comments: TAKE 1 TABLET 1 HOUR PRIOR TO INTERCOURSE aspirin 81 mg tablet,chewable 81 mg PO DAILY cyclosporine [Restasis] 0.05 % dropperette 1 drp ophthalmic (eye) Q12H alprazolam 0.5 mg tablet 0.5 mg PO BID dyfilvmlac-ivvysqhdupwgc-qohi 50-300-40 mg capsule 1 cap PO TID PRN (Reason: pain) fluticasone propionate 1 SPRAY spray,suspension 1 spray NASAL BID multivitamin with folic acid 1 TABLET tablet 1 tab PO DAILY lansoprazole 30 MG capsule 30 mg PO QDAY alfuzosin 10 mg tablet extended release 24 hr 10 mg PO DAILY nitroglycerin [Nitrostat] 0.4 mg tablet, sublingual 0.4 mg sublingual Q5-15M PRN (Reason: chest pain) Qty: 25 3RF Rx Instructions: do not exceed 3 doses per episode flecainide 100 mg tablet 100 mg PO Q12H Qty: 60 0RF losartan 25 mg tablet 25 mg PO DAILY Qty: 90 3RF ezetimibe [Zetia] 10 mg tablet 10 mg PO DAILY Qty: 90 3RF metoprolol succinate 25 mg tablet extended release 24 hr 25 mg PO QHS Qty: 90 3RF Primary Care Provider: Steven Retana Referrals: Steven Retana MD [Primary Care Provider] - As Needed Print Language: Somali Disposition Disposition: Home, Self Care
--- NOTE | 2024-11-10 13:00 | RAD_ITS ---
PROCEDURE: TIBIA FIBULA 2 VIEWS 11/10/2024 REASON FOR EXAM: INJURY/PAIN TECHNIQUE: 2 views of the right tibia and fibula COMPARISON: None FINDINGS: Bones: Small tracts are seen in the mid tibial diaphysis likely the sequelae of old intervention. This has a benign appearance. Joints: Total knee replacement is present and appears uncomplicated. Alignment is anatomic Soft tissues: Unremarkable Other: Calcaneal spur and calcaneal enthesophyte are present. RAD/Tibia & Fibula 2 Views IMPRESSION: No acute abnormality Reading Location: [id number]
[2024-11-10 13:37] VITALS: BP 157/63; PULSE 54; RESP 18; TEMP 36.8; O2SAT 97
== END 2024-11-10 13:39 | disposition home or self-care (01) ==
PROVIDERS: Emergency Provider Emergency Medicine; PCP Family Medicine; Visit Provider Emergency Medicine
DX: S81.801A Unspecified open wound, right lower leg, initial encounter (principal); I48.0 Paroxysmal atrial fibrillation; I10 Essential (primary) hypertension; Z79.82 Long term (current) use of aspirin; L71.9 Rosacea, unspecified; E78.5 Hyperlipidemia, unspecified; Z87.891 Personal history of nicotine dependence; I25.10 Atherosclerotic heart disease of native coronary artery without angina pectoris; Z85.46 Personal history of malignant neoplasm of prostate; K21.9 Gastro-esophageal reflux disease without esophagitis; Z79.899 Other long term (current) drug therapy; Z96.642 Presence of left artificial hip joint; W22.8XXA Striking against or struck by other objects, initial encounter; Y92.89 Other specified places as the place of occurrence of the external cause; Z96.653 Presence of artificial knee joint, bilateral
CPT/HCPCS: 73590; 99282

== ENCOUNTER → 2024-12-30 | Outpatient (CLI) | payer MEDICARE, SELFPAY ==
[2023-12-23 11:21] VITALS: BMI 33.3
[2024-12-30 13:19] LABS: Albumin, Serum 4.2 g/dL (3.4-4.8); Anion Gap 11 (5-15); BUN 27 mg/dL (4-19); BUN/Creat Ratio 18.3 RATIO (10-20); Calcium,Total 9.4 mg/dL (7.6-11.0); Carbon Dioxide 22.3 mmol/L (21.0-32.0); Chloride 105 mmol/L (98-108); Free T3 2.8 pg/mL (2.18-3.98); Glucose 116 mg/dL (70-99); Potassium 4.4 mmol/L (3.3-5.1); Vitamin D,25 Hydroxy 68.5 ng/mL (30-100)
== END | disposition home or self-care (01) ==
LOC: MTLAB 10:27
PROVIDERS: Physician Assistant Medical; PCP Family Medicine; Referring Provider Internal Medicine Nephrology; Visit Provider Internal Medicine Nephrology
DX: N18.31 Chronic kidney disease, stage 3a (principal); I48.0 Paroxysmal atrial fibrillation; M54.2 Cervicalgia; R53.83 Other fatigue; R42 Dizziness and giddiness; E55.9 Vitamin D deficiency, unspecified
CPT/HCPCS: 36415; 80069; 82306; 84439; 84443; 84481

== ENCOUNTER → 2025-03-09 | Outpatient (CLI) | payer MEDICARE, SELFPAY ==
[2023-12-23 11:21] VITALS: BMI 33.3
[2025-03-09 15:56] LABS: PSA,Total- Diagnostic 0.33 ng/mL (0.00-4.00)
== END | disposition home or self-care (01) ==
LOC: MTLAB 13:39
PROVIDERS: PCP Family Medicine; Referring Provider Urology; Visit Provider Urology
DX: R97.20 Elevated prostate specific antigen [PSA] (principal)
CPT/HCPCS: 36415; 84153

== ENCOUNTER → 2025-03-16 | Outpatient (CLI) | payer MEDICARE, SELFPAY ==
[2023-12-23 11:21] VITALS: BMI 33.3
--- NOTE | 2025-03-16 12:45 | RAD_ITS ---
PROCEDURE: FOOT MIN 3 VIEWS 03/16/2025 REASON FOR EXAM: PAIN TECHNIQUE: Procedure Code: RADFO Modality: DX Procedure: FOOT MIN 3 VIEWS Right foot three views COMPARISON: None FINDINGS: There is no fracture or dislocation identified. Benign-appearing calcaneal spurs are noted. Mineralization is normal. There is no focal soft tissue abnormality or radiopaque foreign body. RAD/Foot min 3 Views IMPRESSION: No acute fracture or dislocation is identified. Reading Location: [facility]
== END | disposition home or self-care (01) ==
LOC: MTRAD 12:45
PROVIDERS: PCP Family Medicine; Referring Provider Physician Assistant; Visit Provider Physician Assistant
DX: M79.671 Pain in right foot (principal)
CPT/HCPCS: 73630